=== PATIENT | female | born 1940 | race Caucasian/White ===

== ENCOUNTER → 2017-12-11 15:54 | Outpatient (CLI) | payer MEDICARE, MEDICAID, SELFPAY ==
[2017-12-11 17:22] LABS: Absolute Lymphocyte Count 1.82 X10^3/ul (0.83-4.51); Absolute Neutrophil Count 5.1 X10^3/uL (2.0-7.7); Basophil# 0.03 X10^3/uL; Basophil% 0.4 % (0-1); Eosinophils% 3.8 % (0-5); Hemoglobin 12.1 g/dl (12.0-15.0); Lymphocyte # 1.82 X10^3/ul (4.0); Lymphocyte % 23.2 % (19-41); Mean Corpuscular Hgb 29.7 pg (27.0-32.0); Mean Corpuscular Volume 95.6 fL (81-99); Mean Platelet Vol. 9.6 fl (6.2-12.0); Monocyte# 0.63 X10^3/uL; Neutrophil # 5.06 X10^3/uL (2.7-7.7); Neutrophil % 64.5 % (47-70); Platelet Count 295 K/mm3 (150-450); RBC Distribution Width CV 13.4 % (11.6-14.6); RBC Distribution Width SD 46.6 fl (35.1-43.9); Red Blood Count 4.08 M/mm3 (4.2-5.4); White Blood Count 7.9 K/mm3 (4.4-11.0)
[2017-12-11 17:26] LABS: POSITIVE COUNT NO; POSITIVE DIFFERENTIAL NO; POSITIVE MORPHOLOGY NO
[2017-12-11 17:55] LABS: ALB/GLOB Ratio 0.8 RATIO (0.9-2.4); AST(SGOT) 14 U/L (15-37); Alanine Aminotransfer ALT/SGPT 13 U/L (13-56); Albumin, Serum 3.6 g/dL (3.2-5.0); Alkaline Phosphatase 77 U/L (45-117); Anion Gap 8 (5-15); BUN 18 mg/dL (7-18); BUN/Creat Ratio 10.7 RATIO (10-20); Calcium,Total 8.7 mg/dL (8.5-10.1); Chloride 101 mmol/L (98-107); Creatinine, Serum 1.69 mg/dL (0.55-1.02); EST Glomerular Filtration Rate 31 mL/min (>60); Est Glom Filt Rate - Afr Amer 38 mL/min (>60); Globulin 4.5 g/dL (2.2-4.2); Glucose 83 mg/dL (74-106); Potassium 4.4 mmol/L (3.5-5.1); Protein, Total 8.1 g/dL (6.4-8.2); Sodium Level 137 mmol/L (136-145); Thyroid Stim Hormone (TSH) 3.49 uIU/mL (0.358-3.74)
== END ==
PROVIDERS: PCP Family Medicine Geriatric Medicine; Visit Provider Family Medicine Geriatric Medicine
DX: E55.9 Vitamin D deficiency, unspecified (principal); R53.83 Other fatigue
CPT/HCPCS: 36415; 80053; 82306; 84443; 85025

== ENCOUNTER 2018-02-16 16:00 | Emergency (ER) | payer MEDICARE, MEDICAID, SELFPAY ==
[2018-02-16 16:02] VITALS: BP 123/75; PULSE 105; RESP 20; TEMP 36.7; O2SAT 92; BMI 29.7
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
--- NOTE | 2018-02-16 17:26 | ED.DEP ---
ED Disposition - Plan for ED Patient: Chief Complaint: Wound Instructions: ED Contusion Hand Referrals: Mayo Duran Chi, MD [Primary Care Provider] -
[2018-02-16 17:43] VITALS: RESP 18
== END 2018-02-16 17:44 | disposition home or self-care (01) ==
LOC: ED 16:46
PROVIDERS: Emergency Provider Emergency Medicine; PCP Family Medicine Geriatric Medicine
DX: S60.031A Contusion of right middle finger without damage to nail, initial encounter (principal); S60.041A Contusion of right ring finger without damage to nail, initial encounter; W23.0XXA Caught, crushed, jammed, or pinched between moving objects, initial encounter; Y93.89 Activity, other specified; Y92.9 Unspecified place or not applicable; J44.9 Chronic obstructive pulmonary disease, unspecified; N18.9 Chronic kidney disease, unspecified
CPT/HCPCS: 73130; 99283

== ENCOUNTER 2018-02-18 17:41 | Emergency (ER) | payer MEDICARE, MEDICAID, SELFPAY ==
[2018-02-18 17:43] VITALS: BP 157/90; PULSE 91; RESP 20; TEMP 36.7; O2SAT 97; BMI 28.8
--- NOTE | 2018-02-18 17:54 | ED.RN ---
PT YELLING TO REMOVE CCOLLAR. REMOVED COLLAR ON HER OWN BEFORE ER EVALUATED.
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
--- NOTE | 2018-02-18 18:12 | ED.RN ---
AFTER DR BARBOZA LEFT THE ROOM THE PT STATES I FEEL NAUSEATED. WHAT IS HE GOING TO GIVE ME? IT ISN'T GOING TO MAKE ME GOOFY IS IT?. PT INFORMED THAT SHE MAY BE GIVEN TYLENOL, MOTRIN, OR NAPROXEN. PT STATES THAT DOESN'T WORK. DR BARBOZA NOTIFIED OF THE SAME
--- NOTE | 2018-02-18 18:33 | ED.RN ---
PT REFUSING XRAYS. DR BARBOZA IN TO SPEAK WITH THE PT. PT REQUESTING TO LEAVE AMA. PT REQUESTING STAFF CALL HER A TAXI.
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
== END 2018-02-18 18:48 | disposition left against medical advice (07) ==
PROVIDERS: Emergency Provider Emergency Medicine; Family Provider Family Medicine Geriatric Medicine; PCP Family Medicine Geriatric Medicine
DX: S50.311A Abrasion of right elbow, initial encounter (principal); S30.0XXA Contusion of lower back and pelvis, initial encounter; V86.49XA Person injured while boarding or alighting from other special all-terrain or other off-road motor vehicle, initial encounter; Y93.I9 Activity, other involving external motion; Y92.9 Unspecified place or not applicable; Y99.8 Other external cause status; E66.9 Obesity, unspecified; Z68.28 Body mass index [BMI] 28.0-28.9, adult; Z53.21 Procedure and treatment not carried out due to patient leaving prior to being seen by health care provider
CPT/HCPCS: 99283

== ENCOUNTER 2018-04-04 14:17 | Outpatient (RCR) | payer MEDICARE, MEDICAID, SELFPAY ==
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
== END 2018-04-04 19:00 | disposition home or self-care (01) ==
LOC: PT 14:17
PROVIDERS: Family Provider Family Medicine Geriatric Medicine; PCP Family Medicine Geriatric Medicine; Visit Provider Orthopaedic Surgery
DX: S42.031D Displaced fracture of lateral end of right clavicle, subsequent encounter for fracture with routine healing (principal)

== ENCOUNTER → 2018-04-30 14:50 | Outpatient (CLI) | payer MEDICARE, MEDICAID, SELFPAY | PROVIDERS: Family Provider Family Medicine Geriatric Medicine; PCP Family Medicine Geriatric Medicine; Visit Provider Family Medicine Geriatric Medicine | DX: R60.0 Localized edema (principal) | CPT/HCPCS: 93970 ==

== ENCOUNTER → 2018-06-11 14:08 | Outpatient (CLI) | payer MEDICARE, MEDICAID, SELFPAY ==
[2018-06-11 17:39] LABS: Absolute Lymphocyte Count 1.15 X10^3/ul (0.83-4.51); Absolute Neutrophil Count 3.6 X10^3/uL (2.0-7.7); Basophil# 0.04 X10^3/uL; Basophil% 0.7 % (0-1); Eosinophil# 0.27 X10^3/uL; Eosinophils% 4.8 % (0-5); Hematocrit 37.6 % (37-47); Hemoglobin 11.9 g/dl (12.0-15.0); Lymphocyte # 1.15 X10^3/ul (4.0); Lymphocyte % 20.6 % (19-41); Mean Corp Hgb Conc 31.6 g/gl (32-36); Mean Corpuscular Hgb 31.5 pg (27.0-32.0); Mean Corpuscular Volume 99.5 fL (81-99); Mean Platelet Vol. 9.8 fl (6.2-12.0); Monocyte# 0.48 X10^3/uL; Monocyte% 8.6 % (0-10); Neutrophil # 3.64 X10^3/uL (2.7-7.7); Neutrophil % 65.1 % (47-70); Platelet Count 268 K/mm3 (150-450); RBC Distribution Width CV 14.6 % (11.6-14.6); RBC Distribution Width SD 51.8 fl (35.1-43.9); Red Blood Count 3.78 M/mm3 (4.2-5.4); White Blood Count 5.6 K/mm3 (4.4-11.0)
[2018-06-11 17:41] LABS: POSITIVE COUNT NO; POSITIVE DIFFERENTIAL NO; POSITIVE MORPHOLOGY NO
[2018-06-11 18:22] LABS: ALB/GLOB Ratio 0.8 RATIO (0.9-2.4); AST(SGOT) 14 U/L (15-37); Alanine Aminotransfer ALT/SGPT 16 U/L (13-56); Albumin, Serum 3.3 g/dL (3.2-5.0); Alkaline Phosphatase 76 U/L (45-117); Anion Gap 8 (5-15); BUN 17 mg/dL (7-18); BUN/Creat Ratio 9.9 RATIO (10-20); Calcium,Total 8.6 mg/dL (8.5-10.1); Chloride 104 mmol/L (98-107); Creatinine, Serum 1.72 mg/dL (0.55-1.02); EST Glomerular Filtration Rate 30 mL/min (>60); Est Glom Filt Rate - Afr Amer 37 mL/min (>60); Globulin 4.1 g/dL (2.2-4.2); Glucose 99 mg/dL (74-106); Potassium 3.9 mmol/L (3.5-5.1); Protein, Total 7.4 g/dL (6.4-8.2); Sodium Level 141 mmol/L (136-145); Thyroid Stim Hormone (TSH) 3.56 uIU/mL (0.358-3.74); Vitamin D,25 Hydroxy 14.2 ng/mL (29.95-100.01)
== END ==
PROVIDERS: Family Provider Family Medicine Geriatric Medicine; PCP Family Medicine Geriatric Medicine; Visit Provider Family Medicine Geriatric Medicine
DX: E55.9 Vitamin D deficiency, unspecified (principal); R53.83 Other fatigue
CPT/HCPCS: 36415; 80053; 82306; 84443; 85025

== ENCOUNTER 2018-06-15 08:36 | Emergency (ER) | payer MEDICARE, MEDICAID, SELFPAY ==
[2018-06-15 08:37] VITALS: BP 151/73; PULSE 80; RESP 20; TEMP 36.6; O2SAT 93; BMI 29.6
--- NOTE | 2018-06-15 08:42 | ED.VISSUMM ---
- ER Visit Summary Date of Service: 06/15/18 Chief Complaint: Sore throat History of Present Illness: The patient is a [address] Duran. She reports that she woke this morning with a sore throat. She reports it is a dull, continuous pain Zeta 10 at worst and 7-10 currently. Is worsened by swallowing or breathing. She reports this relieved by hot coffee. Denies any fever or chills. She does report that she has right ear pain that is 6 out of 10 in severity. She denies a cough. She does have chronic shortness of breath that is unchanged. Patient also complains of dysuria and frequency that began 3-4 days ago. Physical Examination: Vitals: 98.0, 151/73, 80, 20, 93% of for there is nasal cannula.. General: Well-nourished and well-developed. Head: Normocephalic atraumatic. HEENT: Serous effusions bilaterally. Slight erythema on the right. No loss of landmarks. She has posterior oropharyngeal erythema. No tonsillar exudate or enlargement. She does have tender anterior cervical lymphadenopathy bilaterally right greater than left. Neck: Supple, no lymphadenopathy. No JVD. Nontender. Cardiovascular: Regular rate and rhythm. 2 out of 6 systolic murmur. Respiratory: No respiratory distress. Clear to auscultation bilaterally. Abdominal: Soft, nontender, nondistended, normal bowel sounds. No guarding, rebound, or peritoneal signs. Back: Nontender. Extremities: Nontender, no edema. Skin: Normal color, no rash. Neurologic: Alert and oriented ?3. Cranial nerves II through XII are intact. Normal strength and sensation. Psych: Normal affect. Test Results: Rapid strep is positive. UA shows UTI. Is nitrite positive. Emergency Department Course and Treatment: An [facility] report was obtained which show she is only had 2 prescriptions for opiates in the past year. Patient was treated with a dose of [place] and Keflex p.o. She is resting comfortably. Treatment Plan: Patient will be discharged on Keflex. She is given prescription for [place] for pain. Instructed to follow with her primary care physician in 3-5 days not improving. Return to the emergency department for any worsening symptoms. Disposition: To home in improved and stable condition. Impression: 1. Strep throat. 2. UTI. This note was generated with Dragon dictation software. It may contain incorrect words, spelling, and punctuation that were not noted in review of the chart prior to signing ED Disposition - Plan for ED Patient: Chief Complaint: Sore Throat Instructions: ED Strep Pharyngitis Conf, ED UTI Cystitis Female Prescriptions: Hydrocodone/Acetaminophen [[place] 5-325 Tablet] 1 - 2 each PO 4X/DAY PRN PRN 3 Days #12 tablet PRN Reason: Pain Cephalexin [Keflex] 500 mg PO BID #14 capsule Referrals: Mayo Duran Chi, MD [Primary Care Provider] - 3-5 Days if not improving
[2018-06-15 09:19] LABS: Color, Urine Yellow (Yellow); Glucose, Dipstick Normal (Normal); Ketone-Dipstick Negative (Negative); Leukocyte Esterase-Dipstick 500 /ul (Negative); Mucous, Urine 0 SEEN /hpf (<or=2+); Nitrite-Dipstick Positive (Negative); Occult Blood-Urine 50 /ul (Negative); Protein-Dipstick 30 mg/dl (Negative); Specific Gravity, Urine 1.015 (1.002-1.030); Urine Bilirubin Dipstick Negative (Negative); Urine Clarity Sl. Cloudy (Clear); Urine Urobilinogen Normal (Normal)
[2018-06-15 09:25] LABS: Red Blood Cells-Urine 0-5 SEEN /hpf (0-5)
[2018-06-15 09:26] LABS: Bacteria 1+ /hpf (None Seen); Squamous Epithelial Cells - UA 0-5 SEEN /hpf (5-10); White Blood Cells 50-100 SEEN /hpf (0-5)
--- NOTE | 2018-06-15 09:41 | ED.RN ---
pos strep a called from the ab. dr wilder aware
[2018-06-15] MEDS: Cephalexin 500 MG Capsule PO (10:07)
[2018-06-15] MEDS: HYDROcodone Bitartrate/Apap 5/325 Tablet PO (10:07)
[2018-06-15 10:12] VITALS: PULSE 76; RESP 20; O2SAT 95
== END 2018-06-15 10:12 | disposition home or self-care (01) ==
LOC: ED 08:59
PROVIDERS: Emergency Provider Emergency Medicine; Family Provider Family Medicine Geriatric Medicine; PCP Family Medicine Geriatric Medicine
DX: J02.0 Streptococcal pharyngitis (principal); N39.0 Urinary tract infection, site not specified; B96.89 Other specified bacterial agents as the cause of diseases classified elsewhere; J44.9 Chronic obstructive pulmonary disease, unspecified; N18.9 Chronic kidney disease, unspecified
CPT/HCPCS: 81001; 87880; 99283

== ENCOUNTER 2018-08-27 13:44 | Emergency (ER) | payer MEDICARE, MEDICAID, SELFPAY ==
[2018-08-27 13:45] VITALS: BP 175/85; PULSE 88; RESP 16; TEMP 36.6; O2SAT 91; BMI 30.2
--- NOTE | 2018-08-27 14:21 | RAD_ITS ---
STUDY: X-RAY CHEST REASON FOR EXAM: Female, 77 years old. Lower extremity edema. TECHNIQUE: Single AP portable view of the chest. COMPARISON: Comparison is made with prior study dated March 22, 2017. FINDINGS: Hyperinflation. Stable pleural parenchymal changes at the left lung base suggestive of scarring. There is no demonstrated pleural abnormality. Normal size heart. Normal mediastinum and sera. Normal visualized pulmonary arteries. There is atherosclerotic tortuosity of the aortic arch and descending thoracic aorta. There is a levoscoliosis of the thoracic spine. Healed right clavicular fracture. There is no demonstrated abnormality of the visualized soft tissue structures of the upper abdomen. RAD/Chest 1 View (Portable) IMPRESSION: Stable pleural parenchymal changes at the left lung base. Electronically Signed: Chandu Kohli MD at 14:54 EST Tel [phone], Service support ,
--- NOTE | 2018-08-27 14:22 | EKG12_ITS ---
Test Reason : EDEMA Blood Pressure : / mmHG Vent. Rate : 082 BPM Atrial Rate : 082 BPM P-R Int : 150 ms QRS Dur : 074 ms QT Int : 390 ms P-R-T Axes : 152 -26 139 degrees QTc Int : 455 ms Unusual P axis, possible ectopic atrial rhythm T wave abnormality, consider lateral ischemia Abnormal ECG Confirmed by MADELEINE ROBLEDO, KATHLEEN ([id number]), book editor CHELSIE SILVESTRE ([id number]) on 08/28/2018 9:01:34 AM Referred By: Confirmed By:KATHLEEN SALVADOR MD
[2018-08-27 14:55] LABS: Absolute Lymphocyte Count 1.59 X10^3/ul (0.83-4.51); Absolute Neutrophil Count 4.5 X10^3/uL (2.0-7.7); Basophil# 0.02 X10^3/uL; Basophil% 0.3 % (0-1); Eosinophil# 0.31 X10^3/uL; Eosinophils% 4.5 % (0-5); Hematocrit 36.1 % (37-47); Hemoglobin 11.2 g/dl (12.0-15.0); Lymphocyte # 1.59 X10^3/ul (4.0); Lymphocyte % 23.1 % (19-41); Mean Corpuscular Hgb 30.9 pg (27.0-32.0); Mean Corpuscular Volume 99.4 fL (81-99); Mean Platelet Vol. 8.8 fl (6.2-12.0); Monocyte# 0.48 X10^3/uL; Neutrophil # 4.46 X10^3/uL (2.7-7.7); Platelet Count 262 K/mm3 (150-450); RBC Distribution Width CV 13.5 % (11.6-14.6); Red Blood Count 3.63 M/mm3 (4.2-5.4); White Blood Count 6.9 K/mm3 (4.4-11.0)
[2018-08-27 14:56] LABS: POSITIVE COUNT NO; POSITIVE DIFFERENTIAL NO; POSITIVE MORPHOLOGY NO
[2018-08-27 15:07] LABS: ALB/GLOB Ratio 0.8 RATIO (0.9-2.4); AST(SGOT) 15 U/L (15-37); Alanine Aminotransfer ALT/SGPT 14 U/L (13-56); Albumin, Serum 3.1 g/dL (3.2-5.0); Alkaline Phosphatase 71 U/L (45-117); Anion Gap 8 (5-15); BUN 22 mg/dL (7-18); BUN/Creat Ratio 12.4 RATIO (10-20); Calcium,Total 8.3 mg/dL (8.5-10.1); Chloride 104 mmol/L (98-107); Creatinine, Serum 1.77 mg/dL (0.55-1.02); EST Glomerular Filtration Rate 29 mL/min (>60); Est Glom Filt Rate - Afr Amer 36 mL/min (>60); Estimated Creatinine Clearance 26.42 ml/min; Globulin 4.1 g/dL (2.2-4.2); Glucose 101 mg/dL (74-106); Potassium 4.3 mmol/L (3.5-5.1); Protein, Total 7.2 g/dL (6.4-8.2); Sodium Level 141 mmol/L (136-145)
[2018-08-27 15:21] LABS: BNP,B-Type NATRIURETIC PEPTIDE 40.7 pg/mL (0-100)
--- NOTE | 2018-08-27 15:29 | ED.VISSUMM ---
- ER Visit Summary Date of Service: 08/27/18 Chief Complaint: Leg swelling History of Present Illness: The patient is a 77 F who presents with bilateral leg swelling of 10 days duration. She states this been progressive. She states that they have never been swollen like this. She notes a history of COPD and requires 4 L of home oxygen nasal daily. She denies any change in her shortness of breath or cough. No chest pain or palpitations. She has not seen her doctor for this condition. Physical Examination: Afebrile vital signs are stable Gen: Well-nourished well-developed Head: Normocephalic atraumatic Eyes: Perrl EOMI ENT: TMs clear no rhinorrhea moist mucous membranes Neck: Supple no lymphadenopathy no JVD nontender CVS: Regular rate rhythm no murmurs normal S1-S2 Respiratory: No distress clear to auscultation bilaterally chest nontender Abdomen: Soft nontender nondistended normal bowel sounds no masses Back: Nontender Extremity: Symmetric lower extremity pitting edema to the level of the tibial tuberosity. Skin: Normal color no rash Neuro: alert orientated ?3 CN II-XII intact normal strength sensation Psych: Normal affect normal mood Test Results: BC CMP troponin natruretic peptide within normal limits. Chest x-ray no acute findings. EKG is sinus at a rate of 82. Emergency Department Course and Treatment: Patient was advised to maintain a low-salt diet. She was advised to elevate her legs and obtain compression stockings. We will place her on Lasix and I will ask she follow-up with her primary care physician in 1 week Impression: 1. Lymphedema This note was generated with [employer] dictation software. It may contain incorrect words, spelling, and punctuation that were not noted in review of the chart prior to signing ED Disposition - Plan for ED Patient: Disposition: Home or Assisted Living Chief Complaint: Edema Instructions: ED Lymphedema Prescriptions: Furosemide [Lasix] 40 mg PO DAILY #7 tablet Referrals: Mayo Duran Chi, MD [Primary Care Provider] - 1 Week
--- NOTE | 2018-08-27 15:34 | ED.DCSUM_ITS ---
- ER Visit Summary Date of Service: 08/27/18 Chief Complaint: Leg swelling History of Present Illness: The patient is a 77 F who presents with bilateral leg swelling of 10 days duration. She states this been progressive. She states that they have never been swollen like this. She notes a history of COPD and requires 4 L of home oxygen nasal daily. She denies any change in her shortness of breath or cough. No chest pain or palpitations. She has not seen her doctor for this condition. Physical Examination: Afebrile vital signs are stable Gen: Well-nourished well-developed Head: Normocephalic atraumatic Eyes: Perrl EOMI ENT: TMs clear no rhinorrhea moist mucous membranes Neck: Supple no lymphadenopathy no JVD nontender CVS: Regular rate rhythm no murmurs normal S1-S2 Respiratory: No distress clear to auscultation bilaterally chest nontender Abdomen: Soft nontender nondistended normal bowel sounds no masses Back: Nontender Extremity: Symmetric lower extremity pitting edema to the level of the tibial tuberosity. Skin: Normal color no rash Neuro: alert orientated ?3 CN II-XII intact normal strength sensation Psych: Normal affect normal mood Test Results: BC CMP troponin natruretic peptide within normal limits. Chest x- ray no acute findings. EKG is sinus at a rate of 82. Emergency Department Course and Treatment: Patient was advised to maintain a low-salt diet. She was advised to elevate her legs and obtain compression stockings. We will place her on Lasix and I will ask she follow-up with her primary care physician in 1 week Impression: 1. Lymphedema This note was generated with [employer] dictation software. It may contain incorrect words, spelling, and punctuation that were not noted in review of the chart prior to signing ED Disposition - Plan for ED Patient: Disposition: Home or Assisted Living Chief Complaint: Edema Instructions: ED Lymphedema Prescriptions: Furosemide [Lasix] 40 mg PO DAILY #7 tablet Referrals: Mayo Duran Chi, MD [Primary Care Provider] - 1 Week
[2018-08-27 15:59] VITALS: BP 168/87; PULSE 85; RESP 18; O2SAT 98
== END 2018-08-27 16:01 | disposition home or self-care (01) ==
PROVIDERS: Emergency Provider Emergency Medicine; Family Provider Family Medicine Geriatric Medicine; PCP Family Medicine Geriatric Medicine
DX: I89.0 Lymphedema, not elsewhere classified (principal); J44.9 Chronic obstructive pulmonary disease, unspecified; Z99.81 Dependence on supplemental oxygen; E66.9 Obesity, unspecified; Z68.30 Body mass index [BMI] 30.0-30.9, adult; Z87.891 Personal history of nicotine dependence; Z82.49 Family history of ischemic heart disease and other diseases of the circulatory system
CPT/HCPCS: 71045; 80053; 83880; 84484; 85025; 93005; 99283; A4216

== ENCOUNTER → 2018-09-04 13:33 | Outpatient (CLI) | payer MEDICARE, MEDICAID, SELFPAY ==
[2018-08-27 13:45] VITALS: BMI 30.2
[2018-09-04 17:01] LABS: Absolute Lymphocyte Count 1.44 X10^3/ul (0.83-4.51); Absolute Neutrophil Count 4.3 X10^3/uL (2.0-7.7); Basophil# 0.03 X10^3/uL; Basophil% 0.5 % (0-1); Eosinophil# 0.29 X10^3/uL; Eosinophils% 4.4 % (0-5); Hemoglobin 11.9 g/dl (12.0-15.0); Lymphocyte # 1.44 X10^3/ul (4.0); Lymphocyte % 21.7 % (19-41); Mean Corp Hgb Conc 31.3 g/gl (32-36); Mean Corpuscular Hgb 31.2 pg (27.0-32.0); Mean Corpuscular Volume 99.7 fL (81-99); Mean Platelet Vol. 9.7 fl (6.2-12.0); Monocyte# 0.53 X10^3/uL; Neutrophil # 4.33 X10^3/uL (2.7-7.7); Neutrophil % 65.1 % (47-70); Platelet Count 301 K/mm3 (150-450); RBC Distribution Width CV 13.3 % (11.6-14.6); RBC Distribution Width SD 47.3 fl (35.1-43.9); Red Blood Count 3.81 M/mm3 (4.2-5.4); White Blood Count 6.6 K/mm3 (4.4-11.0)
[2018-09-04 17:04] LABS: POSITIVE COUNT NO; POSITIVE DIFFERENTIAL NO; POSITIVE MORPHOLOGY NO
[2018-09-04 17:10] LABS: Anion Gap 9 (5-15); BUN 24 mg/dL (7-18); BUN/Creat Ratio 13.6 RATIO (10-20); Chloride 98 mmol/L (98-107); Creatinine, Serum 1.77 mg/dL (0.55-1.02); EST Glomerular Filtration Rate 29 mL/min (>60); Est Glom Filt Rate - Afr Amer 36 mL/min (>60); Glucose 88 mg/dL (74-106); Potassium 3.9 mmol/L (3.5-5.1); Sodium Level 138 mmol/L (136-145)
--- OUTSIDE RECORDS SUMMARY | 2018-12-07 00:36 | XMS RPT_ITS ---
:1940 Author Organization [place] Support Name Relationship Address Phone JULIO MONZON Unavailable Unavailable + [place] [address] NA, JAVY Unavailable Unavailable + [place] [address] R Unavailable Unavailable Unavailable NA, JULIO Unavailable Unavailable + [place] [address] NA, JAVY Unavailable Unavailable + [place] [address] R Unavailable Unavailable Unavailable NA, JULIO Unavailable Unavailable + [place] [address] NA, JAVY Unavailable Unavailable + [place] [address] R Unavailable Unavailable Unavailable NA, JULIO Unavailable Unavailable + [place] [address] NA, JAVY Unavailable Unavailable + [place] [address] R Unavailable Unavailable Unavailable NA, JULIO Unavailable Unavailable + [place] [address] NA, JAVY Unavailable Unavailable + [place] [address] R Unavailable Unavailable Unavailable NA, JULIO Unavailable Unavailable + [place] [address] NA, JAVY Unavailable Unavailable + [place] [address] R Unavailable Unavailable Unavailable NA, JULIO Unavailable Unavailable + [place] [address] NA, JAVY Unavailable Unavailable + [place] [address] R Unavailable Unavailable Unavailable NA, JULIO Unavailable Unavailable + [place] [address] NA, JAVY Unavailable Unavailable + [place] [address] R Unavailable Unavailable Unavailable NA, JULIO Unavailable Unavailable + [place] [address] NA, JAVY Unavailable Unavailable + [place] [address] R Unavailable Unavailable Unavailable NA, JULIO Unavailable Unavailable + [place] [address] NA, JAVY Unavailable .. + [place] [address] R Unavailable Unavailable Unavailable NA, JULIO Unavailable . + [place] [address] NA, JAVY Unavailable .. + [place] [address] R Unavailable Unavailable Unavailable NA, JULIO Unavailable . [phone] [place] [address] NA, JAVY Unavailable .. + [place] [address] R Unavailable Unavailable Unavailable Care Team Providers Name Role Phone CORTES SMITH ([facility]) Referring Unavailable CY SOTO) Attending Unavailable CY SOTO) Referring Unavailable Roger, Mayo Chi Attending Unavailable Roger, Mayo Chi Primary Care Unavailable Roger, Mayo Chi Primary Care Unavailable Jeff Faith Admitting Unavailable NoeyeJeff nicolas Referring Unavailable Genevaam, Julia Valerie Attending Unavailable Roger, Mayo Chi Attending Unavailable Estela Sprague Attending Unavailable Jeff Faith Admitting Unavailable HuangJeff Attending Unavailable Jeff Faith Referring Unavailable Roger, Mayo Chi Primary Care Unavailable Jeff Faith Consulting Unavailable NoeyeponJeff granado Admitting Unavailable Genevaam, Julia Valerie Attending Unavailable Noeyepong Jeff Referring Unavailable Roger, Mayo Chi Primary Care Unavailable Koram, Julia Valerie Consulting Unavailable Price, Sina Attending Unavailable Roger, Mayo Chi Primary Care Unavailable Kavin Medeiros Attending Unavailable Kavin Medeiros Referring Unavailable Roger, Mayo Chi Primary Care Unavailable Roger, Mayo Chi Attending Unavailable Roger, Mayo Chi Referring Unavailable Roger, Mayo Chi Primary Care Unavailable Roger, Mayo Chi Attending Unavailable Roger, Mayo Chi Primary Care Unavailable Roger, Mayo Chi Primary Care Unavailable Ashish Evans Attending Unavailable Roger, Mayo Chi Primary Care Unavailable Luis Puente Attending Unavailable PROBLEMS PROBLEMS DATE TYPE CONDITION / CODE ATTENDING STATUS SOURCE 09/27/2018 Active Acute kidney NA Active [facility] failure, [place] unspecified / Repository N17.9(ICD-10) 09/04/2018 Unknown R60.9 - Edema, Roger, Mayo Chi Active [facility] unspecified / Community R60.9(ICD-10) Hospital Repository 06/15/2018 Unknown J02.0 - Ashish Evans Active [facility] Streptococcal Community pharyngitis / Hospital J02.0(ICD-10) Repository 06/20/2018 Unknown S42.031D - Kavin Medeiros Active [facility] end [facility] right clavicle, Repository subsequent encounter for fracture with routine healing / S42.031D(ICD-10) 02/19/2018 Active Unspecified injury NA Active [facility] of right shoulder [place] and upper arm, Repository initial encounter / S49.91XA(ICD-10) PROCEDURES PROCEDURES No Procedure Records FoundRESULTS RESULTS COMP METABOLIC PANEL Collected: 09/27/2018 Status: F Source: [place] 11:43 AM [facility] REPOSITORY TYPE CODE TESTS RESULT OUT OF REFERENCE UNITS RANGE LAB TP 6.3-8.0 g/dL Protein, Total 7.1 LAB ALB 3.9-4.9 g/dL Low Albumin 3.7 LAB CA 8.5-10.2 mg/dL Calcium, Total 9.3 LAB TBIL 0.2-1.3 mg/dL Bilirubin, Total 0.2 LAB ALKP 34-123 U/L Alkaline Phosphatase 60 LAB AST 13-35 U/L AST 16 LAB GLU 74-99 mg/dL Glucose 95 Result Comment: The [place] [employer] (ADA) provides guidance for cutoff values for fasting glucose and random glucose. The ADA defines fasting as no caloric intake for at least 8 hours. Fas ting plasma glucose results between 100 to 125 mg/dL indicate increased risk for diabetes (prediabetes). Fasting plasma glucose results greater than or equal to 126 mg/dL meet the criteria for diagnosis of diabetes. In the absence of unequivocal hyperglycemia, results should be confirmed by repeat testing. In a patient with classic symptoms of hyperglycemia or hyperglycemic crisis, random plasma glucose results greater than or equal to 200 mg/dL meet the criteria for diagnosis of diabetes. Reference: Standards of Medical Care in Diabetes 2016, [place] [employer]. Diabetes Care. 2016.39(Suppl 1). LAB BUN 7-21 mg/dL BUN High 25 LAB CRET 0.58-0.96 mg/dL Creatinine High 1.49 LAB NA 136-144 mmol/L Sodium 138 LAB K 3.7-5.1 mmol/L Potassium 5.0 LAB CL 97-105 mmol/L Chloride 102 LAB CO2 22-30 mmol/L CO2 22 LAB AGAP 9-18 mmol/L Anion Gap 14 LAB ALT 7-38 U/L ALT 9 LAB GFRAA eGFR- Amer. 41 LAB GFRNAA . eGFR-All Other Races 34 Result Comment: eGFR (Estimated GFR) Units of measure: mL/min/1.73 meters squared eGFR is derived from the reexpressed MDRD Study equation using the following parameters: serum creatinine, age, gender and race. The creatinine assay has been calibrated to be traceable to IDMS. An eGFR <60 mL/min/1.73m2 for >3 months is consistent with chronic kidney disease. Refer to KDOQI guidelines for clinical interpretation. In patients with unstable renal function, e.g. those with acute kidney injury, the eGFR may not accurately reflect actual GFR. Performed By: #### CMP #### [facility] [address] [id number] PROGRESS Observed: 09/27/2018 Status: COMPLETED Source: [place] 10:44 AM [facility] REPOSITORY HNO ID: [id number] Author: Cy Enrique) Charles Service: (none) Author Type: Physician Type: Progress Notes Filed: 09/27/2018 8:17 PM Note Text: Chief Complaint Patient presents with: Hospital Follow Up: lymphedema HPI Bernice Monzon is a 78 year old female who presents here today for new patient Hospital Discharge Follow up.. Patient admitted to [facility] from 09/22 to 09/23 for COPD exacerbation. Treated with aerosols and steroids while inpatient with significant improvement in symptoms. Discharged home on 09/23 with recommendations to continue Advair, albuterol PRN, Duoneb PRN, added Azithromycin 500 mg for 3 days and Prednisone 40 mg daily for 5 days. Discontinued her Lasix due to SHELLEY with creatinine of 1.8 and GRF of 29. Patient back home where she lives by herself. SOB has improved. Admits to continued wheezing with occasional cough. Taking medicaitons as prescribed and using duonebs every 4 hours. Still on oxygen at 4L via [place]. Has 1 day left of abx and a couple days of prednisone taper. Able to perform ADLs. Tolerating PO diet. Past medical history, appointments, medications, allergies reviewed. Previous Medical History No past medical history on file. Previous Surgical History No past surgical history on file. Family History No family history on file. Patient Allergies ALLERGIES Allergen Reactions - Librium [Chlordiaze* Swelling - Penicillin Swelling Current Medications No current outpatient prescriptions on file prior to visit. No current facility-administered medications on file prior to visit. Social History Social History Marital status: Spouse name: Years of education: Number of children: Social History Main Topics Smoking status: Former Smoker Packs/day: 0.00 Years: 0.00 Smokeless tobacco: Never Used Review of Symptoms REVIEW OF SYSTEMS GENERAL: No weight loss, malaise or fevers RESPIRATORY: See HPI CARDIOVASCULAR: Negative for chest pain, leg swelling, hypertension, CHF or palpitations GI: No nausea, vomiting, or diarrhea SKIN: Negative for lesions, rash, and itching EXAM: BP 138/82 Pulse 86 Temp 37.1 ?C (98.8 ?F) (Right Tympanic) Resp 14 Wt 86.2 kg (190 lb) SpO2 93% General Appearance: Well appearing, alert, in no acute distress, well-hydrated, well nourished.. Skin: Skin color, texture, turgor normal, no suspicious rashes or lesions. Lungs: sounds mildly decreased bilaterally without wheezing, consolidation, rales, rhonchi. Heart: RRR without murmur, gallop, or rubs. No ectopy. Abdomen: Normal abdominal exam, Abdomen soft, non-tender. Bowel sounds normal. No masses, organomegaly. Extremities: No deformities, edema, skin discoloration, clubbing or cyanosis. Good capillary refill. . Health Maintenance List DTAP,TDAP,TD(1 - Tdap) due on 1958 LIPID SCREEN due on 1984 DIABETES SCREEN due on 1984 COLORECTAL CANCER SCREENING,SEE MODIFIER due on 1989 BONE DENSITY due on 2004 ADULT PREVNAR-13 due on 2004 PNEUMOVAX AGE 65 AND OVER WITH 5YR LOOKBACK(1) due on 2004 INFLUENZA(1) due on 05/19/2018 ASSESSMENT/PLAN: 1. COPD with exacerbation (HCC) - ICD9: 491.21, ICD10: J44.1 (primary diagnosis) Improving. Will change short burst of steroid to taper. Continue duonebs q4 hrs PRN and continue Advair daily as prescribed. To call with worsening symptoms. - PREDNISONE 10 MG TABLET 2. SHELLEY (acute kidney injury) (HCC) - ICD9: 584.9, ICD10: N17.9 Repeat CMP with cessation of lasix. F/u in 3-4 weeks regarding lymphedema. No leg swelling today. - COMP METABOLIC PANEL 3. Hospital discharge follow-up - ICD9: V67.59, ICD10: Z09 See #1. Cy Soto MD CNOV Observed: 09/27/2018 Status: COMPLETED Source: [place] 10:40 AM [facility] REPOSITORY Office Visit (FAMPWS) ERNESTINA MONZONARA Devika ([id number]) 1940 F Date Time Provider Department 09/27/18 10:40 AM CY SOTO) FAMPWS During your visit today, we recorded the following information about you: Temperature Pulse Respiration Blood pressure 98.8 degrees 86/minute 14/minute 138/82 Weight 86.2 kg Cy Soto MD 09/27/2018 8:17 PM Signed Chief Complaint Patient presents with: Hospital Follow Up: lymphedema HPI Bernice Fortune Na is a 78 year old female who presents here today for new patient Hospital Discharge Follow up.. Patient admitted to [facility] from 09/22 to 09/23 for COPD exacerbation. Treated with aerosols and steroids while inpatient with significant improvement in symptoms. Discharged home on 09/23 with recommendations to continue Advair, albuterol PRN, Duoneb PRN, added Azithromycin 500 mg for 3 days and Prednisone 40 mg daily for 5 days. Discontinued her Lasix due to SHELLEY with creatinine of 1.8 and GRF of 29. Patient back home where she lives by herself. SOB has improved. Admits to continued wheezing with occasional cough. Taking medicaitons as prescribed and using duonebs every 4 hours. Still on oxygen at 4L via [place]. Has 1 day left of abx and a couple days of prednisone taper. Able to perform ADLs. Tolerating PO diet. Past medical history, appointments, medications, allergies reviewed. Previous Medical History No past medical history on file. Previous Surgical History No past surgical history on file. Family History No family history on file. Patient Allergies ALLERGIES Allergen Reactions - Librium [Chlordiaze* Swelling - Penicillin Swelling Current Medications No current outpatient prescriptions on file prior to visit. No current facility-administered medications on file prior to visit. Social History Social History Marital status: Spouse name: Years of education: Number of children: Social History Main Topics Smoking status: Former Smoker Packs/day: 0.00 Years: 0.00 Smokeless tobacco: Never Used Review of Symptoms REVIEW OF SYSTEMS GENERAL: No weight loss, malaise or fevers RESPIRATORY: See HPI CARDIOVASCULAR: Negative for chest pain, leg swelling, hypertension, CHF or palpitations GI: No nausea, vomiting, or diarrhea SKIN: Negative for lesions, rash, and itching EXAM: BP 138/82 Pulse 86 Temp 37.1 ?C (98.8 ?F) (Right Tympanic) Resp 14 Wt 86.2 kg (190 lb) SpO2 93% General Appearance: Well appearing, alert, in no acute distress, well-hydrated, well nourished.. Skin: Skin color, texture, turgor normal, no suspicious rashes or lesions. Lungs: sounds mildly decreased bilaterally without wheezing, consolidation, rales, rhonchi. Heart: RRR without murmur, gallop, or rubs. No ectopy. Abdomen: Normal abdominal exam, Abdomen soft, non-tender. Bowel sounds normal. No masses, organomegaly. Extremities: No deformities, edema, skin discoloration, clubbing or cyanosis. Good capillary refill. . Health Maintenance List DTAP,TDAP,TD(1 - Tdap) due on 1958 LIPID SCREEN due on 1984 DIABETES SCREEN due on 1984 COLORECTAL CANCER SCREENING,SEE MODIFIER due on 1989 BONE DENSITY due on 2004 ADULT PREVNAR-13 due on 2004 PNEUMOVAX AGE 65 AND OVER WITH 5YR LOOKBACK(1) due on 2004 INFLUENZA(1) due on 05/19/2018 ASSESSMENT/PLAN: 1. COPD with exacerbation (HCC) - ICD9: 491.21, ICD10: J44.1 (primary diagnosis) Improving. Will change short burst of steroid to taper. Continue duonebs q4 hrs PRN and continue Advair daily as prescribed. To call with worsening symptoms. - PREDNISONE 10 MG TABLET 2. SHELLEY (acute kidney injury) (HCC) - ICD9: 584.9, ICD10: N17.9 Repeat CMP with cessation of lasix. F/u in 3-4 weeks regarding lymphedema. No leg swelling today. - COMP METABOLIC PANEL 3. Hospital discharge follow-up - ICD9: V67.59, ICD10: Z09 See #1. Cy Soto MD Referring Provider: SELF [200] Allergies As of Date: 09/27/2018 Noted Allergy Reaction LIBRIUM (CHLORDIAZEPOXIDE HCL) 02/19/2018 7 - Swelling PENICILLIN 02/19/2018 7 - Swelling Date Reviewed: 09/27/2018 Reviewed by: Kimberly Alcocer Ma - Fully Assessed Reason for Visit: Hospital Follow Up [177] Cmt: lymphedema Reason For Visit History Recorded Primary Visit Diagnosis:COPD with exacerbation (HCC) [J44.1] Other Visit Diagnoses:SHELLEY (acute kidney injury) (HCC) [N17.9] Hospital discharge follow-up [Z09] Order(s):predniSONE (DELTASONE) 10 mg tabletTake 4 tabs daily x 3 days, then 3 tabs x 3 days, 2 tabs x 3 days, then 1 tab x3 days with food.Disp: 30 tabletRfl: 0 COMP METABOLIC PANEL [SQCMP] Order #: [id number] FUTURE Prescriptions as of 09/27/2018 Sig: ALBUTEROL SULFATE HFA 90 MCG/* Inhale 2 Puffs as instructed. FLUTICASONE 250 MCG-SALMETERO* Inhale 1 Puff as instructed t* IPRATROPIUM-ALBUTEROL 0.5 MG-* Inhale 3 mL as instructed. PREDNISONE 10 MG TABLET Take 4 tabs daily x 3 days, t* Problem List As Of Date: 09/27/2018 (None) Prescriptions ordered this encounter Disp Refills Start End PREDNISONE 10 MG TABLET 30 t* 0 09/27/2018 10/09/2018 Sig: Take 4 tabs daily x 3 days, then 3 tabs x 3 days, 2 tabs x 3 days, then 1 tab x3 days with food. Medications Discontinued During This Encounter predniSONE (DELTASONE) 20 mg tablet 09/27/2018 Class: Historical Med Route: ORAL Sig: Take 20 mg by mouth once daily. Disc: Reason for discontinue is not on file. Disposition: Return in about 4 weeks (around 10/25/2018). Follow-up and Disposition History Recorded Encounter Status:Closed by CY SOTO MD on 09/27/18 12 LEAD ELECTROCARDIOGRAM Observed: 09/25/2018 Status: F Source: [place] 8:54 AM [facility] REPOSITORY [facility] Cardiovascular Services [address] [place] [address] 12 Lead EKG 09/22/18 0021 MR#: [id number] Acct: [id number] Name: BERNICE MONZON Rep #: [id number] : 1940 78 From: Benjamin Samayoa MD Attending Dr: Julia Dia MD Status: DIS IN Ordering Dr: Luis E Freire MD Date: 09/22/18 Location: [facility] Sex: F C Admitted: 09/22/18 Test Reason : Blood Pressure : / mmHG Vent. Rate : 092 BPM Atrial Rate : 092 BPM P-R Int : 162 ms QRS Dur : 062 ms QT Int : 360 ms P-R-T Axes : 061 -42 063 degrees QTc Int : 445 ms Normal sinus rhythm Left axis deviation Nonspecific ST and T wave abnormality Abnormal ECG Confirmed by BENJAMIN SAMAYOA MD ([id number]), editor managing director CHELSIE SILVESTRE ([id number]) on 09/25/2018 8:54:03 AM Referred By: Jeff Faith Confirmed By:BENJAMIN SAMAYOA MD 09/25/18 0854 Date Benjamin Samayoa MD CC: Jeff Faith MD; Luis E Freire MD; Julia Dia MD; Mayo Duran MD Signed DISCHARGE SUMMARY Observed: 09/23/2018 Status: F Source: [place] 12:36 PM [facility] REPOSITORY [facility] Medical Records Department [address] [place] [address] Discharge Summary 09/23/18 0841 MR#: [id number] Acct: [id number] Name: BERNICE MONZON Rep #: [id number] : 1940 78 From: Julia Dia MD PCP: Roger ROBLEDO,Mayo Cabrera Status: ADM IN Y Location: [place] [address] Discharge Date and Diagnosis - Problem List Patient Problems: Active and Suspected Problems Acute respiratory failure with hypoxemia (Acute) Date of Admission: 09/22/18 Date of Discharge: 09/23/18 - Primary Discharge Diagnosis Active and Suspected Problems Acute respiratory failure with hypoxemia (Acute) COPD exacerbation - Secondary Discharge Diagnosis Chronic Problems GERD (gastroesophageal reflux disease) (Chronic) Venous insufficiency (Chronic) COPD (chronic obstructive pulmonary disease) (Chronic) Renal failure (Chronic) Obesity (BMI 30.0-34.9) (Chronic) Anxiety (Chronic) Right leg DVT (Chronic) CKD (chronic kidney disease) (Chronic) Hospital Course and Treatment Imaging Results: Diagnostic Data Chest X-Ray 09/22/18 00:07 IMPRESSION: Degenerative changes, as described above. No demonstrated acute cardiopulmonary process. Electronically Signed: Juan Jimenez MD at 0:35 EST Tel , Service support , Operations: None Procedures: None Summary of Care Provided: The patient is a 78 year old F with past medical history of CKD stage III, chronic hypoxic respiratory failure due to COPD on 4 L of home oxygen. She was admitted with a complaint of progressively worsening shortness of breath worsened by exertion with an associated cough productive of thick sputum and postnasal drip as well as rhinorrhea, wheezing and chest congestion. Her saturation was down in the 80s even on a 4 L of oxygen when paramedics arrived at her house and she required increasing amounts of oxygen. She was admitted and managed for acute on chronic hypoxic respiratory failure due to COPD exacerbation. She was started on breathing treatments and azithromycin. Appropriate influenza screen was negative. Oxygen was titrated to maintain saturation above 92%. Patient remained stable, shortness of breath improved significantly and she was weaned down to her baseline 4 L of oxygen. Wheezing also resolved. She was discharged home on 09/23/2018 with a prescription for DuoNeb aerosols as she has a nebulizer at home and also prescription for p.o. prednisone for 5 days and p.o. azithromycin for 3 days. He is to follow-up with her primary care doctor. Patient seen and examined prior to discharge. She had no complaints and felt well. She denied any fever, any chills, any cough or chest pain, shortness of breath, abdominal pain, any diarrhea vomiting. Review of systems otherwise negative. Labs and vitals reviewed. Home medications reviewed and reconciled. o/e: Vitals: Vital Signs Height 5 ft 8 in Weight: 195 lb 5.273 oz Weight in Pounds 195.3 lbs Pulse Ox 98 [] General: Alert, Oriented x3, Cooperative, No apparent distress HEENT: Atraumatic, PERRLA, EOMI, Normocephalic Oral: Moist Mucosa Neck: Supple, No JVD, Negative Carotid Bruits Lungs: Clear to auscultation, Normal air movement, No rhonchi, No wheeze, No rales, - - on 4L of oxygen, which is her baseline. Cardiovascular: Regular rate, Regular Rhythm, Normal S1, Normal S2, No murmurs Abdomen: Bowel Sounds Present, Soft, Non Tender, Non-Distended, No Hepato-splenomegaly Extremities: No clubbing, No cyanosis, No edema, Capillary Refill Less than 3 Seconds Skin: No rashes, No breakdown Musculoskeletal: No Tenderness to Palpation of Joints or Extremities Lymphatic: No Cervical, Supraclavicular, or Inguinal Adenopathy Neurological: Cranial nerves II-XII grossly intact, Neuro grossly intact, Motor Exam 5/5 strength throughout Psych/Mental Status: Normal Affect, Appropriate, Alert and oriented to time, place, person, mood and affect Plan as detailed above. Patient Problems: Active and Suspected Problems Acute respiratory failure with hypoxemia (Acute) - Physical Exam Vital Signs Temp Pulse Resp BP Pulse Ox 98.3 F 105 H 20 H 138/89 H 98 09/23/18 08:10 09/23/18 08:10 09/23/18 08:10 09/23/18 08:10 09/23/18 08:10 Oxygen Flow Rate (L/min) 4 Oxygen Delivery Method Room Air Weight: 195 lb 5.273 oz Body Mass Index (BMI) 29.7 Intake and Output for Last 24 Hours Intake Total 1375 / 1375 750 / 750 Balance 1375 / 1375 750 / 750 Microbiology Past 72 Hours 09/22/18 07:40 Influenza Types A,B Direct FA (HERMILO) - Final Mucosa - Nasopharyngeal Laboratory Tests Past 24 Hrs Sodium 135 L Potassium 4.0 Chloride 101 Carbon Dioxide 26.0 Anion Gap 8 Discharge Diet: Low fat/ Low Cholesterol Discharge Activity: Return to Normal Activity Weight Bearing Status: Weight bearing as tolerated Call your doctor if you observe: Shortness of breath, Swelling in the ankles Home Medications: Medications to take at Discharge Fluticasone/Salmeterol [Advair 250/50 Mcg Diskus] 1 puff INHALATION BID 03/20/14 Albuterol Sulfate [Ventolin Hfa] 1 puff INHALATION DAILY 06/15/18 Azithromycin 500 mg PO DAILY #3 tablet 09/23/18 Ipratropium/Albuterol Sulfate [Duoneb] 3 ml INHALATION Q4HWA.RT #60 ampul.neb 09/23/18 predniSONE tablet 40 mg PO DAILY 5 Days #10 tablet 09/23/18 Following Prescrptions Were Given to Patient: Ipratropium/Albuterol Sulfate [Duoneb] 3 ml INHALATION Q4HWA.RT #60 ampul.neb Azithromycin 500 mg PO DAILY #3 tablet predniSONE tablet 40 mg PO DAILY 5 Days #10 tablet Primary Care Physician: Mayo Duran Chi, MD [Primary Care Provider] - Please follow up with your Primary Care Physician in: 1 week Disposition: Home Minutes spent on discharge:: 35 Patient Condition:: Stable Medical Necessity - Tobacco Use Smoking Status: Former smoker Meaningful Use Info Meaningful Use Diagnoses (Choose all that apply): None applicable Code Visit Inpatient E AND M: [id number] Disch Hosp 09/23/18 1236 <Electronically signed by Julia Dia MD> Date Julia Dia MD Cosigner Signature (if applicable): Date CC: Julia Dia MD; Mayo Duran MD Signed DISCHARGE INSTRUCTION Observed: 09/23/2018 Status: F Source: [place] 8:41 AM [facility] REPOSITORY [facility] Medical Records Department [address] [place] [address] Instructions for Home/Discharge Instructions 09/23/18 0840 MR#: [id number] Acct: [id number] Name: BERNICE MONZON Rep #: [id number] : 1940 78 From: Julia Dia MD PCP: Mayo Duran MD, Chi Status: ADM IN - Discharge Diagnoses Current Active Problems: Current Active and Chronic Problems Acute respiratory failure with hypoxemia (Acute) You will use the following diet at home:: Cardiac Your food should be the consistency of: Regular Your liquids should be the consistency of: Regular/Thin Discharge Activity: Return to Normal Activity Weight Bearing Status: Weight bearing as tolerated Call your doctor if you observe: Shortness of breath, Swelling in the ankles Allergies/Adverse Reactions: Allergies chlordiazepoxide HCl [From Librium] Allergy (Verified 09/22/18 06:53) Swelling Penicillins Allergy (Verified 09/22/18 06:53) Swelling Medications to take at Discharge Fluticasone/Salmeterol [Advair 250/50 Mcg Diskus] 1 puff INHALATION BID 03/20/14 Albuterol Sulfate [Ventolin Hfa] 1 puff INHALATION DAILY 06/15/18 Azithromycin 500 mg PO DAILY #3 tablet 09/23/18 Ipratropium/Albuterol Sulfate [Duoneb] 3 ml INHALATION Q4HWA.RT #60 ampul.neb 09/23/18 predniSONE tablet 40 mg PO DAILY 5 Days #10 tablet 09/23/18 The following prescriptions were given: Ipratropium/Albuterol Sulfate [Duoneb] 3 ml INHALATION Q4HWA.RT #60 ampul.neb Azithromycin 500 mg PO DAILY #3 tablet predniSONE tablet 40 mg PO DAILY 5 Days #10 tablet Primary Care Physician: Mayo Duran Chi, MD [Primary Care Provider] - Please follow up with your Primary Care Physician in: 1 week Test Results: Test results from this visit will be discussed in further detail at your follow-up appointment, if applicable. Proposed Discharge Date: 09/23/18 09/23/18 0841 <Electronically signed by Julia Dia MD> Date Julia Dia MD CC: Mayo Duran MD Signed BASIC METABOLIC Collected: 09/23/2018 Status: F Source: SQUIRE PROFILE ([facility]) 5:18 AM [facility] REPOSITORY TYPE CODE TESTS RESULT OUT OF RANGE REFERENCE UNITS LAB L501.0100 74-106 mg/dL High GLU 175 Result Comment: Fasting Glucose result greater than or equal to 126 mg/dL suggests DIABETES MELLITUS per A.D.A. criteria. Please note revised GLUCOSE reference range effective 2017. LAB L501.1000 7-18 mg/dL High BUN 26 LAB L501.1100 0.55-1.02 mg/dL High CREAT,SERUM 1.81 Result Comment: The validity of the calculated GFR AND GFRAA in patients over 70 years has not been determined. Clinical correlation is essential. LAB L501.1110 >60 mL/min Low EST GFR 29 Result Comment: Non- GFR Calc LAB L501.1115 >60 mL/min Low EST GFR - AA 35 Result Comment: GFR Calc LAB L501.1255 ml/min Normal Estimated CRCL 25.42 LAB L501.1300 10-20 RATIO Normal BUN/CRE 14.4 LAB L501.2200 8.5-10 mg/dL Low .1 CA 8.4 LAB L501.5300 136-14 mmol/L Low 5 NA 135 LAB L501.5600 3.5-5. mmol/L Normal 1 K 4.0 LAB L501.5900 98-107 mmol/L Normal CL 101 LAB L501.6100 21.0-3 mmol/L Normal 2.0 CO2 26.0 LAB L501.6200 5-15 Normal GAP 8 Performed By: #### L500.2500 #### [facility] [address] [place], [address] Observed: 09/22/2018 Status: F Source: SQUIRE INFLUENZA A+B (RAPID 7:40 AM [facility]) REPOSITORY FLU A/B Rapid Negative test results should be confirmed with FLU PANEL MOLECULAR if indicated. Influenza Ag, Direct Presumptive NEGATIVE for Influenza A/B Antigen (See Note) Performed By: #### M101.0101 #### [facility] [address] [place] [place], [address] HISTORY AND PHYSICAL Observed: 09/22/2018 Status: F Source: SQUIRE EXAM 6:33 AM [facility] REPOSITORY [facility] Medical Records Department [address] [place] [address] History and Physical 09/22/18108 MR#: [id number] Acct: [id number] Name: BERNICE MONZON Rep #: [id number] : 1940 78 From: Jeff Faith MD PCP: Roger ROBLEDO,Mayo Cabrera Status: ADM IN Location: [facility] CU756-5 ADDENDUM by Jeff Faith MD on 09/22/18 at 0633 Code Visit Patient received cycling at emergency department. should read Patient received doxycycline at emergency department. 09/22/18 0633 <Electronically signed by Jeff Faith MD> Date Jeff Faith MD cc: Jeff Faith MD; Mayo Duran MD * Signed Problem List (1) Acute respiratory failure with hypoxemia Status: Acute (2) Renal failure Status: Chronic (3) Sepsis Status: Inactive History of Present Illness Date of Admission: 09/22/18 Chief Complaint: shortness of breath The patient is a 78 year old F with a significant history of former tobacco abuse; CKD stage 3B; end-stage COPD with rxeodx-qwh-eqgaf home oxygen of 4 L who presented with 1 week history of progressively worsening shortness of breath. Shortness of breath increases with mild exertion. She reported at baseline when she walks 3-4 feet she gets very short of breath. She uses electric chair to get around. Associated with her symptoms is a productive cough of thick copious sputum; postnasal drip; chest congestion; rhinorrhea; and wheezing. Her sputum is grayish and at times daily. Her nasal discharge is greenish. She denies any chills or fever. Paramedics called the patient home patient was on 4 L and her oxygen saturation was in the mid 80s. She required a brief episode of oxygen by nonrebreather mask. Patient reports baseline pain symptoms of orthopnea and paroxysmal nocturnal dyspnea. She reports having to sleep in a recliner because of shortness of breath. Past Medical History Past Medical History (Chronic Problems): Chronic Problems GERD (gastroesophageal reflux disease) (Chronic) Venous insufficiency (Chronic) COPD (chronic obstructive pulmonary disease) (Chronic) Renal failure (Chronic) Obesity (BMI 30.0-34.9) (Chronic) Anxiety (Chronic) Right leg DVT (Chronic) CKD (chronic kidney disease) (Chronic) Allergies chlordiazepoxide HCl [From Librium] Allergy (Verified 08/27/18 13:47) Swelling Penicillins Allergy (Verified 08/27/18 13:47) Swelling Home Medications: Ambulatory Orders Medication Instructions Recorded Fluticasone/Salmeterol [Advair 1 puff INHALATION BID 03/20/14 Surgical History: - - Uterine suspension; benign lump was removed from right breast. Lives: Alone Smoking Status: Former smoker - *Family History Maternal History Items: Heart Disease Paternal History Items: Heart Disease Review of Systems Constitutional: Reports: Malaise, Weakness, Fatigue. Denies: Chills, Fever, Weight Change HEENT: Reports: Head Aches, Post Nasal Drip, Sinus Congestion, Sinus Drainage Cardiovascular: Reports: Edema - Bilateral legs, Orthopnea, Paroxysmal Noc. Dyspnea. Denies: Chest Pain, Palpitations Respiratory: Reports: Cough, Shortness of breath at rest, Sputum production, Wheezing Gastrointestinal: Denies: Abdominal Pain, Nausea, Vomiting Genitourinary: Denies: Dysuria Musculoskeletal: Denies: Joint Pain, Joint Tenderness Skin: Denies: Rash, Wounds Neurological: Denies: Numbness, Tingling, Focal weakness Psychiatric: Denies: Anxiety, Depression, Homicidal Ideations, Suicidal Ideations Hematologic/ Lymphatic: Denies: Easy Bruising, Easy Bleeding VTE Information - Inpt Only VTE Present on Admission: No VTE Mechan Device Prophylaxis: None VTE Pharm Prophylaxis ordered?: Yes Patient Problems: Active and Suspected Problems Acute respiratory failure with hypoxemia (Acute) - Physical Exam General: Alert, Oriented x3, Cooperative HEENT: Atraumatic, PERRLA, EOMI, Normocephalic Neck: Supple, No JVD, Negative Carotid Bruits Lungs: Rhonchi, Short of Breath, Tachypneic, Wheezes Cardiovascular: Regular rate, No murmurs Abdomen: Bowel Sounds Present, Soft, Non Tender Extremities: No edema Skin: - - Induration of right leg Musculoskeletal: Tenderness - Bilateral legs Neurological: Cranial nerves II-XII grossly intact Psych/Mental Status: Normal Affect, Appropriate Vital Signs Temp Pulse Resp BP Pulse Ox 98.4 F 92 22 H 156/71 H 97 09/21/18 23:59 09/22/18 00:02 09/22/18 00:02 09/22/18 00:02 09/22/18 00:02 Oxygen Flow Rate (L/min) 4 Oxygen Delivery Method Nasal Cannula Weight: 91.7 kg Body Mass Index (BMI) 30.7 Laboratory Tests Past 24 Hrs WBC 7.7 RBC 3.83 L Hgb 11.8 L Hct 38.0 MCV 99.2 H MCH 30.8 MCHC 31.1 L RDW 13.9 Assessment/Plan All Active Problems Acute respiratory failure with hypoxemia (Acute) Atypical chest pain (Acute) History of DVT (deep vein thrombosis) (Resolved) The patient is a 78 year old F with a significant history of CKD stage 3B; former tobacco abuse; end-stage COPD with dmhmqv-reo-nnbtb home oxygen of 4 L who presented with 1 week history of progressively worsening shortness of breath; productive cough of thick copious sputum; postnasal drip; chest congestion; rhinorrhea; and wheezing consistent with acute on chronic hypoxemic respiratory failure secondary to likely COPD exacerbation. Acute on chronic hypoxemic respiratory failure Secondary to COPD exacerbation CXR independently reviewed. Agrees with atelectasis at lung bases. Scheduled DuoNeb Albuterol as needed Received Solu-Medrol at the emergency department.Solu-Medrol continued Patient received cycling at emergency department. We will start patient on azithromycin. Incentive spirometer and chest physiotherapy ordered. Rapid influenza screen ordered. Oxygen as needed to keep oxygen saturation more than 90%. Mucinex and Flonase ordered Home inhaled corticosteroid continued.. Monitor BMP Elevated creatinine with a diagnosis of SHELLEY. On admission her creatinine is 1.96. Review of old records show that her baseline creatinine is about 1.75. She reports being started on Lasix about a week ago for lymphedema. She reports frequent urination to the point of view of requiring depends. We will hold off Lasix for 1 day since at the time of examination patient did not have any swelling. Maybe she may require a maintenance dose of Lasix to control her lymphedema. Consider trending BMP. Elevated blood pressure without diagnosis of hypertension. On admission blood pressure was not within goal. Patient denies any history of hypertension Trend blood pressure. As needed Hydralazine IV ordered. Lymphedema She was at the emergency department on 08/27/2018 and was started on Lasix. Thereafter her PCP continued Lasix. Patient reported that therapy PCP she will be on this for 30 days. Lasix on hold because of elevated creatinine approaching diagnosis of SHELLEY. Resume Lasix when creatinine improves. DVT Prophylaxis Subcutaneous heparin Code Visit Inpatient E AND M: [id number] Init Hosp L3 09/22/18 0224 <Electronically signed by Jeff Faith MD> Date Jeff Faith MD Cosigner Signature: Date (if applicable) CC: Jeff Faith MD; Mayo Duran MD Signed EMERGENCY DEPARTMENT Observed: 09/22/2018 Status: F Source: SQUIRE SUMMARY 12:57 AM [facility] REPOSITORY [facility] Medical Records Department [address] [place] [address] Emergency Department Summary 09/22/18 0053 MR#: [id number] Acct: [id number] Name: BERNICE MONZON Rep #: [id number] : 1940 78 From: Luis E Freire MD PCP: Roger ROBLEDO,Mayo Cabrera Status: REG ER - ER Visit Summary Date of Service: 09/22/18 Chief Complaint: COPD and shortness of breath History of Present Illness: The patient is a 78 F who presents with COPD and shortness of breath. This began earlier today. She does complain of a URI-like illness with congestion and rhinorrhea. She complains of increased cough and increased sputum production. She has on 4 L nasal cannula at all times related to her COPD. She denies any chest pain. No fevers or vomiting. She does take Lasix for lymphedema. She has no coronary history or history of CHF. She notes that her leg swelling has significantly improved with the Lasix. Physical Examination: Afebrile respiratory rate 30 Patient has increased work of breathing speaking in short sentences she has diminished air exchange and diffuse inspiratory and expiratory wheezing Heart is regular rate and rhythm Abdomen soft Mild symmetric peripheral edema Alert Test Results: EKG shows sinus rhythm at a rate of 92. Labs notable for BUN 22, creatinine 1.96. Chest x-ray shows no acute process. Emergency Department Course and Treatment: Patient was treated with albuterol and Atrovent aerosols as well as IV Solu-Medrol. She is improved on reevaluation. She was given doxycycline as well for COPD exacerbation. Patient to be discussed with hospitalist and admitted. Treatment Plan: [] Disposition: Admit Impression: COPD exacerbation This note was generated with [employer] dictation software. It may contain incorrect words, spelling, and punctuation that were not noted in review of the chart prior to signing ED Disposition - Plan for ED Patient: Chief Complaint: Shortness of Breath Referrals: Mayo Duran Chi, MD [Primary Care Provider] - What to do if you have Problems For any increased pain, shortness of breath, bleeding, nausea or vomiting, chest pain, or any unexpected problems, contact your Primary Care Provider. Call [facility] ([phone]) or report to the closest Emergency Room. Call 911 if necessary. 09/22/18 0057 <Electronically signed by Luis E Freire MD> Date Luis E Freire MD Cosigner Signature (If Indicated): Date CC: Mayo Duran MD CHEST 1 VIEW Observed: 09/22/2018 Status: F Source: JUNIOR (PORTABLE) 12:10 AM [facility] REPOSITORY [facility] Imaging Services [address] [place] [address] Chest 1 View (Portable) MR#: [id number] Acct: [id number] Name: BERNICE MONZON Rep #: [id number] : 1940 F 78 From: Juan Jimenez MD PCP: Mayo Duran MD, Chi Status: PRE ER Study: Chest 1 View (Portable) Date of Exam: 09/22/18 Exam# [id number] Ordering Dr: Luis E Freire MD STUDY: X-RAY CHEST REASON FOR EXAM: Female, 78 years old. Dyspnea. Cough TECHNIQUE: Single AP portable view of the chest. COMPARISON: None. FINDINGS: Subsegmental atelectases are noted in the lung bases. There is no demonstrated pleural abnormality. Normal size heart. Normal mediastinum and sera. Normal visualized pulmonary arteries. Normal visualized aortic arch and descending thoracic aorta. There is a levoscoliosis of the thoracic spine. There is degenerative osteoarthritis of the bilateral shoulders. There is no demonstrated abnormality of the visualized soft tissue structures of the upper abdomen. RAD/Chest 1 View (Portable) IMPRESSION: Degenerative changes, as described above. No demonstrated acute cardiopulmonary process. Electronically Signed: Juan Jimenez MD at 0:35 EST Tel , Service support , CC: Luis E Freire MD; Mayo Duran MD Statistical Reporting Analyst: Signed CBC W/DIFF, AUTOMATED Collected: 09/22/2018 Status: F Source: JUNIOR 12:00 AM [facility] REPOSITORY TYPE CODE TESTS RESULT OUT OF RANGE REFERENCE UNITS LAB L100.1000 4.4-11.0 K/mm3 Normal WBC 7.7 LAB L100.1200 4.2-5.4 M/mm3 Low RBC 3.83 LAB L100.1300 12.0-15.0 g/dl Low HGB 11.8 LAB L100.1400 37-47 % Normal HCT 38.0 LAB L100.1500 81-99 fL High MCV 99.2 LAB L100.1600 27.0-32.0 pg Normal MCH 30.8 LAB L100.1700 32-36 g/gl Low MCHC 31.1 LAB L100.1810 11.6-14.6 % Normal RDW CV 13.9 LAB L100.1820 35.1-43.9 fl High RDW SD 50.1 LAB L100.1900 150-450 K/mm3 Normal PLT 274 LAB L100.2000 6.2-12.0 fl Normal MPV 9.0 LAB L100.2100 47-70 % Normal NEUT% 68.7 LAB L100.2200 19-41 % Low LY% 17.7 LAB L100.2300 0-10 % High MONO% 10.6 LAB L100.2400 0-5 % Normal EO% 2.6 LAB L100.2500 0-1 % Normal BASO% 0.3 LAB L100.2550 0.0-0.9 % Normal IM GRAN % 0.100 Result Comment: IG% - Immature Granulocytes (promyelocytes, myelocytes and metamyelocytes) > 1% indicates that a LEFT SHIFT is Present. LAB L100.2620 2.0-7.7 X10 3/uL Normal Absolute Neut 5.3 LAB L100.2720 0.83-4.51 X10 3/ul Normal Absolute Lymph 1.36 Performed By: #### L100.0100 #### [facility] [address] [place], [place], [address] BASIC METABOLIC Collected: 09/22/2018 Status: F Source: JUNIOR PROFILE (BMP) 12:00 AM [facility] REPOSITORY TYPE CODE TESTS RESULT OUT OF RANGE REFERENCE UNITS LAB L501.0100 74-106 mg/dL High GLU 115 Result Comment: Fasting Glucose result from 100 to 125 mg/dL suggests IMPAIRED HOMEOSTASIS per A.D.A. criteria. Please note revised GLUCOSE reference range effective 2017. LAB L501.1000 7-18 mg/dL High BUN 22 LAB L501.1100 0.55-1.02 mg/dL High CREAT,SERUM 1.96 Result Comment: The validity of the calculated GFR AND GFRAA in patients over 70 years has not been determined. Clinical correlation is essential. LAB L501.1110 >60 mL/min Low EST GFR 26 Result Comment: Non- GFR Calc LAB L501.1115 >60 mL/min Low EST GFR - AA 32 Result Comment: GFR Calc LAB L501.1255 ml/min Normal Estimated CRCL 23.48 LAB L501.1300 10-20 RATIO Normal BUN/CRE 11.2 LAB L501.2200 8.5-10 mg/dL Normal .1 CA 8.8 LAB L501.5300 136-14 mmol/L Normal 5 NA 140 LAB L501.5600 3.5-5. mmol/L Normal 1 K 3.7 LAB L501.5900 98-107 mmol/L Normal CL 100 LAB L501.6100 21.0-3 mmol/L Normal 2.0 CO2 30.0 LAB L501.6200 5-15 Normal GAP 10 Performed By: #### L500.2500 #### [facility] [address] [place], [address] CBC W/DIFF, AUTOMATED Collected: 09/04/2018 Status: F Source: SQUIRE 1:35 PM [facility] REPOSITORY TYPE CODE TESTS RESULT OUT OF RANGE REFERENCE UNITS LAB L100.1000 4.4-11.0 K/mm3 Normal WBC 6.6 LAB L100.1200 4.2-5.4 M/mm3 Low RBC 3.81 LAB L100.1300 12.0-15.0 g/dl Low HGB 11.9 LAB L100.1400 37-47 % Normal HCT 38.0 LAB L100.1500 81-99 fL High MCV 99.7 LAB L100.1600 27.0-32.0 pg Normal MCH 31.2 LAB L100.1700 32-36 g/gl Low MCHC 31.3 LAB L100.1810 11.6-14.6 % Normal RDW CV 13.3 LAB L100.1820 35.1-43.9 fl High RDW SD 47.3 LAB L100.1900 150-450 K/mm3 Normal PLT 301 LAB L100.2000 6.2-12.0 fl Normal MPV 9.7 LAB L100.2100 47-70 % Normal NEUT% 65.1 LAB L100.2200 19-41 % Normal LY% 21.7 LAB L100.2300 0-10 % Normal MONO% 8.0 LAB L100.2400 0-5 % Normal EO% 4.4 LAB L100.2500 0-1 % Normal BASO% 0.5 LAB L100.2550 0.0-0.9 % Normal IM GRAN % 0.300 Result Comment: IG% - Immature Granulocytes (promyelocytes, myelocytes and metamyelocytes) > 1% indicates that a LEFT SHIFT is Present. LAB L100.2620 2.0-7.7 X10 3/uL Normal Absolute Neut 4.3 LAB L100.2720 0.83-4.51 X10 3/ul Normal Absolute Lymph 1.44 Performed By: #### L100.0100 #### [facility] [address] [place], [place], [address] BASIC METABOLIC Collected: 09/04/2018 Status: F Source: JUNOIR PROFILE (BMP) 1:35 PM [facility] REPOSITORY TYPE CODE TESTS RESULT OUT OF RANGE REFERENCE UNITS LAB L501.0100 74-106 mg/dL Normal GLU 88 Result Comment: Please note revised GLUCOSE reference range effective 2017. LAB L501.1000 7-18 mg/dL High BUN 24 LAB L501.1100 0.55-1.02 mg/dL High CREAT,SERUM 1.77 Result Comment: The validity of the calculated GFR AND GFRAA in patients over 70 years has not been determined. Clinical correlation is essential. LAB L501.1110 >60 mL/min Low EST GFR 29 Result Comment: Non- GFR Calc LAB L501.1115 >60 mL/min Low EST GFR - AA 36 Result Comment: GFR Calc LAB L501.1300 10-20 RATIO Normal BUN/CRE 13.6 LAB L501.2200 8.5-10.1 mg/dL CA Normal 9.0 LAB L501.5300 136-145 mmol/L NA Normal 138 LAB L501.5600 3.5-5.1 mmol/L K Normal 3.9 LAB L501.5900 98-107 mmol/L CL Normal 98 LAB L501.6100 21.0-32.0 mmol/L Normal CO2 31.0 LAB L501.6200 5-15 Normal GAP 9 Performed By: #### L500.2500 #### [facility] [address] [facility] [place], [address] EMERGENCY DEPARTMENT Observed: 08/31/2018 Status: F Source: SQUIRE SUMMARY 10:39 PM [facility] REPOSITORY [facility] Medical Records Department [address] [place] [address] Emergency Department Summary 08/27/18 1529 MR#: [id number] Acct: [id number] Name: BERNICE MONZON Rep #: [id number] : 1940 77 From: Luis Puente DO PCP: Mayo Duran MD, Chi Status: DEP ER - ER Visit Summary Date of Service: 08/27/18 Chief Complaint: Leg swelling History of Present Illness: The patient is a 77 F who presents with bilateral leg swelling of 10 days duration. She states this been progressive. She states that they have never been swollen like this. She notes a history of COPD and requires 4 L of home oxygen nasal daily. She denies any change in her shortness of breath or cough. No chest pain or palpitations. She has not seen her doctor for this condition. Physical Examination: Afebrile vital signs are stable Gen: Well-nourished well-developed Head: Normocephalic atraumatic Eyes: Perrl EOMI ENT: TMs clear no rhinorrhea moist mucous membranes Neck: Supple no lymphadenopathy no JVD nontender CVS: Regular rate rhythm no murmurs normal S1-S2 Respiratory: No distress clear to auscultation bilaterally chest nontender Abdomen: Soft nontender nondistended normal bowel sounds no masses Back: Nontender Extremity: Symmetric lower extremity pitting edema to the level of the tibial tuberosity. Skin: Normal color no rash Neuro: alert orientated 3 CN II-XII intact normal strength sensation Psych: Normal affect normal mood Test Results: BC CMP troponin natruretic peptide within normal limits. Chest x-ray no acute findings. EKG is sinus at a rate of 82. Emergency Department Course and Treatment: Patient was advised to maintain a low-salt diet. She was advised to elevate her legs and obtain compression stockings. We will place her on Lasix and I will ask she follow-up with her primary care physician in 1 week Impression: 1. Lymphedema This note was generated with [employer] software. It may contain incorrect words, spelling, and punctuation that were not noted in review of the chart prior to signing ED Disposition - Plan for ED Patient: Disposition: Home or Assisted Living Chief Complaint: Edema Instructions: ED Lymphedema Prescriptions: Furosemide [Lasix] 40 mg PO DAILY #7 tablet Referrals: Mayo Duran Chi, MD [Primary Care Provider] - 1 Week What to do if you have Problems For any increased pain, shortness of breath, bleeding, nausea or vomiting, chest pain, or any unexpected problems, contact your Primary Care Provider. Call [facility] ([phone]) or report to the closest Emergency Room. Call 911 if necessary. 08/31/181 <Electronically signed by Luis Puente DO> Date Luis Puente DO Cosigner Signature (If Indicated): Date CC: Mayo Duran MD 12 LEAD ELECTROCARDIOGRAM Observed: 08/28/2018 Status: F Source: JUNIOR 8:59 AM [facility] REPOSITORY [facility] Cardiovascular Services [address] [place] [address] 12 Lead EKG 08/27/18 1436 MR#: [id number] Acct: [id number] Name: BERNICE MONZON Rep #: [id number] : 1940 77 From: Benjamin Samayoa MD Attending Dr: Status: DEP ER Ordering Dr: Luis Puente DO Date: 08/27/18 Location: ED Sex: F C Admitted: Test Reason : EDEMA Blood Pressure : / mmHG Vent. Rate : 082 BPM Atrial Rate : 082 BPM P-R Int : 150 ms QRS Dur : 074 ms QT Int : 390 ms P-R-T Axes : 152 -26 139 degrees QTc Int : 455 ms Unusual P axis, possible ectopic atrial rhythm T wave abnormality, consider lateral ischemia Abnormal ECG Confirmed by MADELEINE ROBLEDO, BENJAMIN ([id number]), editor managing director CHELSIE SILVESTRE ([id number]) on 08/28/2018 9:01:34 AM Referred By: Confirmed By:BENJAMIN SAMAYOA MD 08/28/18 0901 Date Benjamin Samayoa MD CC: Luis Puente DO; Mayo Duran MD Signed CBC W/DIFF, AUTOMATED Collected: 08/27/2018 Status: F Source: JUNIOR 2:35 PM [facility] REPOSITORY TYPE CODE TESTS RESULT OUT OF RANGE REFERENCE UNITS LAB L100.1000 4.4-11.0 K/mm3 Normal WBC 6.9 LAB L100.1200 4.2-5.4 M/mm3 Low RBC 3.63 LAB L100.1300 12.0-15.0 g/dl Low HGB 11.2 LAB L100.1400 37-47 % Low HCT 36.1 LAB L100.1500 81-99 fL High MCV 99.4 LAB L100.1600 27.0-32.0 pg Normal MCH 30.9 LAB L100.1700 32-36 g/gl Low MCHC 31.0 LAB L100.1810 11.6-14.6 % Normal RDW CV 13.5 LAB L100.1820 35.1-43.9 fl High RDW SD 49.0 LAB L100.1900 150-450 K/mm3 Normal PLT 262 LAB L100.2000 6.2-12.0 fl Normal MPV 8.8 LAB L100.2100 47-70 % Normal NEUT% 65.0 LAB L100.2200 19-41 % Normal LY% 23.1 LAB L100.2300 0-10 % Normal MONO% 7.0 LAB L100.2400 0-5 % Normal EO% 4.5 LAB L100.2500 0-1 % Normal BASO% 0.3 LAB L100.2550 0.0-0.9 % Normal IM GRAN % 0.100 Result Comment: IG% - Immature Granulocytes (promyelocytes, myelocytes and metamyelocytes) > 1% indicates that a LEFT SHIFT is Present. LAB L100.2620 2.0-7.7 X10 3/uL Normal Absolute Neut 4.5 LAB L100.2720 0.83-4.51 X10 3/ul Normal Absolute Lymph 1.59 Performed By: #### L100.0100 #### [facility] [address] [place], [address] COMPREHENSIVE METABOLIC Collected: 08/27/2018 Status: F Source: [facility] 2:35 PM [facility] REPOSITORY TYPE CODE TESTS RESULT OUT OF RANGE REFERENCE UNITS LAB L501.0100 74-106 mg/dL Normal GLU 101 Result Comment: Fasting Glucose result from 100 to 125 mg/dL suggests IMPAIRED HOMEOSTASIS per A.D.A. criteria. Please note revised GLUCOSE reference range effective 2017. LAB L501.1000 7-18 mg/dL High BUN 22 LAB L501.1100 0.55-1.02 mg/dL High CREAT,SERUM 1.77 Result Comment: The validity of the calculated GFR AND GFRAA in patients over 70 years has not been determined. Clinical correlation is essential. LAB L501.1110 >60 mL/min Low EST GFR 29 Result Comment: Non- GFR Calc LAB L501.1115 >60 mL/min Low EST GFR - AA 36 Result Comment: GFR Calc LAB L501.1255 ml/min Normal Estimated CRCL 26.42 LAB L501.1300 10-20 RATIO Normal BUN/CRE 12.4 LAB L501.1500 6.4-8. g/dL Normal 2 T PROT 7.2 LAB L501.1800 3.2-5. g/dL Low 0 ALB 3.1 LAB L501.1950 2.2-4. g/dL Normal 2 GLOB 4.1 LAB L501.2000 0.9-2. RATIO Low 4 A/G 0.8 LAB L501.2200 8.5-10 mg/dL Low .1 CA 8.3 LAB L501.4100 15-37 U/L Normal AST 15 LAB L501.4305 45-117 U/L Normal ALK P 71 LAB L501.4405 13-56 U/L Normal ALT 14 LAB L501.4600 0.20-1 mg/dL Normal .00 T BILI 0.40 LAB L501.5300 136-14 mmol/L Normal 5 NA 141 LAB L501.5600 3.5-5. mmol/L Normal 1 K 4.3 LAB L501.5900 98-107 mmol/L Normal CL 104 LAB L501.6100 21.0-3 mmol/L Normal 2.0 CO2 29.0 LAB L501.6200 5-15 Normal GAP 8 Performed By: #### L500.4050, L501.4010 #### [facility] [address] [place], [place], [id number] TROPONIN-I Collected: 08/27/2018 Status: F Source: SQUIRE 2:35 PM [facility] REPOSITORY TYPE CODE TESTS RESULT OUT OF RANGE REFERENCE UNITS LAB L501.4010 <0.045 ng/mL Normal < 0.015 TROPONIN-I Result Comment: TROPONIN-I EXPECTED VALUES <0.045 Negative 0.045 - 0.590 Consistent with Cardiac Damage > OR = 0.600 Critical Value Not every elevated troponin is indicative of TX. These values should be used with clinical judgement in examining the patient's clinical picture for diagnosis. To establish a diagnosis of TX versus myocardial injury, there must be a demonstrated rise and/or fall in the troponin values, in addition to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 punctuation that were not noted in review of the chart prior to signing ED Disposition - Plan for ED Patient: Disposition: Home or Assisted Living Chief Complaint: Fall Instructions: ED Abrasion, ED Contusion Sacrum Coccyx, ED Refusal Of Further Treatment Referrals: Myao Duran Chi, MD [Primary Care Provider] - As Needed What to do if you have Problems For any increased pain, shortness of breath, bleeding, nausea or vomiting, chest pain, or any unexpected problems, contact your Primary Care Provider. Call [facility] ([phone]) or report to the closest Emergency Room. Call 911 if necessary. 02/18/18 2284 <Electronically signed by Sina Price MD> Date Sina Price MD Cosigner Signature (If Indicated): Date CC: Mayo Duran MD EMERGENCY DEPARTMENT Observed: 02/16/2018 Status: F Source: SQUIRE SUMMARY 10:24 PM [facility] REPOSITORY [facility] Medical Records Department [address] [place] [address] Emergency Department Summary 02/16/18 1611 MR#: [id number] Acct: [id number] Name: BERNICE MONZON Rep #: [id number] : 1940 77 From: Estela Sprague MD PCP: Mayo Duran MD, Chi Status: DEP ER - ER Visit Summary Date of Service: 02/16/18 Chief Complaint: Right hand injury History of Present Illness: The patient is a 77 F presenting with right hand injury. Patient states she was slamming a sliding glass door and caught her right long and ring finger. This occurred just prior to arrival. No other injuries. Physical Examination: Vitals are stable. Patient is afebrile. Alert no acute distress. HEENT exam is unremarkable. Neck is nontender Lungs are clear and equal bilaterally. Heart is regular rate and rhythm. Extremities right long and ring finger distal tenderness with active full range of motion. Ecchymosis to finger pad Skin is warm and dry. No focal neurologic deficit. Remainder of exam is unremarkable. Emergency Department Course and Treatment: Ice pack was applied. X-ray of the right hand was obtained and shows no acute pathology. Patient is put in aluminum foam finger splint. Advised to ice and elevate. Advised to follow-up with her primary care physician. Advised return to ED if worsening complaints. Disposition: Discharge home Impression: Right hand contusion This note was generated with [employer] dictation software. It may contain incorrect words, spelling, and punctuation that were not noted in review of the chart prior to signing ED Disposition - Plan for ED Patient: Disposition: Home or Assisted Living Chief Complaint: Wound Instructions: ED Contusion Hand Referrals: Mayo Duran Chi, MD [Primary Care Provider] - What to do if you have Problems For any increased pain, shortness of breath, bleeding, nausea or vomiting, chest pain, or any unexpected problems, contact your Primary Care Provider. Call [facility] ([phone]) or report to the closest Emergency Room. Call 911 if necessary. 02/16/18 2224 <Electronically signed by Estela Sprague MD> Date Estela Sprague MD Cosigner Signature (If Indicated): Date CC: Mayo Duran MD DISCHARGE INSTRUCTION Observed: 02/16/2018 Status: F Source: JUNIOR 5:26 PM [facility] Medical Records Department [address] [place] [address] Discharge Instruction 02/16/181725 MR#: [id number] Acct: [id number] Name: BERNICE MONZON Rep #: [id number] : 1940 77 From: Estela Sprague MD PCP: Mayo Duran MD, Chi Status: REG ER ED Disposition - Plan for ED Patient: Chief Complaint: Wound Instructions: ED Contusion Hand Referrals: Mayo Duran Chi, MD [Primary Care Provider] - What to do if you have Problems For any increased pain, shortness of breath, bleeding, nausea or vomiting, chest pain, or any unexpected problems, contact your Primary Care Provider. Call [facility] ([phone]) or report to the closest Emergency Room. Call 911 if necessary. 02/16/181725 <Electronically signed by Estela Sprague MD> Date Estela Sprague MD Cosigner Signature (If Indicated): Date CC: Mayo Duran MD HAND MIN 3 VIEWS Observed: 02/16/2018 Status: F Source: JUNIOR 4:10 PM [facility] Imaging Services [address] [place] [address] Hand Min 3 Views MR#: [id number] Acct: [id number] Name: BERNICE MONZON Rep #: [id number] : 1940 F 77 From: Jeffry Arenas MD PCP: Mayo Durna MD, Chi Status: REG ER Study: Hand Min 3 Views Date of Exam: 02/16/18 Exam# [id number] Ordering Dr: Estela Sprague MD STUDY: X-RAY - RIGHT HAND REASON FOR EXAM: Female, 77 years old. Pain in ring finger. History of trauma. TECHNIQUE: Three view(s) of the hand. COMPARISON: None. FINDINGS: Bones: There is generalized osteopenia. Joints: There is osteoarthritic change of the radiocarpal articulation, the radial carpal bradycardia, the first carpometacarpal joint and the metacarpophalangeal and interphalangeal joints. Soft tissues: The soft tissues are unremarkable. Foreign body: None RAD/Hand Min 3 Views IMPRESSION: Osteopenia with osteoarthritic changes as described. No acute pathology. Electronically Signed: Jeffry Arenas MD at 17:15 EDT , Service support , CC: Estela Sprague MD; Mayo Duran MD Statistical Reporting Analyst: Signed CBC W/DIFF, AUTOMATED Collected: 12/11/2017 Status: F Source: JUNIOR 3:57 PM [facility] REPOSITORY TYPE CODE TESTS RESULT OUT OF RANGE REFERENCE UNITS LAB L100.1000 4.4-11.0 K/mm3 Normal WBC 7.9 LAB L100.1200 4.2-5.4 M/mm3 Low RBC 4.08 LAB L100.1300 12.0-15.0 g/dl Normal HGB 12.1 LAB L100.1400 37-47 % Normal HCT 39.0 LAB L100.1500 81-99 fL Normal MCV 95.6 LAB L100.1600 27.0-32.0 pg Normal MCH 29.7 LAB L100.1700 32-36 g/gl Low MCHC 31.0 LAB L100.1810 11.6-14.6 % Normal RDW CV 13.4 LAB L100.1820 35.1-43.9 fl High RDW SD 46.6 LAB L100.1900 150-450 K/mm3 Normal PLT 295 LAB L100.2000 6.2-12.0 fl Normal MPV 9.6 LAB L100.2100 47-70 % Normal NEUT% 64.5 LAB L100.2200 19-41 % Normal LY% 23.2 LAB L100.2300 0-10 % Normal MONO% 8.0 LAB L100.2400 0-5 % Normal EO% 3.8 LAB L100.2500 0-1 % Normal BASO% 0.4 LAB L100.2550 0.0-0.9 % Normal IM GRAN % 0.100 Result Comment: IG% - Immature Granulocytes (promyelocytes, myelocytes and metamyelocytes) > 1% indicates that a LEFT SHIFT is Present. LAB L100.2620 2.0-7.7 X10 3/uL Normal Absolute Neut 5.1 LAB L100.2720 0.83-4.51 X10 3/ul Normal Absolute Lymph 1.82 Performed By: #### L100.0100 #### [facility] [place], [place], [address] VITAMIN D,25 HYDROXY Collected: 12/11/2017 Status: F Source: SQUIRE 3:57 PM [facility] REPOSITORY TYPE CODE TESTS RESULT OUT OF REFERENCE UNITS RANGE LAB L506.1000 29.95-100.01 ng/mL Low Vitamin D 11.0 25-OH Result Comment: Vitamin D 25(OH) Status Range Deficiency <20 ng/mL (50nmol/L) Insuffciency 20 - 30 ng/mL (50 - 75 nmol/L) Sufficiency 30 - 100 ng/mL (75 - 250 nmol/L) Toxicity >100 ng/mL (>250 nmol/L) Performed By: #### L506.1000 #### [facility] [address] [place], [address] COMPREHENSIVE METABOLIC Collected: 12/11/2017 Status: F Source: JUNIOR PROFIL 3:57 PM [facility] REPOSITORY TYPE CODE TESTS RESULT OUT OF RANGE REFERENCE UNITS LAB L501.0100 74-106 mg/dL Normal GLU 83 Result Comment: Please note revised GLUCOSE reference range effective 2017. LAB L501.1000 7-18 mg/dL Normal BUN 18 LAB L501.1100 0.55-1.02 mg/dL High CREAT,SERUM 1.69 Result Comment: The validity of the calculated GFR AND GFRAA in patients over 70 years has not been determined. Clinical correlation is essential. LAB L501.1110 >60 mL/min Low EST GFR 31 Result Comment: Non- GFR Calc LAB L501.1115 >60 mL/min Low EST GFR - AA 38 Result Comment: GFR Calc LAB L501.1300 10-20 RATIO Normal BUN/CRE 10.7 LAB L501.1500 6.4-8.2 g/dL T Normal PROT 8.1 LAB L501.1800 3.2-5.0 g/dL Normal ALB 3.6 LAB L501.1950 2.2-4.2 g/dL High GLOB 4.5 LAB L501.2000 0.9-2.4 RATIO Low A/G 0.8 LAB L501.2200 8.5-10.1 mg/dL CA Normal 8.7 LAB L501.4100 15-37 U/L Low AST 14 LAB L501.4305 45-117 U/L Normal ALK P 77 LAB L501.4405 13-56 U/L Normal ALT 13 Result Comment: Please note revised ALT reference range effective 2017. LAB L501.4600 0.20-1.00 mg/dL Normal T BILI 0.40 LAB L501.5300 136-145 mmol/L Normal NA 137 LAB L501.5600 3.5-5.1 mmol/L Normal K 4.4 LAB L501.5900 98-107 mmol/L Normal CL 101 LAB L501.6100 21.0-32.0 mmol/L Normal CO2 28.0 LAB L501.6200 5-15 Normal GAP 8 Performed By: #### L500.4050, L501.9520 #### [facility] [address] [place], [place], [address] THYROID STIM HORMONE Collected: 12/11/2017 Status: F Source: JUNIOR (TSH) 3:57 PM [facility] REPOSITORY TYPE CODE TESTS RESULT OUT OF RANGE REFERENCE UNITS LAB L501.9520 0.358-3.74 uIU/mL Normal TSH 3.49 Performed By: #### L500.4050, L501.9520 #### [facility] [address] [place], [address] ALLERGIES ALLERGIES DATE TYPE / NAME / CODE REACTION SEVERITY SOURCE CODE 09/22/2018 Drug chlordiazepoxide Swelling Unknown Junior Allergy/41 HCl/[id number](RXNORM) [facility] [id number]([place] [facility]) Repository 09/22/2018 Drug Penicillins/[id number] Swelling Unknown Junior Allergy/41 (RXNORM) [facility] [id number]([place] [facility]) Repository 02/19/2018 DRUG CHLORDIAZEPOXIDE HCL SWELLING [address] [id number]([facility]) Repository 02/19/2018 DRUG PENICILLIN SWELLING [address] 9248250([facility]) Repository ENCOUNTERS ENCOUNTERS ADMIT/DISCHARGE ACCOUNT ADMITTING ENCOUNTER LOCATION SOURCE NUMBER CLASS 09/27/2018/09/27/19 [id number] Ambulatory [address] Repository 09/27/2018/09/28/19 [id number] Ambulatory [address] Repository 09/22/2018 [id number] [place], Ambulatory BMSBuilding:Lloyd Aguilar MS.[facility] Repository 09/22/2018 [id number] [place], Ambulatory BMSBuilding:Lloyd Aguilar MS.[facility] Repository 09/22/2018/09/23/19 [id number] [place], Inpatient [facility] Heidi Jeff Encounter [facility] ing:FB1Aobc: Repository BV220Bgd: 1 09/04/2018 [id number] Ambulatory [facility] ing:POLAB3 Repository 08/27/2018/08/27/20 [id number] Emergency [address] ing:ED Repository 06/15/2018/06/15/20 [id number] Emergency [address] ing:ED Repository 06/11/2018 [id number] Ambulatory [facility] ing:POLAB3 Repository 04/30/2018 [id number] Ambulatory [facility] ing:CVS Repository 04/04/2018/04/04/20 [id number] Ambulatory [address] ing:PT Repository 02/19/2018/02/20/20 [id number] Ambulatory [address] Repository 02/19/2018/02/22/20 [id number] Ambulatory [address] Repository 02/18/2018/02/19/20 [id number] Emergency [address] ing:ED Repository 02/16/2018/02/17/20 [id number] Emergency [address] ing:ED Repository 12/11/2017 [id number] Ambulatory [facility] ing:POLAB3 Repository PAYERS PAYERS ENCOUNTER GUARANTOR PAYER SUBSCRIBER SOURCE 09/22/2018 BERNICE A Primary BERNICE A Junior [id number] Insurance:MEDICARE KNEPPERDOB: Community [address] [facility] [id number] Number: Repository [address]Din: ([phone] [id number] [phone] (HP) Date:2018-09-21 09/22/2018 Secondary BERNICE A Junior Insurance:[facility] KNEPPERDOB: Community *IN [facility] [id number] Hospital Number: Repository [id number] Date:[id number] [address]S [address] [place] [address]QZ: 09/22/2018 Tertiary NOT GIVENUNK Junior Insurance:SELF PAY [facility] Number: Effective Repository Date:2018-09-22 09/22/2018 BERNICE A Primary BERNICE A [place] [id number] Insurance:MEDICARE KNEPPERDOB: Community [address] [facility] [id number] Number: Repository [address]Qrz: 330 [id number] [phone] (HP) Date:2018-09-21 09/22/2018 Secondary BERNICE A Junior [facility] KNEPPERDOB: Community *IN [facility] [id number] Hospital Number: Repository [id number] Date:[id number] [address] [address]IX: 09/22/2018 Tertiary NOT GIVENUNK Junior Insurance:SELF PAY [facility] Number: Effective Repository Date:2018-09-22 09/22/2018 BERNICE A Primary BERNICE A Junior [id number] Insurance:MEDICARE KNEPPERDOB: Community [address] [facility] [id number] Number: Repository [address]Bja: 330 [id number] [phone] () Date:2018-09-21 09/22/2018 Secondary BERNICE A Junior Insurance:CARESOURCEP KNEPPERDOB: Community [place] Number: [id number] Hospital [id number] Repository Date:2018-09-21[address]ATTN: [place] [address]RZ: 09/22/2018 Tertiary NOT GIVENUNK Junior Insurance:SELF PAY [facility] Number: Effective Repository Date:2018-09-21 09/04/2018 BERNICE A Primary BERNICE A Junior [id number] Insurance:MEDICARE KNEPPERDOB: Community [address] [facility] [id number] Number: Repository [address]Mhg: 330 [id number] [phone] () Date:2018-09-04 09/04/2018 Secondary BERNICE A [place] Insurance:CARESOURCEP KNEPPERDOB: Community [place]licy Number: [id number] Hospital [id number] Repository Date:2018-09-04[address]ATTN: [place] [address]QL: 09/04/2018 Tertiary NOT GIVENUNK [place] Insurance:SELF PAY [facility] Number: Effective Repository Date:2018-09-04 08/27/2018 BERNICE A Primary BERNICE A [place] [id number] Insurance:MEDICARE KNEPPERDOB: Community [address] [facility] [id number] Number: Repository [address]Vbk: 330 [id number] [phone] (HP) Date:2018-08-27 08/27/2018 Secondary BERNICE A Junior Insurance:CARESOURCEP KNEPPERDOB: Community olic Number: [id number] Hospital [id number] Repository Date:2018-08-27[address]ATTN: [place] [address]AS: 08/27/2018 Tertiary NOT GIVENUNK Junior Insurance:SELF PAY [facility] Number: Effective Repository Date:2018-08-27 06/15/2018 BERNICE A Primary BERNICE A [place] [id number] Insurance:MEDICARE KNEPPERDOB: Community [address] [facility] [id number] Number: Repository [address]Ucn: 330 [id number] [phone] () Date:2018-06-15 06/15/2018 Secondary BERNICE A [place] Insurance:CARESOURCEP KNEPPERDOB: Community olic Number: [id number] Hospital [id number] Repository Date:2018-06-15[address]ATTN: [place] [address]KK: 06/15/2018 Tertiary NOT GIVENUNK Junior Insurance:SELF PAY [facility] Number: Effective Repository Date:2018-06-15 06/11/2018 Bernice A Primary Bernice A Junior [id number] Insurance:MEDICARE KnepperDOB: Community [address] [facility] [id number] Number: Repository [address]Phh: 330 [id number] [phone] () Date:2018-06-11 06/11/2018 Secondary Bernice A [place] Insurance:CARESOURCEP KnepperDOB: Community olicy Number: [id number] Hospital [id number] Repository Date:2018-06-11[address]ATTN: [place] [address]LM: 06/11/2018 Tertiary NOT GIVENUNK [place] Insurance:SELF PAY [facility] Number: Effective Repository Date:2018-06-11 04/30/2018 Bernice A Primary Bernice A Junior [id number] Insurance:MEDICARE KnepperDOB: Community [address] [facility] [id number] Number: Repository [id number]: 330 [id number] [phone] () Date:2018-04-30 04/30/2018 Secondary Bernice A [place] Insurance:CARESOURCEP KnepperDOB[place] [facility] [place]: [id number] Hospital [id number] Repository Date:2018-04-30[address]ATTN: [place] [address]FL: 04/30/2018 Tertiary NOT GIVENUNK [place] Insurance:SELF PAY [facility] Number: Effective Repository Date:2018-04-30 04/04/2018 Bernice A Primary Bernice A [place] [id number] Insurance:MEDICARE KnepperDOB: Community [address] [facility] [id number] Number: Repository [address]Ltm: 330 [id number] [phone] () Date:2004-08-18 04/04/2018 Secondary Bernice A [place] Insurance:CARESOURCEP KnepperDOB: [facility] Number: [id number] Hospital [id number] Repository Date:2015-03-18[address]ATTN: [place] [address]UR: 04/04/2018 Tertiary NOT GIVENUNK Junior Insurance:SELF PAY [facility] Number: Effective Repository Date:2018-03-29 02/18/2018 Bernice A Primary Bernice A Junior [id number] Insurance:MEDICARE KnepperDOB: Community [address] [facility] [id number] Number: Repository [address]Tpm: 330 [id number] [phone] () Date:2018-02-18 02/18/2018 Secondary Bernice A Junior Insurance:CARESOURCEP KnepperDOB: Community [place] Number: [id number] Hospital [id number] Repository Date:2018-02-18[address]ATTN: [place] [address]OI: 02/18/2018 Tertiary NOT GIVENUNK [place] Insurance:SELF PAY [facility] Number: Effective Repository Date:2018-02-18 02/16/2018 Bernice A Primary Bernice A Junior [id number] Insurance:MEDICARE KnepperDOB: Community [address] [facility] [id number] Number: Repository [address]Auv: 330 [id number] [phone] () Date:2018-02-16 02/16/2018 Secondary Bernice A [place] Insurance:CARESOURCEP KnepperDOB: Community olicy Number: [id number] Hospital [id number] Repository Date:2018-02-16[address]ATTN: [place] [address]BK: 02/16/2018 Tertiary NOT GIVENUNK Junior Insurance:SELF PAY [facility] Number: Effective Repository Date:2018-02-16 12/11/2017 Bernice A Primary Bernice A [place] [id number] Insurance:MEDICARE KnepperDOB: Community [address] olicy [id number] [facility] [address] Number: Repository [id number]: (915) [id number] [phone] () Date:2017-12-11 12/11/2017 Secondary Bernice A [place] Insurance:CARESOURCEP KnepperDOB: [facility] olic Number: [id number] Hospital [id number] Repository Date:2017-12-11[address]ATTN: [place] [address]DN: 12/11/2017 Tertiary NOT GIVENUNK [place] Insurance:SELF PAY [facility] Number: Effective Repository Date:2017-12-11
== END ==
PROVIDERS: Family Provider Family Medicine Geriatric Medicine; PCP Family Medicine Geriatric Medicine; Visit Provider Family Medicine Geriatric Medicine
DX: R60.9 Edema, unspecified (principal)
CPT/HCPCS: 36415; 80048; 85025

== ENCOUNTER 2018-09-21 23:52 | Inpatient (IN) | payer MEDICARE, MEDICAID, SELFPAY ==
[2018-09-21 23:55] VITALS: PULSE 93; RESP 30; TEMP 36.9; O2SAT 99; BMI 30.7
[2018-09-21 23:57] VITALS: O2SAT 98
[2018-09-21 23:59] VITALS: PULSE 93; RESP 30; TEMP 36.9; O2SAT 99
[2018-09-22] VITALS (12 sets, daily range): BP systolic 124–168; BP diastolic 55–88; PULSE 72–98; RESP 17–28; TEMP 36.6–36.8; O2SAT 93–98; BMI 29.7
--- NOTE | 2018-09-22 00:07 | RAD_ITS ---
STUDY: X-RAY CHEST REASON FOR EXAM: Female, 78 years old. Dyspnea. Cough TECHNIQUE: Single AP portable view of the chest. COMPARISON: None. FINDINGS: Subsegmental atelectases are noted in the lung bases. There is no demonstrated pleural abnormality. Normal size heart. Normal mediastinum and sera. Normal visualized pulmonary arteries. Normal visualized aortic arch and descending thoracic aorta. There is a levoscoliosis of the thoracic spine. There is degenerative osteoarthritis of the bilateral shoulders. There is no demonstrated abnormality of the visualized soft tissue structures of the upper abdomen. RAD/Chest 1 View (Portable) IMPRESSION: Degenerative changes, as described above. No demonstrated acute cardiopulmonary process. Electronically Signed: Juan Jmienez MD at 0:35 EST Tel , Service support ,
--- NOTE | 2018-09-22 00:08 | EKG12_ITS ---
Test Reason : Blood Pressure : / mmHG Vent. Rate : 092 BPM Atrial Rate : 092 BPM P-R Int : 162 ms QRS Dur : 062 ms QT Int : 360 ms P-R-T Axes : 061 -42 063 degrees QTc Int : 445 ms Normal sinus rhythm Left axis deviation Nonspecific ST and T wave abnormality Abnormal ECG Confirmed by MADELEINE ROBLEDO, KATHLEEN ([id number]), editor sound CHELSIE SILVESTRE ([id number]) on 09/25/2018 8:54:03 AM Referred By: Jeff Faith Confirmed By:KATHLEEN SALVADOR MD
[2018-09-22] MEDS: Albuterol 2.5 MG/3 ML VIAL.NEB. INHALATION (00:15)
[2018-09-22] MEDS: Ipratropium/Albuterol Sulfate 3 ML AMPUL.NEB INHALATION ×6 (00:15→22:21)
[2018-09-22 00:17] LABS: Absolute Lymphocyte Count 1.36 X10^3/ul (0.83-4.51); Absolute Neutrophil Count 5.3 X10^3/uL (2.0-7.7); Basophil# 0.02 X10^3/uL; Basophil% 0.3 % (0-1); Eosinophils% 2.6 % (0-5); Hemoglobin 11.8 g/dl (12.0-15.0); Lymphocyte # 1.36 X10^3/ul (4.0); Lymphocyte % 17.7 % (19-41); Mean Corp Hgb Conc 31.1 g/gl (32-36); Mean Corpuscular Hgb 30.8 pg (27.0-32.0); Mean Corpuscular Volume 99.2 fL (81-99); Monocyte# 0.82 X10^3/uL; Monocyte% 10.6 % (0-10); Neutrophil # 5.29 X10^3/uL (2.7-7.7); Neutrophil % 68.7 % (47-70); Platelet Count 274 K/mm3 (150-450); RBC Distribution Width CV 13.9 % (11.6-14.6); RBC Distribution Width SD 50.1 fl (35.1-43.9); Red Blood Count 3.83 M/mm3 (4.2-5.4); White Blood Count 7.7 K/mm3 (4.4-11.0)
[2018-09-22 00:20] LABS: POSITIVE COUNT NO; POSITIVE DIFFERENTIAL NO; POSITIVE MORPHOLOGY NO
[2018-09-22 00:25] LABS: Anion Gap 10 (5-15); BUN 22 mg/dL (7-18); BUN/Creat Ratio 11.2 RATIO (10-20); Calcium,Total 8.8 mg/dL (8.5-10.1); Chloride 100 mmol/L (98-107); Creatinine, Serum 1.96 mg/dL (0.55-1.02); EST Glomerular Filtration Rate 26 mL/min (>60); Est Glom Filt Rate - Afr Amer 32 mL/min (>60); Estimated Creatinine Clearance 23.48 ml/min; Glucose 115 mg/dL (74-106); Potassium 3.7 mmol/L (3.5-5.1); Sodium Level 140 mmol/L (136-145)
[2018-09-22] MEDS: MethylPREDNISolone 125 MG/2 ML Vial IV (00:40)
--- NOTE | 2018-09-22 00:53 | ED.VISSUMM ---
- ER Visit Summary Date of Service: 09/22/18 Chief Complaint: COPD and shortness of breath History of Present Illness: The patient is a 78 F who presents with COPD and shortness of breath. This began earlier today. She does complain of a URI-like illness with congestion and rhinorrhea. She complains of increased cough and increased sputum production. She has on 4 L nasal cannula at all times related to her COPD. She denies any chest pain. No fevers or vomiting. She does take Lasix for lymphedema. She has no coronary history or history of CHF. She notes that her leg swelling has significantly improved with the Lasix. Physical Examination: Afebrile respiratory rate 30 Patient has increased work of breathing speaking in short sentences she has diminished air exchange and diffuse inspiratory and expiratory wheezing Heart is regular rate and rhythm Abdomen soft Mild symmetric peripheral edema Alert Test Results: EKG shows sinus rhythm at a rate of 92. Labs notable for BUN 22, creatinine 1.96. Chest x-ray shows no acute process. Emergency Department Course and Treatment: Patient was treated with albuterol and Atrovent aerosols as well as IV Solu-Medrol. She is improved on reevaluation. She was given doxycycline as well for COPD exacerbation. Patient to be discussed with hospitalist and admitted. Treatment Plan: [] Disposition: Admit Impression: COPD exacerbation This note was generated with [employer] dictation software. It may contain incorrect words, spelling, and punctuation that were not noted in review of the chart prior to signing ED Disposition - Plan for ED Patient: Chief Complaint: Shortness of Breath Referrals: Mayo Duran Chi, MD [Primary Care Provider] -
--- NOTE | 2018-09-22 00:57 | ED.DCSUM_ITS ---
- ER Visit Summary Date of Service: 09/22/18 Chief Complaint: COPD and shortness of breath History of Present Illness: The patient is a 78 F who presents with COPD and shortness of breath. This began earlier today. She does complain of a URI-like illness with congestion and rhinorrhea. She complains of increased cough and increased sputum production. She has on 4 L nasal cannula at all times related to her COPD. She denies any chest pain. No fevers or vomiting. She does take Lasix for lymphedema. She has no coronary history or history of CHF. She notes that her leg swelling has significantly improved with the Lasix. Physical Examination: Afebrile respiratory rate 30 Patient has increased work of breathing speaking in short sentences she has diminished air exchange and diffuse inspiratory and expiratory wheezing Heart is regular rate and rhythm Abdomen soft Mild symmetric peripheral edema Alert Test Results: EKG shows sinus rhythm at a rate of 92. Labs notable for BUN 22, creatinine 1.96. Chest x-ray shows no acute process. Emergency Department Course and Treatment: Patient was treated with albuterol and Atrovent aerosols as well as IV Solu-Medrol. She is improved on reevaluation. She was given doxycycline as well for COPD exacerbation. Patient to be discussed with hospitalist and admitted. Treatment Plan: [] Disposition: Admit Impression: COPD exacerbation This note was generated with [employer] dictation software. It may contain incorrect words, spelling, and punctuation that were not noted in review of the chart pr ior to signing ED Disposition - Plan for ED Patient: Chief Complaint: Shortness of Breath Referrals: Mayo Duran Chi, MD [Primary Care Provider] -
--- NOTE | 2018-09-22 01:09 | PCM.HP.STD ---
Problem List (1) Acute respiratory failure with hypoxemia Status: Acute (2) Renal failure Status: Chronic (3) Sepsis Status: Inactive History of Present Illness Date of Admission: 09/22/18 Chief Complaint: shortness of breath The patient is a 78 year old F with a significant history of former tobacco abuse; CKD stage 3B; end-stage COPD with [id number] home oxygen of 4 L who presented with 1 week history of progressively worsening shortness of breath. Shortness of breath increases with mild exertion. She reported at baseline when she walks 3-4 feet she gets very short of breath. She uses electric chair to get around. Associated with her symptoms is a productive cough of thick copious sputum; postnasal drip; chest congestion; rhinorrhea; and wheezing. Her sputum is grayish and at times daily. Her nasal discharge is greenish. She denies any chills or fever. Paramedics called the patient home patient was on 4 L and her oxygen saturation was in the mid 80s. She required a brief episode of oxygen by nonrebreather mask. Patient reports baseline pain symptoms of orthopnea and paroxysmal nocturnal dyspnea. She reports having to sleep in a recliner because of shortness of breath. Past Medical History Past Medical History (Chronic Problems): Chronic Problems GERD (gastroesophageal reflux disease) (Chronic) Venous insufficiency (Chronic) COPD (chronic obstructive pulmonary disease) (Chronic) Renal failure (Chronic) Obesity (BMI 30.0-34.9) (Chronic) Anxiety (Chronic) Right leg DVT (Chronic) CKD (chronic kidney disease) (Chronic) Allergies chlordiazepoxide HCl [From Librium] Allergy (Verified 08/27/18 13:47) Swelling Penicillins Allergy (Verified 08/27/18 13:47) Swelling Home Medications: Ambulatory Orders Medication Instructions Recorded Fluticasone/Salmeterol [Advair 1 puff INHALATION BID 03/20/14 250/50 Mcg Diskus] Albuterol Sulfate [Ventolin Hfa] 1 puff INHALATION DAILY 06/15/18 Furosemide [Lasix] 40 mg PO DAILY #7 tablet 08/27/18 Surgical History: - - Uterine suspension; benign lump was removed from right breast. Lives: Alone Smoking Status: Former smoker - *Family History Maternal History Items: Heart Disease Paternal History Items: Heart Disease Review of Systems Constitutional: Reports: Malaise, Weakness, Fatigue. Denies: Chills, Fever, Weight Change HEENT: Reports: Head Aches, Post Nasal Drip, Sinus Congestion, Sinus Drainage Cardiovascular: Reports: Edema - Bilateral legs, Orthopnea, Paroxysmal Noc. Dyspnea. Denies: Chest Pain, Palpitations Respiratory: Reports: Cough, Shortness of breath at rest, Sputum production, Wheezing Gastrointestinal: Denies: Abdominal Pain, Nausea, Vomiting Genitourinary: Denies: Dysuria Musculoskeletal: Denies: Joint Pain, Joint Tenderness Skin: Denies: Rash, Wounds Neurological: Denies: Numbness, Tingling, Focal weakness Psychiatric: Denies: Anxiety, Depression, Homicidal Ideations, Suicidal Ideations Hematologic/ Lymphatic: Denies: Easy Bruising, Easy Bleeding VTE Information - Inpt Only VTE Present on Admission: No VTE Mechan Device Prophylaxis: None VTE Pharm Prophylaxis ordered?: Yes Patient Problems: Active and Suspected Problems Acute respiratory failure with hypoxemia (Acute) - Physical Exam General: Alert, Oriented x3, Cooperative HEENT: Atraumatic, PERRLA, EOMI, Normocephalic Neck: Supple, No JVD, Negative Carotid Bruits Lungs: Rhonchi, Short of Breath, Tachypneic, Wheezes Cardiovascular: Regular rate, No murmurs Abdomen: Bowel Sounds Present, Soft, Non Tender Extremities: No edema Skin: - - Induration of right leg Musculoskeletal: Tenderness - Bilateral legs Neurological: Cranial nerves II-XII grossly intact Psych/Mental Status: Normal Affect, Appropriate Vital Signs Temp Pulse Resp BP Pulse Ox 98.4 F 92 22 H 156/71 H 97 09/21/18 23:59 09/22/18 00:02 09/22/18 00:02 09/22/18 00:02 09/22/18 00:02 Oxygen Flow Rate (L/min) 4 Oxygen Delivery Method Nasal Cannula Weight: 91.7 kg Body Mass Index (BMI) 30.7 Laboratory Tests Past 24 Hrs 09/22/18 09/22/18 00:00 00:00 WBC 7.7 RBC 3.83 L Hgb 11.8 L Hct 38.0 MCV 99.2 H MCH 30.8 MCHC 31.1 L RDW 13.9 RDW Differential 50.1 H Plt Count 274 MPV 9.0 Immature Gran % (Auto) 0.100 Neut % (Auto) 68.7 Lymph % (Auto) 17.[address] [place] % (Auto) 10.6 H Eos % (Auto) 2.6 Baso % (Auto) 0.3 Absolute Neuts (auto) 5.3 Absolute Lymphs (auto) 1.36 Total Counted Not Reportable Sodium 140 Potassium 3.7 Chloride 100 Carbon Dioxide 30.0 Anion Gap 10 BUN 22 H Creatinine 1.96 H Estim Creat Clear Calc 23.48 Est GFR (MDRD) Af Amer 32 L Est GFR (MDRD) Non-Af 26 L BUN/Creatinine Ratio 11.2 Glucose 115 H Calcium 8.8 Assessment/Plan All Active Problems Acute respiratory failure with hypoxemia (Acute) Atypical chest pain (Acute) History of DVT (deep vein thrombosis) (Resolved) The patient is a 78 year old F with a significant history of CKD stage 3B; former tobacco abuse; end-stage COPD with ljgpmg-akn-ihmuj home oxygen of 4 L who presented with 1 week history of progressively worsening shortness of breath; productive cough of thick copious sputum; postnasal drip; chest congestion; rhinorrhea; and wheezing consistent with acute on chronic hypoxemic respiratory failure secondary to likely COPD exacerbation. Acute on chronic hypoxemic respiratory failure Secondary to COPD exacerbation CXR independently reviewed. Agrees with atelectasis at lung bases. Scheduled DuoNeb Albuterol as needed Received Solu-Medrol at the emergency department.Solu-Medrol continued Patient received cycling at emergency department. We will start patient on azithromycin. Incentive spirometer and chest physiotherapy ordered. Rapid influenza screen ordered. Oxygen as needed to keep oxygen saturation more than 90%. Mucinex and Flonase ordered Home inhaled corticosteroid continued.. Monitor BMP Elevated creatinine with a diagnosis of SHELLEY. On admission her creatinine is 1.96. Review of old records show that her baseline creatinine is about 1.75. She reports being started on Lasix about a week ago for lymphedema. She reports frequent urination to the point of view of requiring depends. We will hold off Lasix for 1 day since at the time of examination patient did not have any swelling. Maybe she may require a maintenance dose of Lasix to control her lymphedema. Consider trending BMP. Elevated blood pressure without diagnosis of hypertension. On admission blood pressure was not within goal. Patient denies any history of hypertension Trend blood pressure. As needed Hydralazine IV ordered. Lymphedema She was at the emergency department on 08/27/2018 and was started on Lasix. Thereafter her PCP continued Lasix. Patient reported that therapy PCP she will be on this for 30 days. Lasix on hold because of elevated creatinine approaching diagnosis of SHELLEY. Resume Lasix when creatinine improves. DVT Prophylaxis Subcutaneous heparin Code Visit Inpatient E&M: 41413 Init Hosp L3
[2018-09-22] MEDS: Doxycycline 100 MG CAPSULE PO (01:16)
--- NOTE | 2018-09-22 05:30 | NURSING ---
Notified by RT that pt was refusing flu swab. I explained several times to this pt why it was important to test her for the flu since she was admitted for respiratory issues. Pt continues to refuse, stating she will not allow anything to be stuck up her nose.
[2018-09-22] MEDS: Budesonide Respules 0.5 MG/2 ML AMPUL.NEB. INHALATION ×2 (07:20→22:22)
--- NOTE | 2018-09-22 09:31 | PCM.PN.HOSP ---
Patient Problems: Active and Suspected Problems Acute respiratory failure with hypoxemia (Acute) Subjective: Patient admitted in the early hours of this morning with complaint of shortness of breath. She is been managed for COPD exacerbation. Patient seen and examined. She feels much better shortness of breath has improved. She still has a cough which is nonproductive. She is on her baseline 4 L of oxygen. She denies any fever or chills, any chest pain, any palpitations, any abdominal pain, any diarrhea or vomiting. 12 point review of systems otherwise negative. Labs and vitals reviewed. Vitals/I&O's: Vital Signs Temp Pulse Resp BP Pulse Ox 97.8 F 98 18 139/69 H 93 09/22/18 02:14 09/22/18 07:10 09/22/18 07:10 09/22/18 02:14 09/22/18 08:02 Oxygen Flow Rate (L/min) 4 Oxygen Delivery Method Nasal Cannula Weight: 195 lb 5.273 oz Body Mass Index (BMI) 29.7 Intake and Output for Last 24 Hours 09/20/18 09/21/18 09/22/18 23:59 23:59 23:59 Intake Total 275 / 275 Balance 275 / 275 General: Alert, Oriented x3, Cooperative, No apparent distress HEENT: Atraumatic, PERRLA, EOMI, Normocephalic Oral: Moist Mucosa Neck: Supple, No JVD, Negative Carotid Bruits Lungs: Clear to auscultation, Normal air movement, No rhonchi, No wheeze, No rales, - - on 4L of oxygen, which is her baseline. Cardiovascular: Regular rate, Regular Rhythm, Normal S1, Normal S2, No murmurs Abdomen: Bowel Sounds Present, Soft, Non Tender, Non-Distended, No Hepato-splenomegaly Extremities: No clubbing, No cyanosis, No edema, Capillary Refill Less than 3 Seconds Skin: No rashes, No breakdown Musculoskeletal: No Tenderness to Palpation of Joints or Extremities Lymphatic: No Cervical, Supraclavicular, or Inguinal Adenopathy Neurological: Cranial nerves II-XII grossly intact, Neuro grossly intact, Motor Exam 5/5 strength throughout Psych/Mental Status: Normal Affect, Appropriate, Alert and oriented to time, place, person, mood and affect Microbiology Past 72 Hours 09/22/18 07:40 Mucosa - Nasopharyngeal Influenza Types A,B Direct FA ([facility]) - Final Laboratory Results 09/22/18 00:00: WBC 7.7, RBC 3.83 L, Hgb 11.8 L, Hct 38.0, MCV 99.2 H, MCH 30.8, MCHC 31.1 L, RDW 13.9, RDW Differential 50.1 H, Plt Count 274, MPV 9.0, Immature Gran % (Auto) 0.100, Neut % (Auto) 68.7, Lymph % (Auto) 17.7 L, [place] % (Auto) 10.6 H, Eos % (Auto) 2.6, Baso % (Auto) 0.3, Absolute Neuts (auto) 5.3, Absolute Lymphs (auto) 1.36, Total Counted Not Reportable 09/22/18 00:00: Sodium 140, Potassium 3.7, Chloride 100, Carbon Dioxide 30.0, Anion Gap 10, BUN 22 H, Creatinine 1.96 H, Estim Creat Clear Calc 23.48, Est GFR (MDRD) Af Amer 32 L, Est GFR (MDRD) Non-Af 26 L, BUN/Creatinine Ratio 11.2, Glucose 115 H, Calcium 8.8 Diagnostic Data Chest X-Ray 09/22/18 00:07 IMPRESSION: Degenerative changes, as described above. No demonstrated acute cardiopulmonary process. Electronically Signed: Juan Jimenez MD at 0:35 EST Tel , Service support , Current Medications Acetaminophen (Tylenol) 650 mg PO Q6H PRN PRN PRN Reason: Mild Pain (scale 0-3)/T>100.7 Albuterol Sulfate (Ventolin Aerosols) 2.5 mg INHALATION Q2H PRN PRN PRN Reason: SHORTNESS OF BREATH Albuterol/Ipratropium (Duoneb) 3 ml INHALATION Q4H.RT TANYA Last Admin: 09/22/18 07:20 Dose: 3 ml Budesonide (Pulmicort Aerosol) 0.5 mg INHALATION Q12H.RT TANYA Last Admin: 09/22/18 07:20 Dose: 0.5 mg Fluticasone Propionate (Flonase Nasal [place]) 1 spray NASAL BID TANYA Guaifenesin (Mucinex) 1,200 mg PO BID [facility] Hydralazine HCl (Apresoline Iv) 10 mg IV Q4H PRN PRN PRN Reason: SBP > 160 Azithromycin 500 mg/ Dextrose 255 mls @ 250 mls/hr IV Q24 [facility] Stop: 09/24/18 11:02 Magnesium Hydroxide (Milk Of Magnesia) 30 ml PO DAILY PRN PRN PRN Reason: Constipation Methylprednisolone (Solu-Medrol) 40 mg IV Q8 [facility] Nutritional Formula (Lactose Free) (Ensure Enlive) 120 ml PO 4X/DAY [facility] Ondansetron HCl (Zofran) 4 mg IV Q8H PRN PRN PRN Reason: NAUSEA Sodium Chloride () 5 - 15 ml IV UD PRN PRN Reason: SALINE FLUSH Zolpidem Tartrate (Ambien (Generic)) 5 mg PO QHS PRN PRN PRN Reason: INSOMNIA Medical Necessity - Tobacco Use Smoking Status: Former smoker Assessment/Plan All Active Problems Acute respiratory failure with hypoxemia (Acute) Atypical chest pain (Acute) History of DVT (deep vein thrombosis) (Resolved) 1. Acute on chronic hypoxic respiratory failure due to COPD exacerbation resolving. back to her baseline 4L of oxygen chest sounds clear to auscultation continue breathing treatments and IV solumedrol influenza screen was negative. on IV azithromycin on pulmicort and flonase inhaler 2. COPD exacerbation: as under 1. 3. CKD 3: Cr on admission was 1.96, with baseline being ~ 1.7. on gentle hydration with IVF. Lasix on hold o/a of elevated Cr 4. Lymphedema: minimal swelling of LE. Lasic currently on hold o/a of elevated Cr DVT prophylaxis: heparin Code Visit Inpatient E&M: 50017 Subs Hosp L3
--- NOTE | 2018-09-22 09:38 | PN_ITS ---
Patient Problems: Active and Suspected Problems Acute respiratory failure with hypoxemia (Acute) Subjective: Patient admitted in the early hours of this morning with complaint of shortness of breath. She is been managed for COPD exacerbation. Patient seen and examined. She feels much better shortness of breath has improved. She still has a cough which is nonproductive. She is on her baseline 4 L of oxygen. She denies any fever or chills, any chest pain, any palpitations, any abdominal pain, any diarrhea or vomiting. 12 point review of systems otherwise negative. Labs and vitals reviewed. Vitals/I&O's: Vital Signs Temp Pulse Resp BP Pulse Ox 97.8 F 98 18 139/69 H 93 09/22/18 02:14 09/22/18 07:10 09/22/18 07:10 09/22/18 02:14 09/22/18 08:02 Oxygen Flow Rate (L/min) 4 Oxygen Delivery Method Nasal Cannula Weight: 195 lb 5.273 oz Body Mass Index (BMI) 29.7 Intake and Output for Last 24 Hours 09/20/18 09/21/18 09/22/18 23:59 23:59 23:59 Intake Total 275 / 275 Balance 275 / 275 General: Alert, Oriented x3, Cooperative, No apparent distress HEENT: Atraumatic, PERRLA, EOMI, Normocephalic Oral: Moist Mucosa Neck: Supple, No JVD, Negative Carotid Bruits Lungs: Clear to auscultation, Normal air movement, No rhonchi, No wheeze, No rales, - - on 4L of oxygen, which is her baseline. Cardiovascular: Regular rate, Regular Rhythm, Normal S1, Normal S2, No murmurs Abdomen: Bowel Sounds Present, Soft, Non Tender, Non-Distended, No Hepato- splenomegaly Extremities: No clubbing, No cyanosis, No edema, Capillary Refill Less than 3 Seconds Skin: No rashes, No breakdown Musculoskeletal: No Tenderness to Palpation of Joints or Extremities Lymphatic: No Cervical, Supraclavicular, or Inguinal Adenopathy Neurological: Cranial nerves II-XII grossly intact, Neuro grossly intact, Motor Exam 5/5 strength throughout Psych/Mental Status: Normal Affect, Appropriate, Alert and oriented to time, place, person, mood and affect Microbiology Past 72 Hours 09/22/18 07:40 Mucosa - Nasopharyngeal Influenza Types A,B Direct FA ([facility]) - Final Laboratory Results 09/22/18 00:00: WBC 7.7, RBC 3.83 L, Hgb 11.8 L, Hct 38.0, MCV 99.2 H, MCH 30.8, MCHC 31.1 L, RDW 13.9, RDW Differential 50.1 H, Plt Count 274, MPV 9.0, Immature Gran % (Auto) 0.100, Neut % (Auto) 68.7, Lymph % (Auto) 17.7 L, [place] % (Auto) 10.6 H, Eos % (Auto) 2.6, Baso % (Auto) 0.3, Absolute Neuts (auto) 5.3, Absolute Lymphs (auto) 1.36, Total Counted Not Reportable 09/22/18 00:00: Sodium 140, Potassium 3.7, Chloride 100, Carbon Dioxide 30.0, Anion Gap 10, BUN 22 H, Creatinine 1.96 H, Estim Creat Clear Calc 23.48, Est GFR (MDRD) Af Amer 32 L, Est GFR (MDRD) Non-Af 26 L, BUN/Creatinine Ratio 11.2, Glucose 115 H, Calcium 8.8 Diagnostic Data Chest X-Ray 09/22/18 00:07 IMPRESSION: Degenerative changes, as described above. No demonstrated acute cardiopulmonary process. Electronically Signed: Juan Jimenez MD at 0:35 EST Tel , Service support , Current Medications Acetaminophen (Tylenol) 650 mg PO Q6H PRN PRN PRN Reason: Mild Pain (scale 0-3)/T>100.7 Albuterol Sulfate (Ventolin Aerosols) 2.5 mg INHALATION Q2H PRN PRN PRN Reason: SHORTNESS OF BREATH Albuterol/Ipratropium (Duoneb) 3 ml INHALATION Q4H.RT TANYA Last Admin: 09/22/18 07:20 Dose: 3 ml Budesonide (Pulmicort Aerosol) 0.5 mg INHALATION Q12H.RT TANYA Last Admin: 09/22/18 07:20 Dose: 0.5 mg Fluticasone Propionate (Flonase Nasal [place]) 1 spray NASAL BID TANYA Guaifenesin (Mucinex) 1,200 mg PO BID [facility] Hydralazine HCl (Apresoline Iv) 10 mg IV Q4H PRN PRN PRN Reason: SBP > 160 Azithromycin 500 mg/ Dextrose 255 mls @ 250 mls/hr IV Q24 [facility] Stop: 09/24/18 11:02 Magnesium Hydroxide (Milk Of Magnesia) 30 ml PO DAILY PRN PRN PRN Reason: Constipation Methylprednisolone (Solu-Medrol) 40 mg IV Q8 [facility] Nutritional Formula (Lactose Free) (Ensure Enlive) 120 ml PO 4X/DAY [facility] Ondansetron HCl (Zofran) 4 mg IV Q8H PRN PRN PRN Reason: NAUSEA Sodium Chloride () 5 - 15 ml IV UD PRN PRN Reason: SALINE FLUSH Zolpidem Tartrate (Ambien (Generic)) 5 mg PO QHS PRN PRN PRN Reason: INSOMNIA Medical Necessity - Tobacco Use Smoking Status: Former smoker Assessment/Plan All Active Problems Acute respiratory failure with hypoxemia (Acute) Atypical chest pain (Acute) History of DVT (deep vein thrombosis) (Resolved) 1. Acute on chronic hypoxic respiratory failure due to COPD exacerbation * resolving. back to her baseline 4L of oxygen * chest sounds clear to auscultation * continue breathing treatments and IV solumedrol * influenza screen was negative. * on IV azithromycin * on pulmicort and flonase inhaler * 2. COPD exacerbation: as under 1. 3. CKD 3: Cr on admission was 1.96, with baseline being ~ 1.7. on gentle hydration with IVF. Lasix on hold o/a of elevated Cr 4. Lymphedema: minimal swelling of LE. Lasic currently on hold o/a of elevated Cr DVT prophylaxis: heparin Code Visit Inpatient E&M: [id number] [facility] Hosp L3
[2018-09-22] MEDS: Fluticasone 0.05% 1 SPRAY NASAL.SRY NASAL ×2 (10:18→21:34)
[2018-09-22] MEDS: 0.9% NaCl Peripheral Flush Adult/Peds IV ×3 (10:18→21:35)
[2018-09-22] MEDS: guaiFENesin 1,200 MG Tablet 1200 MG PO ×2 (10:18→21:34)
--- NOTE | 2018-09-22 14:00 | CM.UR ---
engineering director completed. Met face to face with patient, introduced myself and my role. She continued to joke during assessment. Lives along in [facility]. Hasn't driven in a couple years. Her license is . She does drive her electric scooter around town to get things done. States that she does have living will and HCPOA. Insists that we should have it on file. Explained we do not. Says her sons are her HCPOA and that she should be a DNRCC. No needs anticipated. She will discuss increased SSRS DEVELOPER assistance with her caseworker intake. Kanu Bell RN, CCM.
[2018-09-22] MEDS: Acetaminophen 325 MG Tablet 650 MG PO (18:41)
[2018-09-22] MEDS: Zolpidem Tartrate 5 MG Tablet PO (22:36)
[2018-09-23 02:19] VITALS: PULSE 81; RESP 18
[2018-09-23] MEDS: Ipratropium/Albuterol Sulfate 3 ML AMPUL.NEB INHALATION ×2 (02:19→07:37)
[2018-09-23 02:40] VITALS: BP 126/69; PULSE 106; RESP 20; TEMP 37.3; O2SAT 98
[2018-09-23] MEDS: 0.9% NaCl Peripheral Flush Adult/Peds IV ×2 (05:22→09:58)
[2018-09-23 06:25] LABS: Anion Gap 8 (5-15); BUN 26 mg/dL (7-18); BUN/Creat Ratio 14.4 RATIO (10-20); Calcium,Total 8.4 mg/dL (8.5-10.1); Chloride 101 mmol/L (98-107); Creatinine, Serum 1.81 mg/dL (0.55-1.02); EST Glomerular Filtration Rate 29 mL/min (>60); Est Glom Filt Rate - Afr Amer 35 mL/min (>60); Estimated Creatinine Clearance 25.42 ml/min; Glucose 175 mg/dL (74-106); Sodium Level 135 mmol/L (136-145)
[2018-09-23] MEDS: Budesonide Respules 0.5 MG/2 ML AMPUL.NEB. INHALATION (07:37)
[2018-09-23 07:38] VITALS: PULSE 95; RESP 18; O2SAT 93
[2018-09-23 08:10] VITALS: BP 138/89; PULSE 105; RESP 20; TEMP 36.8; O2SAT 98
--- NOTE | 2018-09-23 08:41 | DCINST_ITS ---
- Discharge Diagnoses Current Active Problems: Current Active and Chronic Problems Acute respiratory failure with hypoxemia (Acute) You will use the following diet at home:: Cardiac Your food should be the consistency of: Regular Your liquids should be the consistency of: Regular/Thin Discharge Activity: Return to Normal Activity Weight Bearing Status: Weight bearing as tolerated Call your doctor if you observe: Shortness of breath, Swelling in the ankles Allergies/Adverse Reactions: Allergies chlordiazepoxide HCl [From Librium] Allergy (Verified 09/22/18 06:53) Swelling Penicillins Allergy (Verified 09/22/18 06:53) Swelling Medications to take at Discharge Fluticasone/Salmeterol [Advair 250/50 Mcg Diskus] 1 puff INHALATION BID 03/20/14 Albuterol Sulfate [Ventolin Hfa] 1 puff INHALATION DAILY 06/15/18 Azithromycin 500 mg PO DAILY #3 tablet 09/23/18 Ipratropium/Albuterol Sulfate [Duoneb] 3 ml INHALATION Q4HWA.RT #60 ampul.neb 09/23/18 predniSONE tablet 40 mg PO DAILY 5 Days #10 tablet 09/23/18 The following prescriptions were given: Ipratropium/Albuterol Sulfate [Duoneb] 3 ml INHALATION Q4HWA.RT #60 ampul.neb Azithromycin 500 mg PO DAILY #3 tablet predniSONE tablet 40 mg PO DAILY 5 Days #10 tablet Primary Care Physician: Mayo Duran Chi, MD [Primary Care Provider] - Please follow up with your Primary Care Physician in: 1 week Test Results: Test results from this visit will be discussed in further detail at your follow- up appointment, if applicable. Proposed Discharge Date: 09/23/18
--- NOTE | 2018-09-23 08:41 | DS.PCM_ITS ---
Discharge Date and Diagnosis - Problem List Patient Problems: Active and Suspected Problems Acute respiratory failure with hypoxemia (Acute) Date of Admission: 09/22/18 Date of Discharge: 09/23/18 - Primary Discharge Diagnosis Active and Suspected Problems Acute respiratory failure with hypoxemia (Acute) COPD exacerbation - Secondary Discharge Diagnosis Chronic Problems GERD (gastroesophageal reflux disease) (Chronic) Venous insufficiency (Chronic) COPD (chronic obstructive pulmonary disease) (Chronic) Renal failure (Chronic) Obesity (BMI 30.0-34.9) (Chronic) Anxiety (Chronic) Right leg DVT (Chronic) CKD (chronic kidney disease) (Chronic) Hospital Course and Treatment Imaging Results: Diagnostic Data Chest X-Ray 09/22/18 00:07 IMPRESSION: Degenerative changes, as described above. No demonstrated acute cardiopulmonary process. Electronically Signed: Juan Jimenez MD at 0:35 EST Tel , Service support , Operations: None Procedures: None Summary of Care Provided: The patient is a 78 year old F with past medical history of CKD stage III, chronic hypoxic respiratory failure due to COPD on 4 L of home oxygen. She was admitted with a complaint of progressively worsening shortness of breath worsened by exertion with an associated cough productive of thick sputum and postnasal drip as well as rhinorrhea, wheezing and chest congestion. Her satura tion was down in the 80s even on a 4 L of oxygen when paramedics arrived at her house and she required increasing amounts of oxygen. She was admitted and managed for acute on chronic hypoxic respiratory failure due to COPD exacerbation. She was started on breathing treatments and azithromycin. Appropriate influenza screen was negative. Oxygen was titrated to maintain saturation above 92%. Patient remained stable, shortness of breath improved significantly and she was weaned down to her baseline 4 L of oxygen. Wheezing also resolved. She was discharged home on 09/23/2018 with a prescription for DuoNeb aerosols as she has a nebulizer at home and also prescription for p.o. prednisone for 5 days and p.o. azithromycin for 3 days. He is to follow-up with her primary care doctor. Patient seen and examined prior to discharge. She had no complaints and felt well. She denied any fever, any chills, any cough or chest pain, shortness of breath, abdominal pain, any diarrhea vomiting. Review of systems otherwise negative. Labs and vitals reviewed. Home medications reviewed and reconciled. o/e: Vitals: Vital Signs Height 5 ft 8 in Weight: 195 lb 5.273 oz Weight in Pounds 195.3 lbs Pulse Ox 98 Temperature 98.3 F Pulse Rate 105 Respiratory Rate 20 Blood Pressure 138/89 Blood Pressure Position Sitting [] General: Alert, Oriented x3, Cooperative, No apparent distress HEENT: Atraumatic, PERRLA, EOMI, Normocephalic Oral: Moist Mucosa Neck: Supple, No JVD, Negative Carotid Bruits Lungs: Clear to auscultation, Normal air movement, No rhonchi, No wheeze, No rales, - - on 4L of oxygen, which is her baseline. Cardiovascular: Regular rate, Regular Rhythm, Normal S1, Normal S2, No murmurs Abdomen: Bowel Sounds Present, Soft, Non Tender, Non-Distended, No Hepato- splenomegaly Extremities: No clubbing, No cyanosis, No edema, Capillary Refill Less than 3 Seconds Skin: No rashes, No breakdown Musculoskeletal: No Tenderness to Palpation of Joints or Extremities Lymphatic: No Cervical, Supraclavicular, or Inguinal Adenopathy Neurological: Cranial nerves II-XII grossly intact, Neuro grossly intact, Motor Exam 5/5 strength throughout Psych/Mental Status: Normal Affect, Appropriate, Alert and oriented to time, place, person, mood and affect Plan as detailed above. Patient Problems: Active and Suspected Problems Acute respiratory failure with hypoxemia (Acute) - Physical Exam Vital Signs Temp Pulse Resp BP Pulse Ox 98.3 F 105 H 20 H 138/89 H 98 09/23/18 08:10 09/23/18 08:10 09/23/18 08:10 09/23/18 08:10 09/23/18 08:10 Oxygen Flow Rate (L/min) 4 Oxygen Delivery Method Room Air Weight: 195 lb 5.273 oz Body Mass Index (BMI) 29.7 Intake and Output for Last 24 Hours 09/21/18 09/22/18 09/23/18 23:59 23:59 23:59 Intake Total 1375 / 1375 750 / 750 Balance 1375 / 1375 750 / 750 Microbiology Past 72 Hours 09/22/18 07:40 Influenza Types A,B Direct FA (HERMILO) - Final Mucosa - Nasopharyngeal Laboratory Tests Past 24 Hrs 09/23/18 05:18 Sodium 135 L Potassium 4.0 Chloride 101 Carbon Dioxide 26.0 Anion Gap 8 BUN 26 H Creatinine 1.81 H Estim Creat Clear Calc 25.42 Est GFR (MDRD) Af Amer 35 L Est GFR (MDRD) Non-Af 29 L BUN/Creatinine Ratio 14.4 Glucose 175 H Calcium 8.4 L Discharge Diet: Low fat/ Low Cholesterol Discharge Activity: Return to Normal Activity Weight Bearing Status: Weight bearing as tolerated Call your doctor if you observe: Shortness of breath, Swelling in the ankles Home Medications: Medications to take at Discharge Fluticasone/Salmeterol [Advair 250/50 Mcg Diskus] 1 puff INHALATION BID 03/20/14 Albuterol Sulfate [Ventolin Hfa] 1 puff INHALATION DAILY 06/15/18 Azithromycin 500 mg PO DAILY #3 tablet 09/23/18 Ipratropium/Albuterol Sulfate [Duoneb] 3 ml INHALATION Q4HWA.RT #60 ampul.neb 09/23/18 predniSONE tablet 40 mg PO DAILY 5 Days #10 tablet 09/23/18 Following Prescrptions Were Given to Patient: Ipratropium/Albuterol Sulfate [Duoneb] 3 ml INHALATION Q4HWA.RT #60 ampul.neb Azithromycin 500 mg PO DAILY #3 tablet predniSONE tablet 40 mg PO DAILY 5 Days #10 tablet Primary Care Physician: Mayo Duran Chi, MD [Primary Care Provider] - Please follow up with your Primary Care Physician in: 1 week Disposition: Home Minutes spent on discharge:: 35 Patient Condition:: Stable Medical Necessity - Tobacco Use Smoking Status: Former smoker Meaningful Use Info Meaningful Use Diagnoses (Choose all that apply): None applicable Code Visit Inpatient E&M: 93360 Disch Hosp
[2018-09-23] MEDS: guaiFENesin 1,200 MG Tablet 1200 MG PO (09:51)
[2018-09-23] MEDS: Fluticasone 0.05% 1 SPRAY NASAL.SRY NASAL (09:51)
[2018-09-23] MEDS: Acetaminophen 325 MG Tablet 650 MG PO (09:53)
[2018-09-23 11:49] VITALS: BP 134/61; PULSE 98; RESP 16; TEMP 36.8; O2SAT 95
--- NOTE | 2018-09-24 12:57 | CASEMGMT ---
ALISHA CM DC Phone Call DC Date:09-23-18 DC Dispostion: Home Attempted call to pt's listed number, no answer. Mally JORDANN RN AC
--- NOTE | 2018-09-25 14:15 | CASEMGMT ---
ALISHA CLAUDIO Called to Stephanie Kaur. Authorization form for inhaler will be faxed to [facility] for physician to fill out. Will need Dr. Dia to sign and can fax back to Stephanie Kaur. Mally TORO RN ACM
--- NOTE | 2018-09-26 11:30 | CASEMGMT ---
ALISHA CM NOTE: MCR PART B detailed written order form received from Stephanie Kaur and they requested this be filled out and signed by doctor for Albuterol Aerosal. Form completed, signed by Dr Dia and faxed to Stephanie Kaur @ [phone]. Sadi TORO RN CM
== END 2018-09-23 12:45 | disposition home or self-care (01) | DRG 189 ==
LOC: ED 09-22 00:50 → MS2 09-22 01:43
PROVIDERS: Admitting Provider Hospitalist; Emergency Provider Emergency Medicine; Family Provider Family Medicine Geriatric Medicine; PCP Family Medicine Geriatric Medicine; Referring Provider Hospitalist; Visit Provider Student in an Organized Health Care Education/Training Program
DX: J96.21 Acute and chronic respiratory failure with hypoxia (principal); J44.1 Chronic obstructive pulmonary disease with (acute) exacerbation; Z99.81 Dependence on supplemental oxygen; K21.9 Gastro-esophageal reflux disease without esophagitis; I87.2 Venous insufficiency (chronic) (peripheral); F41.9 Anxiety disorder, unspecified; N18.3 Chronic kidney disease, stage 3 (moderate); Z86.718 Personal history of other venous thrombosis and embolism; Z87.891 Personal history of nicotine dependence
CPT/HCPCS: 36415; 71045; 80048; 85025; 87804; 93005; 94640; 94667; 94668; 97161; 97165; 97802; 99251; 99284; J7040; A4216; G0463

== ENCOUNTER 2018-10-12 13:15 | Inpatient (IN) | payer MEDICARE, MEDICAID, SELFPAY ==
[2018-09-22 02:15] VITALS: BMI 29.7
[2018-10-12] VITALS (12 sets, daily range): BP systolic 128–159; BP diastolic 62–83; PULSE 77–98; RESP 16–28; TEMP 36.6–37.3; O2SAT 93–99; BMI 32.8
--- NOTE | 2018-10-12 14:22 | EKG12_ITS ---
Test Reason : CHEST PAIN Blood Pressure : / mmHG Vent. Rate : 076 BPM Atrial Rate : 076 BPM P-R Int : 146 ms QRS Dur : 072 ms QT Int : 400 ms P-R-T Axes : 060 -21 094 degrees QTc Int : 450 ms Normal sinus rhythm Nonspecific T wave abnormality Abnormal ECG Confirmed by VIJAY ROBLEDO, JENNIFER ([id number]), supervising editor news reel CHELSIE SILVESTRE ([id number]) on 10/16/2018 3:32:55 PM Referred By: ESTRELLA Confirmed By:JENNIFER LINARES MD
--- NOTE | 2018-10-12 14:28 | RAD_ITS ---
STUDY: X-RAY CHEST REASON FOR EXAM: Female, 78 years old. Sternal chest pain. COPD TECHNIQUE: Single AP portable view of the chest. COMPARISON: Comparison is made with prior examination dated September 22, 2018. FINDINGS: EKG electrodes are seen. Hyperinflation. Stable pleural parenchymal changes at the left lung base most likely secondary to scarring. Normal size heart. Normal mediastinum and sera. Normal visualized pulmonary arteries. There is atherosclerotic tortuosity of the aortic arch and descending thoracic aorta. There is a levoscoliosis of the thoracic spine. Normal visualized ribs, clavicles, and shoulders. There is no demonstrated abnormality of the visualized soft tissue structures of the upper abdomen. RAD/Chest 1 View (Portable) IMPRESSION: Stable pleural parenchymal changes at the left lung base. Electronically Signed: Chandu Kohli MD at 14:50 EST , Service support ,
[2018-10-12] MEDS: 0.9% Normal Saline 1,000 ML 150 ML IV (14:50)
[2018-10-12] MEDS: MethylPREDNISolone 125 MG/2 ML Vial IV (14:50)
[2018-10-12] MEDS: Ipratropium/Albuterol Sulfate 3 ML AMPUL.NEB INHALATION ×3 (14:59→23:04)
[2018-10-12 15:06] LABS: Absolute Lymphocyte Count 1.35 X10^3/ul (0.83-4.51); Absolute Neutrophil Count 5.4 X10^3/uL (2.0-7.7); Basophil# 0.02 X10^3/uL; Basophil% 0.3 % (0-1); Eosinophil# 0.21 X10^3/uL; Eosinophils% 2.8 % (0-5); Hematocrit 34.9 % (37-47); Hemoglobin 10.8 g/dl (12.0-15.0); Lymphocyte # 1.35 X10^3/ul (4.0); Lymphocyte % 17.8 % (19-41); Mean Corp Hgb Conc 30.9 g/gl (32-36); Mean Corpuscular Volume 100.3 fL (81-99); Monocyte# 0.57 X10^3/uL; Monocyte% 7.5 % (0-10); Neutrophil # 5.41 X10^3/uL (2.7-7.7); Neutrophil % 71.5 % (47-70); POSITIVE COUNT NO; POSITIVE DIFFERENTIAL NO; POSITIVE MORPHOLOGY NO; Platelet Count 190 K/mm3 (150-450); RBC Distribution Width SD 51.3 fl (35.1-43.9); Red Blood Count 3.48 M/mm3 (4.2-5.4); White Blood Count 7.6 K/mm3 (4.4-11.0)
[2018-10-12 15:32] LABS: Anion Gap 5 (5-15); BUN 28 mg/dL (7-18); BUN/Creat Ratio 19.2 RATIO (10-20); Calcium,Total 8.1 mg/dL (8.5-10.1); Chloride 106 mmol/L (98-107); Creatinine, Serum 1.46 mg/dL (0.55-1.02); EST Glomerular Filtration Rate 37 mL/min (>60); Est Glom Filt Rate - Afr Amer 44 mL/min (>60); Estimated Creatinine Clearance 31.52 ml/min; Glucose 91 mg/dL (74-106); Potassium 4.4 mmol/L (3.5-5.1); Sodium Level 140 mmol/L (136-145)
--- NOTE | 2018-10-12 15:53 | ED.DCSUM_ITS ---
- ER Visit Summary Date of Service: 10/12/18 Chief Complaint: COPD exacerbation, chest pain History of Present Illness: The patient is a 78 F who is had difficulty controlling her COPD for the past 2 months. Patient was recently on steroids and finished this medication 2 days ago. She has had increased shortness of breath with any exertion. She uses a motorized wheelchair in her home and only ambulates in the doorway to the commode. Just with this little activity she states she has to put her nasal cannula oxygen in her mouth to get enough air. Patient does report a moist cough. She has not had fever or chills. Today while sitting at rest she had sharp chest pain across her chest that went up toward her jaw. It has since subsided. Physical Examination: Vital signs grossly unremarkable. Pulse ox is 93% on 4 L which is her baseline. Patient is sitting upright in bed. She is speaking full sentences. Head neck examination unremarkable. Heart is regular rate and rhythm. Lungs sounds are with expiratory wheezes. Abdomen is soft nontender. Lower extreme examination reveals 2-3+ bilateral symmetric edema consistent with lymphedema. Test Results: Portable chest x-ray shows stable pleural parenchymal changes. EKG is sinus at 76 with no sign of acute ischemia. CBC was normal white count. Hemoglobin is 10.8. Chemistry studies reveal BUN of 28 creatinine 1.46 which is stable or even slightly improved from her baseline. Troponin is 0.019. Emergency Department Course and Treatment: Patient was given a DuoNeb treatment along with Solu-Medrol. On repeat evaluation respiratory rate is improved. She has increased air movement on auscultation. Patient has been on outpatient therapy for her COPD exacerbation for some time. She will be admitted for further evaluation and treatment. She be given a dose of IV Zithromax. Treatment Plan: [] Disposition: Admit Impression: COPD exacerbation This note was generated with [employer] dictation software. It may contain incorrect words, spelling, and punctuation that were not noted in review of the chart prior to signing ED Disposition - Plan for ED Patient: Chief Complaint: Chest Pain Referrals: Hardik Soto MD [Primary Care Provider] -
--- NOTE | 2018-10-12 16:15 | PCM.HP.STD ---
Problem List (1) Stage III chronic kidney disease Status: Chronic (2) GERD (gastroesophageal reflux disease) Status: Chronic (3) Venous insufficiency Status: Chronic (4) COPD (chronic obstructive pulmonary disease) Status: Chronic (5) Obesity (BMI 30.0-34.9) Status: Chronic (6) Right leg DVT Status: Chronic History of Present Illness Date of Admission: 10/12/18 Chief Complaint: Worsening shortness of breath, cough. The patient is a 78 year old F with past medical history as mentioned above presented to the emergency room because of worsening shortness of breath and cough. She has history of COPD and chronic respiratory failure, has been on home oxygen at 4 L and over the last several weeks, she has been complaining of worsening shortness of breath, comes on with minimal activity and sometimes even at rest, aggravated by exertion, no significant relieved with rest, associated with dry cough with minimal sputum as well as wheezing and sometimes associated with chest pain/discomfort. She was admitted around 3 weeks ago to the hospital for COPD exacerbation, stayed in the hospital for overnight and she was discharged home. She saw her PCP after discharge from the hospital, was started back on 12 days of steroid taper that was completed 2 days ago. She mentioned that her breathing is not getting any better after completed the prednisone taper. In the emergency department, patient was afebrile, blood pressure and heart rate was stable, she was dyspneic and tachypneic with audible wheezing and her pulse ox was 93% on 4 L. Her routine blood work was remarkable for chronic anemia and chronic elevated creatinine at 1.46. Her EKG revealed normal sinus rhythm without evidence of acute ischemic changes or cardiac arrhythmias. Her troponin is negative. Chest x-ray showed no acute infiltrate or consolidation, chronic findings noted. She is being admitted for acute COPD exacerbation with failure of outpatient therapy. Past Medical History Past Medical History (Chronic Problems): Chronic Problems Stage III chronic kidney disease (Chronic) GERD (gastroesophageal reflux disease) (Chronic) Venous insufficiency (Chronic) COPD (chronic obstructive pulmonary disease) (Chronic) Obesity (BMI 30.0-34.9) (Chronic) Anxiety (Chronic) Right leg DVT (Chronic) Allergies chlordiazepoxide HCl [From Librium] Allergy (Verified 09/22/18 06:53) Swelling Penicillins Allergy (Verified 09/22/18 06:53) Swelling Home Medications: Ambulatory Orders Medication Instructions Recorded Albuterol Inhaler [Ventolin Hfa 1 - 2 puff INHALATION Q6H PRN PRN 10/12/18 (SP)] Fluticasone/Salmeterol [Advair 1 puff INHALATION DAILY 10/12/18 500/50 Mcg Diskus] Ipratropium/Albuterol Sulfate 3 ml INHALATION Q4H PRN PRN 10/12/18 [Iprat-Albut 0.5-3(2.5) mg/3 ml] Oxygen, Home [Home Oxygen] 4 lpm NASAL CONT 10/12/18 Surgical History: - - Uterine suspension; benign lump was removed from right breast. 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 Denies: Anorexia, Chills, Fever Eyes: Denies: Blurred vision, Double vision, Drainage, Redness HEENT: Denies: Difficulty Hearing, Ear Pain, Eye Pain, Nasal Congestion, Sore Throat Cardiovascular: Reports: Chest Pain - Chest discomfort because of cough.. Denies: Chest Pressure, Edema, Heaviness Respiratory: Reports: Cough, Pleuritic Pain, Shortness of Breath, Shortness of breath at rest, Shortness of breath upon exertion, Wheezing Gastrointestinal: Denies: Abdominal Pain, Constipation, Diarrhea, Nausea, Vomiting Genitourinary: Denies: Dysuria, Frequency, Hematuria Musculoskeletal: Reports: Leg Pain. Denies: Arm Pain, Back Pain Skin: Denies: Dryness, Rash Neurological: Denies: Balance problems, Double vision, Change in Speech, Slurred speech, Confusion, Focal weakness, Headaches, Incoordination, Numbness Psychiatric: Denies: Anxiety, Depression Endocrine: Denies: Change in Body Habitus, Polydipsia VTE Information - Inpt Only VTE Present on Admission: No VTE Mechan Device Prophylaxis: None VTE Pharm Prophylaxis ordered?: Yes - Physical Exam General: Alert, Oriented x3, Cooperative, - - Moderately short of breath. HEENT: Atraumatic, PERRLA, EOMI, Normocephalic Oral: Moist Mucosa, No Gingival or Mucosal Lesions/ Ulcerations Neck: Supple, No JVD, Negative Carotid Bruits, Trachea Midline, Thyroid Normal Size and Texture Lungs: No rales, Diminished, Rhonchi, Short of Breath, Tachypneic, Wheezes, - - Decreased breath sounds bilateral, bilateral rhonchi, expiratory wheezes. Cardiovascular: Regular rate, Regular Rhythm, Normal S1, Normal S2, PMI Normal Abdomen: Bowel Sounds Present, Soft, Non Tender, Non-Distended, No Hepato-splenomegaly Extremities: No clubbing, No cyanosis, Edema - Trace edema. Skin: No rashes, No breakdown Lymphatic: No Cervical, Supraclavicular, or Inguinal Adenopathy Neurological: Cranial nerves II-XII grossly intact, Motor Exam 5/5 strength throughout Psych/Mental Status: Normal Affect, Appropriate, Alert and oriented to time, place, person, mood and affect Vital Signs Temp Pulse Resp BP Pulse Ox 98.2 F 82 18 159/66 H 97 10/12/18 13:16 10/12/18 15:00 10/12/18 15:00 10/12/18 15:00 10/12/18 15:00 Oxygen Flow Rate (L/min) 4 Oxygen Delivery Method Nasal Cannula Weight: 215 lb 13.321 oz Body Mass Index (BMI) 32.8 Laboratory Tests Past 24 Hrs 10/12/18 10/12/18 14:47 14:47 WBC 7.6 RBC 3.48 L Hgb 10.8 L Hct 34.9 L MCV 100.3 H MCH 31.0 MCHC 30.9 L RDW 14.0 RDW Differential 51.3 H Plt Count 190 MPV 9.0 Immature Gran % (Auto) 0.100 Neut % (Auto) 71.5 H Lymph % (Auto) 17.8 L Island % (Auto) 7.5 Eos % (Auto) 2.8 Baso % (Auto) 0.3 Absolute Neuts (auto) 5.4 Absolute Lymphs (auto) 1.35 Total Counted Not Reportable Sodium 140 Potassium 4.4 Chloride 106 Carbon Dioxide 29.0 Anion Gap 5 BUN 28 H Creatinine 1.46 H Estim Creat Clear Calc 31.52 Est GFR (MDRD) Af Amer 44 L Est GFR (MDRD) Non-Af 37 L BUN/Creatinine Ratio 19.2 Glucose 91 Calcium 8.1 L Troponin I 0.019 Clinical Impression(s) from Imaging Studies Chest X-Ray 10/12/18 14:28 IMPRESSION: Stable pleural parenchymal changes at the left lung base. Electronically Signed: Chandu Kohli MD at 14:50 EST , Service support , Assessment/Plan This is a 78 years old female patient presented to the ED because of worsening shortness of breath and cough, being admitted for acute COPD exacerbation with failure of outpatient therapy. #1 acute COPD exacerbation: With failure of outpatient therapy, patient completed prednisone taper 2 days ago. She was admitted 3 weeks ago to the hospital, remained one night in the hospital then discharged. Although she remained on 4 L of oxygen, she is very dyspneic, tachypneic and not able to complete one sentence in 1 breathing. Chest x-ray showed no acute infiltrate or consolidation, pneumonia ruled out. EKG reviewed as above. Troponin is negative. Plan: Admit to MedSurg floor, cardiac monitoring, IV steroids, DuoNeb every 4 hours, albuterol as needed, Tylenol as needed, Mucinex twice daily, sputum culture, respiratory panel for viruses, repeat CBC and BMP tomorrow morning, chest physiotherapy, incentive parameter, PT OT evaluation and treatment. #2 chronic respiratory failure: Patient has been on oxygen at home at 4 L. She remained on 4 L at this time but she is dyspneic and tachypneic. Plan as above. #3 stage III chronic kidney disease: Baseline creatinine is around 1.3-1.9 mg/dL, admission creatinine is 1.46, stable at baseline. #4 GERD: She is not on any medication at home. Because she would be on steroids, I will start her on Protonix. #5 history of DVT: Completed treatment years ago. #6 chronic anemia: It is macrocytic anemia, baseline hemoglobin around 10-11 g/dL. Admission hemoglobin is 10.8 g/dL, stable at baseline. #7 DVT prophylaxis: Subcu heparin. This note was generated with [employer] dictation software. It may contain incorrect words, spelling, and punctuation that were not noted in checking the note before signing. Code Visit Inpatient E&M: 82949 Init Hosp L3
--- NOTE | 2018-10-12 16:19 | HP.PCM_ITS ---
Problem List (1) Stage III chronic kidney disease Status: Chronic (2) GERD (gastroesophageal reflux disease) Status: Chronic (3) Venous insufficiency Status: Chronic (4) COPD (chronic obstructive pulmonary disease) Status: Chronic (5) Obesity (BMI 30.0-34.9) Status: Chronic (6) Right leg DVT Status: Chronic History of Present Illness Date of Admission: 10/12/18 Chief Complaint: Worsening shortness of breath, cough. The patient is a 78 year old F with past medical history as mentioned above presented to the emergency room because of worsening shortness of breath and cough. She has history of COPD and chronic respiratory failure, has been on home oxygen at 4 L and over the last several weeks, she has been complaining of worsening shortness of breath, comes on with minimal activity and sometimes even at rest, aggravated by exertion, no significant relieved with rest, associated with dry cough with minimal sputum as well as wheezing and sometimes associated with chest pain/discomfort. She was admitted around 3 weeks ago to the hospital for COPD exacerbation, stayed in the hospital for overnight and she was discharged home. She saw her PCP after discharge from the hospital, was started back on 12 days of steroid taper that was completed 2 days ago. She mentioned that her breathing is not getting any better after completed the prednisone taper. In the emergency department, patient was afebrile, blood pressure and heart rate was stable, she was dyspneic and tachypneic with audible wheezing and her pulse ox was 93% on 4 L. Her routine blood work was remarkable for chronic anemia and chronic elevated creatinine at 1.46. Her EKG revealed normal sinus rhythm without evidence of acute ischemic changes or cardiac arrhythmias. Her troponin is negative. Chest x-ray showed no acute infiltrate or consolidation, chronic findings noted. She is being admitted for acute COPD exacerbation with failure of outpatient therapy. Past Medical History Past Medical History (Chronic Problems): Chronic Problems Stage III chronic kidney disease (Chronic) GERD (gastroesophageal reflux disease) (Chronic) Venous insufficiency (Chronic) COPD (chronic obstructive pulmonary disease) (Chronic) Obesity (BMI 30.0-34.9) (Chronic) Anxiety (Chronic) Right leg DVT (Chronic) Allergies chlordiazepoxide HCl [From Librium] Allergy (Verified 09/22/18 06:53) Swelling Penicillins Allergy (Verified 09/22/18 06:53) Swelling Home Medications: Ambulatory Orders Medication Instructions Recorded Albuterol Inhaler [Ventolin Hfa 1 - 2 puff INHALATION Q6H PRN PRN 10/12/18 (SP)] Fluticasone/Salmeterol [Advair 1 puff INHALATION DAILY 10/12/18 500/50 Mcg Diskus] Ipratropium/Albuterol Sulfate 3 ml INHALATION Q4H PRN PRN 10/12/18 [Iprat-Albut 0.5-3(2.5) mg/3 ml] Oxygen, Home [Home Oxygen] 4 lpm NASAL CONT 10/12/18 Surgical History: - - Uterine suspension; benign lump was removed from right breast. MOUSE BREEDER History: No pertinent MOUSE BREEDER history Lives: Alone Smoking Status: Former smoker Alcohol: None Drugs: None - *Family History Maternal History Items: Heart Disease Paternal History Items: Heart Disease Review of Systems Constitutional: Reports: Weakness. Denies: Anorexia, Chills, Fever Eyes: Denies: Blurred vision, Double vision, Drainage, Redness HEENT: Denies: Difficulty Hearing, Ear Pain, Eye Pain, Nasal Congestion, Sore Throat Cardiovascular: Reports: Chest Pain - Chest discomfort because of cough.. Denies: Chest Pressure, Edema, Heaviness Respiratory: Reports: Cough, Pleuritic Pain, Shortness of Breath, Shortness of breath at rest, Shortness of breath upon exertion, Wheezing Gastrointestinal: Denies: Abdominal Pain, Constipation, Diarrhea, Nausea, Vomiting Genitourinary: Denies: Dysuria, Frequency, Hematuria Musculoskeletal: Reports: Leg Pain. Denies: Arm Pain, Back Pain Skin: Denies: Dryness, Rash Neurological: Denies: Balance problems, Double vision, Change in Speech, Slurred speech, Confusion, Focal weakness, Headaches, Incoordination, Numbness Psychiatric: Denies: Anxiety, Depression Endocrine: Denies: Change in Body Habitus, Polydipsia VTE Information - Inpt Only VTE Present on Admission: No VTE Mechan Device Prophylaxis: None VTE Pharm Prophylaxis ordered?: Yes - Physical Exam General: Alert, Oriented x3, Cooperative, - - Moderately short of breath. HEENT: Atraumatic, PERRLA, EOMI, Normocephalic Oral: Moist Mucosa, No Gingival or Mucosal Lesions/ Ulcerations Neck: Supple, No JVD, Negative Carotid Bruits, Trachea Midline, Thyroid Normal Size and Texture Lungs: No rales, Diminished, Rhonchi, Short of Breath, Tachypneic, Wheezes, - - Decreased breath sounds bilateral, bilateral rhonchi, expiratory wheezes. Cardiovascular: Regular rate, Regular Rhythm, Normal S1, Normal S2, PMI Normal Abdomen: Bowel Sounds Present, Soft, Non Tender, Non-Distended, No Hepato- splenomegaly Extremities: No clubbing, No cyanosis, Edema - Trace edema. Skin: No rashes, No breakdown Lymphatic: No Cervical, Supraclavicular, or Inguinal Adenopathy Neurological: Cranial nerves II-XII grossly intact, Motor Exam 5/5 strength throughout Psych/Mental Status: Normal Affect, Appropriate, Alert and oriented to time, place, person, mood and affect Vital Signs Temp Pulse Resp BP Pulse Ox 98.2 F 82 18 159/66 H 97 10/12/18 13:16 10/12/18 15:00 10/12/18 15:00 10/12/18 15:00 10/12/18 15:00 Oxygen Flow Rate (L/min) 4 Oxygen Delivery Method Nasal Cannula Weight: 215 lb 13.321 oz Body Mass Index (BMI) 32.8 Laboratory Tests Past 24 Hrs 10/12/18 10/12/18 14:47 14:47 WBC 7.6 RBC 3.48 L Hgb 10.8 L Hct 34.9 L MCV 100.3 H MCH 31.0 MCHC 30.9 L RDW 14.0 RDW Differential 51.3 H Plt Count 190 MPV 9.0 Immature Gran % (Auto) 0.100 Neut % (Auto) 71.5 H Lymph % (Auto) 17.8 L [place] % (Auto) 7.5 Eos % (Auto) 2.8 Baso % (Auto) 0.3 Absolute Neuts (auto) 5.4 Absolute Lymphs (auto) 1.35 Total Counted Not Reportable Sodium 140 Potassium 4.4 Chloride 106 Carbon Dioxide 29.0 Anion Gap 5 BUN 28 H Creatinine 1.46 H Estim Creat Clear Calc 31.52 Est GFR (MDRD) Af Amer 44 L Est GFR (MDRD) Non-Af 37 L BUN/Creatinine Ratio 19.2 Glucose 91 Calcium 8.1 L Troponin I 0.019 Clinical Impression(s) from Imaging Studies Chest X-Ray 10/12/18 14:28 IMPRESSION: Stable pleural parenchymal changes at the left lung base. Electronically Signed: Chandu Kohli MD at 14:50 EST , Service support , Assessment/Plan This is a 78 years old female patient presented to the ED because of worsening shortness of breath and cough, being admitted for acute COPD exacerbation with failure of outpatient therapy. #1 acute COPD exacerbation: With failure of outpatient therapy, patient completed prednisone taper 2 days ago. She was admitted 3 weeks ago to the hospital, remained one night in the hospital then discharged. Although she remained on 4 L of oxygen, she is very dyspneic, tachypneic and not able to complete one sentence in 1 breathing. Chest x-ray showed no acute infiltrate or consolidation, pneumonia ruled out. EKG reviewed as above. Troponin is negative. Plan: Admit to MedSurg floor, cardiac monitoring, IV steroids, DuoNeb every 4 hours, albuterol as needed, Tylenol as needed, Mucinex twice daily, sputum culture, respiratory panel for viruses, repeat CBC and BMP tomorrow morning, chest physiotherapy, incentive parameter, PT OT evaluation and treatment. #2 chronic respiratory failure: Patient has been on oxygen at home at 4 L. She remained on 4 L at this time but she is dyspneic and tachypneic. Plan as above. #3 stage III chronic kidney disease: Baseline creatinine is around 1.3-1.9 mg/dL, admission creatinine is 1.46, stable at baseline. #4 GERD: She is not on any medication at home. Because she would be on steroids, I will start her on Protonix. #5 history of DVT: Completed treatment years ago. #6 chronic anemia: It is macrocytic anemia, baseline hemoglobin around 10-11 g/dL. Admission hemoglobin is 10.8 g/dL, stable at baseline. #7 DVT prophylaxis: Subcu heparin. This note was generated with [employer] dictation software. It may contain incorrect words, spelling, and punctuation that were not noted in checking the note before signing. Code Visit Inpatient E&M: 70759 Init Hosp L3
[2018-10-13] VITALS (9 sets, daily range): BP systolic 129–155; BP diastolic 48–85; PULSE 70–106; RESP 16–24; TEMP 36.6; O2SAT 96–100
--- NOTE | 2018-10-13 02:30 | CPS ---
Pt refused nasal swab d/t anxiety. RN notified
[2018-10-13] MEDS: Acetaminophen 325 MG Tablet 650 MG PO ×2 (04:26→16:37)
--- NOTE | 2018-10-13 05:31 | NURSING ---
pt has refused all meds, took off tele & refused to put back on-tele order dc'd, and refused nasal swab. pt removed iv this am. refusing new iv. Pt states she is going home this morning.
[2018-10-13 06:35] LABS: Absolute Lymphocyte Count 0.42 X10^3/ul (0.83-4.51); Absolute Neutrophil Count 5.1 X10^3/uL (2.0-7.7); Basophil# 0.01 X10^3/uL; Basophil% 0.2 % (0-1); Differential Indicated SCAN CRITERIA MET; Hematocrit 32.1 % (37-47); Hemoglobin 10.2 g/dl (12.0-15.0); Lymphocyte # 0.42 X10^3/ul (4.0); Lymphocyte % 7.3 % (19-41); Mean Corp Hgb Conc 31.8 g/gl (32-36); Mean Corpuscular Hgb 31.1 pg (27.0-32.0); Mean Corpuscular Volume 97.9 fL (81-99); Mean Platelet Vol. 8.9 fl (6.2-12.0); Monocyte% 3.5 % (0-10); Neutrophil # 5.14 X10^3/uL (2.7-7.7); Neutrophil % 88.8 % (47-70); POSITIVE COUNT NO; POSITIVE DIFFERENTIAL YES; POSITIVE MORPHOLOGY NO; Platelet Count 212 K/mm3 (150-450); RBC Distribution Width CV 13.2 % (11.6-14.6); RBC Distribution Width SD 45.7 fl (35.1-43.9); Red Blood Count 3.28 M/mm3 (4.2-5.4); White Blood Count 5.8 K/mm3 (4.4-11.0)
[2018-10-13] MEDS: Ipratropium/Albuterol Sulfate 3 ML AMPUL.NEB INHALATION ×4 (06:51→23:00)
[2018-10-13 06:59] LABS: Differential Comment SCANNED
[2018-10-13 07:29] LABS: Anion Gap 8 (5-15); BUN 27 mg/dL (7-18); BUN/Creat Ratio 17.8 RATIO (10-20); Calcium,Total 8.1 mg/dL (8.5-10.1); Chloride 106 mmol/L (98-107); Creatinine, Serum 1.52 mg/dL (0.55-1.02); EST Glomerular Filtration Rate 35 mL/min (>60); Est Glom Filt Rate - Afr Amer 42 mL/min (>60); Estimated Creatinine Clearance 30.27 ml/min; Glucose 164 mg/dL (74-106); Potassium 4.4 mmol/L (3.5-5.1); Sodium Level 140 mmol/L (136-145)
--- NOTE | 2018-10-13 08:00 | ECHOD_ITS ---
Reason For Study: Dyspnea/SOB Procedure This was a 2D Doppler, Color Flow transthoracic echocardiogram. The study was technically difficult. Exam performed portable in patient room. Left Ventricle Normal LV size. Left ventricular systolic function is normal. The estimated ejection fraction is 65 %. Diastolic function is indeterminate. No regional wall motion abnormalities noted. Right Ventricle Normal RV size. Normal systolic function. Atria Normal left atrium. Normal right atrium. No doppler evidence for ASD. Mitral Valve There is mild mitral annular calcification. Extension of the mitral annular calcification on to the posterior mitral valve leaflet. Trivial eccentric mitral valve insufficiency. Tricuspid Valve Normal tricuspid valve. Trivial tricuspid valve insufficiency. Unable to estimate RV systolic pressure/pulmonary artery pressure due to technically difficult study. Aortic Valve Trisinus/trileaflet aortic valve. Mild focal aortic valve thickening. Trivial aortic valve insufficiency. Pulmonic Valve The pulmonic valve is not well visualized. Great Vessels Normal sized aortic root. Pericardium/Pleural No pericardial effusion. MMode/2D Measurements & Calculations LVIDd: 3.7 cm IVSd: 1.6 cm Ao root diam: 3.4 cm LVIDs: 2.0 cm LVPWd: 1.0 cm RVDd: 3.7 cm FS: 45.2 % LAV(MOD-bp): 28.4 ml LVAd ap4: 21.1 cm2 SV(MOD-sp4): 39.0 ml LAV(MOD-bp) Indexed: 13.5 ml/m2 EDV(MOD-sp4): 51.0 ml LAV(MOD-sp2): 26.9 ml EDV(sp4-el): 53.1 ml LAV(MOD-sp4): 23.9 ml LVAs ap4: 8.6 cm2 ESV(MOD-sp4): 12.0 ml ESV(sp4-el): 12.6 ml EF(MOD-sp4): 76.5 % EF(sp4-el): 76.3 % SV(sp4-el): 40.5 ml LA A4 area: 12.3 cm2 LA dimension(2D): 3.0 cm RA A4 area: 12.6 cm2 Time Measurements MV dec time: 0.15 sec Doppler Measurements & Calculations MV E max duglas: 105.9 cm/sec Lat Peak E' Duglas: 4.6 cm/sec Med Peak E' Duglas: 4.1 cm/sec MV A max duglas: 125.4 cm/sec E/E' lat: 22.8 E/E' med: 26.0 MV E/A: 0.84 MV V2 max: 144.2 cm/sec MV P1/2t max duglas: 97.4 cm/sec Ao V2 max: 165.7 cm/sec MV max P.3 mmHg MV P1/2t: 112.5 msec Ao max P.0 mmHg MV V2 mean: 78.2 cm/sec Ao V2 mean: 109.2 cm/sec MV mean P.7 mmHg MV dec slope: 253.7 cm/sec2 Ao mean P.4 mmHg MV V2 VTI: 35.8 cm MVA(P1/2t): 2.0 cm2 Ao V2 VTI: 32.6 cm LV V1 max: 129.3 cm/sec PA V2 max: 101.2 cm/sec LV V1 max P.7 mmHg Interpretation Summary The study was technically difficult. Left ventricular systolic function is normal. The estimated ejection fraction is 65 %. There is mild mitral annular calcification. Extension of the mitral annular calcification on to the posterior mitral valve leaflet. Trivial eccentric mitral valve insufficiency. Trivial tricuspid valve insufficiency. Mild focal aortic valve thickening. Trivial aortic valve insufficiency. Unable to estimate RV systolic pressure/pulmonary artery pressure due to technically difficult study. Diastolic function is indeterminate. Ordering Physician: Jj Fitzpatrick Referring Physician: Daniel Soto Performed By: Daisy Lockwood, LEONIDAS, RVT
--- NOTE | 2018-10-13 08:00 | PCM.PN.HOSP ---
Subjective: She did okay overnight with respiratory status, she refused all therapeutic interventions and actually removed her IV because she stated we were not using it. Vitals/I&O's: Vital Signs Temp Pulse Resp BP Pulse Ox 97.8 F 70 24 H 129/48 H 96 10/13/18 03:16 10/13/18 06:51 10/13/18 06:51 10/13/18 03:16 10/13/18 06:51 Oxygen Flow Rate (L/min) 4 Oxygen Delivery Method Nasal Cannula Weight: 215 lb 13.321 oz Body Mass Index (BMI) 32.8 Intake and Output for Last 24 Hours 10/11/18 10/12/18 10/13/18 23:59 23:59 23:59 Intake Total 520 / 520 350 / 350 Balance 520 / 520 350 / 350 General: Alert, Oriented x3, Cooperative, No apparent distress HEENT: Atraumatic, EOMI, Normocephalic Oral: Moist Mucosa Neck: Supple, No JVD, Trachea Midline Lungs: No rhonchi, No rales, Diminished, Wheezes, - - Poor air movement Cardiovascular: Regular rate, Regular Rhythm, Normal S1, Normal S2, No murmurs, No rub noted, No Gallop Abdomen: Soft, Non Tender, Non-Distended, No Hepato-splenomegaly Extremities: Capillary Refill Less than 3 Seconds, Edema - Trace Skin: No rashes, No breakdown Neurological: Neuro grossly intact, Sensory exam intact to light touch and pain Psych/Mental Status: Normal Affect, Appropriate Laboratory Results 10/12/18 14:47: WBC 7.6, RBC 3.48 L, Hgb 10.8 L, Hct 34.9 L, MCV 100.3 H, MCH 31.0, MCHC 30.9 L, RDW 14.0, RDW Differential 51.3 H, Plt Count 190, MPV 9.0, Immature Gran % (Auto) 0.100, Neut % (Auto) 71.5 H, Lymph % (Auto) 17.8 L, [place] % (Auto) 7.5, Eos % (Auto) 2.8, Baso % (Auto) 0.3, Absolute Neuts (auto) 5.4, Absolute Lymphs (auto) 1.35, Total Counted Not Reportable 10/12/18 14:47: Sodium 140, Potassium 4.4, Chloride 106, Carbon Dioxide 29.0, Anion Gap 5, BUN 28 H, Creatinine 1.46 H, Estim Creat Clear Calc 31.52, Est GFR (MDRD) Af Amer 44 L, Est GFR (MDRD) Non-Af 37 L, BUN/Creatinine Ratio 19.2, Glucose 91, Calcium 8.1 L, Troponin I 0.019 10/13/18 05:56: Sodium 140, Potassium 4.4, Chloride 106, Carbon Dioxide 26.0, Anion Gap 8, BUN 27 H, Creatinine 1.52 H, Estim Creat Clear Calc 30.27, Est GFR (MDRD) Af Amer 42 L, Est GFR (MDRD) Non-Af 35 L, BUN/Creatinine Ratio 17.8, Glucose 164 H, Calcium 8.1 L 10/13/18 05:56: WBC 5.8, RBC 3.28 L, Hgb 10.2 L, Hct 32.1 L, MCV 97.9, MCH 31.1, MCHC 31.8 L, RDW 13.2, RDW Differential 45.7 H, Plt Count 212, MPV 8.9, Immature Gran % (Auto) 0.200, Neut % (Auto) 88.8 H, Lymph % (Auto) 7.3 L, [place] % (Auto) 3.5, Eos % (Auto) 0.0, Baso % (Auto) 0.2, Absolute Neuts (auto) 5.1, Absolute Lymphs (auto) 0.42 L, Total Counted Not Reportable, Differential Comment SCANNED Current Medications Acetaminophen (Tylenol) 650 mg PO Q6H PRN PRN PRN Reason: Mild Pain (scale 0-3)/T>100.7 Last Admin: 10/13/18 04:26 Dose: 650 mg Albuterol/Ipratropium (Duoneb) 3 ml INHALATION Q4H.RT [facility] Last Admin: 10/13/18 06:51 Dose: 3 ml Budesonide (Pulmicort Aerosol) 0.5 mg INHALATION BID.RT [facility] Guaifenesin (Mucinex) 600 mg PO BID [facility] Last Admin: 10/12/18 21:25 Dose: Not Given Heparin Sodium (Porcine) (Heparin Na) 5,000 unit SC Q8 [facility] Last Admin: 10/13/18 05:29 Dose: Not Given Magnesium Hydroxide (Milk Of Magnesia) 30 ml PO DAILY PRN PRN PRN Reason: Constipation Methylprednisolone (Solu-Medrol) 40 mg IV Q8 TANYA Ondansetron HCl (Zofran) 4 mg IV Q8H PRN PRN PRN Reason: Nausea Pantoprazole Sodium (Protonix) 40 mg PO DAILY TANYA Sodium Chloride () 5 - 15 ml IV UD PRN PRN Reason: SALINE FLUSH Zolpidem Tartrate (Ambien (Generic)) 5 mg PO QHS PRN PRN PRN Reason: INSOMNIA Medical Necessity - Tobacco Use Smoking Status: Former smoker Assessment/Plan 1. Acute COPD exacerbation/chronic respiratory failure -Continue with DuoNeb -Solu-Medrol 40 mg IV 3 times daily -No signs of pneumonia therefore will DC Levaquin -Add inhaled budesonide -Encourage incentive spirometry -We will perform an echo this morning due to her trace edema -She is on 4 L nasal cannula at baseline at home, we will continue here -She has an outpatient appointment with pulmonology on the . CKD 3 -Sign creatinine between 1.3 and 1.6 -We will continue to monitor 3. GERD -Stable - She is not on any medications at home, but a PPI was started here on admission DVT: Heparin Code Visit Inpatient E&M: 23941 Subs Hosp L2
--- NOTE | 2018-10-13 08:16 | PN_ITS ---
Subjective: She did okay overnight with respiratory status, she refused all therapeutic interventions and actually removed her IV because she stated we were not using it. Vitals/I&O's: Vital Signs Temp Pulse Resp BP Pulse Ox 97.8 F 70 24 H 129/48 H 96 10/13/18 03:16 10/13/18 06:51 10/13/18 06:51 10/13/18 03:16 10/13/18 06:51 Oxygen Flow Rate (L/min) 4 Oxygen Delivery Method Nasal Cannula Weight: 215 lb 13.321 oz Body Mass Index (BMI) 32.8 Intake and Output for Last 24 Hours 10/11/18 10/12/18 10/13/18 23:59 23:59 23:59 Intake Total 520 / 520 350 / 350 Balance 520 / 520 350 / 350 General: Alert, Oriented x3, Cooperative, No apparent distress HEENT: Atraumatic, EOMI, Normocephalic Oral: Moist Mucosa Neck: Supple, No JVD, Trachea Midline Lungs: No rhonchi, No rales, Diminished, Wheezes, - - Poor air movement Cardiovascular: Regular rate, Regular Rhythm, Normal S1, Normal S2, No murmurs, No rub noted, No Gallop Abdomen: Soft, Non Tender, Non-Distended, No Hepato-splenomegaly Extremities: Capillary Refill Less than 3 Seconds, Edema - Trace Skin: No rashes, No breakdown Neurological: Neuro grossly intact, Sensory exam intact to light touch and pain Psych/Mental Status: Normal Affect, Appropriate Laboratory Results 10/12/18 14:47: WBC 7.6, RBC 3.48 L, Hgb 10.8 L, Hct 34.9 L, MCV 100.3 H, MCH 31.0, MCHC 30.9 L, RDW 14.0, RDW Differential 51.3 H, Plt Count 190, MPV 9.0, Immature Gran % (Auto) 0.100, Neut % (Auto) 71.5 H, Lymph % (Auto) 17.8 L, [place] % (Auto) 7.5, Eos % (Auto) 2.8, Baso % (Auto) 0.3, Absolute Neuts (auto) 5.4, Absolute Lymphs (auto) 1.35, Total Counted Not Reportable 10/12/18 14:47: Sodium 140, Potassium 4.4, Chloride 106, Carbon Dioxide 29.0, Anion Gap 5, BUN 28 H, Creatinine 1.46 H, Estim Creat Clear Calc 31.52, Est GFR (MDRD) Af Amer 44 L, Est GFR (MDRD) Non-Af 37 L, BUN/Creatinine Ratio 19.2, Glucose 91, Calcium 8.1 L, Troponin I 0.019 10/13/18 05:56: Sodium 140, Potassium 4.4, Chloride 106, Carbon Dioxide 26.0, Anion Gap 8, BUN 27 H, Creatinine 1.52 H, Estim Creat Clear Calc 30.27, Est GFR (MDRD) Af Amer 42 L, Est GFR (MDRD) Non-Af 35 L, BUN/Creatinine Ratio 17.8, Glucose 164 H, Calcium 8.1 L 10/13/18 05:56: WBC 5.8, RBC 3.28 L, Hgb 10.2 L, Hct 32.1 L, MCV 97.9, MCH 31.1, MCHC 31.8 L, RDW 13.2, RDW Differential 45.7 H, Plt Count 212, MPV 8.9, Immature Gran % (Auto) 0.200, Neut % (Auto) 88.8 H, Lymph % (Auto) 7.3 L, [place] % (Auto) 3.5, Eos % (Auto) 0.0, Baso % (Auto) 0.2, Absolute Neuts (auto) 5.1, Absolute Lymphs (auto) 0.42 L, Total Counted Not Reportable, Differential Comment SCANNED Current Medications Acetaminophen (Tylenol) 650 mg PO Q6H PRN PRN PRN Reason: Mild Pain (scale 0-3)/T>100.7 Last Admin: 10/13/18 04:26 Dose: 650 mg Albuterol/Ipratropium (Duoneb) 3 ml INHALATION Q4H.RT [facility] Last Admin: 10/13/18 06:51 Dose: 3 ml Budesonide (Pulmicort Aerosol) 0.5 mg INHALATION BID.RT [facility] Guaifenesin (Mucinex) 600 mg PO BID [facility] Last Admin: 10/12/18 21:25 Dose: Not Given Heparin Sodium (Porcine) (Heparin Na) 5,000 unit SC Q8 [facility] Last Admin: 10/13/18 05:29 Dose: Not Given Magnesium Hydroxide (Milk Of Magnesia) 30 ml PO DAILY PRN PRN PRN Reason: Constipation Methylprednisolone (Solu-Medrol) 40 mg IV Q8 TANYA Ondansetron HCl (Zofran) 4 mg IV Q8H PRN PRN PRN Reason: Nausea Pantoprazole Sodium (Protonix) 40 mg PO DAILY TANYA Sodium Chloride () 5 - 15 ml IV UD PRN PRN Reason: SALINE FLUSH Zolpidem Tartrate (Ambien (Generic)) 5 mg PO QHS PRN PRN PRN Reason: INSOMNIA Medical Necessity - Tobacco Use Smoking Status: Former smoker Assessment/Plan 1. Acute COPD exacerbation/chronic respiratory failure -Continue with DuoNeb -Solu-Medrol 40 mg IV 3 times daily -No signs of pneumonia therefore will DC Levaquin -Add inhaled budesonide -Encourage incentive spirometry -We will perform an echo this morning due to her trace edema -She is on 4 L nasal cannula at baseline at home, we will continue here -She has an outpatient appointment with pulmonology on the . CKD 3 -Sign creatinine between 1.3 and 1.6 -We will continue to monitor 3. GERD -Stable - She is not on any medications at home, but a PPI was started here on admission DVT: Heparin Code Visit Inpatient E&M: 41297 Subs Hosp L2
[2018-10-13] MEDS: 0.9% NaCl Peripheral Flush Adult/Peds IV ×4 (09:21→21:08)
[2018-10-13] MEDS: guaiFENesin 600 MG Tablet PO ×2 (09:58→21:09)
--- NOTE | 2018-10-13 11:20 | CASEMGMT ---
RN CM Face to Face with patient for initial transition planning/care coordination assessment. RN CM introduced self and role at [facility]. Patient lying in bed, alert and oriented. Patient willing to participate in assessment and is able to answer all questions appropriately. Care providers, pharmacy, and demographics verified. Patient wishes to discharge home, denies need for home health at this time. Patient states she has no further needs or concerns at this time. CM to follow for discharge planning needs that may arise. PCP: Charles Specialists: Eren developer advisor, has appt for Preferred Pharmacy: [facility] Insurance: [employer] Prescription Benefit: Yes Living Will/HPOA: Yes Sons Kit and Ruddy Cabello LNOK: Sons Living Arrangements: Patient lives alone in [facility]. States she is mostly independent. Has aide through passport. Transportation: Self in her electric wheelchair or sons DME/HHC: Patient has electric wheelchair, shower chair, cane, hand held shower, nebulizer, oxygen with portability through [employer] 4l[employer]. Patient has aides through [employer] that was just increased to 9 hours per week through [facility]. Passport CM in [facility]. Disposition Plan: Patient to discharge home with family support and follow-up plans in place. Yamilet TORO, RN, CM
[2018-10-13] MEDS: Ondansetron 4 MG/2 ML Vial IV (16:38)
--- NOTE | 2018-10-13 16:45 | CASEMGMT ---
Social Work MS3 Report received from RN GONZÁLEZ about initial assessment and patient being a current Waiver Client with the [facility]. Nevin Garciaolly is the worker. Called [facility] at and left message or Nevin with an update. Left this business writer's and Yamilet Perez's number if Nevin needs an update after the weekend on patient's status in the hospital. -GATITO Chaidez, MULTIPLE DRILL OPERATOR
[2018-10-14] VITALS (13 sets, daily range): BP systolic 125–160; BP diastolic 65–90; PULSE 80–100; RESP 16–20; TEMP 36.6–36.7; O2SAT 94–97
[2018-10-14] MEDS: Acetaminophen 325 MG Tablet 650 MG PO ×3 (02:03→22:28)
[2018-10-14] MEDS: Ipratropium/Albuterol Sulfate 3 ML AMPUL.NEB INHALATION ×6 (04:30→22:34)
[2018-10-14] MEDS: 0.9% NaCl Peripheral Flush Adult/Peds IV ×2 (05:40→22:27)
--- NOTE | 2018-10-14 06:05 | NURSING ---
Pt c/o chest pain and pain into ears and top of head. States from my COPD. Appears anxious, upset that third siderail was up. Upset that bundle tier and labeler had wanted to draw her blood. She refused the lab draw. Just had prn breathing tx. Requests tylenol, not due until 0800. Hospitalist paged. Order received for EKG if pt would not refuse it, pt refused EKG. Dr. Saucedo also made aware pt refused am labs. This nurse sat at bedside talking with patient and providing emotional support. Pt calmer, reports feeling better. IV steroid given. Will continue to monitor. Call light within reach.
[2018-10-14] MEDS: Budesonide Respules 0.5 MG/2 ML AMPUL.NEB. INHALATION (07:43)
--- NOTE | 2018-10-14 08:08 | PN_ITS ---
Subjective: States that she feels she is breathing a little bit better today, though she does continue to have significant shortness of breath with ambulation. Denies any chest pain. Vitals/I&O's: Vital Signs Temp Pulse Resp BP Pulse Ox 98.1 F 92 16 160/90 H 96 10/14/18 01:58 10/14/18 07:43 10/14/18 07:43 10/14/18 06:11 10/14/18 07:43 Oxygen Flow Rate (L/min) 4 Oxygen Delivery Method Nasal Cannula Weight: 215 lb 13.321 oz Body Mass Index (BMI) 32.8 Intake and Output for Last 24 Hours 10/12/18 10/13/18 10/14/18 23:59 23:59 23:59 Intake Total 520 / 520 350 / 350 711 / 711 Balance 520 / 520 350 / 350 711 / 711 General: Alert, Oriented x3, Cooperative, No apparent distress HEENT: Atraumatic, EOMI, Normocephalic Oral: Moist Mucosa Neck: Supple, No JVD, Trachea Midline Lungs: No rhonchi, No rales, Diminished, Wheezes, - - Poor air movement Cardiovascular: Regular rate, Regular Rhythm, Normal S1, Normal S2, No murmurs, No rub noted, No Gallop Abdomen: Soft, Non Tender, Non-Distended, No Hepato-splenomegaly Extremities: Capillary Refill Less than 3 Seconds, Edema - Trace Skin: No rashes, No breakdown Neurological: Neuro grossly intact, Sensory exam intact to light touch and pain Psych/Mental Status: Normal Affect, Appropriate Current Medications Acetaminophen (Tylenol) 650 mg PO Q6H PRN PRN PRN Reason: Mild Pain (scale 0-3)/T>100.7 Last Admin: 10/14/18 02:03 Dose: 650 mg Albuterol/Ipratropium (Duoneb) 3 ml INHALATION Q4H.RT [facility] [place] Last Admin: 10/14/18 07:43 Dose: 3 ml Budesonide (Pulmicort Aerosol) 0.5 mg INHALATION BID.RT [facility] [place] Last Admin: 10/14/18 07:43 Dose: 0.5 mg Guaifenesin (Mucinex) 600 mg PO BID [facility] [place] Last Admin: 10/13/18 21:09 Dose: 600 mg Heparin Sodium (Porcine) (Heparin Na) 5,000 unit SC Q8 [facility] [place] Last Admin: 10/14/18 05:50 Dose: Not Given Magnesium Hydroxide (Milk Of Magnesia) 30 ml PO DAILY PRN PRN PRN Reason: Constipation Methylprednisolone (Solu-Medrol) 40 mg IV Q8 [facility] [place] Last Admin: 10/14/18 05:37 Dose: 40 mg Ondansetron HCl (Zofran) 4 mg IV Q8H PRN PRN PRN Reason: Nausea Last Admin: 10/13/18 16:38 Dose: 4 mg Pantoprazole Sodium (Protonix) 40 mg PO DAILY [facility] [place] Last Admin: 10/13/18 09:54 Dose: Not Given Sodium Chloride () 5 - 15 ml IV UD PRN PRN Reason: SALINE FLUSH Last Admin: 10/14/18 05:40 Dose: 10 ml Zolpidem Tartrate (Ambien (Generic)) 5 mg PO QHS PRN PRN PRN Reason: INSOMNIA Medical Necessity - Tobacco Use Smoking Status: Former smoker Assessment/Plan 1. Acute COPD exacerbation/chronic respiratory failure -Continue with DuoNeb -Solu-Medrol 40 mg IV 3 times daily -No signs of pneumonia therefore will DC Levaquin -Added inhaled budesonide -Encourage incentive spirometry -Echo with a normal EF and an indeterminant diastolic function, edema -She is on 4 L nasal cannula at baseline at home, we will continue here -She has an outpatient appointment with pulmonology on the 2. CKD 3 -Baseline creatinine between 1.3 and 1.6 -She refused her labs this morning 3. GERD -Stable - She is not on any medications at home, but a PPI was started here on admission DVT: Heparin Code Visit Inpatient E&M: 12278 Subs Hosp L2
[2018-10-14] MEDS: guaiFENesin 600 MG Tablet PO ×2 (08:14→22:27)
--- NOTE | 2018-10-14 11:12 | NURSING ---
pt insists on placing 2 pillows behind her knees in calf area, explained to pt that would increase her risks of forming a blood clot and even though she has had she has never had one in 78 years she could still develope one, also by her refusing to take heparin which would decrease her risks of blood clots, by refusing it increases her risks-she is also refusing to get up to chair with [employer] and this nurse -although she has been up to toilet w/ sba at least twice this am
[2018-10-14] MEDS: Pantoprazole Sodium 40 MG Tablet PO (18:56)
--- NOTE | 2018-10-14 22:37 | NURSING ---
Pt states she does not want woken up in the middle of the night to have her vital signs checked. States she does not want woken up until 6 in the morning.
[2018-10-15 02:54] VITALS: BP 178/90; PULSE 88; RESP 20; TEMP 36.7; O2SAT 95
[2018-10-15 03:01] VITALS: PULSE 80; RESP 18
[2018-10-15] MEDS: Ipratropium/Albuterol Sulfate 3 ML AMPUL.NEB INHALATION ×2 (03:01→07:07)
[2018-10-15] MEDS: Benzonatate 100 MG Capsule 200 MG PO (04:47)
--- NOTE | 2018-10-15 06:21 | NURSING ---
Pt gets angry with nursing staff when care cannot be provided to her right away. Explained to pt that the nursing staff is caring for our other patients as well and that we are trying to get to her room as quickly as we can and pt stated I don't care about the other patients, I'm selfish and I only care about myself & worry about myself. Pt continues to roll eyes & get angry, emotional support provided.
[2018-10-15] MEDS: 0.9% NaCl Peripheral Flush Adult/Peds IV (06:29)
[2018-10-15] MEDS: Budesonide Respules 0.5 MG/2 ML AMPUL.NEB. INHALATION (07:06)
[2018-10-15 07:07] VITALS: PULSE 79; RESP 16; O2SAT 96
--- NOTE | 2018-10-15 08:52 | DCINST_ITS ---
- Discharge Diagnoses Current Active Problems: Current Active and Chronic Problems Stage III chronic kidney disease (Chronic) You will use the following diet at home:: No restrictions Discharge Activity: Return to Normal Activity Allergies/Adverse Reactions: Allergies chlordiazepoxide HCl [From Librium] Allergy (Verified 10/12/18 16:23) Anaphylaxis Penicillins Allergy (Verified 10/12/18 16:23) Anaphylaxis Medications to take at Discharge Albuterol Inhaler [Ventolin Hfa] 1 - 2 puff INHALATION Q6H PRN PRN 10/12/18 Fluticasone/Salmeterol [Advair 500/50 Mcg Diskus] 1 puff INHALATION DAILY 10/12/18 Ipratropium/Albuterol Sulfate [Iprat-Albut 0.5-3(2.5) mg/3 ml] 3 ml INHALATION Q4H PRN PRN 10/12/18 Oxygen, Home [Home Oxygen] 4 lpm NASAL CONT 10/12/18 Azithromycin [Zithromax] 500 mg PO DAILY #3 tablet 10/15/18 Guaifenesin [Mucinex] 600 mg PO BID #14 tablet 10/15/18 Pantoprazole Sodium [Protonix] 40 mg PO DAILY #30 tablet 10/15/18 Prednisone 20 mg PO BID #10 tablet 10/15/18 The following prescriptions were given: Azithromycin [Zithromax] 500 mg PO DAILY #3 tablet Guaifenesin [Mucinex] 600 mg PO BID #14 tablet Pantoprazole Sodium [Protonix] 40 mg PO DAILY #30 tablet Prednisone 20 mg PO BID #10 tablet Primary Care Physician: Hardik Soto MD [Primary Care Provider] - Please follow up with your Primary Care Physician in: in 5-7 days Test Results: Test results from this visit will be discussed in further detail at your follow- up appointment, if applicable. Please Follow Up With: Srinivasa Jason MD Proposed Discharge Date: 10/15/18
--- NOTE | 2018-10-15 08:52 | PCM.DC.SUM ---
Discharge Date and Diagnosis Date of Admission: 10/12/18 Date of Discharge: 10/15/18 - Primary Discharge Diagnosis COPD with acute exacerbation - Secondary Discharge Diagnosis Chronic Problems COPD exacerbation (Chronic) Stage III chronic kidney disease (Chronic) GERD (gastroesophageal reflux disease) (Chronic) Venous insufficiency (Chronic) COPD (chronic obstructive pulmonary disease) (Chronic) Obesity (BMI 30.0-34.9) (Chronic) Anxiety (Chronic) Right leg DVT (Chronic) Hospital Course and Treatment Imaging Results: Clinical Impression(s) from Imaging Studies Chest X-Ray 10/12/18 14:28 IMPRESSION: Stable pleural parenchymal changes at the left lung base. Electronically Signed: Chandu Kohli MD at 14:50 EST , Service support , Operations: None Summary of Care Provided: The patient is a 78 year old F with past medical history significant for chronic hypoxic respiratory failure on baseline home O2 who presented with progressive shortness of breath 1. COPD with acute exacerbation: Patient was admitted to a regular nursing floor managed with bronchodilator treatment, steroid as well as antibiotics and oxygen titrated to keep saturation greater than 90. Patient was discharged home on steroids Zithromax as well as her baseline oxygen with plans for patient to follow-up with pulmonary medicine on 10/18/2018 2. CKD stage III creatinine at baseline 3. Suspected GERD patient was started on PPI 4. DVT prophylaxis SC heparin 5. Obesity with BMI of 32.8 lifestyle medication including weight loss advised. - Physical Exam General: Alert Neck: Supple Lungs: Diminished Cardiovascular: Regular rate, Regular Rhythm Neurological: Cranial nerves II-XII grossly intact Psych/Mental Status: Normal Affect Vital Signs Temp Pulse Resp BP Pulse Ox 98.1 F 79 16 178/90 H 96 10/15/18 02:54 10/15/18 07:07 10/15/18 07:07 10/15/18 02:54 10/15/18 07:07 Oxygen Flow Rate (L/min) 4 Oxygen Delivery Method Nasal Cannula Weight: 97.9 kg Body Mass Index (BMI) 32.8 Intake and Output for Last 24 Hours 10/13/18 10/14/18 10/15/18 23:59 23:59 23:59 Intake Total 350 / 350 711 / 711 440 / 440 Balance 350 / 350 711 / 711 440 / 440 Microbiology Past 72 Hours 10/12/18 15:00 Respiratory Panel (PCR) - Final Mucosa - Nasopharyngeal Discharge Diet: No Restrictions Discharge Activity: Return to Normal Activity Home Medications: Medications to take at Discharge Albuterol Inhaler [Ventolin Hfa] 1 - 2 puff INHALATION Q6H PRN PRN 10/12/18 Fluticasone/Salmeterol [Advair 500/50 Mcg Diskus] 1 puff INHALATION DAILY 10/12/18 Ipratropium/Albuterol Sulfate [Iprat-Albut 0.5-3(2.5) mg/3 ml] 3 ml INHALATION Q4H PRN PRN 10/12/18 Oxygen, Home [Home Oxygen] 4 lpm NASAL CONT 10/12/18 Azithromycin [Zithromax] 500 mg PO DAILY #3 tablet 10/15/18 Guaifenesin [Mucinex] 600 mg PO BID #14 tablet 10/15/18 Pantoprazole Sodium [Protonix] 40 mg PO DAILY #30 tablet 10/15/18 Prednisone 20 mg PO BID #10 tablet 10/15/18 Following Prescrptions Were Given to Patient: Azithromycin [Zithromax] 500 mg PO DAILY #3 tablet Guaifenesin [Mucinex] 600 mg PO BID #14 tablet Pantoprazole Sodium [Protonix] 40 mg PO DAILY #30 tablet Prednisone 20 mg PO BID #10 tablet Primary Care Physician: Hardik Soto MD [Primary Care Provider] - Please follow up with your Primary Care Physician in: in 5-7 days Please Follow Up With: Srinivasa Jason MD Disposition: Home with Home Health Minutes spent on discharge:: 35 Patient Condition:: Stable Medical Necessity - Tobacco Use Smoking Status: Former smoker Meaningful Use Info Meaningful Use Diagnoses (Choose all that apply): None applicable Code Visit Inpatient E&M: 34918 Disch Hosp
[2018-10-15 09:15] VITALS: BP 188/89; PULSE 111; RESP 20; TEMP 36.6; O2SAT 93
[2018-10-15] MEDS: guaiFENesin 600 MG Tablet PO (09:21)
[2018-10-15] MEDS: Acetaminophen 325 MG Tablet 650 MG PO (09:22)
--- NOTE | 2018-10-15 10:05 | CASEMGMT ---
Social Work Note SERA placed a call to pt's CM at [employer] and updated her that pt has discharged home today. Nevin asked this worker to fax discharge paperwork to [phone]. SERA asked Nevin about pt's increase in hours. Nevin states that she has attempted to reach out to pt's aide service agency and they haven't returned her call yet. Nevin states that pt's aide is very good and if she is able to apple picker more hours she will. SERA faxed discharge paperwork to Nevin. Yamilet Mary SAND BLASTER, ECONOMICS FACULTY MEMBER
--- NOTE | 2018-10-16 14:01 | CASEMGMT ---
ALISHA CLAUDIO Discharge Follow-Up Phone Call. LACE: 14 STRATA: 4 Discharge Date: 10-15-18 Adm Dx: Acute COPD Exac. Attempted discharge follow-up phone call. No answer. Message left for pt to return call if she has any questions/concerns about discharge instructions, appts, or medications. Phone number for [facility] ALISHA CLAUDIO, Yamilet Pope, provided. Sadi TORO RN CM
== END 2018-10-15 09:55 | disposition home or self-care (01) | DRG 191 ==
LOC: ED 15:11 → MS3 16:33
PROVIDERS: Admitting Provider Hospitalist; Emergency Provider Emergency Medicine; Family Provider Family Medicine; PCP Family Medicine; Visit Provider Internal Medicine
DX: J44.1 Chronic obstructive pulmonary disease with (acute) exacerbation (principal); J96.11 Chronic respiratory failure with hypoxia; K21.9 Gastro-esophageal reflux disease without esophagitis; N18.3 Chronic kidney disease, stage 3 (moderate); F41.9 Anxiety disorder, unspecified; E66.9 Obesity, unspecified; Z68.32 Body mass index [BMI] 32.0-32.9, adult; I87.2 Venous insufficiency (chronic) (peripheral); Z99.81 Dependence on supplemental oxygen; Z87.891 Personal history of nicotine dependence
CPT/HCPCS: 36415; 71045; 80048; 84484; 85025; 87633; 93005; 93306; 94640; 94668; 97802; 99285; J7030; Q9957; A4216; J2405

== ENCOUNTER 2018-11-10 13:59 | Emergency (ER) | payer MEDICARE, MEDICAID, SELFPAY ==
[2018-10-12 16:33] VITALS: BMI 32.8
[2018-11-10 14:01] VITALS: BP 165/78; PULSE 95; RESP 18; TEMP 36.6; O2SAT 95; BMI 30.4
[2018-11-10 15:22] LABS: Anion Gap 6 (5-15); BUN 16 mg/dL (7-18); BUN/Creat Ratio 10.1 RATIO (10-20); Calcium,Total 8.5 mg/dL (8.5-10.1); Chloride 105 mmol/L (98-107); Creatinine, Serum 1.59 mg/dL (0.55-1.02); EST Glomerular Filtration Rate 33 mL/min (>60); Est Glom Filt Rate - Afr Amer 40 mL/min (>60); Estimated Creatinine Clearance 28.94 ml/min; Glucose 100 mg/dL (74-106); Potassium 3.9 mmol/L (3.5-5.1); Sodium Level 140 mmol/L (136-145)
--- NOTE | 2018-11-10 15:25 | ED.DCSUM_ITS ---
- ER Visit Summary Date of Service: 11/10/18 Chief Complaint: Leg swelling History of Present Illness: The patient is a 78 F who presents with bilateral leg swelling. She states that she has a history of lymphedema as well as newly diagnosed chronic kidney disease. She states that she was recently told she cannot be on Lasix anymore because of the kidney disease. She states that she continues to have episodes where her legs swell. She has compression stockings ordered but they are not in yet. She denies any ingestion of high salty foods. She has not seen nephrology. Physical Examination: Afebrile vital signs are stable Gen: Well-nourished well-developed Head: Normocephalic atraumatic Eyes: Perrl EOMI ENT: TMs clear no rhinorrhea moist mucous membranes Neck: Supple no lymphadenopathy no JVD nontender CVS: Regular rate rhythm no murmurs normal S1-S2 Respiratory: No distress clear to auscultation bilaterally chest nontender patient is on 4 L nasal cannula which is chronic Abdomen: Soft nontender nondistended normal bowel sounds no masses Back: Nontender Extremity: Patient has bilateral pitting edema to the level of the knees Skin: Normal color no rash Neuro: alert orientated ?3 CN II-XII intact normal strength sensation reflexes sitting in wheelchair Psych: Normal affect normal mood Test Results: Creatinine was obtained and was 1.59. Emergency Department Course and Treatment: Started on short course of Bumex. I will provide her with nephrology phone number for consultation. Follow-up with primary care Impression: 1. Chronic kidney disease 2. Lymphedema This note was generated with [employer] dictation software. It may contain incorrect words, spelling, and punctuation that were not noted in review of the chart prior to signing ED Disposition - Plan for ED Patient: Disposition: Home or Assisted Living Instructions: ED Lymphedema Prescriptions: Bumetanide [Bumex] 1 mg PO BID #10 tab Referrals: Leeanna Witt DO [STAFF PHYSICIAN] -
[2018-11-10 15:50] VITALS: BP 158/80; PULSE 90; RESP 19; O2SAT 94
== END 2018-11-10 15:51 | disposition home or self-care (01) ==
PROVIDERS: Emergency Provider Emergency Medicine; Family Provider Family Medicine; PCP Family Medicine
DX: I89.0 Lymphedema, not elsewhere classified (principal); N18.9 Chronic kidney disease, unspecified; J44.9 Chronic obstructive pulmonary disease, unspecified; E66.9 Obesity, unspecified; Z68.30 Body mass index [BMI] 30.0-30.9, adult; Z99.81 Dependence on supplemental oxygen
CPT/HCPCS: 80048; 99282

== ENCOUNTER 2018-11-23 10:40 | Inpatient (IN) | payer MEDICARE, MEDICAID, SELFPAY ==
[2018-11-23] VITALS (12 sets, daily range): BP systolic 131–182; BP diastolic 70–93; PULSE 83–103; RESP 20–34; TEMP 36.4–37.1; O2SAT 94–97; BMI 30.4; BMI 31.2
--- NOTE | 2018-11-23 10:52 | EKG12_ITS ---
Test Reason : SOB Blood Pressure : / mmHG Vent. Rate : 083 BPM Atrial Rate : 083 BPM P-R Int : 148 ms QRS Dur : 082 ms QT Int : 396 ms P-R-T Axes : 070 -30 070 degrees QTc Int : 465 ms Normal sinus rhythm Left axis deviation Abnormal ECG Confirmed by MADELEINE ROBLEDO, KATHLEEN ([id number]), editorial manager CHELSIE SILVESTRE ([id number]) on 11/27/2018 9:14:40 AM Referred By: HARVEY Confirmed By:KATHLEEN SALVADOR MD
--- NOTE | 2018-11-23 11:05 | RAD_ITS ---
STUDY: X-RAY CHEST REASON FOR EXAM: Female, 78 years old. Shortness of breath and respiratory distress. TECHNIQUE: Single AP portable view of the chest. COMPARISON: Comparison is made with prior study dated October 12, 2018. FINDINGS: EKG electrodes are seen. Hyperinflation. Stable pleural parenchymal changes at the left lung base. There is no demonstrated pleural abnormality. Normal size heart. Normal mediastinum and sera. Normal visualized pulmonary arteries. Normal visualized aortic arch and descending thoracic aorta. There is a levoscoliosis of the thoracic spine. Normal visualized ribs, clavicles, and shoulders. There is no demonstrated abnormality of the visualized soft tissue structures of the upper abdomen. RAD/Chest 1 View (Portable) IMPRESSION: Hyperinflation. Stable pleural parenchymal changes at the left lung base. Electronically Signed: Chandu Kohli, at 11:27 EST , Service support ,
[2018-11-23 11:15] LABS: Absolute Lymphocyte Count 1.42 X10^3/ul (0.83-4.51); Absolute Neutrophil Count 5.2 X10^3/uL (2.0-7.7); Basophil# 0.03 X10^3/uL; Basophil% 0.4 % (0-1); Eosinophils% 5.3 % (0-5); Hematocrit 38.4 % (37-47); Hemoglobin 11.8 g/dl (12.0-15.0); Lymphocyte # 1.42 X10^3/ul (4.0); Lymphocyte % 18.8 % (19-41); Mean Corp Hgb Conc 30.7 g/gl (32-36); Mean Corpuscular Hgb 29.8 pg (27.0-32.0); Mean Platelet Vol. 9.3 fl (6.2-12.0); Monocyte# 0.52 X10^3/uL; Monocyte% 6.9 % (0-10); Neutrophil # 5.19 X10^3/uL (2.7-7.7); Neutrophil % 68.5 % (47-70); Platelet Count 281 K/mm3 (150-450); RBC Distribution Width CV 13.9 % (11.6-14.6); Red Blood Count 3.96 M/mm3 (4.2-5.4); White Blood Count 7.6 K/mm3 (4.4-11.0)
[2018-11-23 11:17] LABS: POSITIVE COUNT NO; POSITIVE DIFFERENTIAL NO; POSITIVE MORPHOLOGY NO
--- NOTE | 2018-11-23 11:17 | ED.VIS.GEN ---
History of Present Illness Chief Complaint: Shortness of Breath Detail of Chief Complaint: Worse over the past Informant: Patient Onset: Days Context: Gradual Onset Timing: Continuous Quality: Increased shortness of breath from baseline past 3 days Location: Not applicable Current Severity: Severe Maximum Severity: Severe Worsened by: Activity Relieved by: Nothing Associated Symptoms: Cough which is nonproductive Narrative: Patient is an elderly woman with COPD on home oxygen at 4 L by nasal cannula. She reports chronic shortness of breath. She states over the past 3 days she had increased shortness of breath with increased coughing. Cough is nonproductive. She denies history of PE , but reports DVT left lower extremity remote past. She denies leg pain, swelling discoloration. She denies fever, chills night sweats. She does report mild nasal congestion. She denies headache. She denies visual, ocular auditory symptoms. She denies sore throat. She denies chest pain of any type. She denies GI symptoms. She denies urologic symptoms. Prior similar symptoms: Yes Recent Illness/Hospitalization: No - Past Medical History (1) Anxiety Status: Chronic (2) COPD (chronic obstructive pulmonary disease) Status: Chronic (3) GERD (gastroesophageal reflux disease) Status: Chronic (4) Obesity (BMI 30.0-34.9) Status: Chronic (5) Right leg DVT Status: Chronic (6) Stage III chronic kidney disease Status: Chronic Past Medical History - Allergies and Home Meds Allergies/Adverse Reactions: Allergies chlordiazepoxide HCl [From Librium] Allergy (Verified 11/23/18 10:43) Anaphylaxis Penicillins Allergy (Verified 11/23/18 10:43) Anaphylaxis Primary Care Physician: Hardik Soto MD [Primary Care Provider] - Prior records reviewed: Yes Surgical History: noncontributory, - - Uterine suspension; benign lump was removed from right breast. Lives: Alone Smoking Status: Never smoker Alcohol: None - Family History Maternal Family History: Reports: Heart Disease Paternal Family History: Reports: Heart Disease Review of Systems General: Reports: Malaise. Denies: Chills, Fever, Sweats, Weight loss Eyes: Denies: Visual changes - bilaterally, Blurred Vision - bilaterally, Diplopia ENT: Reports: Rhinorrhea. Denies: Bilateral ear pain, Sore throat Cardiovascular: Reports: Heart racing. Denies: Chest pain, Palpitations Respiratory: Reports: Dyspnea, Cough, Dyspnea on exertion. Denies: Orthopnea, Paroxysmal nocturnal dyspnea Gastrointestinal: Denies: Abdominal pain, Nausea, Vomiting, Diarrhea, Melena, Hematochezia Genitourinary: Denies: Dysuria, Hematuria, Frequency Musculoskeletal: Reports: Swelling - She reports chronic swelling of both right and left lower extremity. Denies: Myalgias, Arthralgias, Neck pain, Back pain, Extremity Pain Skin: Denies: Rash, Wounds Neurological: Reports: Weakness. Denies: Headache, Numbness Hematologic: Denies: Easy bruising, Easy bleeding Allergy: Denies: Uticaria Physical Exam Vital Signs/Narrative: Vital Signs Temp Pulse Resp BP Pulse Ox 11/23/18 10:52 98 F 90 22 H 182/87 H 96 11/23/18 10:41 98.0 F 87 34 H 150/82 H 94 Inital Vital Signs reviewed: Yes General: Well nourished, Well developed, Obese, Acute Distress Head: Normocephalic, Atraumatic Eyes: Perrl, EOMI. Negative for: Pale conjunctiva, Scleral icterus ENT: Moist mucous membranes, No rhinorrhea, TM's clear - You call me regarding the patient room 7 Mr. Carmona room 9 I called to okay room 9 is a COPD exacerbation came in tachycardic tachypnic 3 and 34 times a minute is on home oxygen at 4 L chronically 10/04 she reported increased shortness of breath over the past 3 days nonproductive cough she was wheezing throughout she is still tachypneic her wheezing is essentially resolved she got DuoNeb 3 aerosol albuterol Solu-Medrol chest x-ray reveals chronic changes unchanged from prior EKG did not show any acute ischemia and I would discuss to have her admitted for exacerbation of her COPD I did do a blood gas to make sure she was not retaining and assess her acid-base she has chronic mild CO2 retention pH of 5 member correctly was 7.43 I believe is a MedSurg because she is not at this point she looks pretty she looks better but did not baseline okay room 770 old rib 7 the only I do not have the official read by the radiologist it is a aaliyah who had a right hemispheric stroke who was hit with his weakness has resolved and he just a little confused at this time so he can need to come in for stroke no no I am ready he can got I am ready okay okay last name is Mathew in room 7 thank you by so that is Danielle dose of acetaminophen by mouth at 15 mg/kg Neck: Supple, Nontender, No lymphadenopathy, No JVD Cardiovascular: Regular rate - Right change, Regular rhythm, No murmurs, Normal S1 - throughout, Normal S2 Respiratory: Chest nontender, Rales, Wheezing, Diminished, Decreased Air Movement Abdomen: Soft, Nontender, Nondistended, Normal bowel sounds, No masses Rectal: Deferred Back: Nontender, Normal Inspection. Negative for: CVA tenderness Extremities: Nontender, Edema. Negative for: No edema, Calf Tenderness Skin: Normal color, No rash. Negative for: Cyanosis, Jaundice Neurological: Alert, Oriented x3, Cranial nerves II-XII grossly intact, Normal Strength, Normal Sensation Psychological: Normal affect Diagnostic/Tx/Re-eval Chest X-Ray - ED: 1 View, Read by ED Physician, Normal, Heart, Bony Structures, No Acute Disease, Chronic Changes Impressions Chest X-Ray 11/23/18 11:05 IMPRESSION: Hyperinflation. Stable pleural parenchymal changes at the left lung base. Electronically Signed: Chandu Kohli, at 11:27 EST , Service support , 11/23/18 11:05 Chest 1 View (Portable) [RAD] Stat Laboratory Results 11/23/18 11/23/18 11/23/18 11:03 11:03 11:03 WBC 7.6 RBC 3.96 L Hgb 11.8 L Hct 38.4 MCV 97.0 MCH 29.8 MCHC 30.7 L RDW 13.9 RDW Differential 50.0 H Plt Count 281 MPV 9.3 Immature Gran % (Auto) 0.100 Neut % (Auto) 68.5 Lymph % (Auto) 18.8 L Piatt % (Auto) 6.9 Eos % (Auto) 5.3 H Baso % (Auto) 0.4 Absolute Neuts (auto) 5.2 Absolute Lymphs (auto) 1.42 Total Counted Not Reportable Specimen Type Sample Site pH Bicarbonate Actual POC Total CO2 Base Excess O2 Saturation ABG pCO2 ABG pO2 Deshaun Test O2 Delivery Device Liter Flow Blood Gas Notified Whom Blood Gas Notified Time Sodium 140 Potassium 4.6 Chloride 106 Carbon Dioxide 28.0 Anion Gap 6 BUN 15 Creatinine 1.74 H Estim Creat Clear Calc 26.45 Est GFR (MDRD) Af Amer 36 L Est GFR (MDRD) Non-Af 30 L BUN/Creatinine Ratio 8.6 L Glucose 101 Calcium 8.7 Troponin I < 0.015 B-Natriuretic Peptide 37.8 11/23/18 11:19 WBC RBC Hgb Hct MCV MCH MCHC RDW RDW Differential Plt Count MPV Immature Gran % (Auto) Neut % (Auto) Lymph % (Auto) Piatt % (Auto) Eos % (Auto) Baso % (Auto) Absolute Neuts (auto) Absolute Lymphs (auto) Total Counted Specimen Type ART Sample Site R Radial pH 7.36 Bicarbonate Actual 28.3 H POC Total CO2 30 Base Excess 3 H O2 Saturation 95 ABG pCO2 50.4 H ABG pO2 80 Deshaun Test POS O2 Delivery Device Nasal Can Liter Flow 2.0 Blood Gas Notified Whom ED MD Blood Gas Notified Time 1110 Sodium Potassium Chloride Carbon Dioxide Anion Gap BUN Creatinine Estim Creat Clear Calc Est GFR (MDRD) Af Amer Est GFR (MDRD) Non-Af BUN/Creatinine Ratio Glucose Calcium Troponin I B-Natriuretic Peptide - Rhythm Strip Rhythm Strip: Sinus Rhythm Rate: 102 Ectopy: None - EKG Initial EKG Interpretation: Sinus Rhythm - Ventricular rate is 83. ID interval and QRS duration are normal. QT interval is normal. [place] is to the left. There is no acute ischemic changes. - Medical Decision Making Differential includes exacerbate COPD, pneumonia, pulmonary embolus, with rales CHF since there is bilateral pedal edema. The bilateral pedal edema and may represent right heart failure from obstructive sleep apnea. ABG was obtained to assess acid base status as well as CO2. CBC was obtained to assess white count and H&H. Electrode panel was obtained to assess anion gap as well as electrolytes. If consideration for CT with contrast will need renal function. She was treated with 125 mg Solu-Medrol, DuoNeb and 3 albuterol treatments. Reassessed at 1225. Minimal wheezing. There is increased movement of air, but still diminished. Since patient is still tachycardic and tachypneic hospitalist was paged for further treatment as an inpatient. ED Disposition - Plan for ED Patient: Disposition: Acute Care Hospital [facility] Diagnosis: Asthma with COPD with exacerbation, Respiratory failure, [id number], Anxiety Referrals: Hardik Soto MD [Primary Care Provider] -
[2018-11-23 11:26] LABS: Allen Test POS; Base Excess 3 mmol/L (-2 to +2); Bicarbonate 28.3 mmol/L (22-26); Blood Gas Specimen Type ART; O2 Delivery Device Nasal Can; PO2 80 mmHG (75-100); SITE R Radial; SO2 95 % (95-99); Time Given 1110; Total Carbon Dioxide 30 mmol/L; pCO2 50.4 mmHg (35-45); pH 7.36 (7.35-7.45)
[2018-11-23 11:29] LABS: BUN 15 mg/dL (7-18); Creatinine, Serum 1.74 mg/dL (0.55-1.02); Estimated Creatinine Clearance 26.45 ml/min; Glucose 101 mg/dL (74-106)
[2018-11-23 11:30] LABS: Anion Gap 6 (5-15); BUN/Creat Ratio 8.6 RATIO (10-20); Calcium,Total 8.7 mg/dL (8.5-10.1); Chloride 106 mmol/L (98-107); EST Glomerular Filtration Rate 30 mL/min (>60); Est Glom Filt Rate - Afr Amer 36 mL/min (>60); Potassium 4.6 mmol/L (3.5-5.1); Sodium Level 140 mmol/L (136-145)
[2018-11-23] MEDS: Ipratropium/Albuterol Sulfate 3 ML AMPUL.NEB INHALATION ×4 (11:44→22:30)
[2018-11-23] MEDS: Albuterol 2.5 MG/3 ML VIAL.NEB. INHALATION ×3 (11:44)
[2018-11-23 12:20] LABS: BNP,B-Type NATRIURETIC PEPTIDE 37.8 pg/mL (0-100)
[2018-11-23] MEDS: MethylPREDNISolone 125 MG/2 ML Vial IV (12:50)
--- NOTE | 2018-11-23 13:17 | CASEMGMT ---
RN CM Assessment Introduced role of RN CM to patient. Patient is [place], [facility] the Provider that got the approval for her Hearing Aids has and unable to get them as there is some legal issues for release. Alert, oriented and able to participate in RN CM Assessment. Patient wishes to discharge home and denies need for HH and states will never go to a SNF. States she is concerned about the swelling in her legs. Care providers, pharmacy, and demographics verified. Presentation: Admitted for Acute COPD Exacerbation. CC: SOB, Cough. on Home O2 4LNC Continuously. Re-Admit: No, Admitted 10/12-10/15/18 for COPD Exacerbation was DC's with HH. ER 11/10/18- Bilt Leg swelling, was referred to Leeanna Witt and given Rx Bumex. Patient states has not and will not see her as her works in the same practice/office and cannot stand him. States did get the Bumex and take it- states was only 3 pills and states did help with the swelling. Cm discussed patient fluid intake at home and states she cannot be on Lasix d/t her kidneys. CM encouraged patient to discuss with her provider if she should be on a fluid restriction as she is having lower extremity edema. States family h/o CHF. [facility] did turn in script to [facility] approx 3 weeks ago for wraps for her legs when CM inquired about wearing compression stockings- states has not gotten yet. PCP: Dr Daniel Soto Specialists: Pulm- Dr Jason, [facility] has not seen him yet and had an appointment scheduled as of last DC, however he wanted her to recover x1 month, scheduled next appointment and is in approx 1 week. Preferred Pharmacy: [facility] Medicare A&B Prescription Benefit: Yes LNOK: Son Ruddy(younger son) helps with patient needs. Other Son Kit is busy and owns own business, drives out of state. Both sons are DPOA. Living Arrangements: Lives alone in a [facility] apartment with no steps, +ramp. 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 Transportation: [employer] or [employer]. Has utilized [employer]. Has electric scooter here at hospital. DME: Electric scooter, shower chair, cane, Nebulizer, Home O2 4L continuous through [employer]. HHC: Chart review shows [facility] in past, patient denied past HH but states received Aide services via Passport through [facility]. Aide Kristal 5 days/week, M-Thur- 2hrs, Mon- 3hrs. SNF- Denies past and states will never go to a SNF as she has worked at one in the past. DC PLAN: Home with No anticipated Needs identified. Luis rKamer RNCM
[2018-11-23] MEDS: 0.9% Normal Saline 1,000 ML 75 ML IV (15:23)
[2018-11-23] MEDS: 0.9% NaCl Peripheral Flush Adult/Peds IV ×3 (15:24→21:40)
[2018-11-23] MEDS: Heparin Injection (Vial) 5,000 UNIT/ML VIAL 5000 UNIT SC ×2 (15:24→21:40)
--- NOTE | 2018-11-23 17:03 | PCM.HP.STD ---
Problem List (1) Asthma with COPD with exacerbation Status: Chronic (2) GERD (gastroesophageal reflux disease) Status: Chronic Qualifiers: Esophagitis presence: esophagitis presence not specified Qualified Code(s): K21.9 - Gastro-esophageal reflux disease without esophagitis (3) Obesity (BMI 30.0-34.9) Status: Chronic (4) Anxiety Status: Chronic History of Present Illness Date of Admission: 11/23/18 Chief Complaint: Shortness of breath The patient is a 78 year old F with COPD with chronic respiratory on 4L, obesity, with h/o left leg DVT who comes in a 4 day history of cough, shortness of breath. Her cough is non-productive. She denies fever, chills. Complains with bilateral leg edema. Denies chest pain, dizziness. Vitals were T 97.9, HR 92, BP 149/77, RR 24, spo2 96% on 4L. Blood work showed RBC count of 7.6, Hb 11.8, platelet 281. BMP shows BUN of 15, creatinine is 1.74, previous creatinine is 1.59. Chest x-ray showed hyperinflated lungs, no infiltrate. EKG NSR, no acute ST-T changes Past Medical History Past Medical History (Chronic Problems): Chronic Problems Asthma with COPD with exacerbation (Chronic) Respiratory failure, [id number] (Chronic) COPD exacerbation (Chronic) Stage III chronic kidney disease (Chronic) GERD (gastroesophageal reflux disease) (Chronic) Venous insufficiency (Chronic) COPD (chronic obstructive pulmonary disease) (Chronic) Obesity (BMI 30.0-34.9) (Chronic) Anxiety (Chronic) Right leg DVT (Chronic) Allergies chlordiazepoxide HCl [From Librium] Allergy (Verified 11/23/18 10:43) Anaphylaxis Penicillins Allergy (Verified 11/23/18 10:43) Anaphylaxis Home Medications: Ambulatory Orders Medication Instructions Recorded Albuterol Inhaler [Ventolin Hfa] 1 - 2 puff INHALATION Q4H PRN PRN 10/12/18 Oxygen, Home [Home Oxygen] 4 lpm NASAL CONT 10/12/18 Fluticasone/Salmeterol [Advair 1 puff INHALATION BID 11/23/18 250-50 Diskus] Guaifenesin [Mucinex] 600 mg PO DAILY 11/23/18 Ipratropium/Albuterol Sulfate 1 inh INHALATION BID PRN 11/23/18 [Iprat-Albut 0.5-3(2.5) mg/3 ml] Surgical History: noncontributory, - - Uterine suspension; benign lump was removed from right breast. 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 Denies: Anorexia, Chills, Fever, Weight Change Eyes: Denies: Blurred vision, Cataracts, Conjunctivae Inflammation, Pain, Redness, Vision Change HEENT: Denies: Difficulty Hearing, Difficulty Swallowing, Head Aches, Hearing Changes, Sinus Congestion, Sinus Drainage Cardiovascular: Denies: Chest Pain, Claudication, Light Headedness, Orthopnea, Palpitations, Paroxysmal Noc. Dyspnea Respiratory: Reports: Cough, Shortness of Breath, Shortness of breath at rest, Shortness of breath upon exertion. Denies: Sputum production Gastrointestinal: Denies: Abdominal Pain, Constipation, Hematemesis, Hematochezia, Nausea, Vomiting Genitourinary: Denies: Dysuria, Frequency, Incontinence Musculoskeletal: Denies: Joint Pain, Joint Tenderness Skin: Denies: Rash, Wounds Neurological: Denies: Numbness, Tingling, Focal weakness Psychiatric: Denies: Anxiety, Depression, Homicidal Ideations, Suicidal Ideations Hematologic/ Lymphatic: Denies: Easy Bruising, Easy Bleeding VTE Information - Inpt Only VTE Present on Admission: No VTE Pharm Prophylaxis ordered?: Yes - Physical Exam General: Alert, Oriented x3, Cooperative, No apparent distress, - - on 4L oxygen, no conversational dyspnea HEENT: Atraumatic, PERRLA, EOMI, Normocephalic Neck: Supple, No JVD, Negative Carotid Bruits Lungs: Diminished, Rhonchi Cardiovascular: Regular rate, Regular Rhythm, Normal S1, Normal S2, No murmurs Abdomen: Bowel Sounds Present, Soft, Non Tender, Non-Distended, No Hepato-splenomegaly Extremities: No edema Skin: No rashes, No breakdown Musculoskeletal: No Tenderness to Palpation of Joints or Extremities Lymphatic: No Cervical, Supraclavicular, or Inguinal Adenopathy Neurological: Cranial nerves II-XII grossly intact, Neuro grossly intact Psych/Mental Status: Normal Affect, Appropriate Vital Signs Temp Pulse Resp BP Pulse Ox 98.0 F 103 H 20 H 133/81 H 95 11/23/18 16:53 11/23/18 16:53 11/23/18 16:53 11/23/18 16:53 11/23/18 16:53 Oxygen Flow Rate (L/min) 4 Oxygen Delivery Method Nasal Cannula Weight: 93.259 kg Body Mass Index (BMI) 31.2 Intake and Output for Last 24 Hours 11/21/18 11/22/18 11/23/18 23:59 23:59 23:59 Intake Total 466 / 466 Balance 466 / 466 Laboratory Tests Past 24 Hrs 11/23/18 11/23/18 11/23/18 11:03 11:03 11:03 WBC 7.6 RBC 3.96 L Hgb 11.8 L Hct 38.4 MCV 97.0 MCH 29.8 MCHC 30.7 L RDW 13.9 RDW Differential 50.0 H Plt Count 281 MPV 9.3 Immature Gran % (Auto) 0.100 Neut % (Auto) 68.5 Lymph % (Auto) 18.8 L Mason % (Auto) 6.9 Eos % (Auto) 5.3 H Baso % (Auto) 0.4 Absolute Neuts (auto) 5.2 Absolute Lymphs (auto) 1.42 Total Counted Not Reportable Specimen Type Sample Site pH Bicarbonate Actual POC Total CO2 Base Excess O2 Saturation ABG pCO2 ABG pO2 Deshaun Test O2 Delivery Device Liter Flow Blood Gas Notified Whom Blood Gas Notified Time Sodium 140 Potassium 4.6 Chloride 106 Carbon Dioxide 28.0 Anion Gap 6 BUN 15 Creatinine 1.74 H Estim Creat Clear Calc 26.45 Est GFR (MDRD) Af Amer 36 L Est GFR (MDRD) Non-Af 30 L BUN/Creatinine Ratio 8.6 L Glucose 101 Calcium 8.7 Troponin I < 0.015 B-Natriuretic Peptide 37.8 11/23/18 11:19 WBC RBC Hgb Hct MCV MCH MCHC RDW RDW Differential Plt Count MPV Immature Gran % (Auto) Neut % (Auto) Lymph % (Auto) Mason % (Auto) Eos % (Auto) Baso % (Auto) Absolute Neuts (auto) Absolute Lymphs (auto) Total Counted Specimen Type ART Sample Site R Radial pH 7.36 Bicarbonate Actual 28.3 H POC Total CO2 30 Base Excess 3 H O2 Saturation 95 ABG pCO2 50.4 H ABG pO2 80 Deshaun Test POS O2 Delivery Device Nasal Can Liter Flow 2.0 Blood Gas Notified Whom ED MD Blood Gas Notified Time 1110 Sodium Potassium Chloride Carbon Dioxide Anion Gap BUN Creatinine Estim Creat Clear Calc Est GFR (MDRD) Af Amer Est GFR (MDRD) Non-Af BUN/Creatinine Ratio Glucose Calcium Troponin I B-Natriuretic Peptide Assessment/Plan The patient is a 78 year old F with COPD with chronic respiratory on 4L, obesity, with h/o left leg DVT who comes in a 4 day history of cough, shortness of breath. Her cough is non-productive. 1. Acute COPD exacerbation in a patient with known history of COPD, patient is on 4 L of oxygen, Admitting chest x-ray is negative for infiltrate Plan: Admit to MS, will continue IV steroids, respiratory panel, droplet precaution, IV azithromycin, breathing treatments 2. Lower extremity edema, history of DVT in the left, will need to rule out acute DVT, Doppler ultrasound stat 3. Possible acute on chronic diastolic CHF, 2D echo shows EF 65%, indeterminate diastolic dysfunction, will start on IV Lasix 20 mg twice daily, will check BMP F, strict I's and O's, Rakesh wraps to legs 4. DVT PPx- Heparin SC Code Visit Inpatient E&M: 29630 Init Hosp L2
[2018-11-23] MEDS: Furosemide 20 MG/2 ML VIAL IV (18:09)
--- NOTE | 2018-11-23 18:23 | NURSING ---
Pt refused BREANNE wraps at this time.
[2018-11-23] MEDS: Ondansetron 4 MG/2 ML Vial IV (20:10)
[2018-11-23] MEDS: Mag Hydrox/Al Hydrox/Simeth 30 ML UDC PO (21:39)
[2018-11-23] MEDS: guaiFENesin 600 MG Tablet PO (21:39)
[2018-11-24] VITALS (14 sets, daily range): BP systolic 120–141; BP diastolic 51–87; PULSE 81–98; RESP 18–26; TEMP 36.8–37; O2SAT 92–98
[2018-11-24] MEDS: Acetaminophen 325 MG Tablet 650 MG PO ×2 (01:21→15:12)
[2018-11-24] MEDS: 0.9% NaCl Peripheral Flush Adult/Peds IV ×2 (05:57→12:32)
[2018-11-24] MEDS: Heparin Injection (Vial) 5,000 UNIT/ML VIAL 5000 UNIT SC ×3 (05:57→23:16)
[2018-11-24] MEDS: Ipratropium/Albuterol Sulfate 3 ML AMPUL.NEB INHALATION ×5 (06:45→22:44)
[2018-11-24 07:18] LABS: Absolute Lymphocyte Count 0.69 X10^3/ul (0.83-4.51); Absolute Neutrophil Count 9.1 X10^3/uL (2.0-7.7); Basophil# 0.01 X10^3/uL; Basophil% 0.1 % (0-1); Hematocrit 32.1 % (37-47); Hemoglobin 10.3 g/dl (12.0-15.0); Lymphocyte # 0.69 X10^3/ul (4.0); Lymphocyte % 6.8 % (19-41); Mean Corp Hgb Conc 32.1 g/gl (32-36); Mean Corpuscular Hgb 30.1 pg (27.0-32.0); Mean Corpuscular Volume 93.9 fL (81-99); Mean Platelet Vol. 9.4 fl (6.2-12.0); Monocyte# 0.27 X10^3/uL; Monocyte% 2.7 % (0-10); Neutrophil # 9.09 X10^3/uL (2.7-7.7); Neutrophil % 90.1 % (47-70); Platelet Count 247 K/mm3 (150-450); RBC Distribution Width CV 13.5 % (11.6-14.6); RBC Distribution Width SD 46.5 fl (35.1-43.9); Red Blood Count 3.42 M/mm3 (4.2-5.4); White Blood Count 10.1 K/mm3 (4.4-11.0)
[2018-11-24 07:19] LABS: POSITIVE COUNT NO; POSITIVE DIFFERENTIAL NO; POSITIVE MORPHOLOGY NO
[2018-11-24 07:48] LABS: ALB/GLOB Ratio 0.9 RATIO (0.9-2.4); AST(SGOT) 15 U/L (15-37); Alanine Aminotransfer ALT/SGPT 13 U/L (13-56); Alkaline Phosphatase 59 U/L (45-117); Anion Gap 9 (5-15); BUN 20 mg/dL (7-18); BUN/Creat Ratio 10.2 RATIO (10-20); Calcium,Total 8.1 mg/dL (8.5-10.1); Chloride 103 mmol/L (98-107); Creatinine, Serum 1.97 mg/dL (0.55-1.02); EST Glomerular Filtration Rate 26 mL/min (>60); Est Glom Filt Rate - Afr Amer 31 mL/min (>60); Estimated Creatinine Clearance 23.36 ml/min; Globulin 3.4 g/dL (2.2-4.2); Glucose 163 mg/dL (74-106); Potassium 4.5 mmol/L (3.5-5.1); Protein, Total 6.4 g/dL (6.4-8.2); Sodium Level 138 mmol/L (136-145)
[2018-11-24] MEDS: Furosemide 20 MG/2 ML VIAL IV (08:43)
[2018-11-24] MEDS: guaiFENesin 600 MG Tablet PO ×2 (08:44→23:16)
--- NOTE | 2018-11-24 09:16 | CPS ---
PEP therapy done on own.
[2018-11-24] MEDS: Ondansetron 4 MG/2 ML Vial IV (09:31)
--- NOTE | 2018-11-24 15:46 | PCM.PN.HOSP ---
Subjective: Patient was seen and examined. Objective: Physical Exam General: Alert, Oriented x3, Cooperative, No apparent distress, - - on 4L oxygen HEENT: Atraumatic, PERRLA, EOMI, Normocephalic Neck: Supple, No JVD, Negative Carotid Bruits Lungs: Diminished, Rhonchi Cardiovascular: Regular rate, Regular Rhythm, Normal S1, Normal S2, No murmurs Abdomen: Bowel Sounds Present, Soft, Non Tender, Non-Distended, No Hepato-splenomegaly Extremities: bilateral leg edema, present on admission, with skin venostasis Skin: No rashes, No breakdown Musculoskeletal: No Tenderness to Palpation of Joints or Extremities Lymphatic: No Cervical, Supraclavicular, or Inguinal Adenopathy Neurological: Cranial nerves II-XII grossly intact, Neuro grossly intact Psych/Mental Status: Normal Affect, Appropriate Vitals/I&O's: Vital Signs Temp Pulse Resp BP Pulse Ox 98.2 F 95 18 138/71 H 92 11/24/18 08:00 11/24/18 14:00 11/24/18 11:13 11/24/18 08:00 11/24/18 11:13 Oxygen Flow Rate (L/min) 4 Oxygen Delivery Method Nasal Cannula Weight: 93.259 kg Body Mass Index (BMI) 31.2 Intake and Output for Last 24 Hours 11/22/18 11/23/18 11/24/18 23:59 23:59 23:59 Intake Total 1216 / 1216 970 / 970 Balance 1216 / 1216 970 / 970 Microbiology Past 72 Hours 11/23/18 17:15 Mucosa - Nasopharyngeal Respiratory Panel (PCR) - Final Laboratory Results 11/24/18 06:44: WBC 10.1, RBC 3.42 L, Hgb 10.3 L, Hct 32.1 L, MCV 93.9, MCH 30.1, MCHC 32.1, RDW 13.5, RDW Differential 46.5 H, Plt Count 247, MPV 9.4, Immature Gran % (Auto) 0.300, Neut % (Auto) 90.1 H, Lymph % (Auto) 6.8 L, Edwards % (Auto) 2.7, Eos % (Auto) 0.0, Baso % (Auto) 0.1, Absolute Neuts (auto) 9.1 H, Absolute Lymphs (auto) 0.69 L, Total Counted Not Reportable 11/24/18 06:44: Sodium 138, Potassium 4.5, Chloride 103, Carbon Dioxide 26.0, Anion Gap 9, BUN 20 H, Creatinine 1.97 H, Estim Creat Clear Calc 23.36, Est GFR (MDRD) Af Amer 31 L, Est GFR (MDRD) Non-Af 26 L, BUN/Creatinine Ratio 10.2, Glucose 163 H, Calcium 8.1 L, Total Bilirubin 0.40, AST 15, ALT 13, Alkaline Phosphatase 59, Total Protein 6.4, Albumin 3.0 L, Globulin 3.4, Albumin/Globulin Ratio 0.9 Current Medications Acetaminophen (Tylenol) 650 mg PO Q6H PRN PRN PRN Reason: Mild Pain (scale 0-3)/T>100.7 Last Admin: 11/24/18 15:12 Dose: 650 mg Al Hydroxide/Mg Hydroxide (Mylanta Ii) 30 ml PO Q6H PRN PRN PRN Reason: INDIGESTION Last Admin: 11/23/18 21:39 Dose: 30 ml Albuterol Sulfate (Ventolin Aerosols) 2.5 mg INHALATION Q2H PRN PRN PRN Reason: SOB &/OR WHEEZING Albuterol/Ipratropium (Duoneb) 3 ml INHALATION Q4HWA.RT [facility] Last Admin: 11/24/18 14:39 Dose: 3 ml Bisacodyl (Dulcolax) 5 mg PO DAILY PRN PRN PRN Reason: Constipation Furosemide (Lasix) 20 mg IV BID@1000,1800 [facility] Last Admin: 11/24/18 08:43 Dose: 20 mg Guaifenesin (Mucinex) 600 mg PO BID [facility] Last Admin: 11/24/18 08:44 Dose: 600 mg Heparin Sodium (Porcine) (Heparin Na) 5,000 unit SC Q8 [facility] Last Admin: 11/24/18 13:47 Dose: 5,000 unit Azithromycin 500 mg/ Dextrose 255 mls @ 250 mls/hr IV Q24 [facility] Stop: 11/26/18 11:02 Last Admin: 11/24/18 08:43 Dose: 250 mls/hr Magnesium Hydroxide (Milk Of Magnesia) 30 ml PO DAILY PRN PRN PRN Reason: Constipation Methylprednisolone (Solu-Medrol) 40 mg IV Q8 [facility] Last Admin: 11/24/18 13:47 Dose: 40 mg Ondansetron HCl (Zofran) 4 mg IV Q8H PRN PRN PRN Reason: Nausea Last Admin: 11/24/18 09:31 Dose: 4 mg Psyllium Hydrophilic Mucilloid (Metamucil) 1 packet PO DAILY PRN PRN PRN Reason: CONSTIPATION Sodium Chloride () 5 - 15 ml IV UD PRN PRN Reason: SALINE FLUSH Last Admin: 11/24/18 12:32 Dose: 10 ml Medical Necessity - Tobacco Use Smoking Status: Former smoker Tobacco Use: Cigarettes Assessment/Plan The patient is a 78 year old F with COPD with chronic respiratory on 4L, obesity, with h/o left leg DVT who comes in a 4 day history of cough, shortness of breath. Her cough is non-productive. 1. Acute COPD exacerbation in a patient with known history of COPD, patient is on 4 L of oxygen, Admitting chest x-ray is negative for infiltrate, continue on IV steroids and IV azithromycin as well as breathing treatments. Respiratory panel is negative, 2. Lower extremity edema, history of DVT in the left, improving, will continue on IV Lasix daily 3. Possible acute on chronic diastolic CHF, 2D echo shows EF 65%, indeterminate diastolic dysfunction, improved on Lasix, will decrease to Lasix 20mg daily, strict I's and O's, Rakesh wraps to legs 4. SHELLEY on CKD stage 3 likely secondary to diuretic use, changes made to diuretic doses, will trend BMP in a.m. 5. DVT PPx- Heparin SC Code Visit Inpatient E&M: 47110 Subs Hosp L2
[2018-11-24] MEDS: MELATONIN 3 MG TABLET PO (23:16)
[2018-11-25] MEDS: Mag Hydrox/Al Hydrox/Simeth 30 ML UDC PO (01:03)
[2018-11-25 01:59] VITALS: PULSE 92
[2018-11-25 03:21] VITALS: BP 150/85; PULSE 100; RESP 14; TEMP 36.8; O2SAT 95
--- NOTE | 2018-11-25 06:47 | NURSING ---
Pt refused this nurses morning care stating she 'no longer wanted to be bothered' and to 'not come back'. Unable to give AM solu-medrol + Heparin. Will pass on to dayshift
[2018-11-25 07:08] VITALS: PULSE 89; RESP 18; O2SAT 95
[2018-11-25] MEDS: Ipratropium/Albuterol Sulfate 3 ML AMPUL.NEB INHALATION ×2 (07:08→11:03)
[2018-11-25 08:00] VITALS: PULSE 88
--- NOTE | 2018-11-25 09:09 | PCM.DC ---
- Discharge Diagnoses Current Active Problems: Current Active and Chronic Problems Asthma with COPD with exacerbation (Chronic) Respiratory failure, [id number] (Chronic) Anxiety (Chronic) Reason(s) for Visit for Discharge Instructions: Shortness of breath You will use the following diet at home:: Cardiac Your food should be the consistency of: Regular Your liquids should be the consistency of: Regular/Thin Discharge Activity: Return to Normal Activity Additional Instructions: Continue on your prednisone. Complete your antibiotics. Continue to use your breathing treatments. You can take melatonin 3mg at night to help with sleep. Allergies/Adverse Reactions: Allergies chlordiazepoxide HCl [From Librium] Allergy (Verified 11/23/18 10:43) Anaphylaxis Penicillins Allergy (Verified 11/23/18 10:43) Anaphylaxis Medications to take at Discharge Albuterol Inhaler [Ventolin Hfa] 1 - 2 puff INHALATION Q4H PRN PRN 10/12/18 Oxygen, Home [Home Oxygen] 4 lpm NASAL CONT 10/12/18 Fluticasone/Salmeterol [Advair 250-50 Diskus] 1 puff INHALATION BID 11/23/18 Ipratropium/Albuterol Sulfate [Iprat-Albut 0.5-3(2.5) mg/3 ml] 1 inh INHALATION BID PRN 11/23/18 Acetaminophen [Tylenol Tablet] 650 mg PO Q6H PRN PRN tablet 11/25/18 Furosemide [Lasix] 20 mg PO DAILY #30 tablet 11/25/18 Guaifenesin [Mucinex] 600 mg PO BID #20 tablet 11/25/18 Melatonin 3 mg PO QHS PRN tablet 11/25/18 Prednisone 10 mg PO DAILY #30 tablet 11/25/18 The following prescriptions were given: Furosemide [Lasix] 20 mg PO DAILY #30 tablet Prednisone 10 mg PO DAILY #30 tablet Guaifenesin [Mucinex] 600 mg PO BID #20 tablet Primary Care Physician: Hardik Soto MD [Primary Care Provider] - Please follow up with your Primary Care Physician in: within 1-2 weeks Test Results: Test results from this visit will be discussed in further detail at your follow-up appointment, if applicable. Please Follow Up With: Srinivasa Jason MD When: as scheduled Proposed Discharge Date: 11/25/18
--- NOTE | 2018-11-25 09:14 | DCINST_ITS ---
- Discharge Diagnoses Current Active Problems: Current Active and Chronic Problems Asthma with COPD with exacerbation (Chronic) Respiratory failure, [id number] (Chronic) Anxiety (Chronic) Reason(s) for Visit for Discharge Instructions: Shortness of breath You will use the following diet at home:: Cardiac Your food should be the consistency of: Regular Your liquids should be the consistency of: Regular/Thin Discharge Activity: Return to Normal Activity Additional Instructions: Continue on your prednisone. Complete your antibiotics. Continue to use your breathing treatments. You can take melatonin 3mg at night to help with sleep. Allergies/Adverse Reactions: Allergies chlordiazepoxide HCl [From Librium] Allergy (Verified 11/23/18 10:43) Anaphylaxis Penicillins Allergy (Verified 11/23/18 10:43) Anaphylaxis Medications to take at Discharge Albuterol Inhaler [Ventolin Hfa] 1 - 2 puff INHALATION Q4H PRN PRN 10/12/18 Oxygen, Home [Home Oxygen] 4 lpm NASAL CONT 10/12/18 Fluticasone/Salmeterol [Advair 250-50 Diskus] 1 puff INHALATION BID 11/23/18 Ipratropium/Albuterol Sulfate [Iprat-Albut 0.5-3(2.5) mg/3 ml] 1 inh INHALATION BID PRN 11/23/18 Acetaminophen [Tylenol Tablet] 650 mg PO Q6H PRN PRN tablet 11/25/18 Furosemide [Lasix] 20 mg PO DAILY #30 tablet 11/25/18 Guaifenesin [Mucinex] 600 mg PO BID #20 tablet 11/25/18 Melatonin 3 mg PO QHS PRN tablet 11/25/18 Prednisone 10 mg PO DAILY #30 tablet 11/25/18 The following prescriptions were given: Furosemide [Lasix] 20 mg PO DAILY #30 tablet Prednisone 10 mg PO DAILY #30 tablet Guaifenesin [Mucinex] 600 mg PO BID #20 tablet Primary Care Physician: Hardik Soto MD [Primary Care Provider] - Please follow up with your Primary Care Physician in: within 1-2 weeks Test Results: Test results from this visit will be discussed in further detail at your follow- up appointment, if applicable. Please Follow Up With: Srinivasa Jason MD When: as scheduled Proposed Discharge Date: 11/25/18
[2018-11-25 09:33] LABS: Absolute Lymphocyte Count 0.72 X10^3/ul (0.83-4.51); Absolute Neutrophil Count 12.3 X10^3/uL (2.0-7.7); Basophil# 0.01 X10^3/uL; Basophil% 0.1 % (0-1); Hematocrit 32.8 % (37-47); Hemoglobin 10.3 g/dl (12.0-15.0); Lymphocyte # 0.72 X10^3/ul (4.0); Lymphocyte % 5.3 % (19-41); Mean Corp Hgb Conc 31.4 g/gl (32-36); Mean Corpuscular Hgb 30.1 pg (27.0-32.0); Mean Corpuscular Volume 95.9 fL (81-99); Mean Platelet Vol. 9.3 fl (6.2-12.0); Monocyte# 0.39 X10^3/uL; Monocyte% 2.9 % (0-10); Neutrophil # 12.31 X10^3/uL (2.7-7.7); Neutrophil % 91.3 % (47-70); Platelet Count 250 K/mm3 (150-450); RBC Distribution Width CV 13.5 % (11.6-14.6); RBC Distribution Width SD 47.1 fl (35.1-43.9); Red Blood Count 3.42 M/mm3 (4.2-5.4); White Blood Count 13.5 K/mm3 (4.4-11.0)
[2018-11-25 09:34] LABS: POSITIVE COUNT NO; POSITIVE DIFFERENTIAL NO; POSITIVE MORPHOLOGY NO
--- NOTE | 2018-11-25 09:46 | DS.PCM_ITS ---
Discharge Date and Diagnosis Date of Admission: 11/23/18 Date of Discharge: 11/25/18 - Primary Discharge Diagnosis Acute COPD exacerbation Acute on chronic diastolic CHF SHELLEY on CKD stage III, secondary to dehydration/diuretic use. - Secondary Discharge Diagnosis Chronic Problems Asthma with COPD with exacerbation (Chronic) Respiratory failure, [id number] (Chronic) COPD exacerbation (Chronic) Stage III chronic kidney disease (Chronic) GERD (gastroesophageal reflux disease) (Chronic) Venous insufficiency (Chronic) COPD (chronic obstructive pulmonary disease) (Chronic) Obesity (BMI 30.0-34.9) (Chronic) Anxiety (Chronic) Right leg DVT (Chronic) Hospital Course and Treatment Imaging Results: Clinical Impression(s) from Imaging Studies Chest X-Ray 11/23/18 11:05 IMPRESSION: Hyperinflation. Stable pleural parenchymal changes at the left lung base. Electronically Signed: Chandu Kamilla, at 11:27 EST , Service support , None Operations: None Procedures: None Summary of Care Provided: The patient is a 78 year old F with COPD with chronic respiratory on 4L, obesity, with h/o left leg DVT who comes in a 4 day history of cough, shortness of breath. Her cough is non-productive. Patient was admitted and managed as acute COPD exacerbation. She remained on 4 L of oxygen. Her admitting chest x- ray was negative for infiltrate. She was continued on IV steroids and IV azithromycin. Respiratory panel was negative. Patient was also managed as acute on chronic diastolic CHF, she was started on IV Lasix and transitioned to oral Lasix. She has slight improvement in her creatinine. She was asked to follow-up with her primary care doctor within 1 week for repeat blood work. Refused to have Doppler ultrasounds done during the hospital stay- says her legs hurt too much. Subjective: On the day of discharge, patient was seen and examined, she feels improved, leg edema is much improved. Denied any fever or chills. On her home 4 L of oxygen. Objective: Physical Exam General: Alert, Oriented x3, Cooperative, No apparent distress, - - on 4L oxygen HEENT: Atraumatic, PERRLA, EOMI, Normocephalic Neck: Supple, No JVD, Negative Carotid Bruits Lungs: Diminished, Rhonchi Cardiovascular: Regular rate, Regular Rhythm, Normal S1, Normal S2, No murmurs Abdomen: Bowel Sounds Present, Soft, Non Tender, Non-Distended, No Hepato- splenomegaly Extremities: bilateral leg edema, present on admission, with skin venostasis Skin: No rashes, No breakdown Musculoskeletal: No Tenderness to Palpation of Joints or Extremities Lymphatic: No Cervical, Supraclavicular, or Inguinal Adenopathy Neurological: Cranial nerves II-XII grossly intact, Neuro grossly intact Psych/Mental Status: Normal Affect, Appropriate - Physical Exam Vital Signs Temp Pulse Resp BP Pulse Ox 98.3 F 89 18 150/85 H 95 11/25/18 03:21 11/25/18 07:08 11/25/18 07:08 11/25/18 03:21 11/25/18 07:08 Oxygen Flow Rate (L/min) 4 Oxygen Delivery Method Nasal Cannula Weight: 93.259 kg Body Mass Index (BMI) 31.2 Intake and Output for Last 24 Hours 11/23/18 11/24/18 11/26/18 23:59 23:59 00:59 Intake Total 1216 / 1216 1210 / 1210 400 / 400 Balance 1216 / 1216 1210 / 1210 400 / 400 Microbiology Past 72 Hours 11/23/18 17:15 Respiratory Panel (PCR) - Final Mucosa - Nasopharyngeal Laboratory Tests Past 24 Hrs 11/25/18 11/25/18 09:18 09:18 WBC 13.5 H RBC 3.42 L Hgb 10.3 L Hct 32.8 L MCV 95.9 MCH 30.1 MCHC 31.4 L RDW 13.5 RDW Differential 47.1 H Plt Count 250 MPV 9.3 Immature Gran % (Auto) 0.400 Neut % (Auto) 91.3 H Lymph % (Auto) 5.3 L [place] % (Auto) 2.9 Eos % (Auto) 0.0 Baso % (Auto) 0.1 Absolute Neuts (auto) 12.3 H Absolute Lymphs (auto) 0.72 L Total Counted Not Reportable Sodium Pending Potassium Pending Chloride Pending Carbon Dioxide Pending Anion Gap Pending BUN Pending Creatinine Pending Est GFR (MDRD) Af Amer Pending Est GFR (MDRD) Non-Af Pending BUN/Creatinine Ratio Pending Glucose Pending Calcium Pending Discharge Diet: Low fat/ Low Cholesterol, 2000 mg Sodium Diet Discharge Activity: Return to Normal Activity Home Medications: Medications to take at Discharge Albuterol Inhaler [Ventolin Hfa] 1 - 2 puff INHALATION Q4H PRN PRN 10/12/18 Oxygen, Home [Home Oxygen] 4 lpm NASAL CONT 10/12/18 Fluticasone/Salmeterol [Advair 250-50 Diskus] 1 puff INHALATION BID 11/23/18 Ipratropium/Albuterol Sulfate [Iprat-Albut 0.5-3(2.5) mg/3 ml] 1 inh INHALATION BID PRN 11/23/18 Acetaminophen [Tylenol Tablet] 650 mg PO Q6H PRN PRN tablet 11/25/18 Azithromycin 500 mg PO DAILY #1 tablet 11/25/18 Furosemide [Lasix] 20 mg PO DAILY #30 tablet 11/25/18 Guaifenesin [Mucinex] 600 mg PO BID #20 tablet 11/25/18 Melatonin 3 mg PO QHS PRN tablet 11/25/18 Prednisone 10 mg PO DAILY #30 tablet 11/25/18 Following Prescrptions Were Given to Patient: Azithromycin 500 mg PO DAILY #1 tablet Furosemide [Lasix] 20 mg PO DAILY #30 tablet Prednisone 10 mg PO DAILY #30 tablet Guaifenesin [Mucinex] 600 mg PO BID #20 tablet Primary Care Physician: Hardik Soto MD [Primary Care Provider] - Please follow up with your Primary Care Physician in: within 1-2 weeks Please Follow Up With: Srinivasa Jason MD When: as scheduled Disposition: Home Minutes spent on discharge:: 40 Patient Condition:: Stable Medical Necessity - Tobacco Use Smoking Status: Former smoker Tobacco Use: Cigarettes Meaningful Use Info Meaningful Use Diagnoses (Choose all that apply): CHF - CHF BREANNE/ARB ordered at discharge?: No Reason BREANNE/ARB not ordered?: Worsening renal dysfunctn Documented LVEF (%): 65 Code Visit Inpatient E&M: 98863 Disch Hosp
[2018-11-25 09:50] LABS: Anion Gap 7 (5-15); BUN 29 mg/dL (7-18); BUN/Creat Ratio 14.4 RATIO (10-20); Calcium,Total 8.3 mg/dL (8.5-10.1); Chloride 102 mmol/L (98-107); Creatinine, Serum 2.01 mg/dL (0.55-1.02); EST Glomerular Filtration Rate 25 mL/min (>60); Est Glom Filt Rate - Afr Amer 31 mL/min (>60); Estimated Creatinine Clearance 22.89 ml/min; Glucose 163 mg/dL (74-106); Potassium 4.7 mmol/L (3.5-5.1); Sodium Level 137 mmol/L (136-145)
[2018-11-25 10:50] VITALS: BP 146/70; PULSE 87; RESP 18; TEMP 37.1; O2SAT 94
[2018-11-25 11:03] VITALS: PULSE 88; RESP 18
[2018-11-25] MEDS: guaiFENesin 600 MG Tablet PO (11:17)
[2018-11-25] MEDS: 0.9% NaCl Peripheral Flush Adult/Peds IV (11:21)
[2018-11-25] MEDS: Furosemide 20 MG/2 ML VIAL IV (11:36)
--- NOTE | 2018-11-26 14:26 | CASEMGMT ---
Addendum entered by Robert Rodarte 11/27/18 14:04: Attempted second call to patient. No answer. Original Note: RN CM DC PHONE CALL DC DATE: 11/25/18 DC Disposition: Home LACE/STRATA: 30/12 No answer to phone call and message did not have personal identifiers. No message left. Mally JORDANN ALISHA ACM
== END 2018-11-25 13:45 | disposition home or self-care (01) | DRG 190 ==
LOC: ED 12:35 → MS3 13:34
PROVIDERS: Admitting Provider Internal Medicine; Emergency Provider Emergency Medicine; Family Provider Family Medicine; PCP Family Medicine; Visit Provider Internal Medicine
DX: J44.1 Chronic obstructive pulmonary disease with (acute) exacerbation (principal); I50.33 Acute on chronic diastolic (congestive) heart failure; J96.20 Acute and chronic respiratory failure, unspecified whether with hypoxia or hypercapnia; N17.9 Acute kidney failure, unspecified; Z87.891 Personal history of nicotine dependence; Z99.81 Dependence on supplemental oxygen; E66.9 Obesity, unspecified; Z86.718 Personal history of other venous thrombosis and embolism; Z68.31 Body mass index [BMI] 31.0-31.9, adult; E86.0 Dehydration; T50.1X5A Adverse effect of loop [high-ceiling] diuretics, initial encounter; N18.3 Chronic kidney disease, stage 3 (moderate); K21.9 Gastro-esophageal reflux disease without esophagitis; I87.2 Venous insufficiency (chronic) (peripheral); F41.9 Anxiety disorder, unspecified
CPT/HCPCS: 36415; 36600; 71045; 80048; 80053; 82803; 83880; 84484; 85025; 87633; 93005; 94640; 94667; 94668; 99282; J7030; A4216; J1940; J2405

== ENCOUNTER 2018-11-28 15:06 | Emergency (ER) | payer MEDICARE, SELFPAY ==
[2018-11-23 14:34] VITALS: BMI 31.2
[2018-11-28 15:07] VITALS: BP 153/86; PULSE 90; RESP 18; TEMP 36.1; O2SAT 93; BMI 30.4
--- NOTE | 2018-11-28 15:17 | ED.VISSUMM ---
- ER Visit Summary Date of Service: 11/28/18 Chief Complaint: Constipation History of Present Illness: The patient is a 78 F presenting with constipation. Patient states she has been unable to have a bowel movement for the past 2 days. She states she tried a stool softener today. She did have liquid stool following that. She states she still has the urge to have a bowel movement. She denies nausea or vomiting. She has mild abdominal cramping. Denies other complaints. Physical Examination: Vitals are stable. Patient is afebrile. Alert no acute distress. HEENT exam is unremarkable. Neck is supple. Lungs are clear and equal bilaterally. Heart is regular rate and rhythm. Abdomen is soft mild diffuse tenderness with no rebound or guarding Extremities are unremarkable. Skin is warm and dry. No focal neurologic deficit. Remainder of exam is unremarkable. Emergency Department Course and Treatment: KUB shows large amount of fecal material is seen in the colon. On rectal exam she has soft stool with no impaction. She was given a soapsuds enema. She states she was unable to tolerate this. She declines further attempts and would like to go home. She is given mag citrate. She is advised to follow-up with primary care physician. Advised return to ED for worsening complaints. Disposition: Discharge home Impression: Constipation This note was generated with [employer] dictation software. It may contain incorrect words, spelling, and punctuation that were not noted in review of the chart prior to signing ED Disposition - Plan for ED Patient: Referrals: Hardik Soto MD [Primary Care Provider] -
--- NOTE | 2018-11-28 15:30 | RAD_ITS ---
STUDY: X-RAY - ABDOMEN/PELVIS REASON FOR EXAM: Female, 78 years old. Constipation. TECHNIQUE: AP supine and upright views of the abdomen and pelvis. COMPARISON: None. FINDINGS: Normal visualized lung bases. There is an abundance of fecal material throughout the colon. There is no demonstrated free abdominal air. The visualized liver, spleen and kidneys are grossly normal in size and morphology. There are calcified phleboliths in the pelvis. There are diffuse degenerative changes of the visualized lumbar spine. RAD/Abdomen Single View IMPRESSION: Large amount of fecal material is seen in the colon. Electronically Signed: Chandu Kohli, at 16:05 EDT , Service support ,
--- NOTE | 2018-11-28 16:45 | ED.RN ---
PT IS VERY ANGRY THAT WE HAVE NOT TAKEN THE BASEBALL OUT OF HER ASS OFFERED TO ASSIST HER TO THE BSC. OFFERED TO TRY AND PUT MORE OF THE SOAP SUDS ENEMA IN AND SEE IF IT COULD HELP ALSO. PT REFUSED ALL OF IT AND STATES SHE WANTS HER CLOTHES SO SHE CAN GO HOME. PT REFUSES ANY ALTERNATIVES TO HELP AND STATES WE ARE NOT DOING ANYTHING TO HELP HER. GAVE PT HER CLOTHES AND INFORMED PHYSICIAN OF PT DECISION.
--- NOTE | 2018-11-28 16:55 | ED.DEP ---
ED Disposition - Plan for ED Patient: Instructions: ED Constipation Referrals: Hardik Soto MD [Primary Care Provider] -
[2018-11-28] MEDS: Magnesium Citrate 300 ML PO (16:59)
== END 2018-11-28 17:00 | disposition home or self-care (01) ==
LOC: ED 15:44
PROVIDERS: Emergency Provider Emergency Medicine; Family Provider Family Medicine; PCP Family Medicine
DX: K59.00 Constipation, unspecified (principal); J44.9 Chronic obstructive pulmonary disease, unspecified; N18.9 Chronic kidney disease, unspecified; Z99.81 Dependence on supplemental oxygen; Z79.899 Other long term (current) drug therapy
CPT/HCPCS: 74018; 99284

== ENCOUNTER 2019-01-02 14:09 | Emergency (ER) | payer MEDICARE, MEDICAID, SELFPAY ==
[2018-12-03 11:29] VITALS: BMI 30.4
[2019-01-02 14:12] VITALS: BP 144/67; PULSE 94; RESP 22; TEMP 36.8; O2SAT 87; BMI 30.4
--- NOTE | 2019-01-02 14:26 | RAD_ITS ---
STUDY: X-RAY CHEST REASON FOR EXAM: Female, 78 years old. Cough. TECHNIQUE: Single AP portable view of the chest. COMPARISON: Comparison is made with prior study dated November 23, 2018. FINDINGS: Hyperinflation. Stable pleural parenchymal changes at the left lung base. The right lung is clear. Normal size heart. Normal mediastinum and sera. Normal visualized pulmonary arteries. There is atherosclerotic tortuosity of the aortic arch and descending thoracic aorta. There is a levoscoliosis of the thoracic spine. Normal visualized ribs, clavicles, and shoulders. There is no demonstrated abnormality of the visualized soft tissue structures of the upper abdomen. RAD/Chest 1 View (Portable) IMPRESSION: Hyperinflation. Stable pleural parenchymal changes at the left lung base. Electronically Signed: Chandu Kohli, at 15:14 EDT , Service support ,
--- NOTE | 2019-01-02 14:26 | EKG12_ITS ---
Test Reason : SOB Blood Pressure : / mmHG Vent. Rate : 087 BPM Atrial Rate : 087 BPM P-R Int : 148 ms QRS Dur : 074 ms QT Int : 388 ms P-R-T Axes : 060 -10 072 degrees QTc Int : 466 ms Normal sinus rhythm Septal IA, age undetermined, cannot be excluded Confirmed by VIJAY ROBLEDO, JENNIFER ([id number]), editorial intern ALEXYS BOYER ([id number]) on 01/07/2019 9:55:36 AM Referred By: NATALIE/KASSIE Confirmed By:JENNIFER LINARES MD
--- NOTE | 2019-01-02 14:40 | ED.VISSUMM ---
- ER Visit Summary Date of Service: 01/02/19 Chief Complaint: Shortness of breath History of Present Illness: The patient is a 78 F with history of COPD who is on home oxygen. The patient presents with increasing shortness of breath and cough. She states over the past 2 days, she had worsening dyspnea. She states she had cough with scant sputum. She states that she is normally on 4 L of oxygen. She feels it is not helping. She feels like she cannot catch her breath. She cannot walk a distance without getting dyspneic. She denies any fevers or chills. She denies any chest pain. She denies any history of coronary vascular disease or heart failure. Physical Examination: Vital signs reviewed General: Well-nourished, well-developed Head: Normocephalic, atraumatic Eyes: Pupils equal and reactive, extraocular muscles intact Neck, supple, no lymphadenopathy Heart: Regular rate and rhythm Respiratory: No distress, wheezing throughout Abdomen: Soft, nontender, nondistended, no peritoneal signs Back: Nontender Extremities: Nontender, no edema, no cords Skin: Normal color no rash Neuro: Alert and oriented, no focal or lateralizing deficits Test Results: [] Emergency Department Course and Treatment: The patient was initially 87% on 4 L. However, with nebulized breathing treatments her aeration had improved. She is having no conversational dyspnea. X-ray shows no focal infiltrate. Lab work is currently pending. If labs are unremarkable, and the patient can walk without significant hypoxia on her oxygen, I do feel that she would be safe for therapy as an outpatient. Once workup is complete, addendum will be added. After nebulized breathing treatments, the patient was feeling markedly improved. She is wheelchair bound and does not ambulate. At this time, I do feel that she is safe for outpatient therapy. She will be treated with steroids and antibiotics. She will be discharged home. Treatment Plan: [] Disposition: Pending Impression: Acute COPD exacerbation This note was generated with [employer] dictation software. It may contain incorrect words, spelling, and punctuation that were not noted in review of the chart prior to signing ED Disposition - Plan for ED Patient: Instructions: ED COPD Flare Prescriptions: Azithromycin [Zithromax Z-Sly] 250 mg PO UD #1 box Prednisone [Deltasone] 60 mg PO DAILY #15 tab Referrals: Hardik Soto MD [Primary Care Provider] -
[2019-01-02] MEDS: Albuterol 2.5 MG/3 ML VIAL.NEB. INHALATION (14:53)
[2019-01-02] MEDS: Ipratropium/Albuterol Sulfate 3 ML AMPUL.NEB INHALATION (14:53)
[2019-01-02 14:55] VITALS: PULSE 87; RESP 24; O2SAT 96
[2019-01-02] MEDS: MethylPREDNISolone 125 MG/2 ML Vial IV (15:17)
[2019-01-02 15:26] VITALS: BP 142/67; PULSE 89; RESP 21; TEMP 36.9; O2SAT 97; O2SAT 98
[2019-01-02 15:29] VITALS: O2SAT 99
[2019-01-02 15:32] LABS: Absolute Neutrophil Count 4.4 X10^3/uL (2.0-7.7); Basophil# 0.04 X10^3/uL; Basophil% 0.5 % (0-1); Eosinophils% 4.1 % (0-5); Hematocrit 35.2 % (37-47); Lymphocyte % 27.3 % (19-41); Mean Corp Hgb Conc 31.3 g/gl (32-36); Mean Corpuscular Hgb 29.9 pg (27.0-32.0); Mean Corpuscular Volume 95.7 fL (81-99); Mean Platelet Vol. 9.3 fl (6.2-12.0); Monocyte# 0.62 X10^3/uL; Monocyte% 8.5 % (0-10); Neutrophil # 4.36 X10^3/uL (2.7-7.7); Neutrophil % 59.5 % (47-70); Platelet Count 240 K/mm3 (150-450); RBC Distribution Width CV 14.4 % (11.6-14.6); RBC Distribution Width SD 50.2 fl (35.1-43.9); Red Blood Count 3.68 M/mm3 (4.2-5.4); White Blood Count 7.3 K/mm3 (4.4-11.0)
[2019-01-02 15:33] LABS: POSITIVE COUNT NO; POSITIVE DIFFERENTIAL NO; POSITIVE MORPHOLOGY NO
[2019-01-02 15:49] LABS: Anion Gap 6 (5-15); BUN 15 mg/dL (7-18); BUN/Creat Ratio 7.2 RATIO (10-20); Calcium,Total 8.6 mg/dL (8.5-10.1); Chloride 104 mmol/L (98-107); Creatinine, Serum 2.09 mg/dL (0.55-1.02); EST Glomerular Filtration Rate 24 mL/min (>60); Est Glom Filt Rate - Afr Amer 29 mL/min (>60); Estimated Creatinine Clearance 22.02 ml/min; Glucose 90 mg/dL (74-106); Potassium 3.9 mmol/L (3.5-5.1); Sodium Level 139 mmol/L (136-145)
[2019-01-02 16:09] LABS: BNP,B-Type NATRIURETIC PEPTIDE 35.6 pg/mL (0-100)
[2019-01-02 16:40] VITALS: BP 134/80; PULSE 91; PULSE 92; RESP 18; TEMP 36.9; O2SAT 99
--- NOTE | 2019-01-02 18:24 | CASEMGMT ---
RN CM Assessment Introduced role of RN CM to patient.? Patient is alert, oriented and able?to participate in RN CM Assessment. ?Care providers, pharmacy, and demographics verified. Patient does not want Admit and wants to go Home as she has family coming to visit from [place] on Monday. Presentation: SOB, h/o COPD- per patient has had for about 9years and never had any issues until this year with the winter Cold and Pollen now. has a box of masks at home but went outside and did not know the Pollen was going to be that bad. States uses Long Acting and Short Acting Inhalers, On Home O2 Continuously. Re-Admit: No Barriers/Issues: None PCP: Daniel Soto Specialists: Pulm- Dr Jason, [facility] has an appointment tomorrow for test but d/t feeling this way will need to re-schedule Preferred Pharmacy: [facility] Insurance: [employer], [facility] Rx Benefit:?Yes LNOK: Son Ruddy Cabello LW/HPOA: Yes, HPOA- Both son's Ruddy Cabello and Kit Cabello Living Arrangements:? Lives alone in a senior complex, [facility], Single Story, Has a Ramp. ADL?s: Chair Bound, Has an Electric Scooter, Has an Aide through [employer] 3/week on // for 2 hours for house cleaning Transportation: Son's DME: Home O2 4L continuous, Portable O2, Nebulizer, Shower Chair, Electric Scooter HHC: None SNF: None Goal: Home DC PLAN: Home with no anticipated needs identified. BROOKE Geller
== END 2019-01-02 16:42 | disposition home or self-care (01) ==
PROVIDERS: Emergency Provider Emergency Medicine; Family Provider Family Medicine; PCP Family Medicine
DX: J44.1 Chronic obstructive pulmonary disease with (acute) exacerbation (principal); E66.9 Obesity, unspecified; Z68.30 Body mass index [BMI] 30.0-30.9, adult; Z99.81 Dependence on supplemental oxygen; Z87.891 Personal history of nicotine dependence
CPT/HCPCS: 71045; 80048; 83880; 84484; 85025; 93005; 94640; 96374; 99285; A4216

== ENCOUNTER 2019-01-11 17:42 | Emergency (ER) | payer MEDICARE, MEDICAID, SELFPAY ==
[2019-01-11 17:43] VITALS: BP 181/74; PULSE 87; RESP 29; TEMP 36.7; O2SAT 95; BMI 33.0
[2019-01-11 17:48] VITALS: O2SAT 99
--- NOTE | 2019-01-11 19:09 | ED.RN ---
PT STARTED ASKING TO LEAVE [facility] 10 MIN AFTER ARRIVAL. PT HAD NOT SEEN THE DR YET AND STATED SHE COULD DO EVERYTHING WE WILL DO WHILE AT HOME. ASKED PT WHO CALLED EMS AND PT STATED HER AID DID AT HER REQUEST. ENCOURAGED PT TO STAY SINCE SHE FELT SHE NEEDED HELP ENOUGH TO CALL [facility] AND COME IN. EXPLAINED DR WOULD BE IN SOON HE COULD BUT THAT THERE WERE OTHER PTS WELL. PT STATED THAT WAS NOT HER PROBLEM AND SHE WAS LEAVING. PT CONTINUED TO BE RUDE AND ADAMENT THAT SHE WAS LEAVING.
--- NOTE | 2019-01-12 01:05 | ED.VISSUMM ---
- ER Visit Summary Date of Service: 01/12/19 Chief Complaint: Shortness of breath History of Present Illness: The patient is a 78 F history of COPD on home O2. History of anemia and prior DVT. Patient states that today she gradual onset of shortness of breath since morning. With associated wheezing and a nonproductive cough. No hemoptysis. No chest pain. She denies any fever or chills. Has had prior episodes like this with her exacerbation of COPD. Physical Examination: Alert female no acute distress vital signs stable afebrile pulse ox 95% on 2 L. No hypoxia. HEENT exam unremarkable. Neck nontender no lymphadenopathy. Lungs few scattered Tory wheezes. No rales or rhonchi. Coarse breath sounds. Heart regular rhythm no murmur. Abdomen soft nontender. Remedies moves all 4. Trace edema lower extremities. Calves nontender no cords. Neurologically she is awake alert with no focal motor deficits. Test Results: None Emergency Department Course and Treatment: Currently patient appears to be a mild exacerbation of COPD. She is chronically on O2 and was not hypoxic on her normal oxygen. Patient was going to be treated with aerosols and steroids. There is significant volume and acuity in department time of her evaluation. Patient did not want to wait for treatment for repeat evaluation and left prior to receiving any therapy or work-up. Treatment Plan: Left prior to being discharged. Disposition: Left prior to discharge Impression: Acute dyspnea/acute exacerbation COPD Left prior to discharge This note was generated with [employer] dictation software. It may contain incorrect words, spelling, and punctuation that were not noted in review of the chart prior to signing ED Disposition - Plan for ED Patient: Referrals: Hardik Soto MD [Primary Care Provider] -
--- NOTE | 2019-01-12 01:09 | ED.DCSUM_ITS ---
- ER Visit Summary Date of Service: 01/12/19 Chief Complaint: Shortness of breath History of Present Illness: The patient is a 78 F history of COPD on home O2. History of anemia and prior DVT. Patient states that today she gradual onset of shortness of breath since morning. With associated wheezing and a nonproductive cough. No hemoptysis. No chest pain. She denies any fever or chills. Has had prior episodes like this with her exacerbation of COPD. Physical Examination: Alert female no acute distress vital signs stable afebrile pulse ox 95% on 2 L. No hypoxia. HEENT exam unremarkable. Neck nontender no lymphadenopathy. Lungs few scattered Tory wheezes. No rales or rhonchi. Coarse breath sounds. Heart regular rhythm no murmur. Abdomen soft nontender. Remedies moves all 4. Trace edema lower extremities. Calves nontender no cords. Neurologically she is awake alert with no focal motor deficits. Test Results: None Emergency Department Course and Treatment: Currently patient appears to be a mi ld exacerbation of COPD. She is chronically on O2 and was not hypoxic on her normal oxygen. Patient was going to be treated with aerosols and steroids. There is significant volume and acuity in department time of her evaluation. Patient did not want to wait for treatment for repeat evaluation and left prior to receiving any therapy or work-up. Treatment Plan: Left prior to being discharged. Disposition: Left prior to discharge Impression: Acute dyspnea/acute exacerbation COPD Left prior to discharge This note was generated with [employer] dictation software. It may contain incorrect words, spelling, and punctuation that were not noted in review of the chart prior to signing ED Disposition - Plan for ED Patient: Referrals: Hardik Soto MD [Primary Care Provider] -
== END 2019-01-11 19:05 | disposition left against medical advice (07) ==
PROVIDERS: Emergency Provider Emergency Medicine; Family Provider Family Medicine; PCP Family Medicine
DX: J44.1 Chronic obstructive pulmonary disease with (acute) exacerbation (principal); Z99.81 Dependence on supplemental oxygen; Z53.21 Procedure and treatment not carried out due to patient leaving prior to being seen by health care provider
CPT/HCPCS: 99283

== ENCOUNTER 2019-01-23 14:26 | Emergency (ER) | payer MEDICARE, MEDICAID, SELFPAY ==
[2019-01-23 14:27] VITALS: BP 144/73; PULSE 88; RESP 20; TEMP 36.7; O2SAT 97; BMI 30.4
--- NOTE | 2019-01-23 14:59 | VDUE_ITS ---
Reason For Study: Pain Right Proximal Right jugular vein is spontaneous, widely patent, phasic, with no intraluminal echogenicity noted. Right subclavian vein is spontaneous, widely patent, phasic, with no intraluminal echogenicity noted. Right Lower Arm Right radial vein is compressible. Right ulnar vein is compressible. Right Arm Right axillary vein is spontaneous, patent, phasic, competent, compressible and demonstrates augmentation. Right brachial vein is compressible. Right cephalic vein is compressible. Right basilic vein is compressible. Interpretation Summary No evidence for acute deep venous thrombosis[right] upper extremity with patent and compressible cephalic and basilic veins. Ordering Physician: Debbie Angel Referring Physician: Daniel Soto Performed By: Yamilet Esposito RVT ?
[2019-01-23] MEDS: Acetaminophen 325 MG Tablet 650 MG PO (15:30)
--- NOTE | 2019-01-23 15:47 | ED.DCSUM_ITS ---
- ER Visit Summary Date of Service: 01/23/19 Chief Complaint: Right arm pain History of Present Illness: The patient is a 78 F reports feeling a lump on her right upper arm for the past couple of years. She states her doctor had a imaged and reported a calcified lesion. Patient states today she has pain in that area and the lump is now gone. She does have a history of prior leg DVT. Physical Examination: Vital signs unremarkable. Patient is on 4 L nasal cannula chronically. Heart is regular rate and rhythm. Lung sounds clear. Right upper extremity examination was focal tenderness to the mid right upper arm. There is no overlying skin change. No sniffing edema. She has full range of motion. Strong distal pulses are noted. Test Results: Venous ultrasound of the right arm is unremarkable. Emergency Department Course and Treatment: Patient is given Tylenol for pain. On repeat evaluation she is resting comfortably. Test results discussed with her. She will continue to use Tylenol as needed for pain. She will follow with her primary care physician. Treatment Plan: [] Disposition: Discharge Impression: Right arm pain This note was generated with [employer] dictation software. It may contain incorrect words, spelling, and punctuation that were not noted in review of the chart prior to signing ED Disposition - Plan for ED Patient: Disposition: Home or Assisted Living Instructions: ED Muscle Aching Referrals: Hardik Soto MD [Primary Care Provider] - 1 Week if not improving
[2019-01-23 15:51] VITALS: PULSE 93; RESP 20; O2SAT 97
== END 2019-01-23 15:51 | disposition home or self-care (01) ==
PROVIDERS: Emergency Provider Emergency Medicine; Family Provider Family Medicine; PCP Family Medicine
DX: M79.621 Pain in right upper arm (principal); J44.9 Chronic obstructive pulmonary disease, unspecified; N18.9 Chronic kidney disease, unspecified; Z87.891 Personal history of nicotine dependence
CPT/HCPCS: 93971; 99283

== ENCOUNTER 2019-01-25 13:30 | Emergency (ER) | payer MEDICARE, MEDICAID, SELFPAY ==
[2019-01-25 13:31] VITALS: BP 130/76; PULSE 97; RESP 28; TEMP 35.9; BMI 30.4
--- NOTE | 2019-01-25 13:47 | RAD_ITS ---
STUDY: X-RAY - RIGHT SHOULDER REASON FOR EXAM: Female, 78 years old. Right shoulder pain. TECHNIQUE: 4 view(s) of the shoulder. COMPARISON: None. FINDINGS: There is moderate degenerative arthrosis of the glenohumeral articulation. There is hypertrophic osteoarthrosis of the acromioclavicular joint with inferior osseous spur formation. Healed distal right clavicle fracture with deformity. Decreased distance between the humeral head and acromion in keeping with rotator cuff disease. There is an enthesopathic erosion of the humeral head. The soft tissue structures are unremarkable. Normal visualized pulmonary apex. RAD/Shoulder min 2 Views IMPRESSION: Degenerative changes as described. Electronically Signed: Chandu Kohli, at 14:09 EDT , Service support ,
[2019-01-25] MEDS: HYDROcodone Bitartrate/Apap 5/325 Tablet PO (14:06)
--- NOTE | 2019-01-25 14:38 | ED.VISSUMM ---
- ER Visit Summary Date of Service: 01/25/19 Chief Complaint: Right shoulder pain History of Present Illness: The patient is a 78 F presents to the emergency department for right shoulder pain. Patient states she had a pain intermittently for the past year. She had a mechanical fall about a year ago. She ended up with a clavicle fracture. She states that she also had some injury to her shoulder at that time. She was seen here about a week ago. At that time, she had an ultrasound which was negative. States today, the pain is migrating. It is worse when she moves her arm. She denies any chest pain or shortness of breath. Physical Examination: The patient does have pain with palpation over the right bicipital tendon. She has no erythema or edema of the shoulder. Pulses are normal. There is no obvious deformity. Test Results: [] Emergency Department Course and Treatment: The patient's pain is entirely reproducible. I did obtain plain films which showed significant degenerative change of the shoulder. There is no fracture. My suspicion is that this is likely tendinitis. Patient is treated with oral analgesics here. She will continue Tylenol at home. She is comfortable with this plan of care. She will be discharged to follow-up with her primary care for reevaluation. Treatment Plan: [] Disposition: Discharge Impression: 1. Right shoulder tendinitis This note was generated with S[employer] dictation software. It may contain incorrect words, spelling, and punctuation that were not noted in review of the chart prior to signing ED Disposition - Plan for ED Patient: Instructions: ED Tendinitis Rotator Cuff Referrals: Hardik Soto MD [Primary Care Provider] -
[2019-01-25 14:43] VITALS: RESP 16
--- NOTE | 2019-01-25 14:45 | ED.RN ---
REVIEWED D/C INSTRUCTIONS, FOLLOW UP CARE, AND S/S THAT WOULD WARRANT A RETURN TO THE ED WITH PT. PT VERBALIZED AN UNDERSTANDING AND DENIES FURTHER QUESTIONS FOR THIS RN. PT SKIN P/W/D, RESP EVEN AND UNLABORED, PT A&O X 3, NO DISTRESS NOTED. PT OUT OF ED IN PERSONAL WHEELCHAIR.
== END 2019-01-25 14:46 | disposition home or self-care (01) ==
LOC: ED 13:56
PROVIDERS: Emergency Provider Emergency Medicine; Family Provider Family Medicine; PCP Family Medicine
DX: M75.21 Bicipital tendinitis, right shoulder (principal); J44.9 Chronic obstructive pulmonary disease, unspecified; Z87.891 Personal history of nicotine dependence
CPT/HCPCS: 73030; 99283

== ENCOUNTER 2019-03-11 12:26 | Emergency (ER) | payer MEDICARE, MEDICAID, SELFPAY ==
[2019-03-11 12:28] VITALS: BP 122/73; PULSE 99; RESP 17; TEMP 36.3; O2SAT 99; BMI 30.4
[2019-03-11 13:31] LABS: Absolute Lymphocyte Count 2.38 X10^3/ul (0.83-4.51); Absolute Neutrophil Count 5.1 X10^3/uL (2.0-7.7); Basophil# 0.03 X10^3/uL; Basophil% 0.3 % (0-1); Eosinophil# 0.22 X10^3/uL; Eosinophils% 2.6 % (0-5); Hematocrit 38.6 % (37-47); Hemoglobin 11.8 g/dl (12.0-15.0); Lymphocyte # 2.38 X10^3/ul (4.0); Lymphocyte % 27.7 % (19-41); Mean Corp Hgb Conc 30.6 g/gl (32-36); Mean Corpuscular Hgb 29.8 pg (27.0-32.0); Mean Corpuscular Volume 97.5 fL (81-99); Mean Platelet Vol. 8.9 fl (6.2-12.0); Monocyte# 0.85 X10^3/uL; Monocyte% 9.9 % (0-10); Neutrophil # 5.06 X10^3/uL (2.7-7.7); Platelet Count 277 K/mm3 (150-450); RBC Distribution Width CV 14.9 % (11.6-14.6); RBC Distribution Width SD 50.7 fl (35.1-43.9); Red Blood Count 3.96 M/mm3 (4.2-5.4); White Blood Count 8.6 K/mm3 (4.4-11.0)
[2019-03-11 13:34] LABS: POSITIVE COUNT NO; POSITIVE DIFFERENTIAL NO; POSITIVE MORPHOLOGY NO
[2019-03-11 13:47] LABS: Anion Gap 5 (5-15); BUN 21 mg/dL (7-18); BUN/Creat Ratio 12.1 RATIO (10-20); Calcium,Total 8.5 mg/dL (8.5-10.1); Chloride 105 mmol/L (98-107); Creatinine, Serum 1.73 mg/dL (0.55-1.02); EST Glomerular Filtration Rate 30 mL/min (>60); Est Glom Filt Rate - Afr Amer 37 mL/min (>60); Glucose 95 mg/dL (74-106); Sodium Level 138 mmol/L (136-145)
[2019-03-11 15:08] VITALS: BP 150/70; PULSE 94; RESP 30; O2SAT 97
[2019-03-11] MEDS: Ipratropium/Albuterol Sulfate 3 ML AMPUL.NEB INHALATION (15:41)
[2019-03-11] MEDS: Albuterol 2.5 MG/3 ML VIAL.NEB. INHALATION (15:41)
[2019-03-11 15:42] VITALS: PULSE 100; RESP 32
--- NOTE | 2019-03-11 15:44 | CPS ---
patient refuses to take the other two treatments ordered. fr
[2019-03-11] MEDS: MethylPREDNISolone 125 MG/2 ML Vial IV (16:00)
[2019-03-11] MEDS: 0.9% Normal Saline 1,000 ML 150 ML IV (16:00)
[2019-03-11 16:01] VITALS: RESP 26; O2SAT 95
--- NOTE | 2019-03-11 16:18 | RAD_ITS ---
STUDY: X-RAY CHEST REASON FOR EXAM: Female, 78 years old. Chest pain TECHNIQUE: Frontal and lateral views of the chest COMPARISON: 01/02/2019 FINDINGS: There is a small left pleural effusion with overlying atelectasis. The right lung is clear. There is no pneumothorax. The heart is normal in size. The visualized osseous structures are within normal limits. RAD/Chest PA and Lateral IMPRESSION: Small left pleural effusion with overlying atelectasis. Electronically Signed: Koby Ocampo, at 16:41 EDT Tel , Service support ,
--- NOTE | 2019-03-11 16:54 | ED.DCSUM_ITS ---
- ER Visit Summary Date of Service: 03/11/19 Chief Complaint: Chest pain, shortness of breath History of Present Illness: The patient is a 78 F presents to the emergency department with chest tightness and shortness of breath. Patient does have a history of COPD. She is on 4 L of oxygen at baseline. She states today, she began have some tightness mostly in the right side of her chest. She also feeling short of breath. She states she took a breathing treatment and had some improvement. She denies any history of coronary vascular disease. She denies any fevers or chills. She has had a scant cough. She denies orthopnea or leg swelling. Physical Examination: Vital signs reviewed General: Well-nourished, well-developed Head: Normocephalic, atraumatic Eyes: Pupils equal and reactive, extraocular muscles intact Neck, supple, no lymphadenopathy Heart: Regular rate and rhythm Respiratory: No distress, clear bilaterally Abdomen: Soft, nontender, nondistended, no peritoneal signs Back: Nontender Extremities: Nontender, no edema, no cords Skin: Normal color no rash Neuro: Alert and oriented, no focal or lateralizing deficits Test Results: [] Emergency Department Course and Treatment: The patient states this feels more like her COPD. Her EKG shows no acute ischemic change. Initial lab work was unremarkable. Chest x-ray shows no evidence of volume overload or focal infiltrate. The patient was given nebulized breathing treatments with improvement. Reevaluation, she is pain-free. I did repeat her cardiac enzymes which continue to be normal. She is now have improvement of aeration, she had total resolution of her chest pain, and she is feeling at her baseline. At this point, I do for the patient is safe for outpatient therapy. She will be discharged home. Treatment Plan: [] Disposition: Discharge Impression: 1. Chest pain 2. Dyspnea This note was generated with [employer] dictation software. It may contain incorrect words, spelling, and punctuation that were not noted in review of the chart prior to signing ED Disposition - Plan for ED Patient: Instructions: CHEST PAIN, Uncertain Cause Referrals: Hardik Soto MD [Primary Care Provider] -
[2019-03-11 17:10] VITALS: BP 154/90; PULSE 109; RESP 24; O2SAT 92
[2019-03-11 17:31] VITALS: BP 154/89; PULSE 92; RESP 18; O2SAT 94
== END 2019-03-11 17:32 | disposition home or self-care (01) ==
PROVIDERS: Emergency Provider Emergency Medicine; Family Provider Family Medicine; PCP Family Medicine
DX: R07.9 Chest pain, unspecified (principal); R06.02 Shortness of breath; J44.9 Chronic obstructive pulmonary disease, unspecified; Z99.81 Dependence on supplemental oxygen; Z87.891 Personal history of nicotine dependence
CPT/HCPCS: 71046; 80048; 84484; 85025; 94640; 96361; 96374; 99285; J7030; A4216

== ENCOUNTER 2019-03-26 12:12 | Emergency (ER) | payer MEDICARE, MEDICAID, SELFPAY ==
[2019-03-26 12:14] VITALS: BP 145/77; PULSE 85; RESP 17; TEMP 36.4; O2SAT 94; BMI 30.4
[2019-03-26 13:01] LABS: Absolute Lymphocyte Count 1.21 X10^3/ul (0.83-4.51); Absolute Neutrophil Count 4.8 X10^3/uL (2.0-7.7); Basophil# 0.02 X10^3/uL; Basophil% 0.3 % (0-1); Eosinophil# 0.22 X10^3/uL; Eosinophils% 3.3 % (0-5); Hematocrit 35.4 % (37-47); Hemoglobin 11.1 g/dl (12.0-15.0); Lymphocyte # 1.21 X10^3/ul (4.0); Mean Corp Hgb Conc 31.4 g/gl (32-36); Mean Corpuscular Hgb 30.4 pg (27.0-32.0); Mean Platelet Vol. 9.5 fl (6.2-12.0); Monocyte# 0.51 X10^3/uL; Monocyte% 7.6 % (0-10); Neutrophil # 4.77 X10^3/uL (2.7-7.7); Neutrophil % 70.7 % (47-70); Platelet Count 228 K/mm3 (150-450); RBC Distribution Width SD 53.7 fl (35.1-43.9); Red Blood Count 3.65 M/mm3 (4.2-5.4); White Blood Count 6.7 K/mm3 (4.4-11.0)
[2019-03-26 13:08] LABS: POSITIVE COUNT NO; POSITIVE DIFFERENTIAL NO; POSITIVE MORPHOLOGY NO
[2019-03-26 13:11] VITALS: BP 142/87; PULSE 85; RESP 17; O2SAT 99
--- NOTE | 2019-03-26 13:12 | EKG12_ITS ---
Test Reason : CP Blood Pressure : / mmHG Vent. Rate : 082 BPM Atrial Rate : 082 BPM P-R Int : 144 ms QRS Dur : 074 ms QT Int : 394 ms P-R-T Axes : 063 -28 069 degrees QTc Int : 460 ms Normal sinus rhythm Normal ECG Confirmed by SANA MAY ([id number]), visual effects editor JAYESH ABBOTT ([id number]) on 03/28/2019 1:43:41 PM Referred By: ALBINA Confirmed By:SANA MAY
[2019-03-26 13:16] LABS: BUN 15 mg/dL (7-18); BUN/Creat Ratio 8.3 RATIO (10-20); Calcium,Total 8.9 mg/dL (8.5-10.1); EST Glomerular Filtration Rate 29 mL/min (>60); Est Glom Filt Rate - Afr Amer 35 mL/min (>60); Estimated Creatinine Clearance 25.56 ml/min; Glucose 91 mg/dL (74-106)
[2019-03-26 13:17] LABS: Anion Gap 5 (5-15); Chloride 105 mmol/L (98-107); Potassium 4.6 mmol/L (3.5-5.1); Sodium Level 137 mmol/L (136-145)
--- NOTE | 2019-03-26 13:17 | RAD_ITS ---
STUDY: X-RAY CHEST REASON FOR EXAM: Female, 78 years old. Chest pain. TECHNIQUE: Single AP portable view of the chest. COMPARISON: Comparison is made with prior examination dated March 11, 2019. FINDINGS: EKG electrodes are seen. Hyperinflation. Stable blunting of the left costo phrenic angle with mild increased markings at the left lung base suggestive of chronic changes. There has been no change. There is no demonstrated pleural abnormality. Normal size heart. Normal mediastinum and sera. Normal visualized pulmonary arteries. There is atherosclerotic tortuosity of the aortic arch and descending thoracic aorta. Normal visualized thoracic spine. There is degenerative osteoarthritis of the bilateral shoulders. Healed right clavicular fracture. There is no demonstrated abnormality of the visualized soft tissue structures of the upper abdomen. RAD/Chest 1 View (Portable) IMPRESSION: Stable pleural parenchymal changes at the left lung base. Electronically Signed: Chandu Kohli, at 14:04 EDT , Service support ,
[2019-03-26] MEDS: Aspirin 81 MG TAB.CHEW 324 MG PO (13:33)
[2019-03-26] MEDS: 0.9% Normal Saline 1,000 ML 150 ML IV (13:40)
[2019-03-26] MEDS: Nitroglycerin SL (ED/IMG/CATH) 0.4 MG TABLET SUBLINGUAL (13:42)
[2019-03-26 14:43] LABS: Partial Thromboplast Time 24.7 Seconds (24.1-36.2)
--- NOTE | 2019-03-26 15:14 | ED.VISSUMM ---
- ER Visit Summary Date of Service: 03/26/19 Chief Complaint: Chest pain ] History of Present Illness: The patient is a 78 F [presents with chest pain that started an hour and a half ago. Patient was riding on her motorized scooter through the store when she developed sudden onset and discomfort. Patient describes it as a tightness across her chest and across her back. Patient felt somewhat short of breath with it. Patient denies any nausea or vomiting with it. She denies feeling lightheaded or dizzy. She is never had symptoms like that before. Patient does have a history of COPD and asthma. Patient has a history of GERD and anxiety as well as remote history of DVT. Patient is currently not anticoagulated.] Physical Examination: [HEENT-PERRLA, EOMI. Cranial nerves II through XII grossly intact. TMs clear. Mucous membranes moist. No adenopathy. Cardiovascular-regular rate and rhythm without murmur or ectopy Lungs-clear to auscultation, chest wall stable without crepitus or subcu emphysema Abdomen-normoactive bowel sounds, soft, nontender, no rebound or rigidity, no peritoneal signs. Extremities-intact ?4, normal range of motion, normal pulses, atraumatic] Test Results: [EKG obtained on arrival showed a sinus rhythm with a ventricular rate of 82 bpm with no acute segment changes. CBC with differential obtained showed a white count 6.7, hemoglobin 11, hematocrit 35, platelets 328. Chemistries unremarkable. BUN was 15 and creatinine 1.8. Troponin was 0.081. Chest x-ray showed nothing acute.] Emergency Department Course and Treatment: Patient received nitroglycerin and aspirin in the emergency department. Nitroglycerin resolved her pain. At this point I was concerned patient may be having a non-ST elevation MS. Patient also had an elevated d-dimer of 1.2. I had ordered a CTA of the chest to rule out PE however the patient is claustrophobic and is refusing the CAT scan. I offered to medicate the patient with Ativan in order to obtain the CT scan and she states that she cannot lay flat and has not laid flat in more than 8 years. I offered to admit the patient and recommended admission for further treatment of her chest pain. At this point I suspect she may be having a non-ST elevation MS versus PE with heart strain. I discussed case with cardiology on-call. Plan was to start patient on a heparin drip and admit the patient. Patient is now refusing admission and refusing any further treatment. Patient is alert and oriented x3 and she can understand and has capacity to refuse. Patient is able to repeat back to me my concerns and she understands that I am concerned that she may be having a heart attack currently or may have a blood clot in her lung which could be life-threatening or lead to permanent disability. Patient tells me she does not care and is wishing to be discharged. Patient will call the office of her primary care physician tomorrow. [] Treatment Plan: [Patient left AGAINST MEDICAL ADVICE and she will call her primary care physician tomorrow or return if any further chest pain or worsening symptoms.] Disposition: [Left AGAINST MEDICAL ADVICE] Impression: [Chest pain Non-ST elevation MS Left AGAINST MEDICAL ADVICE] This note was generated with [employer] dictation software. It may contain incorrect words, spelling, and punctuation that were not noted in review of the chart prior to signing ED Disposition - Plan for ED Patient: Referrals: Hardik Soto MD [Primary Care Provider] -
--- NOTE | 2019-03-26 15:19 | ED.DEP ---
ED Disposition - Plan for ED Patient: Instructions: Heart Attack, Pulmonary Embolism Referrals: Hardik Soto MD [Primary Care Provider] - As soon as possible
[2019-03-26 15:46] VITALS: PULSE 76; RESP 19; O2SAT 94
== END 2019-03-26 15:50 | disposition left against medical advice (07) ==
LOC: ED 13:27
PROVIDERS: Emergency Provider Emergency Medicine; Family Provider Family Medicine; PCP Family Medicine
DX: I21.4 Non-ST elevation (NSTEMI) myocardial infarction (principal); R07.9 Chest pain, unspecified; Z53.21 Procedure and treatment not carried out due to patient leaving prior to being seen by health care provider; J44.9 Chronic obstructive pulmonary disease, unspecified; Z99.81 Dependence on supplemental oxygen; Z87.891 Personal history of nicotine dependence
CPT/HCPCS: 71045; 80048; 84484; 85025; 85379; 85730; 93005; 96360; 96361; 99284; J7030; A4216

== ENCOUNTER 2019-04-22 13:21 | Emergency (ER) | payer MEDICARE, MEDICAID, SELFPAY ==
[2019-04-22 13:22] VITALS: BP 132/77; PULSE 89; RESP 28; TEMP 36.4; O2SAT 96; BMI 30.4
[2019-04-22 13:38] VITALS: PULSE 88; RESP 24; O2SAT 100
--- NOTE | 2019-04-22 14:19 | ED.RN ---
PT HAS USED HER CALL LIGHT MULTIPLE TIME STATING I'M SHORT OF BREATH. SHE WAS ON A NASAL CANULA, BUT STATES IT'S NOT DOING ANY GOOD. SHE WAS PLACED ON A VENTI MASK AT 24% O2 FOR COMFORT. ATTEMPT MADE TO CLOSE PT DOOR, BUT SHE REFUSED TO ALLOW ME TO CLOSE IT. SHE WAS INFORMED OF THE NEED TO CLOSE IT, BUT STILL REFUSED. Sanjuanita LEYVA, RN [id number]
--- NOTE | 2019-04-22 15:15 | ED.DCSUM_ITS ---
- ER Visit Summary Date of Service: 04/22/19 Chief Complaint: Shortness of breath History of Present Illness: The patient is a 78 F history of COPD on 4 L oxygen at home also history of renal insufficiency and anemia. Patient states she been short of breath all day. Denies any chest pain. No history of prior PE. Patient states this feels like 1 of her COPD flares. She denies any new cough or different sputum. No hemoptysis. She has not been in the hospital for quite some time. Denies fever or chills. Physical Examination: Older female vital signs are stable she is afebrile. Pulse ox 100% on oxygen. HEENT exam unremarkable. Neck nontender. Lungs coarse breath sounds bilaterally. Prolonged expiratory phase. Expiratory wheezing. No rales or rhonchi. Heart regular rhythm rate about 90. No murmur. Abdomen soft nontender. Extremities moves all 4. 1+ pitting edema both lower extremities which is chronic presentation. Calves are nontender. No cords. Neurologically she is awake alert with no focal motor deficits. Test Results: Patient did have a chest x-ray portable one view showed no acute abnormality read both by myself the radiologist. Normal cardiac silhouette. Chronic lung changes. She refused every other test. She refused EKG and the labs. Emergency Department Course and Treatment: Patient received refused all labs and EKG. She would not let the nurses give her any aerosol treatments or IV Solu- Medrol. She demanded prednisone. Treatment Plan: I went back into reevaluate the patient and she left prior to being discharged. She did not receive any home-going instructions because she left. Disposition: Discharge Impression: Acute dyspnea Acute exacerbation of COPD Left prior to being discharged and refused most of the evaluation. This note was generated with [employer] dictation software. It may contain incorrect words, spelling, and punctuation that were not noted in review of the chart prior to signing ED Disposition - Plan for ED Patient: Referrals: Hardik Soto MD [Primary Care Provider] -
--- NOTE | 2019-04-22 15:18 | EKG12_ITS ---
Test Reason : CP/SOB Blood Pressure : / mmHG Vent. Rate : 090 BPM Atrial Rate : 090 BPM P-R Int : 154 ms QRS Dur : 076 ms QT Int : 376 ms P-R-T Axes : 063 -39 071 degrees QTc Int : 459 ms Normal sinus rhythm Left axis deviation /LAHB Abnormal ECG Confirmed by SANA MAY ([id number]), magazine editor CHELSIE SILVESTRE ([id number]) on 04/24/2019 3:22:49 PM Referred By: BARBARA Confirmed By:SANA MAY
[2019-04-22 15:20] VITALS: PULSE 87; RESP 28; O2SAT 95
--- NOTE | 2019-04-22 15:20 | RAD_ITS ---
STUDY: X-RAY CHEST REASON FOR EXAM: Female, 78 years old. Dyspnea. TECHNIQUE: Single AP portable view of the chest. COMPARISON: Comparison is made with prior study dated March 26, 2019. FINDINGS: EKG electrodes are seen. Stable mild pleural parenchymal changes at the left lung base suggests lumbar left basilar scarring with scarring scarring of the left costophrenic angle. Hyperinflation. Normal size heart. Normal mediastinum and sera. Normal visualized pulmonary arteries. There is atherosclerotic tortuosity of the aortic arch and descending thoracic aorta. There are diffuse degenerative changes of the visualized thoracic spine. Normal visualized ribs, clavicles, and shoulders. There is no demonstrated abnormality of the visualized soft tissue structures of the upper abdomen. RAD/Chest 1 View (Portable) IMPRESSION: Stable pleural parenchymal changes at the left lung base. Hyperinflation. Electronically Signed: Chandu Kohli, at 15:36 EDT , Service support ,
[2019-04-22] MEDS: predniSONE 20 MG Tablet 60 MG PO (15:34)
[2019-04-22 16:17] VITALS: PULSE 88; O2SAT 97
--- NOTE | 2019-04-22 16:28 | ED.RN ---
PT STATED SHE WAS DOEN AND REFUSING BLOODWORK OR ANY OTHER TREATMENT. PT THEN GOT INTO HER [employer] CHAIR, GRABBED HER BELONGING AND LEFT ER. PHYSICIAN AWARE.
== END 2019-04-22 16:28 | disposition home or self-care (01) ==
PROVIDERS: Emergency Provider Emergency Medicine; Family Provider Family Medicine; PCP Family Medicine
DX: J44.1 Chronic obstructive pulmonary disease with (acute) exacerbation (principal); N28.9 Disorder of kidney and ureter, unspecified; D64.9 Anemia, unspecified; Z99.81 Dependence on supplemental oxygen
CPT/HCPCS: 71045; 93005; 99283; A4216

== ENCOUNTER 2019-05-03 12:18 | Emergency (ER) | payer MEDICARE, MEDICAID, SELFPAY ==
[2019-05-03 12:18] VITALS: BP 146/81; PULSE 80; RESP 22; TEMP 36.8; O2SAT 98; BMI 31.8
--- NOTE | 2019-05-03 12:31 | EKG12_ITS ---
Test Reason : CP Blood Pressure : / mmHG Vent. Rate : 082 BPM Atrial Rate : 082 BPM P-R Int : 154 ms QRS Dur : 072 ms QT Int : 382 ms P-R-T Axes : 063 -35 047 degrees QTc Int : 446 ms Normal sinus rhythm Left axis deviation Abnormal ECG Confirmed by MADELEINE ROBLEDO, KATHLEEN ([id number]), industrial editor ALEXYS BOYER ([id number]) on 05/09/2019 1:05:25 PM Referred By: ALBINA Confirmed By:KATHLEEN SALVADOR MD
[2019-05-03] MEDS: Ipratropium/Albuterol Sulfate 3 ML AMPUL.NEB INHALATION (12:45)
--- NOTE | 2019-05-03 12:47 | ED.VISSUMM ---
- ER Visit Summary Date of Service: 05/03/19 Chief Complaint: Chest pain shortness of breath History of Present Illness: The patient is a 78 F who states that at over 500 today she was awoken from her sleep with an anterior chest pain. She states that sometimes when she sleeps in her recliner the oxygen tubing gets pinched off in the chair and she startles herself awake running low on oxygen. This happened last night. This is when she awoken she describes it as sharp and stabbing and points to the inferior aspect of her breastbone. It is worse with palpation. She states that she took nothing and waited 3 to 4 hours hoping that would go away and then went to her primary care physician's office. From there she states she was told to come to the emergency department. EMS was called. Patient tells me she believes this to be her COPD and needs steroids. The pain has been constant since 0500 (7-1/2 hours of constant pain before arrival in the department) she notes chronic cough but no change in it. No change in sputum production. She states that because of the pain she cannot take a deep breath. She has a history of a right leg DVT is currently not on any anticoagulation. Patient tells me that for more than 8 years she has not laid flat. She states that she will not and cannot have a CAT scan even with sedation. Physical Examination: Afebrile vital signs are stable Gen: Well-nourished well-developed Head: Normocephalic atraumatic Eyes: Perrl EOMI ENT: TMs clear no rhinorrhea moist mucous membranes Neck: Supple no lymphadenopathy no JVD nontender CVS: Regular rate rhythm no murmurs normal S1-S2 Respiratory: No distress diminished breath sounds bilaterally lower breastbone is tender to palpation. The reproduces her pain. Abdomen: Soft nontender nondistended normal bowel sounds no masses Back: Nontender Extremity: Nontender no edema Skin: Normal color no rash Neuro: alert orientated ?3 CN II-XII intact normal strength sensation reflexes gait cerebellar Psych: Normal affect normal mood Test Results: EKG demonstrates a normal sinus rhythm with a rate of 82 and no concerning features of ACS. Troponin 0 0.029. Creatinine 1.78. Chest x-ray negative. Emergency Department Course and Treatment: She received breathing treatment and Toradol./She also received Solu-Medrol. She feels significantly better. The chest pain is reproducible. She is breathing much easily after the breathing treatment and medications. She will be discharged home Impression: 1. Acute chest wall pain 2. COPD This note was generated with [employer] dictation software. It may contain incorrect words, spelling, and punctuation that were not noted in review of the chart prior to signing ED Disposition - Plan for ED Patient: Disposition: Home or Assisted Living Instructions: CHEST WALL PAIN, Costochondritis Prescriptions: Prednisone [Deltasone] 40 mg PO DAILY #8 tab Prescription Printed Referrals: Hardik Soto MD [Primary Care Provider] - 3-5 Days if not improving
[2019-05-03 12:48] VITALS: PULSE 78; RESP 36
[2019-05-03 13:01] LABS: Anion Gap 3 (5-15); BUN 18 mg/dL (7-18); BUN/Creat Ratio 10.1 RATIO (10-20); Calcium,Total 8.7 mg/dL (8.5-10.1); Chloride 107 mmol/L (98-107); Creatinine, Serum 1.78 mg/dL (0.55-1.02); EST Glomerular Filtration Rate 29 mL/min (>60); Est Glom Filt Rate - Afr Amer 35 mL/min (>60); Estimated Creatinine Clearance 25.85 ml/min; Glucose 94 mg/dL (74-106); Potassium 4.5 mmol/L (3.5-5.1); Sodium Level 140 mmol/L (136-145)
--- NOTE | 2019-05-03 13:10 | RAD_ITS ---
STUDY: X-RAY CHEST REASON FOR EXAM: Female, 78 years old. Onset of chest pain and shortness of breath. TECHNIQUE: AP and lateral views of the chest. COMPARISON: Comparison is made with prior examination April 22, 2019. FINDINGS: EKG electrodes are seen. There is hyperinflation of the lungs consistent with chronic obstructive lung disease (COPD). Stable pleural parenchymal changes at the left lung base. Stable mild increased markings at the right lung base as well suggestive of scarring. Blunting of the left costophrenic angle. There is moderate cardiac enlargement. Normal mediastinum and sera. Normal visualized pulmonary arteries. There is atherosclerotic tortuosity of the aortic arch and descending thoracic aorta. There are diffuse degenerative changes of the visualized thoracic spine. Normal visualized ribs, clavicles, and shoulders. There is no demonstrated abnormality of the visualized soft tissue structures of the upper abdomen. RAD/Chest PA and Lateral IMPRESSION: Hyperinflation. Stable bibasilar linear scarring with pleural parenchymal changes at the left lung base. Electronically Signed: Chandu Kohli, at 13:49 EDT , Service support ,
[2019-05-03] MEDS: MethylPREDNISolone 125 MG/2 ML Vial IV (13:12)
[2019-05-03] MEDS: Ketorolac 15 MG/ML Vial IV (13:12)
[2019-05-03 13:48] VITALS: BP 148/87; PULSE 85; RESP 19; O2SAT 97
[2019-05-03 13:53] LABS: Absolute Lymphocyte Count 1.42 X10^3/uL (0.83-4.51); Absolute Neutrophil Count 4.3 X10^3/uL (2.0-7.7); Basophil# 0.04 X10^3/uL; Basophil% 0.6 % (0-1); Eosinophil# 0.33 X10^3/uL; Hematocrit 40.2 % (37-47); Hemoglobin 12.6 g/dL (12.0-15.0); Lymphocyte # 1.42 X10^3/ul (4.0); Lymphocyte % 21.7 % (19-41); Mean Corp Hgb Conc 31.3 g/dL (32-36); Mean Corpuscular Hgb 31.3 pg (27.0-32.0); Mean Corpuscular Volume 99.8 fL (81-99); Mean Platelet Vol. 10.3 fl (6.2-12.0); Monocyte# 0.43 X10^3/uL; Monocyte% 6.6 % (0-10); NRBC Flagged by Analyzer 0 % (0-5); Neutrophil % 65.6 % (47-70); POSITIVE COUNT YES; Platelet Count 189 K/mm3 (150-450); RBC Distribution Width CV 13.1 % (11.6-14.6); RBC Distribution Width SD 48.1 fl (35.1-43.9); Red Blood Count 4.03 M/mm3 (4.2-5.4); White Blood Count 6.6 K/mm3 (4.4-11.0)
[2019-05-03 14:19] LABS: Differential Indicated SCAN CRITERIA MET
[2019-05-03 15:02] VITALS: BP 128/78; PULSE 67; RESP 18; O2SAT 95
--- NOTE | 2019-05-03 15:37 | CM.ED ---
Social Work Nursing referring this social work job titles due to patient not having any oxygen to get home with. Patient stating to have oxygen set up within the home already through [employer]. Patient stating to have tanks of oxygen at home but to have no one that is able to bring the home oxygen tanks to the hospital. [place]phone call to [facility] able to deliver oxygen tank to emergency room in order for patient to be able to return to home. No further needs identified. Arsh Turcios MSW, KEIRY
== END 2019-05-03 15:02 | disposition home or self-care (01) ==
PROVIDERS: Emergency Provider Emergency Medicine; Family Provider Family Medicine; PCP Family Medicine
DX: R07.89 Other chest pain (principal); J44.9 Chronic obstructive pulmonary disease, unspecified; N18.3 Chronic kidney disease, stage 3 (moderate); Z99.81 Dependence on supplemental oxygen; Z87.891 Personal history of nicotine dependence
CPT/HCPCS: 71046; 80048; 84484; 85025; 93005; 94640; 96374; 96375; 99285; A4216

== ENCOUNTER 2019-05-25 07:24 | Emergency (ER) | payer MEDICARE, MEDICAID, SELFPAY ==
[2019-05-25 07:25] VITALS: BP 139/77; PULSE 87; RESP 16; TEMP 36.6; O2SAT 98; BMI 30.7
[2019-05-25 07:28] VITALS: O2SAT 98
--- NOTE | 2019-05-25 07:28 | EKG12_ITS ---
Test Reason : SOB Blood Pressure : / mmHG Vent. Rate : 080 BPM Atrial Rate : 080 BPM P-R Int : 146 ms QRS Dur : 078 ms QT Int : 398 ms P-R-T Axes : 069 -17 078 degrees QTc Int : 459 ms Normal sinus rhythm Normal ECG Confirmed by SANA MAY ([id number]), continuity editor CHELSIE SILVESTRE ([id number]) on 06/03/2019 2:56:57 PM Referred By: KASSIE Confirmed By:SANA MAY
--- NOTE | 2019-05-25 07:30 | ED.VIS.GEN ---
History of Present Illness Chief Complaint: Shortness of Breath Narrative: Patient presenting for evaluation of breath. Patient has an underlying history of COPD, is chronically on 4 L of oxygen at home. Patient states that over the course the last 10 days she has been having a respiratory illness. She reports that associated with cough productive of clear sputum with some shortness of breath. She denies any fevers or chest pain associated with this. Patient does state in the last couple of days she has developed some abdominal discomfort. This is epigastric worse with palpation, does not radiate and is mild to moderate. Patient denies any nausea vomiting or diarrhea. She reports that when she woke up this morning she was feeling more short of breath. Patient cannot recall the last time that she was on prednisone. Review of systems otherwise negative. Past Medical History - Allergies and Home Meds Allergies/Adverse Reactions: Allergies chlordiazepoxide HCl [From Librium] Allergy (Verified 05/03/19 12:24) Anaphylaxis Penicillins Allergy (Verified 05/03/19 12:24) Anaphylaxis Primary Care Physician: Hardik Soto MD [Primary Care Provider] - 3-5 Days Past Medical History: - - COPD, chronic kidney disease, anxiety Surgical History: noncontributory, - - Uterine suspension; benign lump was removed from right breast. Smoking Status: Former smoker - Family History Maternal Family History: Family History (Last Updated 12/03/18 @ 11:21 by Clementina Santos) Other Diabetes Heart disease Family History: Reports: Heart Disease Paternal Family History: Family History (Last Updated 12/03/18 @ 11:21 by Clementina Santos) Other Diabetes Heart disease Family History: Reports: Heart Disease Review of Systems All systems negative except as indicated General: Denies: Fever Cardiovascular: Denies: Chest pain Respiratory: Reports: Dyspnea, Cough, Sputum, Dyspnea on exertion Gastrointestinal: Reports: Abdominal pain. Denies: Nausea, Vomiting, Diarrhea Physical Exam Vital Signs/Narrative: Vital Signs Temp Pulse Resp BP Pulse Ox 05/25/19 07:25 97.8 F 87 16 139/77 H 98 Inital Vital Signs reviewed: Yes General: Well nourished, Well developed, No Acute Distress Head: Normocephalic, Atraumatic Eyes: Perrl, EOMI ENT: Moist mucous membranes, No rhinorrhea Neck: Supple, Nontender Cardiovascular: Regular rate, Regular rhythm, No murmurs Respiratory: - - Poor air movement with some mild wheezes throughout the lung mohan. No evidence of retractions. Patient is speaking in full sentences. Abdomen: Soft, Tender - Epigastric with no guarding or rebound tenderness, no palpable masses noted. Extremities: Edema - Trace bilateral lower extremity peripheral edema Skin: Normal color, No rash Neurological: Alert, Oriented x3, Cranial nerves II-XII grossly intact, Normal Strength, Normal Sensation Psychological: Normal affect, Normal Mood Diagnostic/Tx/Re-eval Chest X-Ray - ED: - - PA and lateral chest x-ray by my personal interpretation demonstrates chronic changes no evidence of discrete infiltrate no gross changes from prior chest x-ray in April of this year - EKG Initial EKG Interpretation: - - Sinus rhythm of [address] segments, normal T waves, no evidence of acute ischemia or arrhythmia. - Medical Decision Making Patient presented secondary to shortness of breath. She did have some tight lung sounds, and shallow respirations. A DuoNeb treatment as well as 2 albuterol treatments and prednisone were given to the patient. CBC was found to be grossly unremarkable. Chemistry demonstrates the patient's chronic renal insufficiency without evidence of electrolyte dyscrasia. Liver and lipase panel found to be unremarkable. Patient at this point I believe is stable for home treatment of the COPD. Repeat evaluation at 845 shows the patient to be 99% on her home 4 L with significant symptomatic improvement. Patient will be sent home with a 5-day course of prednisone, instructed to follow-up with primary care. She understands signs and symptoms which return. Patient was discharged in improved condition. ED Disposition - Plan for ED Patient: Disposition: Home or Assisted Living Diagnosis: COPD exacerbation Instructions: Copd Flare Prescriptions: Prednisone [Deltasone] 60 mg PO DAILY #15 tab Referrals: Hardik Soto MD [Primary Care Provider] - 3-5 Days
[2019-05-25 07:38] VITALS: PULSE 84; RESP 28
[2019-05-25] MEDS: Ipratropium/Albuterol Sulfate 3 ML AMPUL.NEB INHALATION (07:38)
[2019-05-25 07:47] LABS: Absolute Lymphocyte Count 1.43 X10^3/uL (0.83-4.51); Absolute Neutrophil Count 3.5 X10^3/uL (2.0-7.7); Basophil# 0.03 X10^3/uL; Basophil% 0.5 % (0-1); Eosinophil# 0.33 X10^3/uL; Eosinophils% 5.7 % (0-5); Hematocrit 33.9 % (37-47); Hemoglobin 10.4 g/dL (12.0-15.0); Lymphocyte # 1.43 X10^3/ul (4.0); Lymphocyte % 24.8 % (19-41); Mean Corp Hgb Conc 30.7 g/dL (32-36); Mean Corpuscular Hgb 30.3 pg (27.0-32.0); Mean Corpuscular Volume 98.8 fL (81-99); Mean Platelet Vol. 9.6 fl (6.2-12.0); Monocyte# 0.47 X10^3/uL; Monocyte% 8.1 % (0-10); NRBC Flagged by Analyzer 0 % (0-5); Neutrophil # 3.49 X10^3/uL (2.7-7.7); Neutrophil % 60.6 % (47-70); Platelet Count 206 K/mm3 (150-450); RBC Distribution Width CV 13.1 % (11.6-14.6); RBC Distribution Width SD 47.1 fl (35.1-43.9); Red Blood Count 3.43 M/mm3 (4.2-5.4); White Blood Count 5.8 K/mm3 (4.4-11.0)
[2019-05-25] MEDS: predniSONE 20 MG Tablet 60 MG PO (07:50)
[2019-05-25] MEDS: Albuterol 2.5 MG/3 ML VIAL.NEB. INHALATION ×3 (07:54)
[2019-05-25 08:19] LABS: ALB/GLOB Ratio 0.7 RATIO (0.9-2.4); AST(SGOT) 18 U/L (15-37); Alanine Aminotransfer ALT/SGPT 14 U/L (13-56); Albumin, Serum 2.9 g/dL (3.2-5.0); Alkaline Phosphatase 64 U/L (45-117); Anion Gap 1 (5-15); BUN 17 mg/dL (7-18); BUN/Creat Ratio 9.6 RATIO (10-20); Calcium,Total 8.6 mg/dL (8.5-10.1); Chloride 108 mmol/L (98-107); Creatinine, Serum 1.77 mg/dL (0.55-1.02); EST Glomerular Filtration Rate 29 mL/min (>60); Est Glom Filt Rate - Afr Amer 36 mL/min (>60); Glucose 89 mg/dL (74-106); Lipase 267 U/L (73-393); Potassium 4.5 mmol/L (3.5-5.1); Protein, Total 6.9 g/dL (6.4-8.2); Sodium Level 139 mmol/L (136-145)
--- NOTE | 2019-05-25 08:21 | RAD_ITS ---
STUDY: X-RAY CHEST REASON FOR EXAM: Female, 78 years old. Shortness of breath. TECHNIQUE: Single AP portable view of the chest. COMPARISON: 05/03/2019. FINDINGS: There is hyperinflation of the lungs consistent with chronic obstructive lung disease (COPD). There is continued slightly prominent markings appear to be chronic. No new infiltrate is seen. There again is blunting of the left costophrenic angle likely due to pleural thickening. There is borderline cardiomegaly. Normal mediastinum and sera. Normal visualized pulmonary arteries. There is atherosclerotic tortuosity of the aortic arch and descending thoracic aorta. There is levoscoliosis of the thoracic spine. There is an old healed fracture of the outer end of the right clavicle. There are degenerative changes in the right shoulder. There is no demonstrated abnormality of the visualized soft tissue structures of the upper abdomen. RAD/Chest PA and Lateral IMPRESSION: 1. Chronic changes. 2. No new infiltrate is seen. Electronically Signed: Misael Maynard MD at 8:50 EDT Tel , Service support ,
--- NOTE | 2019-05-25 08:30 | CPS ---
X3 Albuterol given to pt. as well
[2019-05-25 08:41] VITALS: BP 136/69; PULSE 87; RESP 26; O2SAT 98
[2019-05-25 08:51] VITALS: BP 136/69; PULSE 89; RESP 24; O2SAT 96
== END 2019-05-25 09:29 | disposition home or self-care (01) ==
LOC: ED 07:49
PROVIDERS: Emergency Provider Emergency Medicine; Family Provider Family Medicine; PCP Family Medicine
DX: J44.1 Chronic obstructive pulmonary disease with (acute) exacerbation (principal); N18.9 Chronic kidney disease, unspecified; Z99.81 Dependence on supplemental oxygen; Z87.891 Personal history of nicotine dependence
CPT/HCPCS: 71046; 80053; 83690; 85025; 93005; 94640; 99285; J7030; A4216

== ENCOUNTER 2019-06-15 07:50 | Emergency (ER) | payer MEDICARE, MEDICAID, SELFPAY ==
[2019-06-15 07:51] VITALS: BP 150/79; PULSE 88; RESP 22; TEMP 36.9; O2SAT 96; BMI 33.5
--- NOTE | 2019-06-15 08:37 | RAD_ITS ---
STUDY: X-RAY CHEST REASON FOR EXAM: Female, 78 years old. Dyspnea. TECHNIQUE: PA and lateral views of the chest. COMPARISON: May 25, 2019. FINDINGS: The lungs are well-expanded. There is increasing density at the right lung base. Lungs are otherwise clear. There is continued blunting of the left lateral costophrenic angle suggesting pleural effusion. Normal size heart. Normal mediastinum and sera. Normal visualized pulmonary arteries. There is atherosclerotic calcification of the aortic arch with tortuosity. There are diffuse degenerative changes of the visualized thoracic spine. Normal visualized ribs, clavicles, and shoulders. There is no demonstrated abnormality of the visualized soft tissue structures of the upper abdomen. RAD/Chest PA and Lateral IMPRESSION: 1. Increasing infiltrate in the right lower lobe. 2. Stable left pleural effusion. 3. Stable chronic changes. Electronically Signed: Chan Layton DO at 9:42 EDT Tel [phone], Service support ,
--- NOTE | 2019-06-15 08:37 | EKG12_ITS ---
Test Reason : SOB Blood Pressure : / mmHG Vent. Rate : 085 BPM Atrial Rate : 085 BPM P-R Int : 150 ms QRS Dur : 076 ms QT Int : 398 ms P-R-T Axes : 079 -30 063 degrees QTc Int : 473 ms Normal sinus rhythm Left axis deviation Abnormal ECG Confirmed by VIJAY ROBLEDO, JENNIFER ([id number]), book editor JAYESH ABBOTT ([id number]) on 06/17/2019 3:03:15 PM Referred By: Confirmed By:JENNIFER LINARES MD
[2019-06-15] MEDS: Ipratropium/Albuterol Sulfate 3 ML AMPUL.NEB INHALATION (08:53)
[2019-06-15 08:56] VITALS: PULSE 89; RESP 20
[2019-06-15] MEDS: predniSONE 20 MG Tablet 60 MG PO (09:08)
[2019-06-15 09:31] LABS: Absolute Lymphocyte Count 1.67 X10^3/uL (0.83-4.51); Basophil# 0.03 X10^3/uL; Basophil% 0.5 % (0-1); Eosinophil# 0.26 X10^3/uL; Hematocrit 34.4 % (37-47); Hemoglobin 10.7 g/dL (12.0-15.0); Lymphocyte # 1.67 X10^3/ul (4.0); Lymphocyte % 25.7 % (19-41); Mean Corp Hgb Conc 31.1 g/dL (32-36); Mean Corpuscular Hgb 30.1 pg (27.0-32.0); Mean Corpuscular Volume 96.6 fL (81-99); Mean Platelet Vol. 9.4 fl (6.2-12.0); Monocyte# 0.53 X10^3/uL; Monocyte% 8.1 % (0-10); NRBC Flagged by Analyzer 0 % (0-5); Neutrophil % 61.4 % (47-70); Platelet Count 212 K/mm3 (150-450); RBC Distribution Width CV 12.9 % (11.6-14.6); RBC Distribution Width SD 45.7 fl (35.1-43.9); Red Blood Count 3.56 M/mm3 (4.2-5.4); White Blood Count 6.5 K/mm3 (4.4-11.0)
[2019-06-15 09:46] VITALS: BP 136/67; PULSE 82; RESP 24; TEMP 36.9; O2SAT 97
[2019-06-15 09:48] LABS: Anion Gap 2 (5-15); BUN 13 mg/dL (7-18); BUN/Creat Ratio 6.7 RATIO (10-20); Calcium,Total 8.7 mg/dL (8.5-10.1); Chloride 107 mmol/L (98-107); Creatinine, Serum 1.94 mg/dL (0.55-1.02); EST Glomerular Filtration Rate 26 mL/min (>60); Est Glom Filt Rate - Afr Amer 32 mL/min (>60); Estimated Creatinine Clearance 23.72 ml/min; Glucose 99 mg/dL (74-106); Potassium 4.5 mmol/L (3.5-5.1); Sodium Level 140 mmol/L (136-145)
--- NOTE | 2019-06-15 10:51 | ED.DCSUM_ITS ---
- ER Visit Summary Date of Service: 06/15/19 Chief Complaint: Dyspnea History of Present Illness: The patient is a 78 F who states that today she was feeling particularly short of breath. She states that she sleeps in a chair with her oxygen does not believe her oxygen levels were pinched off. She states that she frequently gets COPD exacerbations. She does not currently smoke. She denies any fevers. She does note some phlegm production which is different for her but is still clear. She did not take any breathing treatments prior to arrival. She called EMS. Patient does not ambulate but uses a motorized wheelchair throughout her house. Physical Examination: Afebrile vital signs are stable 96% on 4 L Gen: Well-nourished well-developed Head: Normocephalic atraumatic Eyes: Perrl EOMI ENT: TMs clear no rhinorrhea moist mucous membranes Neck: Supple no lymphadenopathy no JVD nontender CVS: Regular rate rhythm no murmurs normal S1-S2 Respiratory: No distress clear to auscultation bilaterally chest nontender Abdomen: Soft nontender nondistended normal bowel sounds no masses Back: Nontender Extremity: Nontender no edema Skin: Normal color no rash Neuro: alert orientated ?3 CN II-XII intact normal strength sensation Test Results: EKG showed no concerning features of ACS. CBC with a white count 6.5 hemoglobin 10.7. Creatinine 1.94. Troponin not elevated. Chest x-ray showed chronic changes. Emergency Department Course and Treatment: Patient felt better after breathing treatment and some prednisone. She would like to try outpatient follow-up which is reasonable. Impression: 1. Acute COPD exacerbation This note was generated with [employer] dictation software. It may contain incorrect words, spelling, and punctuation that were not noted in review of the chart prior to signing ED Disposition - Plan for ED Patient: Disposition: Home or Assisted Living Instructions: Copd Flare Prescriptions: Prednisone [Deltasone] 60 mg PO DAILY #15 tab Prescription Printed Azithromycin [Zithromax Z-Sly] 250 mg PO UD #1 box Prescription Printed Referrals: Hardik Soto MD [Primary Care Provider] - 3-5 Days if not improving Felix Castellano DO [STAFF PHYSICIAN] - (Call Dr. Castellano if you wish to see a systems accountant)
[2019-06-15 11:15] VITALS: BP 150/67; PULSE 89; RESP 20; O2SAT 96
[2019-06-15 13:41] VITALS: PULSE 89; RESP 16; O2SAT 96
== END 2019-06-15 13:41 | disposition home or self-care (01) ==
PROVIDERS: Emergency Provider Emergency Medicine; Family Provider Family Medicine; PCP Family Medicine
DX: J44.1 Chronic obstructive pulmonary disease with (acute) exacerbation (principal); Z99.81 Dependence on supplemental oxygen; Z87.891 Personal history of nicotine dependence
CPT/HCPCS: 71046; 80048; 84484; 85025; 93005; 94640; 99285; A4216

== ENCOUNTER → 2019-07-04 11:26 | Outpatient (CLI) | payer MEDICARE, MEDICAID, SELFPAY ==
[2019-07-04 11:04] VITALS: BMI 33.5
[2019-07-04 11:54] LABS: Absolute Lymphocyte Count 1.15 X10^3/uL (0.83-4.51); Absolute Neutrophil Count 4.4 X10^3/uL (2.0-7.7); Basophil# 0.04 X10^3/uL; Basophil% 0.6 % (0-1); Eosinophil# 0.27 X10^3/uL; Eosinophils% 4.3 % (0-5); Hematocrit 37.4 % (37-47); Hemoglobin 11.8 g/dL (12.0-15.0); Lymphocyte # 1.15 X10^3/ul (4.0); Lymphocyte % 18.3 % (19-41); Mean Corp Hgb Conc 31.6 g/dL (32-36); Mean Corpuscular Hgb 30.2 pg (27.0-32.0); Mean Corpuscular Volume 95.7 fL (81-99); Mean Platelet Vol. 9.1 fl (6.2-12.0); Monocyte# 0.45 X10^3/uL; Monocyte% 7.2 % (0-10); NRBC Flagged by Analyzer 0 % (0-5); Neutrophil # 4.35 X10^3/uL (2.7-7.7); Neutrophil % 69.3 % (47-70); Platelet Count 254 K/mm3 (150-450); RBC Distribution Width CV 13.1 % (11.6-14.6); RBC Distribution Width SD 46.3 fl (35.1-43.9); Red Blood Count 3.91 M/mm3 (4.2-5.4); White Blood Count 6.3 K/mm3 (4.4-11.0)
[2019-07-04 12:15] LABS: Anion Gap 6 (5-15); BUN 15 mg/dL (7-18); BUN/Creat Ratio 8.4 RATIO (10-20); Calcium,Total 9.3 mg/dL (8.5-10.1); Chloride 105 mmol/L (98-107); Creatinine, Serum 1.79 mg/dL (0.55-1.02); EST Glomerular Filtration Rate 29 mL/min (>60); Est Glom Filt Rate - Afr Amer 35 mL/min (>60); Glucose 122 mg/dL (74-106); Potassium 4.2 mmol/L (3.5-5.1); Sodium Level 139 mmol/L (136-145)
[2019-07-04 12:29] LABS: BNP,B-Type NATRIURETIC PEPTIDE 56.8 pg/mL (0-100)
== END ==
PROVIDERS: Family Provider Family Medicine; PCP Family Medicine; Referring Provider Internal Medicine Critical Care Medicine; Visit Provider Internal Medicine Critical Care Medicine
DX: J96.20 Acute and chronic respiratory failure, unspecified whether with hypoxia or hypercapnia (principal); N18.3 Chronic kidney disease, stage 3 (moderate)
CPT/HCPCS: 36415; 80048; 83880; 85025

== ENCOUNTER 2019-07-12 08:01 | Emergency (ER) | payer MEDICARE, MEDICAID, SELFPAY ==
[2019-07-04 11:04] VITALS: BMI 33.5
[2019-07-12 08:02] VITALS: BP 154/83; PULSE 79; RESP 18; TEMP 36.4; O2SAT 99; BMI 31.2
--- NOTE | 2019-07-12 08:16 | EKG12_ITS ---
Test Reason : DYSRHYTHMIA Blood Pressure : / mmHG Vent. Rate : 085 BPM Atrial Rate : 085 BPM P-R Int : 158 ms QRS Dur : 064 ms QT Int : 382 ms P-R-T Axes : 069 -38 029 degrees QTc Int : 454 ms Sinus rhythm with occasional Premature ventricular complexes Left axis deviation Abnormal ECG Confirmed by MADELEINE ROBLEDO, KATHLEEN ([id number]), editor trade journal ALEXYS BOYER ([id number]) on 07/16/2019 10:50:55 AM Referred By: Srinivasa Jason Confirmed By:KATHLEEN SALVADOR MD
--- NOTE | 2019-07-12 08:17 | RAD_ITS ---
STUDY: X-RAY CHEST REASON FOR EXAM: Female, 78 years old. Shortness of breath. COPD. TECHNIQUE: AP and lateral views of the chest. COMPARISON: Comparison is made with prior study dated June 07, 2019. FINDINGS: Stable pleural parenchymal changes at the left lung base. Hyperinflation. Normal size heart. Normal mediastinum and sera. Normal visualized pulmonary arteries. There is atherosclerotic tortuosity of the aortic arch and descending thoracic aorta. There are degenerative changes of the visualized thoracic spine. Healed right midclavicular fracture. There is no demonstrated abnormality of the visualized soft tissue structures of the upper abdomen. RAD/Chest PA and Lateral IMPRESSION: Stable pleural parenchymal changes at the left lung base. Electronically Signed: Chandu Kohli, at 10:35 EDT , Service support ,
--- NOTE | 2019-07-12 08:20 | ED.DCSUM_ITS ---
- ER Visit Summary Date of Service: 07/12/19 Chief Complaint: Shortness of breath History of Present Illness: The patient is a 78 F history of COPD on 4 L nasal cannula O2 at home. Also known renal insufficiency. Patient states he woke up around 430 this morning short of breath. She got nervous. She prepped to use her nebulizer and she came into the ER. She has had a new cough productive of yellowish sputum. No hemoptysis. Only chest pains with coughing. No recent travel, surgery or immobilization. No recent hospitalization. No hemoptysis. Physical Examination: Elderly female no acute distress vital signs are stable pulse ox is 99% on 3 to 4 L. HEENT exam is unremarkable. Neck nontender no JVD. Lungs few scattered expiratory wheezes. No rales or rhonchi. Equal symmetrical. Heart regular rhythm rate about 80 no murmur. Abdomen is soft and nontender. Normal bowel sounds no peritoneal signs. She moves all 4 extremities. Dorsi and plantarflexion is intact. As is horse wrangler strength. There is no specifically new calf tenderness or new edema. She has chronic pain in her legs she tells me. Neurologically she is awake and alert she is moving all 4 extremities. She is acting appropriately. Test Results: Chest x-ray portable one view read both by myself and radiologist shows no acute abnormality. Normal cardiac silhouette. No infiltrate. Chronic stable changes. EKG shows sinus rhythm rate 85 with PVCs. No signs of ischemia or CT. CBC normal. White count 9. Hemoglobin 12. Electrolytes unremarkable. Creatinine 1.6. Troponin normal. Emergency Department Course and Treatment: Older female with dyspnea. Has a known history of COPD. Will be treated with IV Solu-Medrol and both DuoNeb and albuterol aerosols and reassess. Repeat exam at 1135 patient doing well. She adamantly wants to go home. Treatment Plan: Prednisone 40 mg a day for 7 days. Stop as needed. Follow-up with your doctor. Disposition: Discharge Impression: Acute dyspnea Acute exacerbation COPD This note was generated with [employer] dictation software. It may contain incorrect words, spelling, and punctuation that were not noted in review of the chart prior to signing ED Disposition - Plan for ED Patient: Referrals: Hardik Soto MD [Primary Care Provider] -
[2019-07-12 08:29] VITALS: PULSE 92; RESP 32
[2019-07-12] MEDS: Ipratropium/Albuterol Sulfate 3 ML AMPUL.NEB INHALATION (08:29)
[2019-07-12] MEDS: Albuterol 2.5 MG/3 ML VIAL.NEB. INHALATION (08:29)
[2019-07-12] MEDS: MethylPREDNISolone 125 MG/2 ML Vial IV (08:40)
[2019-07-12 08:42] VITALS: O2SAT 99
--- NOTE | 2019-07-12 08:59 | CPS ---
x1 Albuterol given to pt. as well
[2019-07-12 09:32] LABS: Absolute Lymphocyte Count 3.16 X10^3/uL (0.83-4.51); Absolute Neutrophil Count 4.9 X10^3/uL (2.0-7.7); Basophil# 0.04 X10^3/uL; Basophil% 0.4 % (0-1); Eosinophils% 5.4 % (0-5); Hematocrit 38.7 % (37-47); Hemoglobin 12.1 g/dL (12.0-15.0); Lymphocyte # 3.16 X10^3/ul (4.0); Mean Corp Hgb Conc 31.3 g/dL (32-36); Mean Corpuscular Hgb 30.3 pg (27.0-32.0); Mean Platelet Vol. 8.9 fl (6.2-12.0); Monocyte# 0.66 X10^3/uL; Monocyte% 7.1 % (0-10); NRBC Flagged by Analyzer 0 % (0-5); Neutrophil # 4.91 X10^3/uL (2.7-7.7); Neutrophil % 52.8 % (47-70); Platelet Count 273 K/mm3 (150-450); RBC Distribution Width SD 46.4 fl (35.1-43.9); Red Blood Count 3.99 M/mm3 (4.2-5.4); White Blood Count 9.3 K/mm3 (4.4-11.0)
[2019-07-12 09:48] LABS: Anion Gap 6 (5-15); BUN 14 mg/dL (7-18); BUN/Creat Ratio 8.6 RATIO (10-20); Calcium,Total 8.8 mg/dL (8.5-10.1); Chloride 105 mmol/L (98-107); Creatinine, Serum 1.63 mg/dL (0.55-1.02); EST Glomerular Filtration Rate 32 mL/min (>60); Est Glom Filt Rate - Afr Amer 39 mL/min (>60); Estimated Creatinine Clearance 28.23 ml/min; Glucose 108 mg/dL (74-106); Potassium 4.2 mmol/L (3.5-5.1); Sodium Level 139 mmol/L (136-145)
--- NOTE | 2019-07-12 11:37 | ED.DEP ---
ED Disposition - Plan for ED Patient: Disposition: Home or Assisted Living Instructions: Copd Flare Prescriptions: Prednisone [Deltasone] 40 mg PO DAILY 7 Days tab Prescription Printed Referrals: Hardik Soto MD [Primary Care Provider] - 3-5 Days if not improving Additional Instructions: Prednisone 20 mg a day and may stop when you are feeling better. Follow-up with your doctor if not improving. Return if worse. Use your aerosols and nebulizer at home.
[2019-07-12 11:42] VITALS: BP 139/72; PULSE 84; RESP 18; O2SAT 96
[2019-07-12 11:44] VITALS: O2SAT 96
== END 2019-07-12 14:54 | disposition home or self-care (01) ==
PROVIDERS: Emergency Provider Emergency Medicine; Family Provider Family Medicine; PCP Family Medicine
DX: J44.1 Chronic obstructive pulmonary disease with (acute) exacerbation (principal); Z99.81 Dependence on supplemental oxygen
CPT/HCPCS: 36415; 71046; 80048; 84484; 85025; 93005; 94640; 96374; 99285; A4216

== ENCOUNTER 2019-07-16 14:54 | Emergency (ER) | payer MEDICARE, SELFPAY ==
[2019-07-16 14:55] VITALS: BP 128/76; PULSE 95; RESP 19; TEMP 37.1; O2SAT 94; BMI 30.4
[2019-07-16 16:45] VITALS: TEMP -17.7; TEMP 0
== END 2019-07-16 16:48 | disposition left against medical advice (07) ==
LOC: ED 16:35
PROVIDERS: Emergency Provider Emergency Medicine; Family Provider Family Medicine; PCP Family Medicine
DX: R69 Illness, unspecified (principal); Z53.21 Procedure and treatment not carried out due to patient leaving prior to being seen by health care provider

== ENCOUNTER 2019-07-22 14:21 | Emergency (ER) | payer MEDICARE, MEDICAID, SELFPAY ==
[2019-07-22 14:22] VITALS: BP 145/70; PULSE 88; PULSE 89; RESP 16; RESP 20; TEMP 37; O2SAT 97; O2SAT 98; BMI 31.3
--- NOTE | 2019-07-22 16:12 | ED.DCSUM_ITS ---
History of Present Illness Chief Complaint: Constipation Informant: Patient Onset: Days Context: Gradual Onset Timing: Continuous Current Severity: Moderate Maximum Severity: Moderate Narrative: Patient presents to the emergency department constipation. She states is been going on for the past 3 days. She states that she is tried some stool softeners with little improvement. She states when she tries to move her bowels, she has some rectal pain. She denies any fevers. She is not on analgesics. She denies any nausea or vomiting. Prior similar symptoms: No Recent Illness/Hospitalization: No Past Medical History - Allergies and Home Meds Allergies/Adverse Reactions: Allergies chlordiazepoxide HCl [From Librium] Allergy (Verified 07/22/19 14:21) Anaphylaxis Penicillins Allergy (Verified 07/22/19 14:21) Anaphylaxis Primary Care Physician: Hardik Soto MD [Primary Care Provider] - Prior records reviewed: Yes Surgical History: noncontributory, - - Uterine suspension; benign lump was removed from right breast. Smoking Status: Former smoker - Family History Maternal Family History: Family History (Last Reviewed 07/04/19 @ 10:56 by Carlyn Henry) Other Diabetes Heart disease Family History: Reports: Heart Disease Paternal Family History: Family History (Last Reviewed 07/04/19 @ 10:56 by Carlyn Henry) Other Diabetes Heart disease Family History: Reports: Heart Disease Review of Systems General: Denies: Chills, Fever, Sweats Eyes: Denies: Visual changes - bilaterally, Diplopia ENT: Denies: Rhinorrhea, Sore throat Cardiovascular: Denies: Chest pain, Palpitations Respiratory: Denies: Dyspnea, Cough, Dyspnea on exertion Gastrointestinal: Reports: Constipation. Denies: Abdominal pain, Nausea, Vomiting, Diarrhea, Melena, Hematochezia Genitourinary: Denies: Dysuria, Hematuria, Frequency Musculoskeletal: Denies: Back pain, Extremity Pain Skin: Denies: Rash, Wounds Neurological: Denies: Headache, Weakness, Numbness Physical Exam Vital Signs/Narrative: Vital Signs Temp Pulse Resp BP Pulse Ox 07/22/19 14:22 98.6 F 89 20 H 145/70 H 98 Inital Vital Signs reviewed: Yes General: Well nourished, Well developed, No Acute Distress Head: Normocephalic, Atraumatic Eyes: Perrl, EOMI ENT: Moist mucous membranes, No rhinorrhea Neck: Supple, Nontender Cardiovascular: Regular rate, Regular rhythm, No murmurs Respiratory: No distress, CTA bilaterally, Chest nontender Abdomen: Soft, Nontender, Nondistended, Normal bowel sounds Back: Nontender, Normal Inspection Extremities: Nontender, No edema Skin: Normal color, No rash Neurological: Alert, Oriented x3, Cranial nerves II-XII grossly intact, Normal Strength, Normal Sensation Psychological: Normal affect, Normal Mood Diagnostic/Tx/Re-eval - Medical Decision Making The patient refused rectal exam. I did equal opportunity counselor her that she may be impacted. She states she still did not want this done. Patient was ordered an enema. She also refused this. Try to equal opportunity counselor patient that this would be appropriate treatment. She states she does not think she will be able to hold it. I went through other options. Patient states she has had relief with magnesium citrate before. She will be given this. Again, her abdomen is soft and nontender. I did equal opportunity counselor her that if her symptoms worsening with she should return. She is comfortable with this plan of care. Impression 1. Constipation ED Disposition - Plan for ED Patient: Instructions: CONSTIPATION (Adult) Referrals: Hardik Soto MD [Primary Care Provider] -
--- NOTE | 2019-07-22 16:39 | ED.RN ---
pt refused soap suds enema. pt states i can't hold that liquid. dr virk notified. changed to mag citrate. pt agrees with valerie
[2019-07-22 16:53] VITALS: BP 149/79; PULSE 91; RESP 24; O2SAT 96
[2019-07-22] MEDS: Magnesium Citrate 300 ML PO (16:53)
--- NOTE | 2019-07-22 16:54 | ED.RN ---
THIS NURSE REVIEWED D/C INSTRUCTIONS WITH PT. PT VERBALIZED UNDERSTANDING OF INSTRUCTIONS. PT DENIES FURTHER NEEDS OR QUESTIONS AT THIS TIME. AWAITING SON TO TAKE PT HOME
== END 2019-07-22 19:03 | disposition home or self-care (01) ==
LOC: ED 14:47
PROVIDERS: Emergency Provider Emergency Medicine; Family Provider Family Medicine; PCP Family Medicine
DX: K59.00 Constipation, unspecified (principal); Z87.891 Personal history of nicotine dependence
CPT/HCPCS: 99284

== ENCOUNTER 2019-07-24 07:37 | Emergency (ER) | payer MEDICARE, MEDICAID, SELFPAY ==
[2019-07-24 07:38] VITALS: BP 136/69; PULSE 88; RESP 20; TEMP 36.1; O2SAT 91; BMI 30.4
--- NOTE | 2019-07-24 07:52 | ED.DCSUM_ITS ---
- ER Visit Summary Date of Service: 07/24/19 Chief Complaint: Constipation History of Present Illness: The patient is a 78 F with COPD on 4 L of oxygen normally. Patient states she has had a bowel movement for a week. Says she feels full. Denies nausea or vomiting. Denies dysuria. Denies fever. She has had a prior appendectomy and uterine suspension. States she was seen in the emergency department on Monday. Treated with magnesium citrate at home but states she has not had relief. States she is urinating normally. Physical Examination: Older female no acute distress. Seated in electric wheelchair. Signs are stable and afebrile. No distress. HEENT exam unremarkable. Neck nontender. Lungs clear to auscultation bilaterally. Heart regular rate and rhythm no murmur. Abdomen is soft. No peritoneal signs. No signs of obstruction. Patient moving all 4 extremities. Trace edema in the lower extremities. Back nontender. Neurologically she is awake and alert. Test Results: KUB shows increased right-sided colon and rectal stool. No signs of obstruction or free air. One view read by myself. Emergency Department Course and Treatment: Nurses were getting ready to attempt a soapsuds enema after the patient's x-ray. She states she could not lie on her side or flat patient became frustrated and left the emergency department without being discharged. Treatment Plan: I went back into talk to the patient and she had left without being discharged. Nurses state the patient is done this other times in the past. Disposition: Left prior to being discharged. Impression: Acute constipation History of COPD This note was generated with [employer] dictation software. It may contain incorrect words, spelling, and punctuation that were not noted in review of the chart prior to signing ED Disposition - Plan for ED Patient: Disposition: Against Medical Advice Referrals: Hardik Soto MD [Primary Care Provider] -
--- NOTE | 2019-07-24 07:52 | RAD_ITS ---
STUDY: X-RAY - ABDOMEN/PELVIS REASON FOR EXAM: Female, 78 years old. Constipation. TECHNIQUE: Single AP view of the abdomen / pelvis. COMPARISON: None. FINDINGS: Minimal increased markings at the left lung base suggestive of linear scarring and/or atelectasis. There is a moderate amount of colonic fecal material. The visualized liver, spleen and kidneys are grossly normal in size and morphology. Normal soft tissue structures. There are diffuse degenerative changes of the visualized lumbar spine. RAD/Abdomen Single View IMPRESSION: Moderate amount of fecal material is seen in the colon. Electronically Signed: Chandu Kohli, at 8:40 EST , Service support ,
--- NOTE | 2019-07-24 08:31 | ED.RN ---
PT STATES SHE CANNOT LAY FLAT TO RECEIVED ENEMA. ENEMA REFUSED AT THIS TIME. PT GOT BACK INTO WHEELCHAIR ON HER OWN AND WHEELED OUT OF DEPARTMENT WITHOUT SPEAKING TO STAFF.
== END 2019-07-24 08:36 | disposition left against medical advice (07) ==
LOC: ED 08:18
PROVIDERS: Emergency Provider Emergency Medicine; Family Provider Family Medicine; PCP Family Medicine
DX: K59.00 Constipation, unspecified (principal); J44.9 Chronic obstructive pulmonary disease, unspecified; Z99.81 Dependence on supplemental oxygen; Z53.29 Procedure and treatment not carried out because of patient's decision for other reasons
CPT/HCPCS: 74018; 99284

== ENCOUNTER 2019-08-04 12:08 | Emergency (ER) | payer MEDICARE, MEDICAID, SELFPAY ==
[2019-08-04 12:09] VITALS: BP 144/75; PULSE 100; RESP 22; TEMP 36.4; O2SAT 87; BMI 30.4
[2019-08-04] MEDS: DiphenhydrAMINE 25 MG Capsule PO (14:21)
[2019-08-04] MEDS: predniSONE 20 MG Tablet 60 MG PO (14:21)
--- NOTE | 2019-08-04 14:39 | ED.DCSUM_ITS ---
History of Present Illness Chief Complaint: Itching Informant: Patient Onset: Yesterday Context: Gradual Onset Timing: Waxes and wanes Current Severity: Mild Maximum Severity: Moderate Narrative: Patient presents for pruritus. She states she started itching yesterday, worse over her trunk and now spreading towards her extremities. She denies any rash. She believes she may be developing allergic reaction to a detergent. Patient did take some [id number] Claritin which helped for short time. She denies any history of liver problems. She has not noticed any jaundice. Patient does have a history of COPD and is dependent on oxygen. She was noted to be slightly hypoxic on arrival but states her oxygen tank and run out of air. 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 (3) COPD (chronic obstructive pulmonary disease) Status: Chronic (4) GERD (gastroesophageal reflux disease) Status: Chronic (5) Stage III chronic kidney disease Status: Chronic Past Medical History - Allergies and Home Meds Allergies/Adverse Reactions: Allergies chlordiazepoxide HCl [From Librium] Allergy (Verified 08/04/19 12:12) Anaphylaxis Penicillins Allergy (Verified 08/04/19 12:12) Anaphylaxis Primary Care Physician: Hardik Soto MD [Primary Care Provider] - 1 Week if not improving Prior records reviewed: Yes Surgical History: noncontributory, - - Uterine suspension; benign lump was removed from right breast. Smoking Status: Former smoker - Family History Maternal Family History: Family History (Last Reviewed 07/04/19 @ 10:56 by Carlyn Henry) Other Diabetes Heart disease Family History: Reports: Heart Disease Paternal Family History: Family History (Last Reviewed 07/04/19 @ 10:56 by Carlyn Henry) Other Diabetes Heart disease Family History: Reports: Heart Disease Review of Systems General: Denies: Chills, Fever Eyes: Denies: Visual changes - bilaterally ENT: Denies: Bilateral ear pain Cardiovascular: Denies: Chest pain Respiratory: Denies: Dyspnea, Cough Gastrointestinal: Denies: Abdominal pain, Nausea, Vomiting, Diarrhea Genitourinary: Denies: Dysuria Skin: Reports: - - Itching but no rash noted. Denies: Rash Neurological: Denies: Headache Allergy: Denies: Uticaria Physical Exam Vital Signs/Narrative: Vital Signs Temp Pulse Resp BP Pulse Ox 08/04/19 12:09 97.6 F L 100 22 H 144/75 H 87 Inital Vital Signs reviewed: Yes General: Well nourished, Well developed Head: Normocephalic ENT: Moist mucous membranes Neck: Supple Cardiovascular: Regular rate, Regular rhythm Respiratory: No distress, Decreased Air Movement Abdomen: Soft, Nontender, Nondistended Extremities: Nontender Skin: Normal color, No rash Neurological: Alert, Oriented x3 Psychological: Normal affect Diagnostic/Tx/Re-eval - Medical Decision Making Patient presents with pruritus. She is given a dose of Benadryl and prednisone here. She does not wish to wait for the medication to take effect to see if this helps her. She does not have a noted rash. I do not see any evidence of bug bites. She is given a prescription for Benadryl and prednisone will follow- up with primary care physician if not improving. ED Disposition - Plan for ED Patient: Disposition: Home or Assisted Living Diagnosis: Pruritic condition Instructions: ALLERGIC REACTION, Other (General) Prescriptions: DiphenhydrAMINE [Benadryl] 25 mg PO TID PRN PRN #14 cap PRN Reason: Itching Prescription Printed Prednisone [Deltasone] 40 mg PO DAILY #10 tab Prescription Printed Referrals: Hardik Soto MD [Primary Care Provider] - 1 Week if not improving
[2019-08-04 15:00] VITALS: BP 139/67; PULSE 101; RESP 22; O2SAT 96
--- NOTE | 2019-08-04 15:01 | ED.RN ---
THIS NURSE REVIEWED D/C INSTRUCTIONS WITH PT. PT VERBALIZED UNDERSTANDING OF INSTRUCTIONS. PT DENIES FURTHER NEEDS OR QUESTIONS AT THIS TIME. PT LEAVES DEPARTMENT ON MOTORIZED SCOOTER.
== END 2019-08-04 15:02 | disposition home or self-care (01) ==
PROVIDERS: Emergency Provider Emergency Medicine; Family Provider Family Medicine; PCP Family Medicine
DX: L29.9 Pruritus, unspecified (principal); J44.9 Chronic obstructive pulmonary disease, unspecified; N18.3 Chronic kidney disease, stage 3 (moderate); Z99.81 Dependence on supplemental oxygen; Z87.891 Personal history of nicotine dependence
CPT/HCPCS: 99283

== ENCOUNTER 2019-08-14 18:39 | Emergency (ER) | payer MEDICARE, MEDICAID, SELFPAY ==
[2019-08-14 18:40] VITALS: BP 176/78; PULSE 100; RESP 25; TEMP 36.3; O2SAT 96; BMI 31.0
[2019-08-14 19:03] VITALS: PULSE 95; RESP 18
[2019-08-14] MEDS: Albuterol 2.5 MG/3 ML VIAL.NEB. INHALATION ×2 (19:17→19:31)
[2019-08-14 19:18] VITALS: PULSE 95; RESP 18
--- NOTE | 2019-08-14 19:40 | RAD_ITS ---
STUDY: X-RAY - SOFT TISSUE NECK REASON FOR EXAM: Female, 78 years old. Patient choked on food. TECHNIQUE: 2 view(s) of the neck were obtained. COMPARISON: None. FINDINGS: Normal visualized nasopharynx, oropharynx, hypopharynx. Normal epiglottis. Normal visualized subglottic tracheal air column. Normal prevertebral soft tissue structures. There are degenerative changes of the cervical spine with cervical spondylosis. There is healed right clavicle fracture. The soft tissue structures are unremarkable. RAD/Neck for Soft Tissue IMPRESSION: No foreign body seen. Electronically Signed: Nikos Kumari MD at 20:00 EST , Service support ,
--- NOTE | 2019-08-14 20:09 | ED.DCSUM_ITS ---
- ER Visit Summary Date of Service: 08/14/19 Chief Complaint: Questionable food stuck in throat History of Present Illness: The patient is a 78 F who believes she had some food stuck in her throat. She was eating vegetables when she felt like 1 got stuck in her throat. She called EMS. When they arrived at the house she states that she coughed and it came loose and she was able to spit it out. She has no history of this in the past. She is on home oxygen at 4 L all the time. She denies any other health symptoms. She states that now that it is out of her throat she feels much better. Physical Examination: Vital signs are reviewed. HEENT exam is unremarkable. There is no stridor. Heart is regular rate and rhythm. Lungs have diffuse wheezing. Abdomen soft nontender. Neurologic exam normal Test Results: Neck x-ray shows no evidence of any foreign bodies or other abnormalities Emergency Department Course and Treatment: The patient felt improved throughout her stay. I did give her albuterol for her wheezing which she states is normal for her. She feels better in that regard. She is tolerating oral fluids at 2007. She would like to be discharged home. I feel that this is appropriate. She was reminded to chew her all of her foods thoroughly and will follow up with her doctor Treatment Plan: [] Disposition: Discharge Impression: Esophageal foreign body, resolved This note was generated with [employer] dictation software. It may contain incorrect words, spelling, and punctuation that were not noted in review of the chart p rior to signing ED Disposition - Plan for ED Patient: Referrals: Hardik Soto MD [Primary Care Provider] -
--- NOTE | 2019-08-14 20:11 | ED.DEP ---
ED Disposition - Plan for ED Patient: Disposition: Home or Assisted Living Instructions: ESOPHAGEAL FOREIGN BODY, Resolved Referrals: Hardik Soto MD [Primary Care Provider] -
[2019-08-14 20:45] VITALS: BP 157/70
== END 2019-08-14 20:48 | disposition home or self-care (01) ==
PROVIDERS: Emergency Provider Emergency Medicine; Family Provider Family Medicine; PCP Family Medicine
DX: T18.128A Food in esophagus causing other injury, initial encounter (principal); X58.XXXA Exposure to other specified factors, initial encounter; Y93.89 Activity, other specified; Y92.009 Unspecified place in unspecified non-institutional (private) residence as the place of occurrence of the external cause; J44.9 Chronic obstructive pulmonary disease, unspecified; Z99.81 Dependence on supplemental oxygen
CPT/HCPCS: 70360; 94640; 99284

== ENCOUNTER 2019-08-28 08:45 | Emergency (ER) | payer MEDICARE, MEDICAID, SELFPAY ==
[2019-08-28 08:46] VITALS: BP 133/64; PULSE 98; RESP 17; TEMP 36.6; O2SAT 88; BMI 30.4
--- NOTE | 2019-08-28 09:09 | ED.DCSUM_ITS ---
- ER Visit Summary Date of Service: 08/28/19 Chief Complaint: Itching History of Present Illness: The patient is a 78 F history of severe COPD on 4 L of oxygen. States that her breathing is her baseline. She presented today due to itching. Symptoms started last night. She has had this 1 or 2 other times. She thinks it might be related to potential food allergy. She denies any rash. Any swelling of her lips or tongue. She was treated with prednisone for this in July and said it made a world of difference and it got better. Physical Examination: Older female no acute distress vital signs are stable her pulse ox is 88 on 4 L but she states she is not short of breath and this is her normal breathing. HEENT exam unremarkable no swelling of her lips or tongue. Neck nontender. Lungs coarse breath sounds but no rales, rhonchi or any current wheezing. Heart regular rhythm no murmur. Abdomen soft nontender. Patient is moving all 4 extremities. No edema. Skin she has dry skin but there is no rashes. No signs of allergic reaction. Neurologically she is awake and alert. Test Results: None Emergency Department Course and Treatment: Patient be started on prednisone in the ER. Written for a prescription of prednisone and follow-up as needed. Treatment Plan: Prednisone zone daily until itching resolves. Disposition: Discharge Impression: Itching secondary to allergic reaction This note was generated with [employer] dictation software. It may contain incorrect words, spelling, and punctuation that were not noted in review of the chart prior to signing ED Disposition - Plan for ED Patient: Referrals: Hardik Soto MD [Primary Care Provider] -
--- NOTE | 2019-08-28 09:11 | ED.DEP ---
ED Disposition - Plan for ED Patient: Disposition: Home or Assisted Living Instructions: ALLERGIC REACTION, Other (General) Prescriptions: Prednisone [Deltasone] 40 mg PO DAILY 7 Days #7 tab Prescription Printed Referrals: Hardik Soto MD [Primary Care Provider] - As Needed Additional Instructions: Prednisone daily until the itching stops then you can stop using the prednisone. I did give you a refill in case you needed in the future for itching again. Follow-up with your doctor if not improving.
[2019-08-28] MEDS: predniSONE 20 MG Tablet 40 MG PO (09:20)
== END 2019-08-28 09:38 | disposition home or self-care (01) ==
PROVIDERS: Emergency Provider Emergency Medicine; Family Provider Family Medicine; PCP Family Medicine
DX: L29.9 Pruritus, unspecified (principal); T78.40XA Allergy, unspecified, initial encounter; X58.XXXA Exposure to other specified factors, initial encounter; J44.9 Chronic obstructive pulmonary disease, unspecified; Z99.81 Dependence on supplemental oxygen
CPT/HCPCS: 99283

== ENCOUNTER 2019-09-10 15:04 | Inpatient (IN) | payer MEDICARE, MEDICAID, SELFPAY ==
[2019-09-10] VITALS (10 sets, daily range): BP systolic 114–149; BP diastolic 64–78; PULSE 94–102; RESP 18–22; TEMP 36.4–36.7; O2SAT 90–99; BMI 29.2; BMI 28.8
--- NOTE | 2019-09-10 15:13 | EKG12_ITS ---
Test Reason : CP Blood Pressure : / mmHG Vent. Rate : 096 BPM Atrial Rate : 104 BPM P-R Int : 000 ms QRS Dur : 074 ms QT Int : 352 ms P-R-T Axes : 000 -34 047 degrees QTc Int : 444 ms Sinus with PVC Left axis deviation Abnormal ECG Confirmed by JUAN ROBLEDO, PETRONA ([id number]), makeup editor CHELSIE SILVESTRE ([id number]) on 09/13/2019 10:22:18 AM Referred By: Emeli Ba Confirmed By:JESSICA MARTINEZ MD
--- NOTE | 2019-09-10 15:15 | RAD_ITS ---
STUDY: X-RAY CHEST REASON FOR EXAM: Female, 79 years old. Chest pain. TECHNIQUE: Single frontal view of the chest. COMPARISON: June 15, 2019 FINDINGS: Hyperexpansion with diffuse interstitial pattern unchanged. There is no demonstrated pleural abnormality. Borderline cardiomegaly unchanged. Normal mediastinum and sera. Normal visualized pulmonary arteries. Normal visualized aortic arch and descending thoracic aorta. Normal visualized thoracic spine. Normal visualized ribs, clavicles, and shoulders. There is no demonstrated abnormality of the visualized soft tissue structures of the upper abdomen. RAD/Chest 1 View (Portable) IMPRESSION: Stable chest with no acute superimposed finding. Electronically Signed: Jeffry Arenas MD at 15:31 EST , Service support ,
--- NOTE | 2019-09-10 15:16 | ED.DCSUM_ITS ---
History of Present Illness Chief Complaint: Chest Pain Informant: Patient Onset: Today Context: Sudden Onset Timing: Continuous Current Severity: Moderate Maximum Severity: Moderate Narrative: The patient is an 79-year-old female with history of hypertension and COPD who is on 4 L of oxygen at baseline that presents with left-sided chest pain. She states the pain started today. She describes it as a sharp sensation underneath her breast. She states it hurts when she takes a deep breath. She denies any cough. She denies any fevers or chills. The pain does not radiate. She denies any history of coronary vascular disease. She is otherwise been in her normal state of health. Prior similar symptoms: Yes Recent Illness/Hospitalization: Yes Past Medical History - Allergies and Home Meds Allergies/Adverse Reactions: Allergies chlordiazepoxide HCl [From Librium] Allergy (Verified 09/06/19 13:24) Anaphylaxis Penicillins Allergy (Verified 09/06/19 13:24) Anaphylaxis Primary Care Physician: Hardik Soto MD [Primary Care Provider] - Prior records reviewed: Yes Past Medical History: - - COPD, hypertension Surgical History: noncontributory, - - Uterine suspension; benign lump was removed from right breast. Smoking Status: Former smoker - Family History Maternal Family History: Family History (This Medical Record has been edited. Action required.) Other Diabetes Heart disease Family History: Reports: Heart Disease Paternal Family History: Family History (This Medical Record has been edited. Action required.) Other Diabetes Heart disease Family History: Reports: Heart Disease Review of Systems General: Denies: Chills, Fever, Sweats Eyes: Denies: Visual changes - bilaterally, Diplopia ENT: Denies: Rhinorrhea, Sore throat Cardiovascular: Reports: Chest pain Respiratory: Denies: Dyspnea, Cough, Dyspnea on exertion Gastrointestinal: Denies: Abdominal pain, Nausea, Vomiting, Diarrhea, Melena, Hematochezia Genitourinary: Denies: Dysuria, Hematuria, Frequency Musculoskeletal: Denies: Back pain, Extremity Pain Skin: Denies: Rash, Wounds Neurological: Denies: Headache, Weakness, Numbness Physical Exam Vital Signs/Narrative: Vital Signs Temp Pulse Resp BP Pulse Ox 09/10/19 15:05 97.5 F L 102 H 18 142/78 H 90 Inital Vital Signs reviewed: Yes General: Well nourished, Well developed, No Acute Distress Head: Normocephalic, Atraumatic Eyes: Perrl, EOMI ENT: Moist mucous membranes, No rhinorrhea Neck: Supple, Nontender Cardiovascular: Regular rate, Regular rhythm, No murmurs Respiratory: No distress, CTA bilaterally, Chest nontender Abdomen: Soft, Nontender, Nondistended, Normal bowel sounds Back: Nontender, Normal Inspection Extremities: Nontender, No edema Skin: Normal color, No rash Neurological: Alert, Oriented x3, Cranial nerves II-XII grossly intact, Normal Strength, Normal Sensation Psychological: Normal affect, Normal Mood Diagnostic/Tx/Re-eval Chest X-Ray - ED: 1 View, Normal, Heart, Mediastinum, Chronic Changes, No Infilt rates Clinical Impression(s) from Imaging Studies Chest X-Ray 09/10/19 15:15 IMPRESSION: Stable chest with no acute superimposed finding. Electronically Signed: Jeffry Arenas MD at 15:31 EST , Service support , Abnormal Lab Results 09/10/19 09/10/19 09/10/19 15:29 15:29 15:29 WBC 7.4 RBC 4.16 L Hgb 12.3 Hct 39.4 MCV 94.7 MCH 29.6 MCHC 31.2 L RDW Std Deviation 48.1 H RDW Coeff of Bebeto 13.7 Plt Count 301 MPV 9.7 Immature Gran % (Auto) 0.400 Neut % (Auto) 63.0 Lymph % (Auto) 18.6 L [place] % (Auto) 12.2 H Eos % (Auto) 5.3 H Baso % (Auto) 0.5 Absolute Neuts (auto) 4.7 Absolute Lymphs (auto) 1.37 Nucleated RBC % 0 PT 13.6 INR 1.1 D-Dimer Quant (PE/DVT) 1.90 H* Sodium 138 Potassium 4.2 Chloride 105 Carbon Dioxide 29.0 Anion Gap 4 L BUN 19 H Creatinine 1.85 H Estim Creat Clear Calc 24.47 Est GFR (MDRD) Af Amer 34 L Est GFR (MDRD) Non-Af 28 L BUN/Creatinine Ratio 10.3 Glucose 106 Calcium 9.3 Troponin I 0.231 H - Rhythm Strip Rhythm Strip: Sinus Rhythm Rate: 90 Ectopy: None - EKG Initial EKG Interpretation: Sinus Rhythm, No Acute Injury Pattern, Non-Specific ST Changes Prior: Unchanged - Medical Decision Making The patient presents to the emergency department with a sharp, stabbing chest pain. EKG was obtained. It was sinus rhythm. There was some significant artif act within V1, but no evidence of acute ischemia. Patient was given morphine with resolution of her pain. Chest x-ray shows no evidence of volume overload. Patient's cardiac enzymes were indeterminate, but she has had no progression of her pain. I did obtain a d-dimer which was elevated. I do want the patient to undergo evaluation for pulmonary embolus, but the patient is refusing a CT. We will try to arrange for VQ scan. The patient will be covered with therapeutic Lovenox and will be admitted for her chest pain. Impression 1. Chest pain ED Disposition - Plan for ED Patient: Referrals: Hardik Soto MD [Primary Care Provider] -
[2019-09-10 15:51] LABS: International Normalized Ratio 1.1; Prothrombin Time (Protime)PT. 13.6 SECONDS (11.7-14.9)
[2019-09-10 15:52] LABS: Anion Gap 4 (5-15); BUN 19 mg/dL (7-18); BUN/Creat Ratio 10.3 RATIO (10-20); Calcium,Total 9.3 mg/dL (8.5-10.1); Chloride 105 mmol/L (98-107); Creatinine, Serum 1.85 mg/dL (0.55-1.02); EST Glomerular Filtration Rate 28 mL/min (>60); Est Glom Filt Rate - Afr Amer 34 mL/min (>60); Estimated Creatinine Clearance 24.47 ml/min; Glucose 106 mg/dL (74-106); Potassium 4.2 mmol/L (3.5-5.1); Sodium Level 138 mmol/L (136-145)
[2019-09-10] MEDS: 0.9% Normal Saline 1,000 ML 150 ML IV ×2 (15:54→21:29)
[2019-09-10 16:01] LABS: Absolute Lymphocyte Count 1.37 X10^3/uL (0.83-4.51); Absolute Neutrophil Count 4.7 X10^3/uL (2.0-7.7); Basophil# 0.04 X10^3/uL; Basophil% 0.5 % (0-1); Eosinophil# 0.39 X10^3/uL; Eosinophils% 5.3 % (0-5); Hematocrit 39.4 % (37-47); Hemoglobin 12.3 g/dL (12.0-15.0); Lymphocyte # 1.37 X10^3/ul (4.0); Lymphocyte % 18.6 % (19-41); Mean Corp Hgb Conc 31.2 g/dL (32-36); Mean Corpuscular Hgb 29.6 pg (27.0-32.0); Mean Corpuscular Volume 94.7 fL (81-99); Mean Platelet Vol. 9.7 fl (6.2-12.0); Monocyte% 12.2 % (0-10); NRBC Flagged by Analyzer 0 % (0-5); Neutrophil # 4.65 X10^3/uL (2.7-7.7); Platelet Count 301 K/mm3 (150-450); RBC Distribution Width CV 13.7 % (11.6-14.6); RBC Distribution Width SD 48.1 fl (35.1-43.9); Red Blood Count 4.16 M/mm3 (4.2-5.4); White Blood Count 7.4 K/mm3 (4.4-11.0)
--- NOTE | 2019-09-10 16:17 | PCM.HP.STD ---
History of Present Illness Date of Admission: 09/10/19 Chief Complaint: Chest pain - 1 day The patient is a 79 year old F with COPD with chronic respiratory on 4L, obesity, with h/o left leg DVT woke up with severe substernal chest pain that is described as pleuritic/sharp, located under his left breast. She denied any cough or dizziness or palpitations or diaphoresis. Vitals in the ED showed temperature of 97.5F, heart rate 102, blood pressure 142/78, respiration rate was 18, SPO2 was 90% on 4 L oxygen. WBC count was 7.4, Hb 12.3, bili count 301, d-dimer was 1.9, INR 1.1. BMP was unremarkable except for BUN of 19, creatinine 1.85. Her baseline creatinine between 1.6 and 1.9 Troponin is 0.231. Chest x-ray showed no acute cardiopulmonary abnormality. Past Medical History Past Medical History (Chronic Problems): Chronic Problems (This Medical Record has been edited. Action required.) Asthma with COPD with exacerbation (Chronic) Respiratory failure, [id number] (Chronic) COPD exacerbation (Chronic) Stage III chronic kidney disease (Chronic) GERD (gastroesophageal reflux disease) (Chronic) Venous insufficiency (Chronic) COPD (chronic obstructive pulmonary disease) (Chronic) Obesity (BMI 30.0-34.9) (Chronic) Anxiety (Chronic) Right leg DVT (Chronic) Medical History: Medical History (This Medical Record has been edited. Action required.) Asthma with COPD with exacerbation (Chronic) J44.1, J45.901 Respiratory failure, [id number] (Chronic) J96.20 COPD exacerbation (Chronic) J44.1 Stage III chronic kidney disease (Chronic) N18.3 GERD (gastroesophageal reflux disease) (Chronic) K21.9 Venous insufficiency (Chronic) COPD (chronic obstructive pulmonary disease) (Chronic) J44.9 Obesity (BMI 30.0-34.9) (Chronic) E66.9 Anxiety (Chronic) F41.9 Right leg DVT (Chronic) I82.401 Allergies chlordiazepoxide HCl [From Librium] Allergy (Verified 09/06/19 13:24) Anaphylaxis Penicillins Allergy (Verified 09/06/19 13:24) Anaphylaxis Home Medications: Ambulatory Orders Medication Instructions Recorded Fluticasone/Salmeterol [Advair 1 ea IH BID 04/22/19 250-50 Diskus] albuterol sulfate 90 mcg/actuation 2 puff INHALATION Q4H PRN g 07/04/19 aerosol inhaler Ipratropium/Albuterol Sulfate 1 amp INHALATION Q4H 07/22/19 [Iprat-Albut 0.5-3(2.5) mg/3 ml] Surgical History: Surgical History (This Medical Record has been edited. Action required.) History of breast surgery Z98.890 History of uterine suspension procedure Z98.890, Z87.448 Surgical History: noncontributory, - - Uterine suspension; benign lump was removed from right breast. Psychiatric History: No pertinent psych hx PARTY HOST/HOSTESS History: No pertinent PARTY HOST/HOSTESS history Lives: - - assisted living facility Smoking Status: Former smoker Alcohol: None Drugs: None - *Family History Maternal Family History: Family History (This Medical Record has been edited. Action required.) Other Diabetes Heart disease History Items: Heart Disease Paternal Family History: Family History (This Medical Record has been edited. Action required.) Other Diabetes Heart disease History Items: Heart Disease Review of Systems Constitutional: Reports: Fatigue. Denies: Anorexia, Chills, Fever, Malaise, Weakness, Weight Change Eyes: Denies: Blurred vision, Cataracts, Conjunctivae Inflammation, Pain, Redness, Vision Change HEENT: Denies: Difficulty Hearing, Difficulty Swallowing, Head Aches, Hearing Changes, Sinus Congestion, Sinus Drainage Cardiovascular: Reports: Chest Pain. Denies: Light Headedness, Orthopnea, Palpitations Respiratory: Reports: Shortness of Breath, Shortness of breath at rest, Shortness of breath upon exertion. Denies: Cough, Hemoptysis, Sputum production Gastrointestinal: Denies: Abdominal Pain, Nausea, Vomiting Genitourinary: Denies: Dysuria, Frequency, Incontinence, Nocturia Gynecological: Denies: Vaginal discharge, Vaginal itching Musculoskeletal: Denies: Joint Pain, Joint stiffness, Joint swelling, Joint Tenderness Skin: Denies: Pruritis, Rash, Wounds Neurological: Denies: Difficulty swallowing, Focal weakness, Numbness, Tingling Psychiatric: Denies: Anxiety, Depression, Homicidal Ideations, Suicidal Ideations Hematologic/ Lymphatic: Denies: Easy Bruising, Easy Bleeding VTE Information - Inpt Only VTE Present on Admission: No VTE Pharm Prophylaxis ordered?: Yes - Physical Exam Vitals/I&O's: Vital Signs Temp Pulse Resp BP Pulse Ox 97.5 F L 94 22 H 142/78 H 99 09/10/19 15:05 09/10/19 16:14 09/10/19 16:14 09/10/19 15:05 09/10/19 16:14 Oxygen Flow Rate (L/min) 4 Oxygen Delivery Method Nasal Cannula Weight: 87.3 kg Body Mass Index (BMI) 29.2 General: Alert, Oriented x3, Cooperative, No apparent distress, - - on 4L oxygen HEENT: Atraumatic, PERRLA, EOMI, Normocephalic Oral: Moist Mucosa Neck: Supple Lungs: Diminished Cardiovascular: Regular rate, Regular Rhythm, Normal S1, Normal S2, No murmurs Abdomen: Bowel Sounds Present, Soft, Non Tender, Non-Distended, No Hepato-splenomegaly Extremities: Edema - +1 bilateral pedal edema Skin: No rashes, No breakdown Musculoskeletal: No Tenderness to Palpation of Joints or Extremities Lymphatic: No Cervical, Supraclavicular, or Inguinal Adenopathy Neurological: Cranial nerves II-XII grossly intact, Neuro grossly intact Psych/Mental Status: Normal Affect, Appropriate Laboratory Results 09/10/19 15:29: WBC 7.4, RBC 4.16 L, Hgb 12.3, Hct 39.4, MCV 94.7, MCH 29.6, MCHC 31.2 L, RDW Std Deviation 48.1 H, RDW Coeff of Bebeto 13.7, Plt Count 301, MPV 9.7, Immature Gran % (Auto) 0.400, Neut % (Auto) 63.0, Lymph % (Auto) 18.6 L, [place] % (Auto) 12.2 H, Eos % (Auto) 5.3 H, Baso % (Auto) 0.5, Absolute Neuts (auto) 4.7, Absolute Lymphs (auto) 1.37, Nucleated RBC % 0 09/10/19 15:29: Sodium 138, Potassium 4.2, Chloride 105, Carbon Dioxide 29.0, Anion Gap 4 L, BUN 19 H, Creatinine 1.85 H, Estim Creat Clear Calc 24.47, Est GFR (MDRD) Af Amer 34 L, Est GFR (MDRD) Non-Af 28 L, BUN/Creatinine Ratio 10.3, Glucose 106, Calcium 9.3, Troponin I 0.231 H 09/10/19 15:29: PT 13.6, INR 1.1, D-Dimer Quant (PE/DVT) 1.90 H* Current Medications Sodium Chloride () 1,000 mls @ 150 mls/hr IV .Q6H40M [facility] Last Admin: 09/10/19 15:54 Dose: 150 mls/hr Documented by: Assessment/Plan 79 year old F with COPD with chronic respiratory on 4L, obesity, with h/o left leg DVT woke up with severe substernal chest pain that is described as pleuritic/sharp, located under his left breast. 1. Chest pain, elevated troponin, no acute ST-T changes on EKG Admit to PCU, trend troponins, monitor on telemetry Cardiology consult, aspirin 81 mg p.o. daily, atorvastatin 40 mg p.o. daily, lipid profile in a.m. 2. Elevated D-dimer, 1.90, h/o left DVT leg Patient cannot lie flat for CTA of the chest We will get a VQ scan in a.m. Continue on therapeutic Lovenox 3. COPD on chronic respiratory failure, on 4 L, no signs of exacerbation 4. GERD, on PPI 5. CKD stage III, stable 6. DVT PPx- on therapeutic Lovenox Code Visit Inpatient E&M: 18459 Subs Hosp L2
[2019-09-10] MEDS: Enoxaparin 80 MG/0.8 ML Syringe SC (16:22)
[2019-09-10] MEDS: Ipratropium/Albuterol Sulfate 3 ML AMPUL.NEB INHALATION (19:14)
[2019-09-10] MEDS: Budesonide Respules 0.5 MG/2 ML AMPUL.NEB. INHALATION (19:14)
[2019-09-10] MEDS: Atorvastatin Calcium 40 MG Tablet PO (21:28)
[2019-09-11] VITALS (15 sets, daily range): BP systolic 138–193; BP diastolic 66–90; PULSE 87–105; RESP 20–38; TEMP 36.6–37.1; O2SAT 92–99
[2019-09-11] MEDS: Ibuprofen 400 MG Tablet PO (01:01)
[2019-09-11] MEDS: BENZOCAINE/MENTHOL 1 LOZENGE MUCOUS MEM ×2 (01:01→17:16)
--- NOTE | 2019-09-11 03:05 | NURSING ---
Report received from Eva Salazar RN. This RN will resume care of pt at this time.
--- NOTE | 2019-09-11 03:19 | NURSING ---
Decision made for Eva Salazar to resume care of patient at this time.
--- NOTE | 2019-09-11 04:30 | NURSING ---
gave report to SUPERINTENDENT LOGGINGALISHA Muñoz for change in patient teams at this time.
[2019-09-11] MEDS: 0.9% Normal Saline 1,000 ML 150 ML IV ×2 (04:40→11:22)
--- NOTE | 2019-09-11 07:00 | NURSING ---
Pt bladder scanned for >999mL at this time.
--- NOTE | 2019-09-11 07:14 | PCM.CONS.C ---
Reason for Consult Date of Consultation: 09/11/19 Reason for Consultation: Chest pain, abnormal troponin History of Present Illness: The patient is a 79 year old F with COPD with chronic respiratory on 4L, obesity, with h/o left leg DVT woke up with severe substernal chest pain that is described as pleuritic/sharp, located under his left breast. She denied any cough or dizziness or palpitations or diaphoresis. Vitals in the ED showed temperature of 97.5F, heart rate 102, blood pressure 142/78, respiration rate was 18, SPO2 was 90% on 4 L oxygen. WBC count was 7.4, Hb 12.3, bili count 301, d-dimer was 1.9, INR 1.1. BMP was unremarkable except for BUN of 19, creatinine 1.85. Her baseline creatinine between 1.6 and 1.9 Troponin is 0.231. Chest x-ray showed no acute cardiopulmonary abnormality. Patient has not had any further chest pain after admission to the hospital. Her respiratory status is at baseline according to her. She cannot walk as her legs give out and uses an electric wheelchair to get around. Patient states she has not had this chest pain in the past. Review of systems: All systems reviewed. All else is negative except that in the HPI. ] Past Medical History Allergies/Adverse Reactions: Allergies chlordiazepoxide HCl [From Librium] Allergy (Verified 09/06/19 13:24) Anaphylaxis Penicillins Allergy (Verified 09/06/19 13:24) Anaphylaxis Home Medications: Ambulatory Orders Medication Instructions Recorded Fluticasone/Salmeterol [Advair 1 ea IH BID 04/22/19 250-50 Diskus] albuterol sulfate 90 mcg/actuation 2 puff INHALATION Q4H PRN g 07/04/19 aerosol inhaler Ipratropium/Albuterol Sulfate 1 amp INHALATION Q4H 07/22/19 [Iprat-Albut 0.5-3(2.5) mg/3 ml] Past Medical History (Chronic Problems): Chronic Problems (This Medical Record has been edited. Action required.) Asthma with COPD with exacerbation (Chronic) Respiratory failure, [id number] (Chronic) COPD exacerbation (Chronic) Stage III chronic kidney disease (Chronic) GERD (gastroesophageal reflux disease) (Chronic) Venous insufficiency (Chronic) COPD (chronic obstructive pulmonary disease) (Chronic) Obesity (BMI 30.0-34.9) (Chronic) Anxiety (Chronic) Right leg DVT (Chronic) Surgical History: noncontributory, - - Uterine suspension; benign lump was removed from right breast. Psychiatric History: No pertinent psych hx SPEECH AND HEARING CLINIC DIRECTOR History: No pertinent SPEECH AND HEARING CLINIC DIRECTOR history - *Family History Maternal Family History: Family History (This Medical Record has been edited. Action required.) Other Diabetes Heart disease History Items: Heart Disease Paternal Family History: Family History (This Medical Record has been edited. Action required.) Other Diabetes Heart disease History Items: Heart Disease Lives: - - assisted living facility Smoking Status: Former smoker Tobacco Use: Cigarettes Alcohol: None Drugs: None Objective: Vital Signs Temp Pulse Resp BP Pulse Ox 98.0 F 87 38 H 169/83 H 96 09/11/19 06:12 09/11/19 06:12 09/11/19 06:12 09/11/19 06:12 09/11/19 06:12 Oxygen Flow Rate (L/min) 4 Oxygen Delivery Method Nasal Cannula Weight: 194 lb 7.163 oz Body Mass Index (BMI) 28.8 Intake and Output for Last 24 Hours 09/09/19 09/10/19 09/11/19 23:59 23:59 23:59 Intake Total 1312.5 / 1552.5 1225 / 1225 Output Total 0 / 0 Balance 1312.5 / 1552.5 1225 / 1225 General: Awake, Alert, Oriented x 3 HEENT: Atraumatic Oral: Moist Mucosa Neck: Supple Lungs: Clear to auscultation Cardiovascular: Normal S1, Normal S2 Abdomen: Soft Extremities: No edema Skin: No Rashes Psych/Mental Status: Appropriate 09/10/19 15:29: WBC 7.4, RBC 4.16 L, Hgb 12.3, Hct 39.4, MCV 94.7, MCH 29.6, MCHC 31.2 L, Plt Count 301, MPV 9.7, Immature Gran % (Auto) 0.400, Neut % (Auto) 63.0, Lymph % (Auto) 18.6 L, [place] % (Auto) 12.2 H, Eos % (Auto) 5.3 H, Baso % (Auto) 0.5, Absolute Neuts (auto) 4.7, Nucleated RBC % 0 09/10/19 15:29: Sodium 138, Potassium 4.2, Chloride 105, Carbon Dioxide 29.0, Anion Gap 4 L, BUN 19 H, Creatinine 1.85 H, Est GFR (MDRD) Af Amer 34 L, Est GFR (MDRD) Non-Af 28 L, BUN/Creatinine Ratio 10.3, Glucose 106, Calcium 9.3, Troponin I 0.231 H 09/10/19 15:29: PT 13.6, INR 1.1, D-Dimer Quant (PE/DVT) 1.90 H* 09/10/19 19:35: Troponin I 0.205 H 09/10/19 22:30: Troponin I 0.193 H Rhythm: EKG: ECHO: Stress Test: Cardiac Cath: PCI: CT Surgery: Holter monitor: EPS: PPM: CXR: Chest CT Scan: Assessment/Plan 1. Chest pain: Patient has elevated troponin level. She has elevated creatinine and her chest pain is atypical by history. It will be reasonable to do a Lexiscan nuclear stress test and proceed with coronary angiography only if she has significant ischemia. Continue aspirin and statin at this time.
[2019-09-11] MEDS: Aspirin 81 MG TAB.CHEW PO (08:46)
[2019-09-11] MEDS: Enoxaparin 100 MG/ML Syringe 80 MG SC (11:21)
--- NOTE | 2019-09-11 13:41 | PN_ITS ---
Subjective: The patient is an 79-year-old female with a past medical history of COPD, chronic respiratory failure on 4 L of oxygen, obesity and hx of DVT admitted to [facility] with chest pain described as pleuritic. D-Dimer was elevated but, she was unable to lie flat for CT of the chest. She refused a VQ scan this AM. She has now had no pain since admission. She was seen by Dr. Beck today who recommends a pharmacologic Stress in the AM since the troponin was elevated. afebrile since admission. Blood pressures today have ranged from 138/72-170 9/85. Heart rate is within normal limits. Telemetry shows normal sinus rhythm with no ectopy. All lab was personally reviewed. CBC is unremarkable. White blood cell count was 7.4 with 5.3% eosinophils. She has stage 4 CRF. D-dimer was elevated at 1.9. BMP shows an increased BUN at 19 with a creatinine of 1.85 which is within her baseline. Troponin at admission was 0.231. The third troponin had trended down to 0.193. EKG at admission showed LAD but no acute ST or T wave changes. Her biggest complaint currently is she is very anxious. She is tachypneic and she is taking very shallow breaths. She denies chest pain. she has been refusing the aerosol treaments and wants to use her inhaler that she has in her purse. - Physical Exam Vitals/I&O's: Vital Signs Temp Pulse Resp BP Pulse Ox 98.6 F 89 20 H 168/71 H 99 09/11/19 08:12 09/11/19 08:12 09/11/19 08:12 09/11/19 08:12 09/11/19 08:12 Oxygen Flow Rate (L/min) 4 Oxygen Delivery Method Nasal Cannula Weight: 194 lb 7.163 oz Body Mass Index (BMI) 28.8 Intake and Output for Last 24 Hours 09/09/19 09/10/19 09/11/19 23:59 23:59 23:59 Intake Total 1312.5 / 1552.5 2465 / 2465 Output Total 1500 / 1500 Balance 1312.5 / 1552.5 965 / 965 General: Alert, Well developed, Well nourished, - - she is very anxious, tremulous and taking rapid shallow breaths HEENT: Atraumatic, PERRLA Oral: Moist Mucosa Neck: Supple, No JVD, No Nodes, Trachea Midline Lungs: No rales, - - she has a few coarse rhonchi in the R base posteriorly but, the lungs are otherwise CTA Cardiovascular: Regular rate, Regular Rhythm, Normal S1, Normal S2, No rub noted, No Gallop Abdomen: Bowel Sounds Present, Soft, Non Tender, Non-Distended, - - no guarding with palpation Extremities: No clubbing, No cyanosis, No edema, - - the R calf is sore...she will not let me touch it. Skin: - - very dry skin of the LE's that is cracking. Neurological: Cranial nerves II-XII grossly intact, Neuro grossly intact, - - she has an essential tremor Psych/Mental Status: Anxious Laboratory Results 09/10/19 15:29: WBC 7.4, RBC 4.16 L, Hgb 12.3, Hct 39.4, MCV 94.7, MCH 29.6, MCHC 31.2 L, RDW Std Deviation 48.1 H, RDW Coeff of Bebeto 13.7, Plt Count 301, MPV 9.7, Immature Gran % (Auto) 0.400, Neut % (Auto) 63.0, Lymph % (Auto) 18.6 L, [place] % (Auto) 12.2 H, Eos % (Auto) 5.3 H, Baso % (Auto) 0.5, Absolute Neuts (auto) 4.7, Absolute Lymphs (auto) 1.37, Nucleated RBC % 0 09/10/19 15:29: Sodium 138, Potassium 4.2, Chloride 105, Carbon Dioxide 29.0, Anion Gap 4 L, BUN 19 H, Creatinine 1.85 H, Estim Creat Clear Calc 24.47, Est GFR (MDRD) Af Amer 34 L, Est GFR (MDRD) Non-Af 28 L, BUN/Creatinine Ratio 10.3, Glucose 106, Calcium 9.3, Troponin I 0.231 H 09/10/19 15:29: PT 13.6, INR 1.1, D-Dimer Quant (PE/DVT) 1.90 H* 09/10/19 19:35: Troponin I 0.205 H 09/10/19 22:30: Troponin I 0.193 H Current Medications Acetaminophen (Tylenol) 650 mg PO Q6H PRN PRN PRN Reason: Pain Score 1-3/Temp > 100.7 F Albuterol/Ipratropium (Duoneb) 3 ml INHALATION Q4HWA.RT [facility] Last Admin: 09/11/19 11:21 Dose: Not Given Documented by: Aspirin (Aspirin, Baby) 81 mg PO DAILY@0800 [facility] Last Admin: 09/11/19 08:46 Dose: 81 mg Documented by: Atorvastatin Calcium (Lipitor) 40 mg PO QHS [facility] Last Admin: 09/10/19 21:28 Dose: 40 mg Documented by: Budesonide (Pulmicort Aerosol) 0.5 mg INHALATION Q12H.RT [facility] Last Admin: 09/10/19 19:14 Dose: 0.5 mg Documented by: Enoxaparin Sodium (Lovenox) 80 mg SC DAILY [facility] Last Admin: 09/11/19 11:21 Dose: 80 mg Documented by: Sodium Chloride () 1,000 mls @ 150 mls/hr IV .Q6H40M [facility] Last Admin: 09/11/19 11:22 Dose: 150 mls/hr Documented by: Sodium Chloride () 250 mls @ 15 mls/hr IV .[id number] PRN PRN Reason: Saline Flush Sodium Chloride () 250 mls @ 15 mls/hr IV .[id number] PRN PRN Reason: Additional IVPB Infusion Morphine Sulfate () 2 mg IV Q3H PRN PRN PRN Reason: Pain Score 6-10/10 Ondansetron HCl (Zofran) 4 mg IV Q8H PRN PRN PRN Reason: NAUSEA/VOMITING Sodium Chloride () 10 - 40 ml IV UD PRN PRN Reason: SALINE FLUSH Throat Lozenges (Cepacol Sore Throat Lozenge) 1 lozenge MUCOUS MEM Q4H PRN PRN PRN Reason: Sore throat Last Admin: 09/11/19 01:01 Dose: 1 lozenge Documented by: Medical Necessity - Tobacco Use Smoking Status: Former smoker Tobacco Use: Cigarettes Assessment/Plan Impressions 1. chest pain with increased Troponin and an increased D Dimer, not sure of the significance of the elevated D Dimer since she has stage 4 CRF. she has a remote hx of a DVT of the LE. 2. anxiety and agitation with a remote hx of an admission to a psychiatric facility 35 years ago for 6 months. Has been decompensating over the past 6 months and getting more forgetful. 3. HTN - not adequately controlled - possibly related to uncontrolled anxiety 4. Stage 4 CRF 5. Chronic respiratory failure with hypoxemia I spoke with her son Ruddy on the phone. She has been getting more forgetful over the past 6 months. She sometimes gets very angry and then will not talk to him for a few days. He and his brother have been looking for a assisted living situation for her. Ruddy also revealed to me that about 35 years ago she was [facility] psych admission. He does not know what her diagnosis was but, she was suicidal at the time. Ativan 0.5 mg IV now and start Seroquel 25 mg at HS tonight. nuclear stress in the AM recheck a troponin in the AM If she calms down she may agree to a CT scan of the chest with contrast...... Venous US of both LE's tomorrow Continue the Lovenox for now Code Visit Inpatient E&M: 74959 Subs Hosp L3
--- NOTE | 2019-09-11 14:49 | VDLE_ITS ---
Reason For Study: elevated D-Dimer RIGHT LEFT CFV is partially compressible with decreased GSV is normal. flow. DVT is loosley attached. CFV is compressible, spontaneous, phasic, FV, POP V, T/P Trunk, PTV, and Gastroc V are competent, and demonstrates normal dilated and noncompressible. augmentation. RT PerV is compressible. FV is compressible, spontaneous, phasic, GSV is normal. competent and demonstrates normal Procedure augmentation. Exam performed portable in patient room. POP V is compressible, spontaneous, phasic, The exam was diagnostic. competent and demonstrates normal A preliminary report was called and/or faxed augmentation. to the pt's RN. T/P Trunk is compressible. PTV is compressible. LT PerV is compressible. Interpretation Summary Acute deep vein thrombosis is noted in the right common femoral vein. Acute deep vein thrombosis is noted in the right femoral vein. Acute deep vein thrombosis is noted in the right popliteal vein. Acute deep vein thrombosis is noted in the right tibio-peroneal trunk. Acute deep vein thrombosis is noted in the right posterior tibial vein. Acute deep vein thrombosis is noted in the right gastrocnemius vein. The right peroneal vein is patent and compressible. Deep veins of the left lower extremity are patent and compressible segmentally. There is no evidence of left lower extremity deep vein thrombosis. Valvular competence appears intact within the proximal deep venous system on the left . The great saphenous veins appear bilaterally patent and compressible segmentally. Ordering Physician: Esthela Gonzales Performed By: Cameron Bates RVT
[2019-09-11] MEDS: 0.9% Saline Lock 10 ML Syringe IV ×3 (15:34→18:40)
[2019-09-11] MEDS: LORazepam 2 MG/ML Syringe 0.5 MG IV ×2 (15:34→17:00)
--- NOTE | 2019-09-11 16:42 | CT_ITS ---
STUDY: CTA CHEST REASON FOR EXAM: Female, 79 years old. CHEST PAIN, SHORT OF BREATH -- COPD, CHRONIC RENAL FAILURE -- PT VERY DIFFICULT-SCREAMED/MOVED DURING ENTIRE EXAM, WAS GIVEN ATIVAN BEFORE TEST RADIATION DOSAGE (If Supplied By Facility): CTDIvol = ( 14.67 ) mGy, DLP = ( 482.76 ) mGycm TECHNIQUE: The examination was performed with the intravenous administration of 75CC ISOVUE 370. Post-processing of the angiographic images was performed, with multiplanar reformation and 3D reconstruction. The exam is degraded by motion artifact. Individualized dose optimization techniques were used for this CT. COMPARISON: None. FINDINGS: Normal enhancement of the main pulmonary artery and right and left pulmonary arteries. Small nonocclusive intraluminal blood clots are present in the secondary pulmonary arterial branches of the right lower lobe. A small nonocclusive clot is also present at the origin of the right upper lobe superior pulmonary artery. Diffuse interstitial thickening and patchy edema is present throughout both lungs. Both lungs are slightly hyperinflated compatible with COPD. Mild to moderate chronic pleural thickening in the apices of both upper lobes. A small area of consolidation is present in the lingula of the left upper lobe. Mild atelectasis is present in the posterior aspect of the left lower lobe. There is atherosclerotic calcification of the aortic arch with tortuosity. There is no demonstrated aortic dissection. Normal heart size and pericardium. There are visualized mediastinal lymph nodes, which are within normal size limits, and with normal morphology. Normal hilar regions. Normal visualized trachea and bronchi. There are degenerative changes of thoracic spine. No visualized acute or significant process of the upper abdomen. CT/CTA Chest W/WO Contrast IMPRESSION: 1. Small nonocclusive intraluminal blood clots in the secondary pulmonary arterial branches of the right lower lobe 2. A small nonocclusive clot is also present at the origin of the right upper lobe superior pulmonary artery.There is no demonstrated pulmonary embolism. 3. Small amount of consolidation in the lingula of the left upper lobe. N.B. : The above information has been verbally conveyed by Felix Baer MD to Nikc Bowman RN, on 09/11/2019 18:30:51 (ET). Electronically Signed: Felix Baer MD at 18:31 EST , Service support ,
[2019-09-11] MEDS: Atorvastatin Calcium 40 MG Tablet PO (19:56)
[2019-09-11] MEDS: busPIRone 5 MG Tablet PO (19:56)
[2019-09-11] MEDS: QUEtiapine 25 MG Tablet PO (19:56)
[2019-09-11] MEDS: 0.9% Normal Saline 1,000 ML 60 ML IV (22:58)
[2019-09-12] VITALS (18 sets, daily range): BP systolic 151–184; BP diastolic 59–86; PULSE 75–102; RESP 20–28; TEMP 36.7–37.8; O2SAT 93–96
[2019-09-12] MEDS: Acetaminophen 325 MG Tablet 650 MG PO (05:47)
[2019-09-12] MEDS: Aspirin 81 MG TAB.CHEW PO (05:47)
--- NOTE | 2019-09-12 05:55 | EKG12_ITS ---
Test Reason : AM EKG Blood Pressure : / mmHG Vent. Rate : 098 BPM Atrial Rate : 098 BPM P-R Int : 148 ms QRS Dur : 082 ms QT Int : 366 ms P-R-T Axes : 063 -35 061 degrees QTc Int : 467 ms Normal sinus rhythm Left axis deviation Septal infarct , age undetermined Abnormal ECG When compared with ECG of 10-SEP-2019 15:24, MANUAL COMPARISON REQUIRED, DATA IS UNCONFIRMED Confirmed by JUAN ROBLEDO, PETRONA ([id number]), videotape editor CHELSIE SILVESTRE ([id number]) on 09/13/2019 10:41:43 AM Referred By: Emeli Ba Confirmed By:JESSICA MARTINEZ MD
[2019-09-12] MEDS: Ipratropium/Albuterol Sulfate 3 ML AMPUL.NEB INHALATION ×2 (07:00→19:08)
[2019-09-12] MEDS: Budesonide Respules 0.5 MG/2 ML AMPUL.NEB. INHALATION ×2 (07:00→19:08)
[2019-09-12 08:32] LABS: ALB/GLOB Ratio 0.7 RATIO (0.9-2.4); AST(SGOT) 12 U/L (15-37); Alanine Aminotransfer ALT/SGPT 9 U/L (13-56); Albumin, Serum 2.5 g/dL (3.2-5.0); Alkaline Phosphatase 59 U/L (45-117); Anion Gap 5 (5-15); BUN 13 mg/dL (7-18); BUN/Creat Ratio 9.1 RATIO (10-20); Calcium,Total 7.8 mg/dL (8.5-10.1); Chloride 111 mmol/L (98-107); Cholesterol 127 mg/dL (200); Creatinine, Serum 1.43 mg/dL (0.55-1.02); EST Glomerular Filtration Rate 38 mL/min (>60); Est Glom Filt Rate - Afr Amer 45 mL/min (>60); Estimated Creatinine Clearance 31.65 ml/min; Globulin 3.7 g/dL (2.2-4.2); Glucose 92 mg/dL (74-106); High Density Lipoprotein 34 mg/dL; Magnesium 2.1 mg/dL (1.6-2.6); Potassium 4.3 mmol/L (3.5-5.1); Protein, Total 6.2 g/dL (6.4-8.2); Sodium Level 141 mmol/L (136-145); Triglycerides 114 mg/dL; Very Low Density Lipoprotein 23 mg/dL (5-40)
[2019-09-12] MEDS: Enoxaparin 100 MG/ML Syringe 80 MG SC (09:27)
[2019-09-12] MEDS: busPIRone 5 MG Tablet PO ×2 (09:27→21:05)
--- NOTE | 2019-09-12 09:59 | CASEMGMT ---
Patient is active with [facility]. SW called [facility] and patient's case liner is Nevin Sher. Patient has [facility] aides Tuesdays and for 2 hours each day. She also has a medical alert button. Ame RICCI MSW
--- NOTE | 2019-09-12 11:13 | CASEMGMT ---
Assessment- SW completed assessment with patient. Living situation- Patient lives alone in a 1 level apartment, with no entry steps. There is a ramp PCP: Dr Soto Specialists: None Pharmacy: [facility] DME: shower chair, grab bars, medical alert, O2 and nebulizer from [employer], motorized wheelchair ADL's/IADL's: Patient gets help with bathing, housekeeping, meals, and transportation Past SNF/rehab: Patient has never been to a SNF Past HH: Patient has never had skilled home health. She does have aides through [facility] LW: Yes and patient is aware it is not on file POA: None. Plan: Patient lives alone in an apartment. She is active with [employer] and her employment evaluator/case manager is Nevin Sher. She has [facility] aides T and Thurs 2 hours each time and a lifeline button. She uses her wheelchair and does not walk at all. She is able to transfer herself to the toilet, her chair etc. She will not go to a longterm and does not want home health as she will not do therapy. SW did notify therapy that patient is in the hospital. Ame RICCI INSURANCE UNDERWRITING ASSISTANT
--- NOTE | 2019-09-12 11:30 | CASEMGMT ---
Pt aware LW/POA forms are not on file at [facility]. GATITO Pavon
[2019-09-12] MEDS: 0.9% Normal Saline 1,000 ML 60 ML IV (14:37)
--- NOTE | 2019-09-12 14:49 | PCM.PN.HOSP ---
Reason for Visit: Follow-up on acute DVT/PE Subjective: Patient was seen and examined. She remains slightly hypoxic. Ultrasound of the leg shows acute DVT; on Lovenox already Objective: Physical exam: General: Alert, Oriented x3, Cooperative, No apparent distress, - - on 4L oxygen HEENT: Atraumatic, PERRLA, EOMI, Normocephalic Oral: Moist Mucosa Neck: Supple Lungs: Diminished Cardiovascular: Regular rate, Regular Rhythm, Normal S1, Normal S2, No murmurs Abdomen: Bowel Sounds Present, Soft, Non Tender, Non-Distended, No Hepato-splenomegaly Extremities: Edema - +1 bilateral pedal edema Skin: No rashes, No breakdown Musculoskeletal: No Tenderness to Palpation of Joints or Extremities Lymphatic: No Cervical, Supraclavicular, or Inguinal Adenopathy Neurological: Cranial nerves II-XII grossly intact, Neuro grossly intact Psych/Mental Status: Normal Affect, Appropriate Vitals/I&O's: Vital Signs Temp Pulse Resp BP Pulse Ox 98.8 F 89 24 H 171/59 H 96 09/12/19 13:50 09/12/19 13:50 09/12/19 13:50 09/12/19 13:50 09/12/19 14:08 Oxygen Flow Rate (L/min) 4 Oxygen Delivery Method Nasal Cannula Weight: 85.8 kg Body Mass Index (BMI) 28.8 Intake and Output for Last 24 Hours 09/10/19 09/11/19 09/12/19 23:59 23:59 23:59 Intake Total 1312.5 / 1552.5 3882 / 3882 1002 / 1002 Output Total 2650 / 2650 750 / 750 Balance 1312.5 / 1552.5 1232 / 1232 252 / 252 Laboratory Results 09/12/19 07:16: Sodium 141, Potassium 4.3, Chloride 111 H, Carbon Dioxide 25.0, Anion Gap 5, BUN 13, Creatinine 1.43 H, Estim Creat Clear Calc 31.65, Est GFR (MDRD) Af Amer 45 L, Est GFR (MDRD) Non-Af 38 L, BUN/Creatinine Ratio 9.1 L, Glucose 92, Calcium 7.8 L, Magnesium 2.1, Total Bilirubin 0.50, AST 12 L, ALT 9 L, Alkaline Phosphatase 59, Troponin I 0.091 H, Total Protein 6.2 L, Albumin 2.5 L, Globulin 3.7, Albumin/Globulin Ratio 0.7 L, Triglycerides 114, Cholesterol 127, LDL Cholesterol 70, VLDL Cholesterol 23, HDL Cholesterol 34 L Current Medications Acetaminophen (Tylenol) 650 mg PO Q6H PRN PRN PRN Reason: Pain Score 1-3/Temp > 100.7 F Last Admin: 09/12/19 05:47 Dose: 650 mg Documented by: Albuterol/Ipratropium (Duoneb) 3 ml INHALATION Q4HWA.RT [facility] Last Admin: 09/12/19 11:22 Dose: Not Given Documented by: Aspirin (Aspirin, Baby) 81 mg PO DAILY@0800 [facility] Last Admin: 09/12/19 05:47 Dose: 81 mg Documented by: Atorvastatin Calcium (Lipitor) 40 mg PO QHS [facility] Last Admin: 09/11/19 19:56 Dose: 40 mg Documented by: Budesonide (Pulmicort Aerosol) 0.5 mg INHALATION Q12H.RT [facility] Last Admin: 09/12/19 07:00 Dose: 0.5 mg Documented by: Buspirone HCl (Buspar) 5 mg PO BID [facility] Last Admin: 09/12/19 09:27 Dose: 5 mg Documented by: Enoxaparin Sodium (Lovenox) 80 mg SC DAILY [facility] Last Admin: 09/12/19 09:27 Dose: 80 mg Documented by: Sodium Chloride () 1,000 mls @ 60 mls/hr IV .[id number] [facility] Last Admin: 09/12/19 14:37 Dose: 60 mls/hr Documented by: Sodium Chloride () 250 mls @ 15 mls/hr IV .[id number] PRN PRN Reason: Saline Flush Sodium Chloride () 250 mls @ 15 mls/hr IV .[id number] PRN PRN Reason: Additional IVPB Infusion Labetalol HCl (Trandate) 10 mg IV Q4H PRN PRN PRN Reason: sys>150 DIAST>85 Last Admin: 09/12/19 14:35 Dose: 10 mg Documented by: Lorazepam (Ativan) 0.5 mg IV Q6H PRN PRN PRN Reason: ANXIETY Last Admin: 09/11/19 15:34 Dose: 0.5 mg Documented by: Morphine Sulfate () 2 mg IV Q3H PRN PRN PRN Reason: Pain Score 6-10/10 Ondansetron HCl (Zofran) 4 mg IV Q8H PRN PRN PRN Reason: NAUSEA/VOMITING Quetiapine Fumarate (Seroquel) 25 mg PO DAILY@1999 [facility] Last Admin: 09/11/19 19:56 Dose: 25 mg Documented by: Sodium Chloride () 10 - 40 ml IV UD PRN PRN Reason: SALINE FLUSH Last Admin: 09/11/19 18:40 Dose: 10 ml Documented by: Throat Lozenges (Cepacol Sore Throat Lozenge) 1 lozenge MUCOUS MEM Q4H PRN PRN PRN Reason: Sore throat Last Admin: 09/11/19 17:16 Dose: 1 lozenge Documented by: STROKE Vital Signs/Narrative: Vital Signs Temp Pulse Resp BP Pulse Ox 09/12/19 14:08 96 09/12/19 13:50 98.8 F 89 24 H 171/59 H 96 Medical Necessity - Tobacco Use Smoking Status: Former smoker Tobacco Use: Cigarettes Assessment/Plan 79 year old F with COPD with chronic respiratory on 4L, obesity, with h/o left leg DVT woke up with severe substernal chest pain that is described as pleuritic/sharp, located under his left breast. 1. Chest pain, elevated troponin, no acute ST-T changes on EKG Troponins are trending down Cardiology consulted, nuclear stress test recommended, will follow up Continue on aspirin 81 mg p.o. daily, atorvastatin 40 mg p.o. daily, lipid profile in a.m. 2. Acute PE/DVT, history of DVT On therapeutic Lovenox Will be discharged on Eliquis 3. COPD on chronic respiratory failure, stable On 4 L, no signs of exacerbation 4. GERD, on PPI 5. CKD stage III, stable 6. DVT PPx- on therapeutic Lovenox Code Visit Inpatient E&M: 42424 Subs Hosp L2
--- NOTE | 2019-09-12 15:55 | CASEMGMT ---
Pt to be sent home on Eliquis at discharge and med e-scribed to [facility] previously. Call to [facility] and per tech, they have not been able to run through but states that pt will have no co-pay. She states she will have the pharmacist take care of getting script run. Andrea BRITO CM
[2019-09-12] MEDS: BENZOCAINE/MENTHOL 1 LOZENGE MUCOUS MEM (17:04)
[2019-09-12] MEDS: Carvedilol 12.5 MG Tablet PO (18:48)
[2019-09-12] MEDS: QUEtiapine 25 MG Tablet PO (21:05)
[2019-09-12] MEDS: Atorvastatin Calcium 40 MG Tablet PO (21:05)
[2019-09-13] VITALS (15 sets, daily range): BP systolic 144–167; BP diastolic 66–81; PULSE 71–96; RESP 20–28; TEMP 36.4–37.2; O2SAT 91–95
--- NOTE | 2019-09-13 02:30 | NURSING ---
This nurse completed VS and assesment on pt. Pt reports that she feels it is difficult to breathe. Pt on 4L O2 NC, oxygen saturation 94%. Pt has shallow, tachypnic breathing, LS diminished. Clinical assessment is unchanged from previous assessments. Pt is mouth breather, placed on Venti mask to see if this would help pt's breathing. Will continue to monitor and reasses. ALISHA Quinn
[2019-09-13] MEDS: Ipratropium/Albuterol Sulfate 3 ML AMPUL.NEB INHALATION ×2 (06:32→11:18)
[2019-09-13] MEDS: Budesonide Respules 0.5 MG/2 ML AMPUL.NEB. INHALATION (06:32)
[2019-09-13 07:21] LABS: Anion Gap 7 (5-15); BUN 15 mg/dL (7-18); BUN/Creat Ratio 11.8 RATIO (10-20); Calcium,Total 8.2 mg/dL (8.5-10.1); Chloride 109 mmol/L (98-107); Creatinine, Serum 1.27 mg/dL (0.55-1.02); EST Glomerular Filtration Rate 43 mL/min (>60); Est Glom Filt Rate - Afr Amer 52 mL/min (>60); Estimated Creatinine Clearance 35.64 ml/min; Glucose 85 mg/dL (74-106); Potassium 4.3 mmol/L (3.5-5.1); Sodium Level 139 mmol/L (136-145)
[2019-09-13] MEDS: Aspirin 81 MG TAB.CHEW PO (08:21)
[2019-09-13] MEDS: 0.9% Normal Saline 1,000 ML 60 ML IV (09:53)
[2019-09-13] MEDS: Carvedilol 12.5 MG Tablet PO ×2 (09:54→12:03)
[2019-09-13] MEDS: Enoxaparin 100 MG/ML Syringe 80 MG SC (09:54)
[2019-09-13] MEDS: busPIRone 5 MG Tablet PO ×2 (09:54→20:55)
[2019-09-13] MEDS: BENZOCAINE/MENTHOL 1 LOZENGE MUCOUS MEM (10:17)
--- NOTE | 2019-09-13 10:17 | PCM.CONS.PUL ---
Problem List (1) Respiratory failure, [id number] Status: Chronic Qualifiers: Respiratory failure complication: hypoxia and hypercapnia Qualified Code(s): J96.21 - Acute and chronic respiratory failure with hypoxia; J96.22 - Acute and chronic respiratory failure with hypercapnia (2) COPD exacerbation Status: Chronic (3) Stage III chronic kidney disease Status: Chronic (4) GERD (gastroesophageal reflux disease) Status: Chronic Qualifiers: Esophagitis presence: esophagitis presence not specified Qualified Code(s): K21.9 - Gastro-esophageal reflux disease without esophagitis (5) Venous insufficiency Status: Chronic (6) Obesity (BMI 30.0-34.9) Status: Chronic (7) Anxiety Status: Chronic Reason for Consult Date of Consultation: 09/13/19 Reason for Consultation: Respiratory failure History of Present Illness: The patient is a 79 year old F, with past medical history listed below and well-known to me from the outpatient office, who presented to [facility] on 09/10/2019 secondary to progressive shortness of breath and left-sided chest pain. Patient stated that the pain started abruptly and was described as a sharp sensation underneath her breast. Patient also stated this was worse with deep inhalation, but denied any fevers or chills. No radiation was described. In the ER, patient had an EKG noted to be sinus rhythm with no acute ischemia. Patient did respond to morphine therapy. Patient reportedly had refused a CT scan in the ER, but was placed on therapeutic Lovenox anyway. Patient was noted to be 90% on her baseline 4 L nasal cannula oxygen. Patient was evaluated by the hospitalist and then admitted to the PCU for a cardiac work-up. Since being hospitalized, patient has continued to report generalized pain. They were able to talk to the patient and she agreed to a CTA of the chest showing small nonocclusive intraluminal blood clots and secondary pulmonary artery branches with diffuse interstitial thickening. Venous ultrasounds have been ordered, but given patient's baseline lung function, I pulmonary consult was obtained. Lower extremity Dopplers show a left-sided acute DVT On my evaluation, patient states that she overall feels subjectively unchanged since being admitted to the hospital. Patient states her pain is unchanged. Patient continues to take very shallow breaths. Patient has been refusing aerosol therapy stating that it does not work as well as her baseline inhalers. As an outpatient, patient has refused pulmonary function testing and evaluation for obstructive sleep apnea. Patient is refusing BiPAP therapy at this time. Patient does state that she thought the Lasix had helped her as an outpatient, but I ran out of it. Review of systems otherwise negative from a constitutional, HEENT, respiratory, cardiovascular, GI, genitourinary, musculoskeletal, skin, neurologic, psychiatric and hematologic system unless stated above. Past Medical History Past Medical History (Chronic Problems): Chronic Problems (This Medical Record has been edited. Action required.) Asthma with COPD with exacerbation (Chronic) Respiratory failure, [id number] (Chronic) COPD exacerbation (Chronic) Stage III chronic kidney disease (Chronic) GERD (gastroesophageal reflux disease) (Chronic) Venous insufficiency (Chronic) COPD (chronic obstructive pulmonary disease) (Chronic) Obesity (BMI 30.0-34.9) (Chronic) Anxiety (Chronic) Right leg DVT (Chronic) Medical History: Medical History (This Medical Record has been edited. Action required.) Asthma with COPD with exacerbation (Chronic) J44.1, J45.901 Respiratory failure, yhqjs-te-tnnehgg (Chronic) J96.20 COPD exacerbation (Chronic) J44.1 Stage III chronic kidney disease (Chronic) N18.3 GERD (gastroesophageal reflux disease) (Chronic) K21.9 Venous insufficiency (Chronic) COPD (chronic obstructive pulmonary disease) (Chronic) J44.9 Obesity (BMI 30.0-34.9) (Chronic) E66.9 Anxiety (Chronic) F41.9 Right leg DVT (Chronic) I82.401 Allergies chlordiazepoxide HCl [From Librium] Allergy (Verified 09/06/19 13:24) Anaphylaxis Penicillins Allergy (Verified 09/06/19 13:24) Anaphylaxis Home Medications: Ambulatory Orders Medication Instructions Recorded Fluticasone/Salmeterol [Advair 1 ea IH BID 04/22/19 250-50 Diskus] albuterol sulfate 90 mcg/actuation 2 puff INHALATION Q4H PRN g 07/04/19 aerosol inhaler Ipratropium/Albuterol Sulfate 1 amp INHALATION Q4H 07/22/19 [Iprat-Albut 0.5-3(2.5) mg/3 ml] Apixaban [Eliquis] 5 mg PO BID #60 tab 09/12/19 Apixaban [Eliquis] 10 mg PO BID #14 tab 09/12/19 Surgical History: Surgical History (This Medical Record has been edited. Action required.) History of breast surgery Z98.890 History of uterine suspension procedure Z98.890, Z87.448 Surgical History: noncontributory, - - Uterine suspension; benign lump was removed from right breast. 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 Action required.) Other Diabetes Heart disease History Items: Heart Disease Paternal Family History: Family History (This Medical Record has been edited. Action required.) Other Diabetes Heart disease History Items: Heart Disease Review of Systems Comment: See HPI Objective: All imaging was personally reviewed. CT of the chest does have significant motion artifact, but lesions of interest were noted. Patient has been ordered pulmonary function testing as an outpatient, but has never completed testing. Patient did have an echocardiogram completed in September 2018 showing an EF of 65% with mitral annular calcification. Unable to determine pulmonary artery pressures at that time. - Physical Exam Vitals/I&O's: Vital Signs Temp Pulse Resp BP Pulse Ox 36.4 C L 83 24 H 162/77 H 94 09/13/19 09:51 09/13/19 09:51 09/13/19 09:51 09/13/19 09:51 09/13/19 09:51 Oxygen Flow Rate (L/min) 4 Oxygen Delivery Method Nasal Cannula Weight: 86.2 kg Body Mass Index (BMI) 28.8 Intake and Output for Last 24 Hours 09/11/19 09/12/19 09/13/19 23:59 23:59 23:59 Intake Total 3882 / 3882 1826 / 1826 629 / 629 Output Total 2650 / 2650 1350 / 1350 175 / 175 Balance 1232 / 1232 476 / 476 454 / 454 General: Alert, Cooperative, - - Very anxious and impulsive on my evaluation. Obese. HEENT: Atraumatic, PERRLA, EOMI, Normocephalic, - - Slight scleral injection without icterus Oral: Moist Mucosa, No Gingival or Mucosal Lesions/ Ulcerations Neck: Supple, No Nodes, Trachea Midline, JVD, Right Lungs: No rhonchi, No rales, Diminished, Wheezes, - - Symmetric expansion. Poor inspiratory effort. Cardiovascular: Regular rate, Regular Rhythm, Normal S1, Normal S2, No murmurs, No rub noted, No Gallop Abdomen: Bowel Sounds Present, Soft, Non Tender, Non-Distended, Obese Extremities: No clubbing, No cyanosis, No edema, Capillary Refill Less than 3 Seconds Skin: No rashes, No breakdown Musculoskeletal: No Tenderness to Palpation of Joints or Extremities Lymphatic: No Cervical, Supraclavicular, or Inguinal Adenopathy Neurological: Cranial nerves II-XII grossly intact, Neuro grossly intact, Motor Exam 5/5 strength throughout Psych/Mental Status: Anxious, Impulsive Laboratory Results 09/13/19 06:47: Sodium 139, Potassium 4.3, Chloride 109 H, Carbon Dioxide 23.0, Anion Gap 7, BUN 15, Creatinine 1.27 H, Estim Creat Clear Calc 35.64, Est GFR (MDRD) Af Amer 52 L, Est GFR (MDRD) Non-Af 43 L, BUN/Creatinine Ratio 11.8, Glucose 85, Calcium 8.2 L Current Medications Acetaminophen (Tylenol) 650 mg PO Q6H PRN PRN PRN Reason: Pain Score 1-3/Temp > 100.7 F Last Admin: 09/12/19 05:47 Dose: 650 mg Documented by: Albuterol/Ipratropium (Duoneb) 3 ml INHALATION Q4HWA.RT [facility] Last Admin: 09/13/19 06:32 Dose: 3 ml Documented by: Aspirin (Aspirin, Baby) 81 mg PO DAILY@0800 [facility] Last Admin: 09/13/19 08:21 Dose: 81 mg Documented by: Atorvastatin Calcium (Lipitor) 40 mg PO QHS [facility] Last Admin: 09/12/19 21:05 Dose: 40 mg Documented by: Budesonide (Pulmicort Aerosol) 0.5 mg INHALATION Q12H.RT [facility] Last Admin: 09/13/19 06:32 Dose: 0.5 mg Documented by: Buspirone HCl (Buspar) 5 mg PO BID [facility] Last Admin: 09/13/19 09:54 Dose: 5 mg Documented by: Carvedilol (Coreg) 12.5 mg PO BID [facility] Last Admin: 09/13/19 09:54 Dose: 12.5 mg Documented by: Enoxaparin Sodium (Lovenox) 80 mg SC DAILY [facility] Last Admin: 09/13/19 09:54 Dose: 80 mg Documented by: Sodium Chloride () 1,000 mls @ 60 mls/hr IV .[id number] [facility] Last Admin: 09/13/19 09:53 Dose: 60 mls/hr Documented by: Sodium Chloride () 250 mls @ 15 mls/hr IV .[id number] PRN PRN Reason: Saline Flush Sodium Chloride () 250 mls @ 15 mls/hr IV .[id number] PRN PRN Reason: Additional IVPB Infusion Labetalol HCl (Trandate) 10 mg IV Q4H PRN PRN PRN Reason: sys>150 DIAST>85 Last Admin: 09/13/19 08:06 Dose: 10 mg Documented by: Lorazepam (Ativan) 0.5 mg IV Q6H PRN PRN PRN Reason: ANXIETY Last Admin: 09/11/19 15:34 Dose: 0.5 mg Documented by: Morphine Sulfate () 2 mg IV Q3H PRN PRN PRN Reason: Pain Score 6-10/10 Ondansetron HCl (Zofran) 4 mg IV Q8H PRN PRN PRN Reason: NAUSEA/VOMITING Quetiapine Fumarate (Seroquel) 25 mg PO DAILY@1999 [facility] Last Admin: 09/12/19 21:05 Dose: 25 mg Documented by: Sodium Chloride () 10 - 40 ml IV UD PRN PRN Reason: SALINE FLUSH Last Admin: 09/11/19 18:40 Dose: 10 ml Documented by: Throat Lozenges (Cepacol Sore Throat Lozenge) 1 lozenge MUCOUS MEM Q4H PRN PRN PRN Reason: Sore throat Last Admin: 09/12/19 17:04 Dose: 1 lozenge Documented by: Clinical Impression(s) from Imaging Studies Chest X-Ray 09/10/19 15:15 IMPRESSION: Stable chest with no acute superimposed finding. Electronically Signed: Jeffry Arenas MD at 15:31 EST , Service support , Chest CTA 09/11/19 16:42 IMPRESSION: 1. Small nonocclusive intraluminal blood clots in the secondary pulmonary arterial branches of the right lower lobe 2. A small nonocclusive clot is also present at the origin of the right upper lobe superior pulmonary artery.There is no demonstrated pulmonary embolism. 3. Small amount of consolidation in the lingula of the left upper lobe. N.B. : The above information has been verbally conveyed by Felix Baer MD to Nick Bowman RN, on 09/11/2019 18:30:51 (ET). Electronically Signed: Felix Baer MD at 18:31 EST , Service support , ADDENDUM: 09/11/19 1838 IMPRESSION: 1. Small nonocclusive intraluminal blood clots in the secondary pulmonary arterial branches of the right lower lobe 2. A small nonocclusive clot is also present at the origin of the right upper lobe superior pulmonary artery.There is no demonstrated pulmonary embolism. 3. Small amount of consolidation in the lingula of the left upper lobe. N.B. : The above information has been verbally conveyed by Felix Baer MD to Nick Bowman RN, on 09/11/2019 18:30:51 (ET). Electronically Signed: Felix Baer MD at 18:31 EST , Service support , Assessment/Plan RECOMMENDATIONS: 1. Lifelong anticoagulation 2. Appreciate cardiology evaluation 3. Wean oxygen as tolerated. Walking oximetry prior to discharge 4. Agree with anxiolytic medications 5. BiPAP rescue if patient agreeable IMPRESSIONS: 1. Acute on chronic hypoxic respiratory failure secondary to acute DVT/PE Patient with documented lower extremity edema and nonocclusive pulmonary artery filling defects. Clinical suspicion for multiple PEs over the last week or so. This would explain patient's pleuritic type chest pain. Patient is highly resistant to noninvasive therapy, but BiPAP may be helpful given patient's accessory muscle use noted. How much of this is related to patient's anxiety is unclear at this time. Would defer to cardiology on repeating echocardiogram as this will likely not change long-term pulmonary management as patient has a history of DVT in the past and would therefore qualify for lifelong anticoagulation. Agree with Marlen on discharge. Patient will need a walking oximetry prior to discharge. Stressed to the patient the importance of using nebulized medications. No PFTs to refer to at this time. Patient could be placed on prednisone therapy (40 mg daily) to help with pleuritic chest pain and potential asthmatic component. This would have to be balanced with the increased risk of delirium. Defer to primary service. 2. Anxiety Patient does have a previous psychiatric history. Increased anxiety will lead to poor pulmonary mechanics, especially in the setting of obstructive lung disease. Agree with initiation of Seroquel therapy. This can likely be increased from my perspective. Defer to hospitalist. 3. CKD stage III/GERD/advanced age/venous insufficiency Complicates care, management, recovery and prognosis. Okay to continue with baseline medications from my perspective. Code Visit Inpatient E&M: 56683 Init Hosp L3
--- NOTE | 2019-09-13 10:59 | DCINST_ITS ---
- Discharge Diagnoses Reason(s) for Visit for Discharge Instructions: Chest pain You will use the following diet at home:: Cardiac Your food should be the consistency of: Regular Your liquids should be the consistency of: Regular/Thin Discharge Activity: Return to Normal Activity Additional Instructions: Continue to take all your medications as prescribed. Continue to use your oxygen and incentive spirometer. Follow-up with your primary care doctor within 1-2 weeks as well as your lung doctors. Allergies/Adverse Reactions: Allergies chlordiazepoxide HCl [From Librium] Allergy (Verified 09/06/19 13:24) Anaphylaxis Penicillins Allergy (Verified 09/06/19 13:24) Anaphylaxis Medications to take at Discharge Fluticasone/Salmeterol [Advair 250-50 Diskus] 1 ea IH BID 04/22/19 albuterol sulfate 90 mcg/actuation aerosol inhaler 2 puff INHALATION Q4H PRN g 07/04/19 Ipratropium/Albuterol Sulfate [Iprat-Albut 0.5-3(2.5) mg/3 ml] 1 amp INHALATION Q4H 07/22/19 Apixaban [Eliquis] 5 mg PO BID #60 tab 09/12/19 Apixaban [Eliquis] 10 mg PO BID #14 tab 09/12/19 Acetaminophen [Tylenol Tablet] 650 mg PO Q6H PRN PRN tab 09/13/19 Aspirin [Aspirin, Baby] 81 mg PO DAILY@0800 #30 tab.chew 09/13/19 Atorvastatin Calcium [Lipitor] 40 mg PO QHS #30 tab 09/13/19 Budesonide Aerosol [Pulmicort Respules] 0.5 mg INHALATION Q12H.RT #60 ampul.neb. 09/13/19 Carvedilol [Coreg (Beta So)] 25 mg PO BID #60 tab 09/13/19 Quetiapine Fumarate [Seroquel] 25 mg PO DAILY@1999 #30 tab 09/13/19 busPIRone [Buspar] 5 mg PO BID #60 tab 09/13/19 The following prescriptions were given: Aspirin [Aspirin, Baby] 81 mg PO DAILY@0800 #30 tab.chew Transmission Status: Sent to [address] busPIRone [Buspar] 5 mg PO BID #60 tab Transmission Status: Pending to [address] Carvedilol [Coreg (Beta So)] 25 mg PO BID #60 tab Transmission Status: Pending to [facility] Apixaban [Eliquis] 5 mg PO BID #60 tab Transmission Status: Received by [facility] Apixaban [Eliquis] 10 mg PO BID #14 tab Transmission Status: Received by [facility] Atorvastatin Calcium [Lipitor] 40 mg PO QHS #30 tab Transmission Status: Pending to [facility] Budesonide Aerosol [Pulmicort Respules] 0.5 mg INHALATION Q12H.RT #60 ampul.neb. Transmission Status: Pending to [facility] Quetiapine Fumarate [Seroquel] 25 mg PO DAILY@1999 #30 tab Transmission Status: Pending to [facility] Primary Care Physician: Hardik Soto MD [Primary Care Provider] - Please follow up with your Primary Care Physician in: within 1-2 weeks Test Results: Test results from this visit will be discussed in further detail at your follow- up appointment, if applicable. Please Follow Up With: Srinivasa Jason MD When: within 1-2 weeks Proposed Discharge Date: 09/13/19
--- NOTE | 2019-09-13 11:15 | CASEMGMT ---
SW called [employer] coverage line and let them know patient is going to be discharged today. They will notify her service providers. Plan: Home with resumption of [employer] services. Patient refused correction and home health. Ame RICCI MSW
--- NOTE | 2019-09-13 12:54 | PCM.DC.SUM ---
Discharge Date and Diagnosis Date of Admission: 09/10/19 Date of Discharge: 09/13/19 - Secondary Discharge Diagnosis Chronic Problems (This Medical Record has been edited. Action required.) Asthma with COPD with exacerbation (Chronic) Respiratory failure, [id number] (Chronic) COPD exacerbation (Chronic) Stage III chronic kidney disease (Chronic) GERD (gastroesophageal reflux disease) (Chronic) Venous insufficiency (Chronic) COPD (chronic obstructive pulmonary disease) (Chronic) Obesity (BMI 30.0-34.9) (Chronic) Anxiety (Chronic) Right leg DVT (Chronic) Hospital Course and Treatment Operations: None Summary of Care Provided: The patient is a 79 year old F [] - Physical Exam Vitals/I&O's: Vital Signs Temp Pulse Resp BP Pulse Ox 97.6 F L 73 24 H 160/78 H 94 09/13/19 11:07 09/13/19 11:07 09/13/19 11:07 09/13/19 11:07 09/13/19 11:07 Oxygen Flow Rate (L/min) 4 Oxygen Delivery Method Nasal Cannula Weight: 86.2 kg Body Mass Index (BMI) 28.8 Intake and Output for Last 24 Hours 09/11/19 09/12/19 09/13/19 23:59 23:59 23:59 Intake Total 3882 / 3882 1826 / 1826 989 / 989 Output Total 2650 / 2650 1350 / 1350 450 / 450 Balance 1232 / 1232 476 / 476 539 / 539 Laboratory Results 09/13/19 06:47: Sodium 139, Potassium 4.3, Chloride 109 H, Carbon Dioxide 23.0, Anion Gap 7, BUN 15, Creatinine 1.27 H, Estim Creat Clear Calc 35.64, Est GFR (MDRD) Af Amer 52 L, Est GFR (MDRD) Non-Af 43 L, BUN/Creatinine Ratio 11.8, Glucose 85, Calcium 8.2 L Current Medications Acetaminophen (Tylenol) 650 mg PO Q6H PRN PRN PRN Reason: Pain Score 1-3/Temp > 100.7 F Last Admin: 09/12/19 05:47 Dose: 650 mg Documented by: Albuterol/Ipratropium (Duoneb) 3 ml INHALATION Q4HWA.RT [facility] Last Admin: 09/13/19 11:18 Dose: 3 ml Documented by: Aspirin (Aspirin, Baby) 81 mg PO DAILY@0800 [facility] Last Admin: 09/13/19 08:21 Dose: 81 mg Documented by: Atorvastatin Calcium (Lipitor) 40 mg PO QHS [facility] Last Admin: 09/12/19 21:05 Dose: 40 mg Documented by: Budesonide (Pulmicort Aerosol) 0.5 mg INHALATION Q12H.RT [facility] Last Admin: 09/13/19 06:32 Dose: 0.5 mg Documented by: Buspirone HCl (Buspar) 5 mg PO BID [facility] Last Admin: 09/13/19 09:54 Dose: 5 mg Documented by: Carvedilol (Coreg) 25 mg PO BID [facility] Enoxaparin Sodium (Lovenox) 80 mg SC DAILY [facility] Last Admin: 09/13/19 09:54 Dose: 80 mg Documented by: Sodium Chloride () 250 mls @ 15 mls/hr IV .[id number] PRN PRN Reason: Saline Flush Sodium Chloride () 250 mls @ 15 mls/hr IV .[id number] PRN PRN Reason: Additional IVPB Infusion Labetalol HCl (Trandate) 10 mg IV Q4H PRN PRN PRN Reason: sys>150 DIAST>85 Last Admin: 09/13/19 08:06 Dose: 10 mg Documented by: Lorazepam (Ativan) 0.5 mg IV Q6H PRN PRN PRN Reason: ANXIETY Last Admin: 09/11/19 15:34 Dose: 0.5 mg Documented by: Morphine Sulfate () 2 mg IV Q3H PRN PRN PRN Reason: Pain Score 6-10/10 Ondansetron HCl (Zofran) 4 mg IV Q8H PRN PRN PRN Reason: NAUSEA/VOMITING Quetiapine Fumarate (Seroquel) 25 mg PO DAILY@2000 [facility] Last Admin: 09/12/19 21:05 Dose: 25 mg Documented by: Sodium Chloride () 10 - 40 ml IV UD PRN PRN Reason: SALINE FLUSH Last Admin: 09/11/19 18:40 Dose: 10 ml Documented by: Throat Lozenges (Cepacol Sore Throat Lozenge) 1 lozenge MUCOUS MEM Q4H PRN PRN PRN Reason: Sore throat Last Admin: 09/13/19 10:17 Dose: 1 lozenge Documented by: Discharge Activity: Return to Normal Activity Home Medications: Medications to take at Discharge Fluticasone/Salmeterol [Advair 250-50 Diskus] 1 ea IH BID 04/22/19 albuterol sulfate 90 mcg/actuation aerosol inhaler 2 puff INHALATION Q4H PRN g 07/04/19 Ipratropium/Albuterol Sulfate [Iprat-Albut 0.5-3(2.5) mg/3 ml] 1 amp INHALATION Q4H 07/22/19 Apixaban [Eliquis] 5 mg PO BID #60 tab 09/12/19 Apixaban [Eliquis] 10 mg PO BID #14 tab 09/12/19 Acetaminophen [Tylenol Tablet] 650 mg PO Q6H PRN PRN tab 09/13/19 Aspirin [Aspirin, Baby] 81 mg PO DAILY@0800 #30 tab.chew 09/13/19 Atorvastatin Calcium [Lipitor] 40 mg PO QHS #30 tab 09/13/19 Budesonide Aerosol [Pulmicort Respules] 0.5 mg INHALATION Q12H.RT #60 ampul.neb. 09/13/19 Carvedilol [Coreg (Beta So)] 25 mg PO BID #60 tab 09/13/19 Quetiapine Fumarate [Seroquel] 25 mg PO DAILY@2000 #30 tab 09/13/19 busPIRone [Buspar] 5 mg PO BID #60 tab 09/13/19 Following Prescrptions Were Given to Patient: Aspirin [Aspirin, Baby] 81 mg PO DAILY@0800 #30 tab.chew Transmission Status: Sent to [address] busPIRone [Buspar] 5 mg PO BID #60 tab Transmission Status: Pending to [address] Carvedilol [Coreg (Beta So)] 25 mg PO BID #60 tab Transmission Status: Pending to [address] Apixaban [Eliquis] 5 mg PO BID #60 tab Transmission Status: Received by [address] Apixaban [Eliquis] 10 mg PO BID #14 tab Transmission Status: Received by [address] Atorvastatin Calcium [Lipitor] 40 mg PO QHS #30 tab Transmission Status: Pending to [facility] Budesonide Aerosol [Pulmicort Respules] 0.5 mg INHALATION Q12H.RT #60 ampul.neb. Transmission Status: Pending to [facility] Quetiapine Fumarate [Seroquel] 25 mg PO DAILY@2000 #30 tab Transmission Status: Pending to [facility]TE[facility] Primary Care Physician: Hardik Soto MD [Primary Care Provider] - Please follow up with your Primary Care Physician in: within 1-2 weeks Please Follow Up With: Srinivasa Jason MD When: within 1-2 weeks Medical Necessity - Tobacco Use Smoking Status: Former smoker Tobacco Use: Cigarettes
--- NOTE | 2019-09-13 15:17 | PHA.DC.MC ---
Pharmacy Service has performed discharge medication reconciliation and counseling for this patient. 1. APIXABAN 10MG PO BID X 7 DAYS THEN 5MG PO BID 2. ASPIRIN 81MG PO DIALY 3. ATORVASTATIN 40MG PO QHS 4. BUDESONIDE 0.5MG INHALATION Q12H 4. BUSPIRONE 5MG PO BID 5. CARVEDILOL 25MG PO BID 6. QUETIAPINE 25MG PO DAILY@1999 The patient's discharge medication list was reviewed for discrepancies and discrepancies were resolved. Home Medications Fluticasone/Salmeterol [Advair 250-50 Diskus] 1 ea IH BID 04/22/19 albuterol sulfate 90 mcg/actuation aerosol inhaler 2 puff INHALATION Q4H PRN g 07/04/19 Ipratropium/Albuterol Sulfate [Iprat-Albut 0.5-3(2.5) mg/3 ml] 1 amp INHALATION Q4H 07/22/19 Apixaban [Eliquis] 5 mg PO BID #60 tab 09/12/19 Apixaban [Eliquis] 10 mg PO BID #14 tab 09/12/19 Acetaminophen [Tylenol Tablet] 650 mg PO Q6H PRN PRN tab 09/13/19 Aspirin [Aspirin, Baby] 81 mg PO DAILY@0800 #30 tab.chew 09/13/19 Atorvastatin Calcium [Lipitor] 40 mg PO QHS #30 tab 09/13/19 Budesonide Aerosol [Pulmicort Respules] 0.5 mg INHALATION Q12H.RT #60 ampul.neb. 09/13/19 Carvedilol [Coreg (Beta So)] 25 mg PO BID #60 tab 09/13/19 Quetiapine Fumarate [Seroquel] 25 mg PO DAILY@1999 #30 tab 09/13/19 busPIRone [Buspar] 5 mg PO BID #60 tab 09/13/19 The patient was counseled on the following discharge medications and changes in medications for homegoing were reviewed. The Reason for Use, instructions for use, and potential side effects were reviewed for all new medications. The patient's questions regarding all of their medications were answered. The patient was drowsy during our conversation and demonstrated some understanding but would benefit from further education and reinforcement.
--- NOTE | 2019-09-13 16:42 | NURSING ---
This RN called the pt's son Ruddy to let him know that the pt will be discharged if able to void [facility] and will call him with updates once she is allowed to be discharged.
--- NOTE | 2019-09-13 18:20 | PN_ITS ---
Reason for Visit: Follow-up on PE Subjective: Patient was seen and examined. She complains of SOB and increased work of breathing whilst anxious. She refused to be discharged to a fdc. Has possible at home for care. Patient was going to be discharged when she went into urinary retention. It was after her Gutiérrez catheter was discontinued. She was straight cathed. Started on Flomax. Objective: Physical exam: General: Alert, Oriented x3, Cooperative, No apparent distress, - - on 4L oxygen HEENT: Atraumatic, PERRLA, EOMI, Normocephalic Oral: Moist Mucosa Neck: Supple Lungs: Diminished Cardiovascular: Regular rate, Regular Rhythm, Normal S1, Normal S2, No murmurs Abdomen: Bowel Sounds Present, Soft, Non Tender, Non-Distended, No Hepato- splenomegaly Extremities: Edema - +1 bilateral pedal edema Skin: No rashes, No breakdown Musculoskeletal: No Tenderness to Palpation of Joints or Extremities Lymphatic: No Cervical, Supraclavicular, or Inguinal Adenopathy Neurological: Cranial nerves II-XII grossly intact, Neuro grossly intact Psych/Mental Status: Normal Affect, Appropriate Vitals/I&O's: Vital Signs Temp Pulse Resp BP Pulse Ox 97.7 F L 72 24 H 158/81 H 94 09/13/19 17:14 09/13/19 17:14 09/13/19 17:14 09/13/19 17:14 09/13/19 17:14 Oxygen Flow Rate (L/min) 4 Oxygen Delivery Method Nasal Cannula Weight: 86.2 kg Body Mass Index (BMI) 28.8 Intake and Output for Last 24 Hours 09/11/19 09/12/19 09/13/19 23:59 23:59 23:59 Intake Total 3882 / 3882 1826 / 1826 1234 / 1234 Output Total 2650 / 2650 1350 / 1350 450 / 450 Balance 1232 / 1232 476 / 476 784 / 784 Laboratory Results 09/13/19 06:47: Sodium 139, Potassium 4.3, Chloride 109 H, Carbon Dioxide 23.0, Anion Gap 7, BUN 15, Creatinine 1.27 H, Estim Creat Clear Calc 35.64, Est GFR (MDRD) Af Amer 52 L, Est GFR (MDRD) Non-Af 43 L, BUN/Creatinine Ratio 11.8, Glucose 85, Calcium 8.2 L Current Medications Acetaminophen (Tylenol) 650 mg PO Q6H PRN PRN PRN Reason: Pain Score 1-3/Temp > 100.7 F Last Admin: 09/12/19 05:47 Dose: 650 mg Documented by: Albuterol/Ipratropium (Duoneb) 3 ml INHALATION Q4HWA.RT [facility] Last Admin: 09/13/19 15:00 Dose: Not Given Documented by: Aspirin (Aspirin, Baby) 81 mg PO DAILY@0800 [facility] Last Admin: 09/13/19 08:21 Dose: 81 mg Documented by: Atorvastatin Calcium (Lipitor) 40 mg PO QHS [facility] Last Admin: 09/12/19 21:05 Dose: 40 mg Documented by: Budesonide (Pulmicort Aerosol) 0.5 mg INHALATION Q12H.RT [facility] Last Admin: 09/13/19 06:32 Dose: 0.5 mg Documented by: Buspirone HCl (Buspar) 5 mg PO BID [facility] Last Admin: 09/13/19 09:54 Dose: 5 mg Documented by: Carvedilol (Coreg) 25 mg PO BID [facility] Enoxaparin Sodium (Lovenox) 80 mg SC DAILY [facility] Last Admin: 09/13/19 09:54 Dose: 80 mg Documented by: Sodium Chloride () 250 mls @ 15 mls/hr IV .[id number] PRN PRN Reason: Saline Flush Sodium Chloride () 250 mls @ 15 mls/hr IV .[id number] PRN PRN Reason: Additional IVPB Infusion Labetalol HCl (Trandate) 10 mg IV Q4H PRN PRN PRN Reason: sys>150 DIAST>85 Last Admin: 09/13/19 08:06 Dose: 10 mg Documented by: Lorazepam (Ativan) 0.5 mg IV Q6H PRN PRN PRN Reason: ANXIETY Last Admin: 09/11/19 15:34 Dose: 0.5 mg Documented by: Morphine Sulfate () 2 mg IV Q3H PRN PRN PRN Reason: Pain Score 6-10/10 Ondansetron HCl (Zofran) 4 mg IV Q8H PRN PRN PRN Reason: NAUSEA/VOMITING Quetiapine Fumarate (Seroquel) 25 mg PO DAILY@1999 [facility] Last Admin: 09/12/19 21:05 Dose: 25 mg Documented by: Sodium Chloride () 10 - 40 ml IV UD PRN PRN Reason: SALINE FLUSH Last Admin: 09/11/19 18:40 Dose: 10 ml Documented by: Throat Lozenges (Cepacol Sore Throat Lozenge) 1 lozenge MUCOUS MEM Q4H PRN PRN PRN Reason: Sore throat Last Admin: 09/13/19 10:17 Dose: 1 lozenge Documented by: STROKE Vital Signs/Narrative: Vital Signs Temp Pulse Resp BP Pulse Ox 09/13/19 17:14 97.7 F L 72 24 H 158/81 H 94 09/13/19 15:00 71 Medical Necessity - Tobacco Use Smoking Status: Former smoker Tobacco Use: Cigarettes Assessment/Plan 79 year old F with COPD with chronic respiratory on 4L, obesity, with h/o left leg DVT woke up with severe substernal chest pain that is described as pleuritic/sharp, located under his left breast. 1. Acute urine retension, s/p straight cath Will start on Flomax, urology consult in am 2. Chest pain, elevated troponin, no acute ST-T changes on EKG Troponins are trending down Cardiology consulted, nuclear stress test cancelled Continue on aspirin 81 mg p.o. daily, atorvastatin 40 mg p.o. daily 2. Acute PE/DVT, history of DVT On therapeutic Lovenox Will be discharged on Eliquis 3. COPD on chronic respiratory failure, stable On 4 L, no signs of exacerbation 4. GERD, on PPI 5. CKD stage III, stable 6. DVT PPx- on therapeutic Lovenox Code Visit Inpatient E&M: 84406 Subs Hosp L2
[2019-09-13] MEDS: Carvedilol 25 MG Tablet PO (20:55)
[2019-09-13] MEDS: QUEtiapine 25 MG Tablet PO (20:55)
[2019-09-13] MEDS: Atorvastatin Calcium 40 MG Tablet PO (20:55)
[2019-09-14] VITALS (11 sets, daily range): BP systolic 133–155; BP diastolic 60–69; PULSE 66–73; RESP 24–28; TEMP 36.7–36.8; O2SAT 92–95
--- NOTE | 2019-09-14 01:35 | NURSING ---
Pt bladder scanned at this time for 358ml per Dr Ernst. This RN and plug paster attempted to assist the Pt to the BSC or bedpan to try to void, and Pt became irritated and began screaming out. Pt refused to get up or roll in bed stating Just put the catheter back in. This RN told her that she wont be able to go home if she doesnt try to void and we replace the catheter. She then said Leave me alone, I will talk to my doctor about it in the morning. This Pt does not want to be woke up at all. Will try again later in the morning.
[2019-09-14] MEDS: Ipratropium/Albuterol Sulfate 3 ML AMPUL.NEB INHALATION ×3 (07:20→23:30)
--- NOTE | 2019-09-14 08:06 | CPS ---
upon handing pt aerosol rx and turning aerosol on pt then refused rx.
--- NOTE | 2019-09-14 09:39 | PCM.PN.PUL ---
Subjective: Patient continues to report significant shortness of breath on exertion with not improving respiratory status despite tolerating baseline nasal cannula oxygen without issues. Patient denies any productive cough. No fevers been noted overnight. Patient is stating that she will be going home despite reported limitations in activity. - Physical Exam Vitals/I&O's: Vital Signs Temp Pulse Resp BP Pulse Ox 36.7 C 70 26 H 153/69 H 93 09/14/19 03:00 09/14/19 07:21 09/14/19 03:00 09/14/19 03:00 09/14/19 07:20 Oxygen Flow Rate (L/min) 4 Oxygen Delivery Method Nasal Cannula Weight: 86.3 kg Body Mass Index (BMI) 28.8 Intake and Output for Last 24 Hours 09/12/19 09/13/19 09/14/19 23:59 23:59 23:59 Intake Total 1826 / 1826 1794 / 1794 Output Total 1350 / 1350 550 / 550 600 / 600 Balance 476 / 476 1244 / 1244 -600 / -600 General: Alert, Cooperative - Intermittently, - - Distress appears to be greater when being directly observed HEENT: Atraumatic, PERRLA, EOMI, Normocephalic, - - Slight scleral injection without icterus Oral: Moist Mucosa, No Gingival or Mucosal Lesions/ Ulcerations Neck: Supple, No Nodes, Trachea Midline, JVD, Right Lungs: No rhonchi, No wheeze, No rales, Diminished, - - Fair effort. Symmetric expansion. Cardiovascular: Regular rate, Regular Rhythm, Normal S1, Normal S2, No murmurs, No rub noted, No Gallop Abdomen: Bowel Sounds Present, Soft, Non Tender, Non-Distended, Obese Extremities: No clubbing, No cyanosis, Capillary Refill Less than 3 Seconds, Edema Skin: No rashes, No breakdown Musculoskeletal: No Tenderness to Palpation of Joints or Extremities Lymphatic: No Cervical, Supraclavicular, or Inguinal Adenopathy Neurological: Cranial nerves II-XII grossly intact, Neuro grossly intact, Motor Exam 5/5 strength throughout Psych/Mental Status: Anxious, Impulsive, Restless Current Medications Acetaminophen (Tylenol) 650 mg PO Q6H PRN PRN PRN Reason: Pain Score 1-3/Temp > 100.7 F Last Admin: 09/12/19 05:47 Dose: 650 mg Documented by: Albuterol/Ipratropium (Duoneb) 3 ml INHALATION Q4HWA.RT [facility] Last Admin: 09/14/19 07:20 Dose: 3 ml Documented by: Aspirin (Aspirin, Baby) 81 mg PO DAILY@0800 [facility] Last Admin: 09/13/19 08:21 Dose: 81 mg Documented by: Atorvastatin Calcium (Lipitor) 40 mg PO QHS [facility] Last Admin: 09/13/19 20:55 Dose: 40 mg Documented by: Budesonide (Pulmicort Aerosol) 0.5 mg INHALATION Q12H.RT [facility] Last Admin: 09/13/19 19:02 Dose: Not Given Documented by: Buspirone HCl (Buspar) 5 mg PO BID [facility] Last Admin: 09/13/19 20:55 Dose: 5 mg Documented by: Carvedilol (Coreg) 25 mg PO BID [facility] Last Admin: 09/13/19 20:55 Dose: 25 mg Documented by: Enoxaparin Sodium (Lovenox) 80 mg SC DAILY [facility] Last Admin: 09/13/19 09:54 Dose: 80 mg Documented by: Sodium Chloride () 250 mls @ 15 mls/hr IV .[id number] PRN PRN Reason: Saline Flush Sodium Chloride () 250 mls @ 15 mls/hr IV .[id number] PRN PRN Reason: Additional IVPB Infusion Labetalol HCl (Trandate) 10 mg IV Q4H PRN PRN PRN Reason: sys>150 DIAST>85 Last Admin: 09/13/19 08:06 Dose: 10 mg Documented by: Lorazepam (Ativan) 0.5 mg IV Q6H PRN PRN PRN Reason: ANXIETY Last Admin: 09/11/19 15:34 Dose: 0.5 mg Documented by: Morphine Sulfate () 2 mg IV Q3H PRN PRN PRN Reason: Pain Score 6-10/10 Ondansetron HCl (Zofran) 4 mg IV Q8H PRN PRN PRN Reason: NAUSEA/VOMITING Quetiapine Fumarate (Seroquel) 25 mg PO DAILY@2000 [facility] Last Admin: 09/13/19 20:55 Dose: 25 mg Documented by: Sodium Chloride () 10 - 40 ml IV UD PRN PRN Reason: SALINE FLUSH Last Admin: 09/11/19 18:40 Dose: 10 ml Documented by: Tamsulosin HCl (Flomax) 0.4 mg PO DAILY@1730 [facility] Throat Lozenges (Cepacol Sore Throat Lozenge) 1 lozenge MUCOUS MEM Q4H PRN PRN PRN Reason: Sore throat Last Admin: 09/13/19 10:17 Dose: 1 lozenge Documented by: Medical Necessity - Tobacco Use Smoking Status: Former smoker Tobacco Use: Cigarettes Assessment/Plan RECOMMENDATIONS: 1. Lifelong anticoagulation 2. Appreciate cardiology evaluation 3. Wean oxygen as tolerated. Walking oximetry prior to discharge 4. Agree with anxiolytic medications 5. BiPAP rescue if patient agreeable 6. Patient likely needs ECF short-term at discharge from my perspective IMPRESSIONS: 1. Acute on chronic hypoxic respiratory failure secondary to acute DVT/PE Patient with documented lower extremity edema and nonocclusive pulmonary artery filling defects. Clinical suspicion for multiple PEs over the last week or so. This would explain patient's pleuritic type chest pain. Patient is highly resistant to noninvasive therapy, but BiPAP may be helpful given patient's accessory muscle use noted. How much of this is related to patient's anxiety is unclear at this time. Objectively, patient appears to be stable from a respiratory standpoint. Would expect improvement in oxygenation over the next 48 to 72 hours with anticoagulation. Would defer to cardiology, but patient does not have significant wheezing on exam despite reported dyspnea. This may exacerbate underlying SVT. Patient did not report significant pain on my evaluation, so steroids are likely not indicated systemically from my perspective. 2. Anxiety Patient does have a previous psychiatric history. Increased anxiety will lead to poor pulmonary mechanics, especially in the setting of obstructive lung disease. Agree with initiation of Seroquel therapy. This can likely be increased from my perspective. Defer to hospitalist. 3. CKD stage III/GERD/advanced age/venous insufficiency Complicates care, management, recovery and prognosis. Okay to continue with baseline medications from my perspective. Given comorbidities, patient likely would be best served by going to an ECF for rehabilitation prior to home, but defer to primary service. Code Visit Inpatient E&M: 59575 Subs Hosp L2
[2019-09-14] MEDS: Aspirin 81 MG TAB.CHEW PO (09:51)
[2019-09-14] MEDS: Carvedilol 25 MG Tablet PO ×2 (09:51→21:14)
[2019-09-14] MEDS: Enoxaparin 100 MG/ML Syringe 80 MG SC (09:51)
[2019-09-14] MEDS: busPIRone 5 MG Tablet PO ×2 (09:51→21:14)
[2019-09-14] MEDS: BENZOCAINE/MENTHOL 1 LOZENGE MUCOUS MEM ×2 (11:18→15:26)
--- NOTE | 2019-09-14 12:06 | PN_ITS ---
Reason for Visit: Follow-up on acute PE/DVT Subjective: Patient was seen and examined. Patient appears very weak. Resistant to care. Discussed her discharge again with her as she is at high risk for readmissions because she is going to fail at home being so tachypneic and weak. Patient agrees to going for skilled care in a assisted Objective: Physical exam: General: Alert, Oriented x3, Cooperative, No apparent distress, - - on 4L oxygen, appears very weak HEENT: Atraumatic, PERRLA, EOMI, Normocephalic Oral: Moist Mucosa Neck: Supple Lungs: Diminished Cardiovascular: Regular rate, Regular Rhythm, Normal S1, Normal S2, No murmurs Abdomen: Bowel Sounds Present, Soft, Non Tender, Non-Distended, No Hepato- splenomegaly Extremities: Edema - +1 bilateral pedal edema Skin: No rashes, No breakdown Musculoskeletal: No Tenderness to Palpation of Joints or Extremities Lymphatic: No Cervical, Supraclavicular, or Inguinal Adenopathy Neurological: Cranial nerves II-XII grossly intact, Neuro grossly intact Psych/Mental Status: Normal Affect, Appropriate Vitals/I&O's: Vital Signs Temp Pulse Resp BP Pulse Ox 98.3 F 66 24 H 143/62 H 94 09/14/19 09:34 09/14/19 11:08 09/14/19 09:34 09/14/19 09:34 09/14/19 09:34 Oxygen Flow Rate (L/min) 4 Oxygen Delivery Method Nasal Cannula Weight: 86.3 kg Body Mass Index (BMI) 28.8 Intake and Output for Last 24 Hours 09/12/19 09/13/19 09/14/19 23:59 23:59 23:59 Intake Total 1826 / 1826 1794 / 1794 Output Total 1350 / 1350 550 / 550 600 / 600 Balance 476 / 476 1244 / 1244 -600 / -600 Current Medications Acetaminophen (Tylenol) 650 mg PO Q6H PRN PRN PRN Reason: Pain Score 1-3/Temp > 100.7 F Last Admin: 09/12/19 05:47 Dose: 650 mg Documented by: Albuterol/Ipratropium (Duoneb) 3 ml INHALATION Q4HWA.RT [facility] Last Admin: 09/14/19 10:53 Dose: Not Given Documented by: Aspirin (Aspirin, Baby) 81 mg PO DAILY@0800 [facility] Last Admin: 09/14/19 09:51 Dose: 81 mg Documented by: Atorvastatin Calcium (Lipitor) 40 mg PO QHS [facility] Last Admin: 09/13/19 20:55 Dose: 40 mg Documented by: Budesonide (Pulmicort Aerosol) 0.5 mg INHALATION Q12H.RT [facility] Last Admin: 09/13/19 19:02 Dose: Not Given Documented by: Buspirone HCl (Buspar) 5 mg PO BID [facility] Last Admin: 09/14/19 09:51 Dose: 5 mg Documented by: Carvedilol (Coreg) 25 mg PO BID [facility] Last Admin: 09/14/19 09:51 Dose: 25 mg Documented by: Enoxaparin Sodium (Lovenox) 80 mg SC DAILY [facility] Last Admin: 09/14/19 09:51 Dose: 80 mg Documented by: Sodium Chloride () 250 mls @ 15 mls/hr IV .[id number] PRN PRN Reason: Saline Flush Sodium Chloride () 250 mls @ 15 mls/hr IV .[id number] PRN PRN Reason: Additional IVPB Infusion Labetalol HCl (Trandate) 10 mg IV Q4H PRN PRN PRN Reason: sys>150 DIAST>85 Last Admin: 09/13/19 08:06 Dose: 10 mg Documented by: Lorazepam (Ativan) 0.5 mg IV Q6H PRN PRN PRN Reason: ANXIETY Last Admin: 09/11/19 15:34 Dose: 0.5 mg Documented by: Morphine Sulfate () 2 mg IV Q3H PRN PRN PRN Reason: Pain Score 6-10/10 Ondansetron HCl (Zofran) 4 mg IV Q8H PRN PRN PRN Reason: NAUSEA/VOMITING Quetiapine Fumarate (Seroquel) 25 mg PO DAILY@2000 [facility] Last Admin: 09/13/19 20:55 Dose: 25 mg Documented by: Sodium Chloride () 10 - 40 ml IV UD PRN PRN Reason: SALINE FLUSH Last Admin: 09/11/19 18:40 Dose: 10 ml Documented by: Tamsulosin HCl (Flomax) 0.4 mg PO DAILY@1730 [facility] Throat Lozenges (Cepacol Sore Throat Lozenge) 1 lozenge MUCOUS MEM Q4H PRN PRN PRN Reason: Sore throat Last Admin: 09/14/19 11:18 Dose: 1 lozenge Documented by: STROKE Vital Signs/Narrative: Vital Signs Temp Pulse Resp BP Pulse Ox 09/14/19 11:08 66 09/14/19 09:34 98.3 F 73 24 H 143/62 H 94 Medical Necessity - Tobacco Use Smoking Status: Former smoker Tobacco Use: Cigarettes Assessment/Plan 79 year old F with COPD with chronic respiratory on 4L, obesity, with h/o left leg DVT woke up with severe substernal chest pain that is described as pleuritic /sharp, located under his left breast. 1. Acute urine retention, s/p straight cath Started on Flomax, patient is still retaining, Harris catheter will be placed Urology coverage not available in the hospital, will have to follow-up in the outpatient Urine looks cloudy when the catheter was passed. 2. Possible UTI, urine looked cloudy when the harris catheter was passed Check for UA, urine C & S Start on empiric Cipro as patient has penicillin allergy 3. Acute PE/DVT, history of DVT On therapeutic Lovenox, will switch to Eliquis 4. COPD on chronic respiratory failure, stable On 4 L, no signs of exacerbation 5. GERD, on PPI 6. CKD stage III, stable 7. Debility secondary to progressive respiratory insufficiency Patient will be discharged to senior care facility Discharge planning in the works 8. DVT PPx- on Eliquis Code Visit Inpatient E&M: 74066 Subs Hosp L2
--- NOTE | 2019-09-14 12:28 | NURSING ---
RN called and spoke with patient's son, Ruddy. Updated on patient condition and that patient has decided to go to a facility for rehab. Son agrees with same.
[2019-09-14 13:10] LABS: Mucous, Urine 0 SEEN /hpf (<or=2+)
[2019-09-14 13:13] LABS: Color, Urine Yellow (Yellow); Glucose, Dipstick Normal (Normal); Leukocyte Esterase-Dipstick 500 /ul (Negative); Nitrite-Dipstick Positive (Negative); Occult Blood-Urine 50 /ul (Negative); Protein-Dipstick 30 mg/dl (Negative); Specific Gravity, Urine 1.025 (1.002-1.030); Urine Bilirubin Dipstick Negative (Negative); Urine Clarity Sl. Cloudy (Clear); Urine Urobilinogen 1 mg/dl (Normal)
[2019-09-14 13:17] LABS: Ketone-Dipstick 150 mg/dl (Negative)
[2019-09-14 13:20] LABS: Bacteria 1+ /hpf (None Seen); Red Blood Cells-Urine 0-5 SEEN /hpf (0-5); Squamous Epithelial Cells - UA 0-5 SEEN /hpf (5-10); White Blood Cells 5-10 SEEN /hpf (0-5); Yeast-Urine RARE /hpf (None Seen)
[2019-09-14] MEDS: Tamsulosin HCl 0.4 MG Capsule PO (17:18)
--- NOTE | 2019-09-14 17:53 | CPS ---
pt called for aerosol rx. aerosol rx started but after approximately 30 seconds into rx pt refused to finish it. pt was encouraged but became agitated. rx terminated
[2019-09-14 18:40] LABS: Bedside Glucose 83 mg/dL (70-110)
[2019-09-14] MEDS: Atorvastatin Calcium 40 MG Tablet PO (21:14)
[2019-09-14] MEDS: APIXABAN 5 MG TABLET 10 MG PO (21:14)
[2019-09-14] MEDS: MELATONIN 3 MG TABLET PO (21:14)
[2019-09-14 22:06] LABS: Bedside Glucose 89 mg/dL (70-110)
[2019-09-14] MEDS: 0.9% Saline Lock 10 ML Syringe IV ×2 (22:59→23:13)
[2019-09-14] MEDS: Ciprofloxacin 400 MG/200 ML BAG 200 MG IV (23:13)
[2019-09-15] VITALS (17 sets, daily range): BP systolic 127–152; BP diastolic 53–64; PULSE 58–74; RESP 18–28; TEMP 36.5–36.8; O2SAT 87–96
[2019-09-15] MEDS: BENZOCAINE/MENTHOL 1 LOZENGE MUCOUS MEM (02:55)
[2019-09-15] MEDS: Acetaminophen 325 MG Tablet 650 MG PO (04:33)
[2019-09-15 06:12] LABS: Absolute Lymphocyte Count 0.81 X10^3/uL (0.83-4.51); Basophil# 0.02 X10^3/uL; Basophil% 0.3 % (0-1); Eosinophil# 0.33 X10^3/uL; Eosinophils% 4.3 % (0-5); Hematocrit 32.3 % (37-47); Hemoglobin 10.2 g/dL (12.0-15.0); Lymphocyte # 0.81 X10^3/ul (4.0); Lymphocyte % 10.4 % (19-41); Mean Corp Hgb Conc 31.6 g/dL (32-36); Mean Corpuscular Hgb 29.9 pg (27.0-32.0); Mean Corpuscular Volume 94.7 fL (81-99); Monocyte% 7.7 % (0-10); NRBC Flagged by Analyzer 0 % (0-5); Neutrophil # 5.97 X10^3/uL (2.7-7.7); Neutrophil % 76.9 % (47-70); Platelet Count 290 K/mm3 (150-450); RBC Distribution Width CV 13.4 % (11.6-14.6); RBC Distribution Width SD 46.6 fl (35.1-43.9); Red Blood Count 3.41 M/mm3 (4.2-5.4); White Blood Count 7.8 K/mm3 (4.4-11.0)
[2019-09-15 06:26] LABS: ALB/GLOB Ratio 0.6 RATIO (0.9-2.4); AST(SGOT) 15 U/L (15-37); Alanine Aminotransfer ALT/SGPT 10 U/L (13-56); Albumin, Serum 2.3 g/dL (3.2-5.0); Alkaline Phosphatase 65 U/L (45-117); Anion Gap 4 (5-15); BUN 27 mg/dL (7-18); BUN/Creat Ratio 22.1 RATIO (10-20); Calcium,Total 8.2 mg/dL (8.5-10.1); Chloride 106 mmol/L (98-107); Creatinine, Serum 1.22 mg/dL (0.55-1.02); EST Glomerular Filtration Rate 45 mL/min (>60); Est Glom Filt Rate - Afr Amer 55 mL/min (>60); Globulin 4.1 g/dL (2.2-4.2); Glucose 87 mg/dL (74-106); Potassium 3.9 mmol/L (3.5-5.1); Protein, Total 6.4 g/dL (6.4-8.2); Sodium Level 139 mmol/L (136-145)
[2019-09-15 07:00] LABS: Bedside Glucose 95 mg/dL (70-110)
[2019-09-15] MEDS: Budesonide Respules 0.5 MG/2 ML AMPUL.NEB. INHALATION ×2 (07:04→19:59)
[2019-09-15] MEDS: Ipratropium/Albuterol Sulfate 3 ML AMPUL.NEB INHALATION ×4 (07:04→22:30)
--- NOTE | 2019-09-15 08:10 | PCM.PN.HOSP ---
Reason for Visit: Follow-up on acute PE Subjective: Patient was seen and examined. She complains of progressive shortness of breath. Been coughing up blood-tinged sputum. Waiting on discharge to residential facility Objective: Physical exam: General: Alert, Oriented x3, Cooperative, No apparent distress, - - on 4L oxygen, appears very weak HEENT: Atraumatic, PERRLA, EOMI, Normocephalic Oral: Moist Mucosa Neck: Supple Lungs: Diminished Cardiovascular: Regular rate, Regular Rhythm, Normal S1, Normal S2, No murmurs Abdomen: Bowel Sounds Present, Soft, Non Tender, Non-Distended, No Hepato-splenomegaly Extremities: Edema - +1 bilateral pedal edema Skin: No rashes, No breakdown Musculoskeletal: No Tenderness to Palpation of Joints or Extremities Lymphatic: No Cervical, Supraclavicular, or Inguinal Adenopathy Neurological: Cranial nerves II-XII grossly intact, Neuro grossly intact Psych/Mental Status: Normal Affect, Appropriate Vitals/I&O's: Vital Signs Temp Pulse Resp BP Pulse Ox 97.9 F 63 28 H 127/57 H 93 09/15/19 03:15 09/15/19 03:15 09/15/19 07:43 09/15/19 03:15 09/15/19 07:43 Oxygen Flow Rate (L/min) 6 Oxygen Delivery Method Nasal Cannula Weight: 86.8 kg Body Mass Index (BMI) 28.8 Intake and Output for Last 24 Hours 09/13/19 09/14/19 09/15/19 23:59 23:59 23:59 Intake Total 1794 / 1794 240 / 240 260 / 260 Output Total 550 / 550 875 / 1000 325 / 325 Balance 1244 / 1244 -635 / -760 -65 / -65 Laboratory Results 09/14/19 12:15: Urine Color Yellow, Urine Clarity Sl. Cloudy, Urine pH 6.0, Ur Specific [place] 1.025, Urine Protein 30 H, Urine Glucose (UA) Normal, Urine Ketones 150 H, Urine Occult Blood 50 H, Urine Nitrite Positive H, Urine Bilirubin Negative, Urine Urobilinogen 1 H, Ur Leukocyte Esterase 500 H, Urine RBC 0-5 SEEN, Urine WBC 5-10 SEEN, Ur Squamous Epith Cells 0-5 SEEN, Urine Bacteria 1+, Urine Mucus 0 SEEN, Urine Yeast RARE 09/14/19 18:36: POC Glucose 83 09/14/19 21:21: POC Glucose 89 09/15/19 05:04: WBC 7.8, RBC 3.41 L, Hgb 10.2 L, Hct 32.3 L, MCV 94.7, MCH 29.9, MCHC 31.6 L, RDW Std Deviation 46.6 H, RDW Coeff of Bebeto 13.4, Plt Count 290, MPV 10.0, Immature Gran % (Auto) 0.400, Neut % (Auto) 76.9 H, Lymph % (Auto) 10.4 L, Garza % (Auto) 7.7, Eos % (Auto) 4.3, Baso % (Auto) 0.3, Absolute Neuts (auto) 6.0, Absolute Lymphs (auto) 0.81 L, Nucleated RBC % 0 09/15/19 05:04: Sodium 139, Potassium 3.9, Chloride 106, Carbon Dioxide 29.0, Anion Gap 4 L, BUN 27 H, Creatinine 1.22 H, Estim Creat Clear Calc 37.10, Est GFR (MDRD) Af Amer 55 L, Est GFR (MDRD) Non-Af 45 L, BUN/Creatinine Ratio 22.1 H, Glucose 87, Calcium 8.2 L, Total Bilirubin 0.60, AST 15, ALT 10 L, Alkaline Phosphatase 65, Total Protein 6.4, Albumin 2.3 L, Globulin 4.1, Albumin/Globulin Ratio 0.6 L 09/15/19 06:52: POC Glucose 95 Current Medications Acetaminophen (Tylenol) 650 mg PO Q6H PRN PRN PRN Reason: Pain Score 1-3/Temp > 100.7 F Last Admin: 09/15/19 04:33 Dose: 650 mg Documented by: Albuterol/Ipratropium (Duoneb) 3 ml INHALATION Q4HWA.RT [facility] Last Admin: 09/15/19 07:04 Dose: 3 ml Documented by: Apixaban (Eliquis) 10 mg PO BID [facility] Stop: 09/21/19 10:01 Last Admin: 09/14/19 21:14 Dose: 10 mg Documented by: Aspirin (Aspirin, Baby) 81 mg PO DAILY@0800 [facility] Last Admin: 09/14/19 09:51 Dose: 81 mg Documented by: Atorvastatin Calcium (Lipitor) 40 mg PO QHS [facility] Last Admin: 09/14/19 21:14 Dose: 40 mg Documented by: Budesonide (Pulmicort Aerosol) 0.5 mg INHALATION Q12H.RT [facility] Last Admin: 09/15/19 07:04 Dose: 0.5 mg Documented by: Buspirone HCl (Buspar) 5 mg PO BID [facility] Last Admin: 09/14/19 21:14 Dose: 5 mg Documented by: Carvedilol (Coreg) 25 mg PO BID [facility] Last Admin: 09/14/19 21:14 Dose: 25 mg Documented by: Sodium Chloride () 250 mls @ 15 mls/hr IV .[id number] PRN PRN Reason: Saline Flush Sodium Chloride () 250 mls @ 15 mls/hr IV .[id number] PRN PRN Reason: Additional IVPB Infusion Ciprofloxacin (Cipro) 400 mg in 200 mls @ 200 mls/hr IV Q12 [facility] Last Infusion: 09/15/19 00:28 Dose: Infused Documented by: Labetalol HCl (Trandate) 10 mg IV Q4H PRN PRN PRN Reason: sys>150 DIAST>85 Last Admin: 09/13/19 08:06 Dose: 10 mg Documented by: Lorazepam (Ativan) 0.5 mg IV Q6H PRN PRN PRN Reason: ANXIETY Last Admin: 09/11/19 15:34 Dose: 0.5 mg Documented by: Melatonin (Melatonin) 3 mg PO QHS [facility] Last Admin: 09/14/19 21:14 Dose: 3 mg Documented by: Morphine Sulfate () 2 mg IV Q3H PRN PRN PRN Reason: Pain Score 6-10/10 Sodium Chloride () 10 - 40 ml IV UD PRN PRN Reason: SALINE FLUSH Last Admin: 09/14/19 23:13 Dose: 10 ml Documented by: Tamsulosin HCl (Flomax) 0.4 mg PO DAILY@1730 [facility] Last Admin: 09/14/19 17:18 Dose: 0.4 mg Documented by: Throat Lozenges (Cepacol Sore Throat Lozenge) 1 lozenge MUCOUS MEM Q4H PRN PRN PRN Reason: Sore throat Last Admin: 09/15/19 02:55 Dose: 1 lozenge Documented by: STROKE Vital Signs/Narrative: Vital Signs Resp Pulse Ox 09/15/19 07:43 28 H 93 09/15/19 07:40 87 Medical Necessity - Tobacco Use Smoking Status: Former smoker Tobacco Use: Cigarettes Assessment/Plan 79 year old F with COPD with chronic respiratory on 4L, obesity, with h/o left leg DVT woke up with severe substernal chest pain that is described as pleuritic/sharp, located under his left breast. 1. Acute urine retention, s/p straight cath Started on Flomax, patient is still retaining, Harris catheter will be placed Urology coverage not available in the hospital, will have to follow-up in the outpatient Urine looks cloudy when the catheter was passed. 2. Possible GNR UTI, urine looked cloudy when the harris catheter was passed H/o penicillin allergy, on empiric Cipro(day 2) 3. Acute PE/DVT, history of DVT On Eliquis 4. COPD on chronic respiratory failure, stable On 4 L, no signs of exacerbation 5. GERD, on PPI 6. CKD stage III, stable 7. Debility secondary to progressive respiratory insufficiency Patient will be discharged to residential facility Discharge planning in the works 8. DVT PPx- on Eliquis Code Visit Inpatient E&M: [id number] Subs Hosp L2
--- NOTE | 2019-09-15 08:26 | CPS ---
Pt was encouraged to take aerosol rx's. Pt did not want to finish pulmicort rx once started. Pt was encouraged to take all of rx and explained the importance/benefits of the aerosols. Pt refused to continue with remainder of rx. Pulmicort rx stopped after approximately 1 min of starting rx.
[2019-09-15] MEDS: Carvedilol 25 MG Tablet PO ×2 (09:07→21:49)
[2019-09-15] MEDS: Aspirin 81 MG TAB.CHEW PO (09:07)
[2019-09-15] MEDS: APIXABAN 5 MG TABLET 10 MG PO ×2 (09:07→21:49)
[2019-09-15] MEDS: Ciprofloxacin 400 MG/200 ML BAG 200 MG IV ×2 (09:07→21:53)
[2019-09-15] MEDS: busPIRone 5 MG Tablet PO ×2 (09:07→21:49)
[2019-09-15] MEDS: 0.9% Saline Lock 10 ML Syringe IV ×3 (09:08→21:58)
--- NOTE | 2019-09-15 10:19 | PN_ITS ---
Subjective: Patient seen earlier in the day. Patient reported continued shortness of breath overnight. Patient has had to go up to 6 L nasal cannula. Patient reporting that she is too short of breath to use the incentive spirometer or get out of bed. Patient denies any change in cough, chest pain, kala pain, nausea or vomiting. No bleeding has been reported. - Physical Exam Vitals/I&O's: Vital Signs Temp Pulse Resp BP Pulse Ox 36.8 C 67 26 H 152/64 H 96 09/15/19 09:05 09/15/19 09:05 09/15/19 09:05 09/15/19 09:05 09/15/19 09:05 Oxygen Flow Rate (L/min) 6 Oxygen Delivery Method Nasal Cannula Weight: 86.8 kg Body Mass Index (BMI) 28.8 Intake and Output for Last 24 Hours 09/13/19 09/14/19 09/15/19 23:59 23:59 23:59 Intake Total 1794 / 1794 240 / 240 260 / 260 Output Total 550 / 550 875 / 1000 325 / 325 Balance 1244 / 1244 -635 / -760 -65 / -65 General: Alert, Oriented x3, Cooperative, - - Moderate conversational dyspnea. Obese. HEENT: Atraumatic, PERRLA, EOMI, Normocephalic, - - No scleral icterus or injection noted Oral: No Gingival or Mucosal Lesions/ Ulcerations, Dry Mucosa Neck: Supple, No JVD, No Nodes, Trachea Midline Lungs: No rhonchi, No wheeze, Diminished, Rales - Bilateral bases, - - Poor effort. Cardiovascular: Regular rate, Regular Rhythm, Normal S1, Normal S2, No murmurs, No rub noted, No Gallop Abdomen: Bowel Sounds Present, Soft, Non Tender, Non-Distended, Obese Extremities: No clubbing, No cyanosis, Edema Skin: No rashes, No breakdown Musculoskeletal: No Tenderness to Palpation of Joints or Extremities Lymphatic: No Cervical, Supraclavicular, or Inguinal Adenopathy Neurological: Cranial nerves II-XII grossly intact, Neuro grossly intact, Motor Exam 5/5 strength throughout Psych/Mental Status: Anxious, Impulsive, Restless Laboratory Results 09/14/19 12:15: Urine Color Yellow, Urine Clarity Sl. Cloudy, Urine pH 6.0, Ur Specific [place] 1.025, Urine Protein 30 H, Urine Glucose (UA) Normal, Urine Ketones 150 H, Urine Occult Blood 50 H, Urine Nitrite Positive H, Urine Bilirubin Negative, Urine Urobilinogen 1 H, Ur Leukocyte Esterase 500 H, Urine RBC 0-5 SEEN, Urine WBC 5-10 SEEN, Ur Squamous Epith Cells 0-5 SEEN, Urine Bacteria 1+, Urine Mucus 0 SEEN, Urine Yeast RARE 09/14/19 18:36: POC Glucose 83 09/14/19 21:21: POC Glucose 89 09/15/19 05:04: WBC 7.8, RBC 3.41 L, Hgb 10.2 L, Hct 32.3 L, MCV 94.7, MCH 29.9, MCHC 31.6 L, RDW Std Deviation 46.6 H, RDW Coeff of Bebeto 13.4, Plt Count 290, MPV 10.0, Immature Gran % (Auto) 0.400, Neut % (Auto) 76.9 H, Lymph % (Auto) 10.4 L, [place] % (Auto) 7.7, Eos % (Auto) 4.3, Baso % (Auto) 0.3, Absolute Neuts (auto) 6.0, Absolute Lymphs (auto) 0.81 L, Nucleated RBC % 0 09/15/19 05:04: Sodium 139, Potassium 3.9, Chloride 106, Carbon Dioxide 29.0, Anion Gap 4 L, BUN 27 H, Creatinine 1.22 H, Estim Creat Clear Calc 37.10, Est GFR (MDRD) Af Amer 55 L, Est GFR (MDRD) Non-Af 45 L, BUN/Creatinine Ratio 22.1 H , Glucose 87, Calcium 8.2 L, Total Bilirubin 0.60, AST 15, ALT 10 L, Alkaline Phosphatase 65, Total Protein 6.4, Albumin 2.3 L, Globulin 4.1, Albumin/Globulin Ratio 0.6 L 09/15/19 06:52: POC Glucose 95 Current Medications Acetaminophen (Tylenol) 650 mg PO Q6H PRN PRN PRN Reason: Pain Score 1-3/Temp > 100.7 F Last Admin: 09/15/19 04:33 Dose: 650 mg Documented by: Albuterol/Ipratropium (Duoneb) 3 ml INHALATION Q4HWA.RT [facility] Last Admin: 09/15/19 07:04 Dose: 3 ml Documented by: Apixaban (Eliquis) 10 mg PO BID [facility] Stop: 09/21/19 10:01 Last Admin: 09/15/19 09:07 Dose: 10 mg Documented by: Aspirin (Aspirin, Baby) 81 mg PO DAILY@0800 [facility] Last Admin: 09/15/19 09:07 Dose: 81 mg Documented by: Atorvastatin Calcium (Lipitor) 40 mg PO QHS [facility] Last Admin: 09/14/19 21:14 Dose: 40 mg Documented by: Budesonide (Pulmicort Aerosol) 0.5 mg INHALATION Q12H.RT [facility] Last Admin: 09/15/19 07:04 Dose: 0.5 mg Documented by: Buspirone HCl (Buspar) 5 mg PO BID [facility] Last Admin: 09/15/19 09:07 Dose: 5 mg Documented by: Carvedilol (Coreg) 25 mg PO BID [facility] Last Admin: 09/15/19 09:07 Dose: 25 mg Documented by: Sodium Chloride () 250 mls @ 15 mls/hr IV .[id number] PRN PRN Reason: Saline Flush Sodium Chloride () 250 mls @ 15 mls/hr IV .[id number] PRN PRN Reason: Additional IVPB Infusion Ciprofloxacin (Cipro) 400 mg in 200 mls @ 200 mls/hr IV Q12 [facility] Last Admin: 09/15/19 09:07 Dose: 200 mls/hr Documented by: Labetalol HCl (Trandate) 10 mg IV Q4H PRN PRN PRN Reason: sys>150 DIAST>85 Last Admin: 09/13/19 08:06 Dose: 10 mg Documented by: Lorazepam (Ativan) 0.5 mg IV Q6H PRN PRN PRN Reason: ANXIETY Last Admin: 09/11/19 15:34 Dose: 0.5 mg Documented by: Melatonin (Melatonin) 3 mg PO QHS [facility] Last Admin: 09/14/19 21:14 Dose: 3 mg Documented by: Morphine Sulfate () 2 mg IV Q3H PRN PRN PRN Reason: Pain Score 6-10/10 Sodium Chloride () 10 - 40 ml IV UD PRN PRN Reason: SALINE FLUSH Last Admin: 09/15/19 09:08 Dose: 10 ml Documented by: Tamsulosin HCl (Flomax) 0.4 mg PO DAILY@1730 [facility] Last Admin: 09/14/19 17:18 Dose: 0.4 mg Documented by: Throat Lozenges (Cepacol Sore Throat Lozenge) 1 lozenge MUCOUS MEM Q4H PRN PRN PRN Reason: Sore throat Last Admin: 09/15/19 02:55 Dose: 1 lozenge Documented by: Medical Necessity - Tobacco Use Smoking Status: Former smoker Tobacco Use: Cigarettes Assessment/Plan RECOMMENDATIONS: 1. Lifelong anticoagulation 2. Appreciate cardiology evaluation 3. Wean oxygen as tolerated. Walking oximetry prior to discharge 4. Agree with anxiolytic medications 5. BiPAP rescue if patient agreeable. Incentive spirometer is vital 6. Consider palliative care if discussion IMPRESSIONS: 1. Acute on chronic hypoxic respiratory failure secondary to acute DVT/PE Patient with documented lower extremity edema and nonocclusive pulmonary artery filling defects. Clinical suspicion for multiple PEs over the last week or so. This would explain patient's pleuritic type chest pain. Patient is highly resistant to noninvasive therapy, but BiPAP may be helpful given patient's accessory muscle use noted. How much of this is related to patient's anxiety is unclear at this time. Objectively, patient appears to be stable from a respiratory standpoint. Patient continues to decompensate from a respiratory standpoint with increased FiO2 requirements. Clinical suspicion for the development of atelectasis secondary to lack of participation with incentive spirometer and physical therapy. Patient had agreed to work with physical therapy today on my evaluation and then 20 minutes later refused to be seen. Patient's current actions are incongruent with her reported aggression level. 2. Anxiety Patient does have a previous psychiatric history. Increased anxiety will lead to poor pulmonary mechanics, especially in the setting of obstructive lung disease. Agree with initiation of Seroquel therapy. This can likely be increased from my perspective. Defer to hospitalist. 3. CKD stage III/GERD/advanced age/venous insufficiency Complicates care, management, recovery and prognosis. Okay to continue with baseline medications from my perspective. Given comorbidities, patient likely would be best served by going to an ECF for rehabilitation prior to home, but defer to primary service. Code Visit Inpatient E&M: [id number] [facility] Hosp L3
--- NOTE | 2019-09-15 11:11 | CPS ---
PT DECREASED TO 4.5 LPM...SATURATION 95%. PT'S NURSE AWARE OF CHANGE. AEROSOL RX TERMINATED AFTER 3 MIN PER PT'S REQUEST
--- NOTE | 2019-09-15 15:24 | CPS ---
PT INCREASED TO 6 LPM...90%. PT'S NURSE AWARE OF CHANGE. AEROSOL RX STOPPED AFTER 2 MIN. PT REFUSES TO FINISH
[2019-09-15] MEDS: Tamsulosin HCl 0.4 MG Capsule PO (16:12)
[2019-09-15] MEDS: Furosemide 20 MG/2 ML VIAL IV (17:08)
[2019-09-15 17:32] LABS: BNP,B-Type NATRIURETIC PEPTIDE 167.3 pg/mL (0-100)
[2019-09-15] MEDS: MELATONIN 3 MG TABLET PO (21:49)
[2019-09-15] MEDS: Atorvastatin Calcium 40 MG Tablet PO (21:49)
[2019-09-16] VITALS (9 sets, daily range): BP systolic 118–134; BP diastolic 51–62; PULSE 63–75; RESP 18–24; TEMP 36.6–36.8; O2SAT 93–96
[2019-09-16] MEDS: BENZOCAINE/MENTHOL 1 LOZENGE MUCOUS MEM ×2 (02:25→11:25)
[2019-09-16] MEDS: LORazepam 2 MG/ML Syringe 0.5 MG IV ×2 (04:00→11:26)
[2019-09-16] MEDS: 0.9% Saline Lock 10 ML Syringe IV ×2 (04:01→11:26)
--- NOTE | 2019-09-16 05:55 | RAD_ITS ---
HISTORY: sob ADDITIONAL HISTORY: None provided. TECHNIQUE: Frontal chest radiograph. Number of images including paperwork: 2 COMPARISON: 09/10/2019 FINDINGS: LUNGS AND PLEURA: Small left pleural effusion. Left basilar airspace opacity. Linear right basilar opacity. CARDIAC SILHOUETTE: Stable. MEDIASTINUM AND VALENTÍN: Stable. UPPER ABDOMEN: Unremarkable. SKELETON AND SOFT TISSUES: No acute findings. Degenerative changes. Old right distal clavicle fracture. OTHER DEVICES AND HARDWARE: None. RAD/Chest 1 View (Portable) IMPRESSION: Small left pleural effusion. Left basilar atelectasis versus infiltrate. Linear right basilar opacity suggestive of subsegmental atelectasis. at 0801 Reported and signed by: Katie Griffith MD Electronically Signed: Katie Griffith MD at 8:00 EST Tel , Service support ,
[2019-09-16 06:05] LABS: Absolute Lymphocyte Count 0.93 X10^3/uL (0.83-4.51); Absolute Neutrophil Count 5.2 X10^3/uL (2.0-7.7); Basophil# 0.02 X10^3/uL; Basophil% 0.3 % (0-1); Eosinophil# 0.51 X10^3/uL; Hematocrit 32.1 % (37-47); Hemoglobin 10.1 g/dL (12.0-15.0); Lymphocyte # 0.93 X10^3/ul (4.0); Lymphocyte % 12.8 % (19-41); Mean Corp Hgb Conc 31.5 g/dL (32-36); Mean Corpuscular Hgb 29.4 pg (27.0-32.0); Mean Corpuscular Volume 93.3 fL (81-99); Mean Platelet Vol. 9.7 fl (6.2-12.0); Monocyte% 8.3 % (0-10); NRBC Flagged by Analyzer 0 % (0-5); Neutrophil # 5.17 X10^3/uL (2.7-7.7); Platelet Count 281 K/mm3 (150-450); RBC Distribution Width CV 13.5 % (11.6-14.6); RBC Distribution Width SD 45.9 fl (35.1-43.9); Red Blood Count 3.44 M/mm3 (4.2-5.4); White Blood Count 7.3 K/mm3 (4.4-11.0)
[2019-09-16 06:24] LABS: Albumin, Serum 2.2 g/dL (3.2-5.0); BUN 24 mg/dL (7-18); BUN/Creat Ratio 17.5 RATIO (10-20); Calcium,Total 8.1 mg/dL (8.5-10.1); Chloride 102 mmol/L (98-107); Creatinine, Serum 1.37 mg/dL (0.55-1.02); EST Glomerular Filtration Rate 39 mL/min (>60); Est Glom Filt Rate - Afr Amer 48 mL/min (>60); Estimated Creatinine Clearance 33.04 ml/min; Glucose 87 mg/dL (74-106); Phosphorus 2.7 mg/dL (2.5-4.9); Potassium 3.6 mmol/L (3.5-5.1); Sodium Level 137 mmol/L (136-145)
[2019-09-16] MEDS: Budesonide Respules 0.5 MG/2 ML AMPUL.NEB. INHALATION (07:16)
[2019-09-16] MEDS: Ipratropium/Albuterol Sulfate 3 ML AMPUL.NEB INHALATION ×2 (07:16→10:21)
--- NOTE | 2019-09-16 08:24 | PN_ITS ---
Subjective: The patient was seen and examined at the bedside this morning. Events from the last 24 hours have been reviewed. The patient is currently afebrile, hemodynamically stable and maintaining appropriate oxygen saturations on 6 L/min via nasal cannula. The patient does report stability in her breathing quality. She reports that she does not regularly ambulate and uses a wheelchair normally. The patient has been refusing physical therapy. She has not been out of bed. She admits that she is not utilizing her incentive spirometer as instructed. Objective: The patient's most recent lab work, culture data and imaging studies have all been personally reviewed. Urine Gram stain was positive for a gram-negative joya. - Physical Exam Vitals/I&O's: Vital Signs Temp Pulse Resp BP Pulse Ox 98.2 F 68 22 H 131/62 H 96 09/16/19 05:35 09/16/19 06:59 09/16/19 05:35 09/16/19 05:35 09/16/19 05:35 Oxygen Flow Rate (L/min) 6 Oxygen Delivery Method Nasal Cannula Weight: 190 lb 14.725 oz Body Mass Index (BMI) 28.8 Intake and Output for Last 24 Hours 09/14/19 09/15/19 09/16/19 23:59 23:59 23:59 Intake Total 240 / 240 1620 / 1620 180 / 180 Output Total 875 / 1000 1775 / 1775 475 / 475 Balance -635 / -760 -155 / -155 -295 / -295 General: Alert, Cooperative, No apparent distress HEENT: Atraumatic, PERRLA, Normocephalic Oral: No Gingival or Mucosal Lesions/ Ulcerations Neck: Supple, No Nodes, Trachea Midline Lungs: Diminished, - - Poor inspiratory effort Cardiovascular: Regular rate, Regular Rhythm, Normal S1, Normal S2, No murmurs Abdomen: Bowel Sounds Present, Soft, Non Tender, Obese Extremities: No clubbing, No cyanosis, Edema Skin: No breakdown Musculoskeletal: No Tenderness to Palpation of Joints or Extremities Lymphatic: No Cervical, Supraclavicular, or Inguinal Adenopathy Neurological: Neuro grossly intact Psych/Mental Status: Restless Labs (Last 48 Hours) 09/14/19 09/14/19 09/14/19 12:15 18:36 21:21 WBC RBC Hgb Hct MCV MCH MCHC RDW Std Deviation RDW Coeff of Bebeto Plt Count MPV Immature Gran % (Auto) Neut % (Auto) Lymph % (Auto) [place] % (Auto) Eos % (Auto) Baso % (Auto) Absolute Neuts (auto) Absolute Lymphs (auto) Nucleated RBC % Sodium Potassium Chloride Carbon Dioxide Anion Gap BUN Creatinine Estim Creat Clear Calc Est GFR (MDRD) Af Amer Est GFR (MDRD) Non-Af BUN/Creatinine Ratio Glucose Calcium Phosphorus Total Bilirubin AST ALT Alkaline Phosphatase B-Natriuretic Peptide Total Protein Albumin Globulin Albumin/Globulin Ratio Urine Color Yellow Urine Clarity Sl. Cloudy Urine pH 6.0 Ur Specific [place] 1.025 Urine Protein 30 H Urine Glucose (UA) Normal Urine Ketones 150 H Urine Occult Blood 50 H Urine Nitrite Positive H Urine Bilirubin Negative Urine Urobilinogen 1 H Ur Leukocyte Esterase 500 H Urine RBC 0-5 SEEN Urine WBC 5-10 SEEN Ur Squamous Epith Cells 0-5 SEEN Urine Bacteria 1+ Urine Mucus 0 SEEN Urine Yeast RARE POC Glucose 83 89 09/15/19 09/15/19 09/15/19 05:04 05:04 05:04 WBC 7.8 RBC 3.41 L Hgb 10.2 L Hct 32.3 L MCV 94.7 MCH 29.9 MCHC 31.6 L RDW Std Deviation 46.6 H RDW Coeff of Bebeto 13.4 Plt Count 290 MPV 10.0 Immature Gran % (Auto) 0.400 Neut % (Auto) 76.9 H Lymph % (Auto) 10.4 L [place] % (Auto) 7.7 Eos % (Auto) 4.3 Baso % (Auto) 0.3 Absolute Neuts (auto) 6.0 Absolute Lymphs (auto) 0.81 L Nucleated RBC % 0 Sodium 139 Potassium 3.9 Chloride 106 Carbon Dioxide 29.0 Anion Gap 4 L BUN 27 H Creatinine 1.22 H Estim Creat Clear Calc 37.10 Est GFR (MDRD) Af Amer 55 L Est GFR (MDRD) Non-Af 45 L BUN/Creatinine Ratio 22.1 H Glucose 87 Calcium 8.2 L Phosphorus Total Bilirubin 0.60 AST 15 ALT 10 L Alkaline Phosphatase 65 B-Natriuretic Peptide 167.3 H Total Protein 6.4 Albumin 2.3 L Globulin 4.1 Albumin/Globulin Ratio 0.6 L Urine Color Urine Clarity Urine pH Ur Specific [place] Urine Protein Urine Glucose (UA) Urine Ketones Urine Occult Blood Urine Nitrite Urine Bilirubin Urine Urobilinogen Ur Leukocyte Esterase Urine RBC Urine WBC Ur Squamous Epith Cells Urine Bacteria Urine Mucus Urine Yeast POC Glucose 09/15/19 09/16/19 09/16/19 06:52 05:40 05:40 WBC 7.3 RBC 3.44 L Hgb 10.1 L Hct 32.1 L MCV 93.3 MCH 29.4 MCHC 31.5 L RDW Std Deviation 45.9 H RDW Coeff of Bebeto 13.5 Plt Count 281 MPV 9.7 Immature Gran % (Auto) 0.600 Neut % (Auto) 71.0 H Lymph % (Auto) 12.8 L [place] % (Auto) 8.3 Eos % (Auto) 7.0 H Baso % (Auto) 0.3 Absolute Neuts (auto) 5.2 Absolute Lymphs (auto) 0.93 Nucleated RBC % 0 Sodium 137 Potassium 3.6 Chloride 102 Carbon Dioxide 32.0 Anion Gap BUN 24 H Creatinine 1.37 H Estim Creat Clear Calc 33.04 Est GFR (MDRD) Af Amer 48 L Est GFR (MDRD) Non-Af 39 L BUN/Creatinine Ratio 17.5 Glucose 87 Calcium 8.1 L Phosphorus 2.7 Total Bilirubin AST ALT Alkaline Phosphatase B-Natriuretic Peptide Total Protein Albumin 2.2 L Globulin Albumin/Globulin Ratio Urine Color Urine Clarity Urine pH Ur Specific [place] Urine Protein Urine Glucose (UA) Urine Ketones Urine Occult Blood Urine Nitrite Urine Bilirubin Urine Urobilinogen Ur Leukocyte Esterase Urine RBC Urine WBC Ur Squamous Epith Cells Urine Bacteria Urine Mucus Urine Yeast POC Glucose 95 Microbiology 09/14/19 12:15 Urine Catheter - Gutiérrez 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 Electronically Signed: Jeffry Arenas MD at 15:31 EST , Service support , Chest CTA 09/11/19 16:42 IMPRESSION: 1. Small nonocclusive intraluminal blood clots in the secondary pulmonary arterial branches of the right lower lobe 2. A small nonocclusive clot is also present at the origin of the right upper lobe superior pulmonary artery.There is no demonstrated pulmonary embolism. 3. Small amount of consolidation in the lingula of the left upper lobe. N.B. : The above information has been verbally conveyed by Felix Baer MD to Nick Bowman RN, on 09/11/2019 18:30:51 (ET). Electronically Signed: Felix Baer MD at 18:31 EST , Service support , ADDENDUM: 09/11/19 1838 IMPRESSION: 1. Small nonocclusive intraluminal blood clots in the secondary pulmonary arterial branches of the right lower lobe 2. A small nonocclusive clot is also present at the origin of the right upper lobe superior pulmonary artery.There is no demonstrated pulmonary embolism. 3. Small amount of consolidation in the lingula of the left upper lobe. N.B. : The above information has been verbally conveyed by Felix Baer MD to Nick Bowman RN, on 09/11/2019 18:30:51 (ET). Electronically Signed: Felix Baer MD at 18:31 EST , Service support , Chest X-Ray 09/16/19 05:55 IMPRESSION: Small left pleural effusion. Left basilar atelectasis versus infiltrate. Linear right basilar opacity suggestive of subsegmental atelectasis. at 0801 Reported and signed by: Katie Griffith MD Electronically Signed: Katie Griffith MD at 8:00 EST Tel , Service support , Current Medications Acetaminophen (Tylenol) 650 mg PO Q6H PRN PRN PRN Reason: Pain Score 1-3/Temp > 100.7 F Last Admin: 09/15/19 04:33 Dose: 650 mg Documented by: Albuterol/Ipratropium (Duoneb) 3 ml INHALATION Q4HWA.RT TANYA Last Admin: 09/16/19 07:16 Dose: 3 ml Documented by: Apixaban (Eliquis) 10 mg PO BID [facility] Stop: 09/21/19 10:01 Last Admin: 09/15/19 21:49 Dose: 10 mg Documented by: Aspirin (Aspirin, Baby) 81 mg PO DAILY@0800 [facility] Last Admin: 09/15/19 09:07 Dose: 81 mg Documented by: Atorvastatin Calcium (Lipitor) 40 mg PO QHS [facility] Last Admin: 09/15/19 21:49 Dose: 40 mg Documented by: Budesonide (Pulmicort Aerosol) 0.5 mg INHALATION Q12H.RT [facility] Last Admin: 09/16/19 07:16 Dose: 0.5 mg Documented by: Buspirone HCl (Buspar) 5 mg PO BID [facility] Last Admin: 09/15/19 21:49 Dose: 5 mg Documented by: Carvedilol (Coreg) 25 mg PO BID [facility] Last Admin: 09/15/19 21:49 Dose: 25 mg Documented by: Sodium Chloride () 250 mls @ 15 mls/hr IV .[id number] PRN PRN Reason: Saline Flush Sodium Chloride () 250 mls @ 15 mls/hr IV .[id number] PRN PRN Reason: Additional IVPB Infusion Ciprofloxacin (Cipro) 400 mg in 200 mls @ 200 mls/hr IV Q12 [facility] Last Infusion: 09/15/19 22:54 Dose: Infused Documented by: Labetalol HCl (Trandate) 10 mg IV Q4H PRN PRN PRN Reason: sys>150 DIAST>85 Last Admin: 09/13/19 08:06 Dose: 10 mg Documented by: Lorazepam (Ativan) 0.5 mg IV Q6H PRN PRN PRN Reason: ANXIETY Last Admin: 09/16/19 04:00 Dose: 0.5 mg Documented by: Melatonin (Melatonin) 3 mg PO QHS [facility] Last Admin: 09/15/19 21:49 Dose: 3 mg Documented by: Morphine Sulfate () 2 mg IV Q3H PRN PRN PRN Reason: Pain Score 6-10/10 Sodium Chloride () 10 - 40 ml IV UD PRN PRN Reason: SALINE FLUSH Last Admin: 09/16/19 04:01 Dose: 10 ml Documented by: Tamsulosin HCl (Flomax) 0.4 mg PO DAILY@1730 TANYA Last Admin: 09/15/19 16:12 Dose: 0.4 mg Documented by: Throat Lozenges (Cepacol Sore Throat Lozenge) 1 lozenge MUCOUS MEM Q4H PRN PRN PRN Reason: Sore throat Last Admin: 09/16/19 02:25 Dose: 1 lozenge Documented by: Medical Necessity - Tobacco Use Smoking Status: Former smoker Tobacco Use: Cigarettes Assessment/Plan RECOMMENDATIONS: 1. Continue Eliquis as ordered. 2. Wean supplemental oxygen to maintain saturations at or above 90%. 3. Encourage incentive spirometer use and mobilize patient as tolerated. IMPRESSIONS: 1. Acute on chronic hypoxic respiratory failure secondary to acute DVT/PE Patient with documented lower extremity edema and nonocclusive pulmonary artery filling defects. Clinical suspicion for multiple PEs over the last week or so. This would explain patient's pleuritic type chest pain. Plan to continue Eliquis indefinitely. Wean supplemental oxygen to maintain saturations at or above 90%. I suspect that the patient's residual oxygen requirement is likely secondary to atelectasis. Encourage incentive spirometer use and mobilize patient as tolerated. 2. Anxiety The patient does apparently have a previous psychiatric history. Will defer management of the patient's anxiety to hospitalist. 3. CKD stage III/GERD/advanced age/venous insufficiency Complicates care, management, recovery and prognosis. Continue baseline outpatient cardiac medications. Physical therapy to reattempt patient reevaluation. This note was generated with [employer] dictation software. It may contain incorrect words, spelling, and punctuation that were not noted in checking the note before signing. Code Visit Inpatient E&M: 30720 Subs Hosp L2
--- NOTE | 2019-09-16 09:06 | CASEMGMT ---
SW spoke with patient about her discharge plan. She said she is looking into assisted living. SERA told her that SW cannot get her to assisted living from [facility] as she will have to go through her [facility]. SW asked her about her plan when she is discharged from the hospital. She said she is going home. SERA asked her about going to a SNF short term fro rehab and she said no, she is going home. Patient has refused therapy everyday since she has been in the hospital. Ame RICCI MSW
--- NOTE | 2019-09-16 09:27 | CASEMGMT ---
[place] [facility] 4 liters continuous at home. Pt is currently on 6liters at this time. Andrea BRITO CM
[2019-09-16] MEDS: busPIRone 5 MG Tablet PO (09:48)
[2019-09-16] MEDS: Aspirin 81 MG TAB.CHEW PO (09:48)
[2019-09-16] MEDS: Ciprofloxacin 400 MG/200 ML BAG 200 MG IV (09:48)
[2019-09-16] MEDS: Carvedilol 25 MG Tablet PO (09:48)
[2019-09-16] MEDS: APIXABAN 5 MG TABLET 10 MG PO (09:49)
--- NOTE | 2019-09-16 12:23 | PCM.PN.HOSP ---
Vitals/I&O's: Vital Signs Temp Pulse Resp BP Pulse Ox 98 F 67 24 H 124/51 H 96 09/16/19 08:40 09/16/19 10:16 09/16/19 10:16 09/16/19 08:40 09/16/19 10:16 Oxygen Flow Rate (L/min) 6 Oxygen Delivery Method Nasal Cannula Weight: 86.6 kg Body Mass Index (BMI) 28.8 Intake and Output for Last 24 Hours 09/14/19 09/15/19 09/16/19 23:59 23:59 23:59 Intake Total 240 / 240 1620 / 1620 540 / 540 Output Total 875 / 1000 1775 / 1775 775 / 775 Balance -635 / -760 -155 / -155 -235 / -235 Microbiology Past 72 Hours 09/14/19 12:15 Urine Catheter - Gutiérrez Urine Culture - Final Klebsiella pneumoniae sp pneum Laboratory Results 09/15/19 05:04: B-Natriuretic Peptide 167.3 H 09/16/19 05:40: WBC 7.3, RBC 3.44 L, Hgb 10.1 L, Hct 32.1 L, MCV 93.3, MCH 29.4, MCHC 31.5 L, RDW Std Deviation 45.9 H, RDW Coeff of Bebeto 13.5, Plt Count 281, MPV 9.7, Immature Gran % (Auto) 0.600, Neut % (Auto) 71.0 H, Lymph % (Auto) 12.8 L, [place] % (Auto) 8.3, Eos % (Auto) 7.0 H, Baso % (Auto) 0.3, Absolute Neuts (auto) 5.2, Absolute Lymphs (auto) 0.93, Nucleated RBC % 0 09/16/19 05:40: Sodium 137, Potassium 3.6, Chloride 102, Carbon Dioxide 32.0, BUN 24 H, Creatinine 1.37 H, Estim Creat Clear Calc 33.04, Est GFR (MDRD) Af Amer 48 L, Est GFR (MDRD) Non-Af 39 L, BUN/Creatinine Ratio 17.5, Glucose 87, Calcium 8.1 L, Phosphorus 2.7, Albumin 2.2 L Current Medications Acetaminophen (Tylenol) 650 mg PO Q6H PRN PRN PRN Reason: Pain Score 1-3/Temp > 100.7 F Last Admin: 09/15/19 04:33 Dose: 650 mg Documented by: Albuterol/Ipratropium (Duoneb) 3 ml INHALATION Q4HWA.RT [facility] Last Admin: 09/16/19 10:21 Dose: 3 ml Documented by: Apixaban (Eliquis) 10 mg PO BID [facility] Stop: 09/21/19 10:01 Last Admin: 09/16/19 09:49 Dose: 10 mg Documented by: Aspirin (Aspirin, Baby) 81 mg PO DAILY@0800 [facility] Last Admin: 09/16/19 09:48 Dose: 81 mg Documented by: Atorvastatin Calcium (Lipitor) 40 mg PO QHS [facility] Last Admin: 09/15/19 21:49 Dose: 40 mg Documented by: Budesonide (Pulmicort Aerosol) 0.5 mg INHALATION Q12H.RT [facility] Last Admin: 09/16/19 07:16 Dose: 0.5 mg Documented by: Buspirone HCl (Buspar) 5 mg PO BID [facility] Last Admin: 09/16/19 09:48 Dose: 5 mg Documented by: Carvedilol (Coreg) 25 mg PO BID [facility] Last Admin: 09/16/19 09:48 Dose: 25 mg Documented by: Sodium Chloride () 250 mls @ 15 mls/hr IV .[id number] PRN PRN Reason: Saline Flush Sodium Chloride () 250 mls @ 15 mls/hr IV .[id number] PRN PRN Reason: Additional IVPB Infusion Ciprofloxacin (Cipro) 400 mg in 200 mls @ 200 mls/hr IV Q12 [facility] Last Infusion: 09/16/19 10:50 Dose: Infused Documented by: Labetalol HCl (Trandate) 10 mg IV Q4H PRN PRN PRN Reason: sys>150 DIAST>85 Last Admin: 09/13/19 08:06 Dose: 10 mg Documented by: Lorazepam (Ativan) 0.5 mg IV Q6H PRN PRN PRN Reason: ANXIETY Last Admin: 09/16/19 11:26 Dose: 0.5 mg Documented by: Melatonin (Melatonin) 3 mg PO QHS [facility] Last Admin: 09/15/19 21:49 Dose: 3 mg Documented by: Morphine Sulfate () 2 mg IV Q3H PRN PRN PRN Reason: Pain Score 6-10/10 Sodium Chloride () 10 - 40 ml IV UD PRN PRN Reason: SALINE FLUSH Last Admin: 09/16/19 11:26 Dose: 10 ml Documented by: Tamsulosin HCl (Flomax) 0.4 mg PO DAILY@1730 TANYA Last Admin: 09/15/19 16:12 Dose: 0.4 mg Documented by: Throat Lozenges (Cepacol Sore Throat Lozenge) 1 lozenge MUCOUS MEM Q4H PRN PRN PRN Reason: Sore throat Last Admin: 09/16/19 11:25 Dose: 1 lozenge Documented by: STROKE Vital Signs/Narrative: Vital Signs Temp Pulse Resp BP Pulse Ox 09/16/19 10:16 67 24 H 96 09/16/19 08:40 98 F 75 20 H 124/51 H 93 Medical Necessity - Tobacco Use Smoking Status: Former smoker Tobacco Use: Cigarettes
--- NOTE | 2019-09-16 12:40 | DS.PCM_ITS ---
Discharge Date and Diagnosis Date of Admission: 09/10/19 Date of Discharge: 09/16/19 - Primary Discharge Diagnosis DVT Pulmonary embolism - Secondary Discharge Diagnosis Chronic Problems (This Medical Record has been edited. Action required.) Asthma with COPD with exacerbation (Chronic) Respiratory failure, [id number] (Chronic) COPD exacerbation (Chronic) Stage III chronic kidney disease (Chronic) GERD (gastroesophageal reflux disease) (Chronic) Venous insufficiency (Chronic) COPD (chronic obstructive pulmonary disease) (Chronic) Obesity (BMI 30.0-34.9) (Chronic) Anxiety (Chronic) Right leg DVT (Chronic) Hospital Course and Treatment Imaging Results: Clinical Impression(s) from Imaging Studies Chest X-Ray 09/10/19 15:15 IMPRESSION: Stable chest with no acute superimposed finding. Electronically Signed: Jeffry Arenas MD at 15:31 EST , Service support , Chest CTA 09/11/19 16:42 IMPRESSION: 1. Small nonocclusive intraluminal blood clots in the secondary pulmonary arterial branches of the right lower lobe 2. A small nonocclusive clot is also present at the origin of the right upper lobe superior pulmonary artery.There is no demonstrated pulmonary embolism. 3. Small amount of consolidation in the lingula of the left upper lobe. N.B. : The above information has been verbally conveyed by Felix Baer MD to Nick Bowman RN, on 09/11/2019 18:30:51 (ET). Electronically Signed: Felix Baer MD at 18:31 EST , Service support , ADDENDUM: 09/11/19 1838 IMPRESSION: 1. Small nonocclusive intraluminal blood clots in the secondary pulmonary arterial branches of the right lower lobe 2. A small nonocclusive clot is also present at the origin of the right upper lobe superior pulmonary artery.There is no demonstrated pulmonary embolism. 3. Small amount of consolidation in the lingula of the left upper lobe. N.B. : The above information has been verbally conveyed by Felix Baer MD to Nick Bowman RN, on 09/11/2019 18:30:51 (ET). Electronically Signed: Felix Baer MD at 18:31 EST , Service support , Chest X-Ray 09/16/19 05:55 IMPRESSION: Small left pleural effusion. Left basilar atelectasis versus infiltrate. Linear right basilar opacity suggestive of subsegmental atelectasis. at 0801 Reported and signed by: Katie Griffith MD Electronically Signed: Katie Griffith MD at 8:00 EST Tel , Service support , Operations: None Summary of Care Provided: The patient is a 79 year old F presented with pleuritic chest pain 1. Acute DVT/PE ?Patient admitted to monitored bed managed with systemic anticoagulation with Eliquis prescription written on discharge patient to take Eliquis 10 mg p.o. twice daily for 7 days and to switch to 5 mg p.o. twice daily. 2. Acute on chronic hypoxic respiratory failure secondary to patient pulmonary embolism patient was placed on supplemental oxygen. Patient was offered noninvasive ventilation she however declined 3. Acute cystitis with Klebsiella patient was treated with ciprofloxacin 4. COPD with subsequent chronic respiratory failure patient is on baseline home O2 5. GERD on PPI 6. Chronic kidney disease stage III stable 7. Physical debility requested for PT OT eval and nephrology social worker patient was discharged to long-term facility - Physical Exam Vitals/I&O's: Vital Signs Temp Pulse Resp BP Pulse Ox 98 F 67 24 H 124/51 H 96 09/16/19 08:40 09/16/19 10:16 09/16/19 10:16 09/16/19 08:40 09/16/19 10:16 Oxygen Flow Rate (L/min) 6 Oxygen Delivery Method Nasal Cannula Weight: 86.6 kg Body Mass Index (BMI) 28.8 Intake and Output for Last 24 Hours 09/14/19 09/15/19 09/16/19 23:59 23:59 23:59 Intake Total 240 / 240 1620 / 1620 540 / 540 Output Total 875 / 1000 1775 / 1775 775 / 775 Balance -635 / -760 -155 / -155 -235 / -235 General: Alert Lungs: Diminished Cardiovascular: Regular rate, Regular Rhythm Neurological: Neuro grossly intact Psych/Mental Status: Flat Affect Microbiology Past 72 Hours 09/14/19 12:15 Urine Catheter - Gutiérrez Urine Culture - Final Klebsiella pneumoniae sp pneum Laboratory Results 09/15/19 05:04: B-Natriuretic Peptide 167.3 H 09/16/19 05:40: WBC 7.3, RBC 3.44 L, Hgb 10.1 L, Hct 32.1 L, MCV 93.3, MCH 29.4, MCHC 31.5 L, RDW Std Deviation 45.9 H, RDW Coeff of Bebeto 13.5, Plt Count 281, MPV 9.7, Immature Gran % (Auto) 0.600, Neut % (Auto) 71.0 H, Lymph % (Auto) 12.8 L, Maries % (Auto) 8.3, Eos % (Auto) 7.0 H, Baso % (Auto) 0.3, Absolute Neuts (auto) 5.2, Absolute Lymphs (auto) 0.93, Nucleated RBC % 0 09/16/19 05:40: Sodium 137, Potassium 3.6, Chloride 102, Carbon Dioxide 32.0, BUN 24 H, Creatinine 1.37 H, Estim Creat Clear Calc 33.04, Est GFR (MDRD) Af Amer 48 L, Est GFR (MDRD) Non-Af 39 L, BUN/Creatinine Ratio 17.5, Glucose 87, Calcium 8.1 L, Phosphorus 2.7, Albumin 2.2 L Current Medications Acetaminophen (Tylenol) 650 mg PO Q6H PRN PRN PRN Reason: Pain Score 1-3/Temp > 100.7 F Last Admin: 09/15/19 04:33 Dose: 650 mg Documented by: Albuterol/Ipratropium (Duoneb) 3 ml INHALATION Q4HWA.RT TANYA Last Admin: 09/16/19 10:21 Dose: 3 ml Documented by: Apixaban (Eliquis) 10 mg PO BID TANYA Stop: 09/21/19 10:01 Last Admin: 09/16/19 09:49 Dose: 10 mg Documented by: Aspirin (Aspirin, Baby) 81 mg PO DAILY@0800 [facility] Last Admin: 09/16/19 09:48 Dose: 81 mg Documented by: Atorvastatin Calcium (Lipitor) 40 mg PO QHS [facility] Last Admin: 09/15/19 21:49 Dose: 40 mg Documented by: Budesonide (Pulmicort Aerosol) 0.5 mg INHALATION Q12H.RT [facility] Last Admin: 09/16/19 07:16 Dose: 0.5 mg Documented by: Buspirone HCl (Buspar) 5 mg PO BID [facility] Last Admin: 09/16/19 09:48 Dose: 5 mg Documented by: Carvedilol (Coreg) 25 mg PO BID [facility] Last Admin: 09/16/19 09:48 Dose: 25 mg Documented by: Sodium Chloride () 250 mls @ 15 mls/hr IV .[id number] PRN PRN Reason: Saline Flush Sodium Chloride () 250 mls @ 15 mls/hr IV .[id number] PRN PRN Reason: Additional IVPB Infusion Ciprofloxacin (Cipro) 400 mg in 200 mls @ 200 mls/hr IV Q12 [facility] Last Infusion: 09/16/19 10:50 Dose: Infused Documented by: Labetalol HCl (Trandate) 10 mg IV Q4H PRN PRN PRN Reason: sys>150 DIAST>85 Last Admin: 09/13/19 08:06 Dose: 10 mg Documented by: Lorazepam (Ativan) 0.5 mg IV Q6H PRN PRN PRN Reason: ANXIETY Last Admin: 09/16/19 11:26 Dose: 0.5 mg Documented by: Melatonin (Melatonin) 3 mg PO QHS [facility] Last Admin: 09/15/19 21:49 Dose: 3 mg Documented by: Morphine Sulfate () 2 mg IV Q3H PRN PRN PRN Reason: Pain Score 6-10/10 Sodium Chloride () 10 - 40 ml IV UD PRN PRN Reason: SALINE FLUSH Last Admin: 09/16/19 11:26 Dose: 10 ml Documented by: Tamsulosin HCl (Flomax) 0.4 mg PO DAILY@1730 [facility] Last Admin: 09/15/19 16:12 Dose: 0.4 mg Documented by: Throat Lozenges (Cepacol Sore Throat Lozenge) 1 lozenge MUCOUS MEM Q4H PRN PRN PRN Reason: Sore throat Last Admin: 09/16/19 11:25 Dose: 1 lozenge Documented by: Discharge Diet: No Restrictions Discharge Activity: Return to Normal Activity Home Medications: Medications to take at Discharge Fluticasone/Salmeterol [Advair 250-50 Diskus] 1 ea IH BID 04/22/19 albuterol sulfate 90 mcg/actuation aerosol inhaler 2 puff INHALATION Q4H PRN g 07/04/19 Ipratropium/Albuterol Sulfate [Iprat-Albut 0.5-3(2.5) mg/3 ml] 1 amp INHALATION Q4H 07/22/19 Apixaban [Eliquis] 5 mg PO BID #60 tab 09/12/19 Apixaban [Eliquis] 10 mg PO BID #14 tab 09/12/19 Acetaminophen [Tylenol Tablet] 650 mg PO Q6H PRN PRN tab 09/13/19 Aspirin [Aspirin, Baby] 81 mg PO DAILY@0800 #30 tab.chew 09/13/19 Atorvastatin Calcium [Lipitor] 40 mg PO QHS #30 tab 09/13/19 Budesonide Aerosol [Pulmicort Respules] 0.5 mg INHALATION Q12H.RT #60 ampul.neb. 09/13/19 Carvedilol [Coreg (Beta So)] 25 mg PO BID #60 tab 09/13/19 Quetiapine Fumarate [Seroquel] 25 mg PO DAILY@2000 #30 tab 09/13/19 busPIRone [Buspar] 5 mg PO BID #60 tab 09/13/19 Following Prescrptions Were Given to Patient: Aspirin [Aspirin, Baby] 81 mg PO DAILY@0800 #30 tab.chew Transmission Status: Received by [facility] busPIRone [Buspar] 5 mg PO BID #60 tab Transmission Status: Received by [facility] Carvedilol [Coreg (Beta So)] 25 mg PO BID #60 tab Transmission Status: Received by [facility] Apixaban [Eliquis] 5 mg PO BID #60 tab Transmission Status: Received by [facility] Apixaban [Eliquis] 10 mg PO BID #14 tab Transmission Status: Received by [facility] Atorvastatin Calcium [Lipitor] 40 mg PO QHS #30 tab Transmission Status: Received by [facility] Budesonide Aerosol [Pulmicort Respules] 0.5 mg INHALATION Q12H.RT #60 ampul.neb. Transmission Status: Received by [facility] Quetiapine Fumarate [Seroquel] 25 mg PO DAILY@1999 #30 tab Transmission Status: Received by [facility] Primary Care Physician: Hardik Soto MD [Primary Care Provider] - Please follow up with your Primary Care Physician in: within 1-2 weeks Please Follow Up With: Srinivasa Jason MD When: within 1-2 weeks Please Follow Up With: Srinivasa Jason MD Disposition: [facility] facility Minutes spent on discharge:: 45 Patient Condition:: Stable Medical Necessity - Tobacco Use Smoking Status: Former smoker Tobacco Use: Cigarettes Meaningful Use Info Meaningful Use Diagnoses (Choose all that apply): VTE - VTE Anticoag overlap given w/in hospital stay or rx'd at sd?: No Pt receive overlap for 5 days?: No Reason overlap not ordered, prescribed, or given for 5 days: Treatment Not Indicated Code Visit Inpatient E&M: 68749 Disch Hosp
--- NOTE | 2019-09-16 12:41 | PCM.TXEXTCAR ---
- Diet 09/12/19 09:20 Diet: Cardiac/Low Cholesterol Is pt able to select menu?: Yes - Wound(s) Bilateral Buttocks Wound Type: Shearing - Therapies Physical Therapy: Eval and Treat Occupational Therapy: Eval and Treat Speech Therapy: Eval and Treat - Allergies/Procedures Done in Hospital Allergies/Adverse Reactions: Allergies chlordiazepoxide HCl [From Librium] Allergy (Verified 09/06/19 13:24) Anaphylaxis Penicillins Allergy (Verified 09/06/19 13:24) Anaphylaxis - Type of Care/Length of Stay Estimated LOS: Convalescent Care Less Than 30 days Type of Care Needed: Skilled Rehab Potential: Fair Prognosis: Fair - Additional Orders/Day of Discharge Day of Discharge: 09/16/19 - Dietary and Speech Recommendations Dietitian Recommendations/Changes: Continue cardiac diet. - Follow Up Care Primary Care Physician: Hardik Soto MD [Primary Care Provider] - Please follow up with your Primary Care Physician in: within 1-2 weeks Please Follow Up With: Srinivasa Jason MD When: within 1-2 weeks Please Follow Up With: Srinivasa Jason MD
--- NOTE | 2019-09-16 13:20 | CASEMGMT ---
Physician spoke with patient and she agreed to go to a [facility]. SW met with patient and gave her the list of local SNF's. She chose [facility] first and then [facility] as a back-up. SERA called Vilma at [facility] and made referral as well as faxed information. Await response. Plan: [facility] pending their acceptance of patient. Ame RICCI MSW
--- NOTE | 2019-09-16 14:10 | CHAPLAIN ---
Type of Pastoral Visit _x__ Initial Visit ___ Follow-up Visit ___ On-call Visit ___ General Patient Visit ___ Spiritual Assessment ___ Family Conference ___ Bereavement ___ Rapid Response ___ Code Blue ___ Other (describe below) Pastoral Care Referral From _x__ Patient ___ Family ___ Nurse ___ Physician ___ Manager Paid ___ Snuff Grinder And Screener ___ Other (describe below) Sacrament/Intervention _x__ Active listening ___ Anointing ___ Orthodoxy ___ Bereavement ___ Communion _x__ Angela exploration ___ _x__ Life review _x__ Prayer ___ Reconciliation ___ Sacrament of Sick ___ Supportive presence ___ Wedding ___ Other (describe below) Pastoral Comments
--- NOTE | 2019-09-16 14:22 | CASEMGMT ---
[facility] can accept patient. SERA faxed orders to [facility]. Completed convalescent on HENS. SERA spoke with Vilma at [facility] and they can merchandise pickup/receiving associate patient. SERA told them they will need to bring a wheelchair and oxygen as she is on 6L. SERA notified patient, RN, and vice chairman. SERA also called patient's son, Ruddy and let him know this discharge plan. He thanked for the update. SERA also called [facility] and spoke with John on the coverage line. SERA let him know about d/c to [facility]. Plan: d/c to [facility] under skilled level of care on a convalescent stay. [facility] used their transport to merchandise pickup/receiving associate patient. Ame RICCI CONTACT LENS FITTER
--- NOTE | 2019-09-16 15:43 | NURSING ---
Report called to [facility], spoke to Herberth ANDRADE at [id number].
--- NOTE | 2019-09-16 16:41 | NURSING ---
Reviewed and agreed on all charting with Kanu Espinoza RN
== END 2019-09-16 16:30 | disposition skilled nursing facility (03) | DRG 175 ==
LOC: ED 15:30 → PCU 16:20
PROVIDERS: Internal Medicine; Internal Medicine Critical Care Medicine; Admitting Provider Internal Medicine; Emergency Provider Emergency Medicine; Family Provider Family Medicine; PCP Family Medicine; Referring Provider Internal Medicine; Visit Provider Internal Medicine
DX: I26.99 Other pulmonary embolism without acute cor pulmonale (principal); J96.21 Acute and chronic respiratory failure with hypoxia; N30.00 Acute cystitis without hematuria; I82.411 Acute embolism and thrombosis of right femoral vein; I82.431 Acute embolism and thrombosis of right popliteal vein; I82.441 Acute embolism and thrombosis of right tibial vein; N18.3 Chronic kidney disease, stage 3 (moderate); B96.1 Klebsiella pneumoniae [K. pneumoniae] as the cause of diseases classified elsewhere; J44.9 Chronic obstructive pulmonary disease, unspecified; R33.9 Retention of urine, unspecified; K21.9 Gastro-esophageal reflux disease without esophagitis; Z68.28 Body mass index [BMI] 28.0-28.9, adult; I82.461 Acute embolism and thrombosis of right calf muscular vein; F41.9 Anxiety disorder, unspecified; I87.2 Venous insufficiency (chronic) (peripheral); Z99.81 Dependence on supplemental oxygen; Z86.718 Personal history of other venous thrombosis and embolism; Z87.891 Personal history of nicotine dependence
CPT/HCPCS: 36415; 71045; 71275; 80048; 80053; 80061; 80069; 81001; 82962; 83735; 83880; 84484; 85025; 85379; 85610; 87077; 87086; 87088; 87186; 93005; 93970; 94640; 97162; 97166; 97802; 99285; J7030; Q9967; A4216; J0744; J1940; J2405

== ENCOUNTER 2019-09-19 23:28 | Inpatient (IN) | payer MEDICARE, MEDICAID, SELFPAY ==
[2019-09-10 17:01] VITALS: BMI 28.8
[2019-09-19 23:29] VITALS: BP 99/52; PULSE 67; RESP 28; TEMP 37; O2SAT 100; BMI 30.3
[2019-09-19 23:33] VITALS: O2SAT 100
--- NOTE | 2019-09-19 23:54 | EKG12_ITS ---
Test Reason : DYSRHYTHMIA Blood Pressure : / mmHG Vent. Rate : 067 BPM Atrial Rate : 067 BPM P-R Int : 146 ms QRS Dur : 080 ms QT Int : 438 ms P-R-T Axes : 015 -40 039 degrees QTc Int : 462 ms Normal sinus rhythm Left axis deviation Minimal voltage criteria for LVH, may be normal variant Abnormal ECG Confirmed by MADELEINE ROBLEDO, KATHLEEN ([id number]), editor city ALEXYS BOYER ([id number]) on 09/23/2019 12:31:10 PM Referred By: Jeff Faith Confirmed By:KATHLEEN SALVADOR MD
--- NOTE | 2019-09-19 23:55 | ED.VIS.GEN ---
History of Present Illness Chief Complaint: Shortness of Breath Informant: Patient Narrative: Patient has a history of DNR comfort care only. She stated that she became short of breath 2 hours ago at rest at the skilled nursing. She stated she was given a breathing treatments which did help. She feels better now. She denies any significant cough. She denies chest pain. She denies any recent weight gain. Recently diagnosed with a pulmonary embolism which was small approximately a week ago. She is on Eliquis for this. She also had a DVT that was found. Sent in for further evaluation. Patient denies any cough. Patient stated she has a history of COPD. And is on 4 L nasal cannula oxygen at baseline. Brought in on a nonrebreather. 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 (3) COPD (chronic obstructive pulmonary disease) Status: Chronic (4) COPD exacerbation Status: Chronic (5) GERD (gastroesophageal reflux disease) Status: Chronic (6) Obesity (BMI 30.0-34.9) Status: Chronic (7) Respiratory failure, [id number] Status: Chronic (8) Right leg DVT Status: Chronic (9) Stage III chronic kidney disease Status: Chronic (10) Venous insufficiency Status: Chronic Past Medical History - Allergies and Home Meds Allergies/Adverse Reactions: Allergies chlordiazepoxide HCl [From Librium] Allergy (Verified 09/19/19 23:33) Anaphylaxis Penicillins Allergy (Verified 09/19/19 23:33) Anaphylaxis Primary Care Physician: Hardik Soto MD [Primary Care Provider] - Prior records reviewed: Yes Past Medical History: - - See problem list Surgical History: noncontributory, - - Uterine suspension; benign lump was removed from right breast. Lives: Detention Smoking Status: Former smoker Alcohol: None Drugs: None - Family History Maternal Family History: Family History (This Medical Record has been edited. Action required.) Other Diabetes Heart disease Family History: Reports: Heart Disease Paternal Family History: Family History (This Medical Record has been edited. Action required.) Other Diabetes Heart disease Family History: Reports: Heart Disease Review of Systems General: Denies: Chills, Fever, Sweats Eyes: Denies: Visual changes - bilaterally, Diplopia ENT: Denies: Rhinorrhea, Sore throat Cardiovascular: Denies: Chest pain, Palpitations Respiratory: Reports: Dyspnea. Denies: Cough, Dyspnea on exertion Gastrointestinal: Denies: Abdominal pain, Nausea, Vomiting, Diarrhea, Melena, Hematochezia Genitourinary: Denies: Dysuria, Hematuria, Frequency Musculoskeletal: Denies: Back pain, Extremity Pain Skin: Denies: Rash, Wounds Neurological: Denies: Headache, Weakness, Numbness Physical Exam Vital Signs/Narrative: Vital Signs Temp Pulse Resp BP Pulse Ox 09/19/19 23:29 98.6 F 67 28 H 99/52 L 100 General: Well nourished, Well developed, - - Patient appears weak.. Negative for: No Acute Distress Head: Normocephalic, Atraumatic Eyes: Perrl, EOMI ENT: Moist mucous membranes, No rhinorrhea Neck: Supple, Nontender Cardiovascular: Regular rate, Regular rhythm, No murmurs Respiratory: CTA bilaterally, Chest nontender, - - Mild tachypnea noted. Negative for: No distress, Rales, Rhonchi, Wheezing, Retractions Abdomen: Soft, Nontender, Nondistended, Normal bowel sounds Back: Nontender, Normal Inspection Extremities: Nontender, No edema Skin: Normal color, No rash Neurological: Alert, Oriented x3, Cranial nerves II-XII grossly intact, Normal Strength, Normal Sensation Psychological: Normal affect, Normal Mood Diagnostic/Tx/Re-eval - Medical Decision Making Patient continued on oxygen. Given a breathing treatment lab work and chest x-ray and EKG obtained. ED Disposition - Plan for ED Patient: Referrals: Hardik Soto MD [Primary Care Provider] -
[2019-09-20] VITALS (23 sets, daily range): BP systolic 92–113; BP diastolic 43–56; PULSE 65–78; RESP 16–28; TEMP 36.6–37; O2SAT 88–100; BMI 27.8
--- NOTE | 2019-09-20 00:04 | RAD_ITS ---
STUDY: X-RAY CHEST REASON FOR EXAM: Female, 79 years old. sob -- copd TECHNIQUE: Single AP portable view of the chest. COMPARISON: 09/16/2019 FINDINGS: There is compressive atelectasis in the left lung base. There is a small left pleural effusion. Normal size heart. Normal mediastinum and sera. Normal visualized pulmonary arteries. Normal visualized aortic arch and descending thoracic aorta. Normal visualized thoracic spine. There is degenerative osteoarthritis of the bilateral shoulders. There is no demonstrated abnormality of the visualized soft tissue structures of the upper abdomen. RAD/Chest 1 View (Portable) IMPRESSION: Small left pleural effusion. There has been no significant change since the previous study. Electronically Signed: Juan Jimenez, at 1:52 EST Tel , Service support ,
[2019-09-20] MEDS: Ipratropium/Albuterol Sulfate 3 ML AMPUL.NEB INHALATION ×4 (00:12→19:05)
[2019-09-20 00:17] LABS: Absolute Lymphocyte Count 1.45 X10^3/uL (0.83-4.51); Absolute Neutrophil Count 8.2 X10^3/uL (2.0-7.7); Basophil# 0.03 X10^3/uL; Basophil% 0.3 % (0-1); Eosinophil# 0.43 X10^3/uL; Eosinophils% 3.9 % (0-5); Hematocrit 29.4 % (37-47); Hemoglobin 9.3 g/dL (12.0-15.0); Lymphocyte # 1.45 X10^3/ul (4.0); Lymphocyte % 13.2 % (19-41); Mean Corp Hgb Conc 31.6 g/dL (32-36); Mean Corpuscular Hgb 29.5 pg (27.0-32.0); Mean Corpuscular Volume 93.3 fL (81-99); Mean Platelet Vol. 9.4 fl (6.2-12.0); Monocyte% 7.3 % (0-10); NRBC Flagged by Analyzer 0 % (0-5); Neutrophil # 8.19 X10^3/uL (2.7-7.7); Neutrophil % 74.3 % (47-70); Platelet Count 397 K/mm3 (150-450); RBC Distribution Width CV 14.1 % (11.6-14.6); RBC Distribution Width SD 47.4 fl (35.1-43.9); Red Blood Count 3.15 M/mm3 (4.2-5.4)
[2019-09-20 00:38] LABS: Anion Gap 4 (5-15); BUN 42 mg/dL (7-18); BUN/Creat Ratio 33.9 RATIO (10-20); Calcium,Total 8.7 mg/dL (8.5-10.1); Chloride 101 mmol/L (98-107); Creatinine, Serum 1.24 mg/dL (0.55-1.02); EST Glomerular Filtration Rate 44 mL/min (>60); Est Glom Filt Rate - Afr Amer 54 mL/min (>60); Glucose 115 mg/dL (74-106); Sodium Level 138 mmol/L (136-145)
--- NOTE | 2019-09-20 02:28 | HP.PCM_ITS ---
Problem List (1) Dyspnea Status: Acute (2) Respiratory failure, [id number] Status: Chronic Qualifiers: Respiratory failure complication: hypoxia and hypercapnia Qualified Code(s): J96.21 - Acute and chronic respiratory failure with hypoxia; J96.22 - Acute and chronic respiratory failure with hypercapnia (3) COPD exacerbation Status: Chronic (4) Stage III chronic kidney disease Status: Chronic (5) GERD (gastroesophageal reflux disease) Status: Chronic Qualifiers: Esophagitis presence: esophagitis presence not specified Qualified Code(s): K21.9 - Gastro-esophageal reflux disease without esophagitis (6) Venous insufficiency Status: Chronic (7) COPD (chronic obstructive pulmonary disease) Status: Chronic Qualifiers: COPD type: emphysema Emphysema type: centrilobular Qualified Code(s): J43.2 - Centrilobular emphysema (8) Obesity (BMI 30.0-34.9) Status: Chronic (9) Anxiety Status: Chronic (10) Right leg DVT Status: Chronic History of Present Illness Date of Admission: 09/20/19 Chief Complaint: shortness of breath The patient is a 79 year old F with a significant history of DVT; pulmonary embolism; anxiety disorder; COPD on home 4 L of oxygen; CKD stage III who lives at a long term and who presented to emergency department with shortness of breath while at rest. She denies any coughing or wheezing. Patient is on 4 L of nasal cannula but had to be placed on nonrebreather mask en-route to the emergency department. At the emergency department when the nonrebreather mask was taken off and patient placed on nasal cannula she was short of breath; and hypoxic and her oxygen saturation was in the 80s. Subsequently patient was placed on a Venturi mask. On 09/10/2019 patient was admitted at a hospital and was discharged on 09/16/2019. At that time patient was diagnosed with pulmonary embolism secondary to DVT and was discharged home on Eliquis. On this presentation emergency department doctor was concerned about extension of a pulmonary embolism so CT scan of the chest were discussed with patient. However patient declined the CT scan of her chest. Past Medical History Past Medical History (Chronic Problems): Chronic Problems (This Medical Record has been edited. Action required.) Respiratory failure, [id number] (Chronic) COPD exacerbation (Chronic) Stage III chronic kidney disease (Chronic) GERD (gastroesophageal reflux disease) (Chronic) Venous insufficiency (Chronic) COPD (chronic obstructive pulmonary disease) (Chronic) Obesity (BMI 30.0-34.9) (Chronic) Anxiety (Chronic) Right leg DVT (Chronic) Medical History: Medical History (This Medical Record has been edited. Action required.) Asthma with COPD with exacerbation (Inactive) J44.1, J45.901 Respiratory failure, [id number] (Chronic) J96.20 COPD exacerbation (Chronic) J44.1 Stage III chronic kidney disease (Chronic) N18.3 GERD (gastroesophageal reflux disease) (Chronic) K21.9 Venous insufficiency (Chronic) COPD (chronic obstructive pulmonary disease) (Chronic) J44.9 Obesity (BMI 30.0-34.9) (Chronic) E66.9 Anxiety (Chronic) F41.9 Right leg DVT (Chronic) I82.401 Allergies chlordiazepoxide HCl [From Librium] Allergy (Verified 09/19/19 23:33) Anaphylaxis Penicillins Allergy (Verified 09/19/19 23:33) Anaphylaxis Home Medications: Ambulatory Orders Medication Instructions Recorded albuterol sulfate 90 mcg/actuation 2 puff INHALATION Q4H PRN g 07/04/19 aerosol inhaler Ipratropium/Albuterol Sulfate 1 amp INHALATION Q4H 07/22/19 [Iprat-Albut 0.5-3(2.5) mg/3 ml] Apixaban [Eliquis] 5 mg PO BID #60 tab 09/12/19 Apixaban [Eliquis] 10 mg PO BID #14 tab 09/12/19 Acetaminophen [Tylenol Tablet] 650 mg PO Q6H PRN PRN tab 09/13/19 Aspirin [Aspirin, Baby] 81 mg PO DAILY@0800 #30 tab.chew 09/13/19 Atorvastatin Calcium [Lipitor] 40 mg PO QHS #30 tab 09/13/19 Budesonide Aerosol [Pulmicort 0.5 mg INHALATION Q12H.RT #60 09/13/19 Respules] ampul.neb. Carvedilol [Coreg (Beta So)] 25 mg PO BID #60 tab 09/13/19 Quetiapine Fumarate [Seroquel] 25 mg PO DAILY@2000 #30 tab 09/13/19 busPIRone [Buspar] 5 mg PO BID #60 tab 09/13/19 Ascorbic Acid [Vitamin C] 500 mg PO DAILY@0800 09/20/19 Fluticasone/Vilanterol [Breo 1 ea IH DAILY 09/20/19 Ellipta Inhaler] Guaifenesin [Robitussin] 10 ml PO Q4H PRN PRN 09/20/19 Lorazepam 0.5 mg PO 4X/DAY PRN PRN 09/20/19 Melatonin 5 mg PO DAILY 09/20/19 Surgical History: Surgical History (This Medical Record has been edited. Action required.) History of breast surgery Z98.890 History of uterine suspension procedure Z98.890, Z87.448 Surgical History: - - Uterine suspension; benign lump was removed from right breast. Psychiatric History: No pertinent psych hx [employer] History: No pertinent [employer] history Lives: Assisted Smoking Status: Former smoker Alcohol: None Drugs: None - *Family History Maternal Family History: Family History (This Medical Record has been edited. Action required.) Other Diabetes Heart disease History Items: Heart Disease Paternal Family History: Family History (This Medical Record has been edited. Action required.) Other Diabetes Heart disease History Items: Heart Disease Review of Systems Constitutional: Denies: Chills, Fever, Weight Change HEENT: Denies: Head Aches, Sinus Congestion, Sinus Drainage Cardiovascular: Denies: Chest Pain, Palpitations Respiratory: Reports: Shortness of breath at rest. Denies: Cough, Sputum production Gastrointestinal: Denies: Abdominal Pain, Nausea, Vomiting Genitourinary: Denies: Dysuria Musculoskeletal: Denies: Joint Pain, Joint Tenderness Skin: Denies: Rash, Wounds Neurological: Denies: Numbness, Tingling, Focal weakness Psychiatric: Denies: Homicidal Ideations, Suicidal Ideations Hematologic/ Lymphatic: Denies: Easy Bruising, Easy Bleeding VTE Information - Inpt Only VTE Present on Admission: Yes - Patient diagnosis of DVT and PE. On Eliquis. VTE Mechan Device Prophylaxis: None VTE Pharm Prophylaxis ordered?: No Patient Problems: Active and Suspected Problems (This Medical Record has been edited. Action required.) Dyspnea (Acute) - Physical Exam Vitals/I&O's: Vital Signs Temp Pulse Resp BP Pulse Ox 98.6 F 65 27 H 101/49 L 90 09/19/19 23:29 09/20/19 02:02 09/20/19 02:02 09/20/19 02:02 09/20/19 02:02 Oxygen Flow Rate (L/min) 8 Oxygen Delivery Method Venturi Mask Weight: 90.5 kg Body Mass Index (BMI) 30.3 General: Alert, Oriented x3, Cooperative HEENT: Atraumatic, PERRLA, EOMI, Normocephalic Neck: Supple, No JVD, Negative Carotid Bruits Lungs: Clear to auscultation, Normal air movement, No rhonchi, No wheeze, No rales, Diminished - Secondary to poor effort. However when encouraged to take a deep breath her lungs does not appear diminished., Short of Breath, Tachypneic, Using Accessory Muscles Cardiovascular: Regular rate, Normal S1, Normal S2, No murmurs Abdomen: Bowel Sounds Present, Soft, Non Tender Extremities: No edema, Capillary Refill Less than 3 Seconds Skin: No rashes, No breakdown Musculoskeletal: No Tenderness to Palpation of Joints or Extremities Neurological: Cranial nerves II-XII grossly intact Psych/Mental Status: Anxious Microbiology Past 72 Hours 09/20/19 00:05 Mucosa - Nasopharyngeal Influenza Types A,B Direct FA ([facility]) - Final Laboratory Results 09/20/19 00:09: WBC 11.0, RBC 3.15 L, Hgb 9.3 L, Hct 29.4 L, MCV 93.3, MCH 29.5, MCHC 31.6 L, RDW Std Deviation 47.4 H, RDW Coeff of Bebeto 14.1, Plt Count 397, MPV 9.4, Immature Gran % (Auto) 1.000 H, Neut % (Auto) 74.3 H, Lymph % (Auto) 13.2 L, [place] % (Auto) 7.3, Eos % (Auto) 3.9, Baso % (Auto) 0.3, Absolute Neuts (auto) 8.2 H, Absolute Lymphs (auto) 1.45, Nucleated RBC % 0 09/20/19 00:09: Sodium 138, Potassium 4.0, Chloride 101, Carbon Dioxide 33.0 H, Anion Gap 4 L, BUN 42 H, Creatinine 1.24 H, Estim Creat Clear Calc 36.50, Est GFR (MDRD) Af Amer 54 L, Est GFR (MDRD) Non-Af 44 L, BUN/Creatinine Ratio 33.9 H , Glucose 115 H, Calcium 8.7, Troponin I < 0.015 09/20/19 00:09: B-Natriuretic Peptide 67.0 Assessment/Plan All Active Problems (This Medical Record has been edited. Action required.) Dyspnea (Acute) The patient is a 79 year old F with a significant history of COPD on home 4 L of oxygen; CKD stage III and a recent DVT and PE who is on Eliquis presenting with shortness of breath and dyspnea requiring nonrebreather mask and Venturi mask a consistent with acute on chronic hypoxemic respiratory failure. Acute on chronic hypoxemic respiratory failure Impression of chest x-ray: Small left pleural effusion. There has been no significant change since the previous study. Patient does not have wheezes or cough. COPD is unlikely. Patient transition from 4 L nasal cannula to nonrebreather mask to Venturi mask Patient continues to have increased work of breathing will put patient on BiPAP for now. ABG ordered. Continue patient on home inhalers Continue Eliquis. Solu-Medrol was originally ordered by emergency department doctor but it was not given and it was discontinued on the floor. CKD stage III Stable History of hypertension On presentation blood pressure was low normal. Hold home Coreg for now. Trend blood pressures. Resume blood pressure medication as necessary. Acute on chronic anemia On presentation her hemoglobin was 9.33. Baseline hemoglobin is around 11.5. Of note patient was recently started on Eliquis. Will get occult stools. Will get iron studies as well as a folate and vitamin B12 levels. Consider venofer if necessary Bandemia Trend CBC. DVT prophylaxis Eliquis continued for history of DVT and PE. Code Visit OBSV E&M: [id number] Initial observation care L3
[2019-09-20 03:11] LABS: Allen Test POS; Base Excess 7 mmol/L (-2 to +2); Bicarbonate 31.8 mmol/L (22-26); Blood Gas Specimen Type ART; FI02 50; PO2 64 mmHG (75-100); SITE L Radial; SO2 92 % (95-99); Time Given 255; Total Carbon Dioxide 33 mmol/L; pCO2 50.8 mmHg (35-45); pH 7.41 (7.35-7.45)
[2019-09-20 06:42] LABS: Anion Gap 2 (5-15); BUN 43 mg/dL (7-18); BUN/Creat Ratio 31.9 RATIO (10-20); Calcium,Total 8.2 mg/dL (8.5-10.1); Chloride 100 mmol/L (98-107); Creatinine, Serum 1.35 mg/dL (0.55-1.02); EST Glomerular Filtration Rate 40 mL/min (>60); Est Glom Filt Rate - Afr Amer 49 mL/min (>60); Estimated Creatinine Clearance 33.53 ml/min; Ferritin 80 ng/mL (8-252); Glucose 104 mg/dL (74-106); Iron 39 ug/dL (50-170); Iron Binding Capacity,Total 233 ug/dL (250-450); PERCENT IRON SATURATION 16.7 % (15.0-55.0); Potassium 3.9 mmol/L (3.5-5.1); Sodium Level 137 mmol/L (136-145)
[2019-09-20] MEDS: Budesonide Respules 0.5 MG/2 ML AMPUL.NEB. INHALATION ×2 (07:05→19:05)
[2019-09-20 08:24] LABS: Vitamin B12 286 pg/mL (211-911)
--- NOTE | 2019-09-20 08:35 | CPS ---
pt says she will not wear a bipap if her breathing gets worse, she is complaining about the Venti mask. R.T. is now trialing a HFNC @12lpm O2=92% sat. Pt has irregular and very shallow breathing pattern.
[2019-09-20] MEDS: Aspirin 81 MG TAB.CHEW PO (09:54)
[2019-09-20] MEDS: APIXABAN 5 MG TABLET 10 MG PO ×2 (09:54→23:31)
--- NOTE | 2019-09-20 11:09 | CASEMGMT ---
Patient is known to SERA from recent admission. [facility]A sent patient to [facility]. SERA faxed updates to [facility]. Ame RICCI MSW
[2019-09-20] MEDS: Albuterol 2.5 MG/3 ML VIAL.NEB. INHALATION (11:20)
--- NOTE | 2019-09-20 11:25 | CPS ---
verbal order from Dr Hill to hold off on applying BIPAP @this time. Sat's are now in low 90's w/respirations slowing down.
[2019-09-20] MEDS: Morphine 4 MG/ML Syringe IV (13:19)
[2019-09-20] MEDS: 0.9% Saline Lock 10 ML Syringe IV ×2 (13:19→23:31)
--- NOTE | 2019-09-20 14:54 | CASEMGMT ---
SERA spoke with Vilma at [facility] and she said it is fine if patient returns over the weekend. Green sheet on chart if patient is ready for d/c. Ame RICCI MSW
--- NOTE | 2019-09-20 15:57 | PCM.HOSP.N ---
Hospitalist Note Patient was seen and examined briefly today, patient was extremely dyspneic this morning with high-pitched expiratory wheezes bilaterally, I am unsure if the patient could have a component of diastolic congestive heart failure, I have decided to place the patient on IV Lasix to see if she responds to this. Patient does have a history of COPD and chronic hypoxic respiratory failure. Patient is currently on a 50% Ventimask. Patient's medical status at this time is guarded, she is a DNR CC.
[2019-09-20] MEDS: Furosemide 20 MG/2 ML VIAL IV (23:31)
[2019-09-20] MEDS: Atorvastatin Calcium 40 MG Tablet PO (23:31)
[2019-09-20] MEDS: busPIRone 5 MG Tablet PO (23:31)
[2019-09-21] VITALS (17 sets, daily range): BP systolic 106–127; BP diastolic 50–62; PULSE 77–90; RESP 12–36; TEMP 36.6–37.1; O2SAT 92–100
[2019-09-21] MEDS: LORazepam 0.5 MG Tablet PO ×3 (00:22→12:06)
[2019-09-21] MEDS: MELATONIN 3 MG TABLET PO ×2 (00:22→22:21)
[2019-09-21] MEDS: DiphenhydrAMINE 25 MG Capsule PO ×2 (02:15→12:06)
[2019-09-21] MEDS: Albuterol 2.5 MG/3 ML VIAL.NEB. INHALATION ×2 (03:00→15:14)
[2019-09-21] MEDS: Furosemide 20 MG/2 ML VIAL IV ×3 (05:26→22:11)
[2019-09-21 07:00] LABS: Absolute Neutrophil Count 5.9 X10^3/uL (2.0-7.7); Basophil# 0.03 X10^3/uL; Basophil% 0.3 % (0-1); Eosinophil# 0.72 X10^3/uL; Eosinophils% 7.9 % (0-5); Hematocrit 24.9 % (37-47); Hemoglobin 7.7 g/dL (12.0-15.0); Lymphocyte % 15.4 % (19-41); Mean Corp Hgb Conc 30.9 g/dL (32-36); Mean Corpuscular Hgb 29.3 pg (27.0-32.0); Mean Corpuscular Volume 94.7 fL (81-99); Mean Platelet Vol. 9.6 fl (6.2-12.0); Monocyte% 9.9 % (0-10); NRBC Flagged by Analyzer 0 % (0-5); Neutrophil # 5.94 X10^3/uL (2.7-7.7); Neutrophil % 65.3 % (47-70); Platelet Count 432 K/mm3 (150-450); RBC Distribution Width CV 14.7 % (11.6-14.6); Red Blood Count 2.63 M/mm3 (4.2-5.4); White Blood Count 9.1 K/mm3 (4.4-11.0)
[2019-09-21] MEDS: Budesonide Respules 0.5 MG/2 ML AMPUL.NEB. INHALATION ×2 (07:13→19:35)
[2019-09-21] MEDS: Ipratropium/Albuterol Sulfate 3 ML AMPUL.NEB INHALATION ×3 (07:13→19:35)
[2019-09-21 07:42] LABS: Anion Gap 5 (5-15); BUN 44 mg/dL (7-18); BUN/Creat Ratio 31.9 RATIO (10-20); Calcium,Total 8.3 mg/dL (8.5-10.1); Chloride 100 mmol/L (98-107); Creatinine, Serum 1.38 mg/dL (0.55-1.02); EST Glomerular Filtration Rate 39 mL/min (>60); Est Glom Filt Rate - Afr Amer 47 mL/min (>60); Glucose 90 mg/dL (74-106); Potassium 3.7 mmol/L (3.5-5.1); Sodium Level 138 mmol/L (136-145)
[2019-09-21 08:30] LABS: Magnesium 2.5 mg/dL (1.6-2.6)
[2019-09-21] MEDS: Aspirin 81 MG TAB.CHEW PO (09:30)
[2019-09-21] MEDS: APIXABAN 5 MG TABLET 10 MG PO (09:30)
[2019-09-21] MEDS: busPIRone 5 MG Tablet PO ×2 (09:30→22:11)
[2019-09-21] MEDS: 0.9% Saline Lock 10 ML Syringe IV ×2 (13:15→22:11)
--- NOTE | 2019-09-21 19:05 | PN_ITS ---
Patient Problems: Active and Suspected Problems (This Medical Record has been edited. Action required.) Dyspnea (Acute) Subjective: Patient was seen and examined today, she remains on a Ventimask at this time, she does not complain of any chest pain and appears comfortable at rest. Patient appears less anxious than yesterday. - Physical Exam Vitals/I&O's: Vital Signs Temp Pulse Resp BP Pulse Ox 97.8 F 87 20 H 113/55 L 95 09/21/19 18:00 09/21/19 18:00 09/21/19 18:00 09/21/19 18:00 09/21/19 18:00 Oxygen Flow Rate (L/min) 12 Oxygen Delivery Method Venturi Mask Weight: 83 kg Body Mass Index (BMI) 27.8 Intake and Output for Last 24 Hours 09/19/19 09/20/19 09/21/19 23:59 23:59 23:59 Intake Total 540 / 780 1180 / 1180 Output Total 650 / 650 1700 / 1700 Balance -110 / 130 -520 / -520 General: Alert, Oriented x3, Cooperative, No apparent distress, Well developed, Well nourished HEENT: Atraumatic, PERRLA, EOMI, Normocephalic Oral: Moist Mucosa Neck: Supple, No JVD, Negative Carotid Bruits, Trachea Midline, Thyroid Normal Size and Texture Lungs: Clear to auscultation, No rhonchi, No wheeze, Diminished Cardiovascular: Regular rate, Regular Rhythm, Normal S1, Normal S2, No murmurs, PMI Normal Abdomen: Bowel Sounds Present, Soft, Non Tender, Non-Distended Extremities: No clubbing, No cyanosis, No edema, Capillary Refill Less than 3 Seconds Skin: No rashes, No breakdown Musculoskeletal: No Tenderness to Palpation of Joints or Extremities Neurological: Cranial nerves II-XII grossly intact, Neuro grossly intact, Sensory exam intact to light touch and pain Psych/Mental Status: Normal Affect, Appropriate Microbiology Past 72 Hours 09/20/19 00:05 Mucosa - Nasopharyngeal Influenza Types A,B Direct FA ([facility]) - Final Laboratory Results 09/21/19 05:47: WBC 9.1, RBC 2.63 L, Hgb 7.7 L, Hct 24.9 L, MCV 94.7, MCH 29.3, MCHC 30.9 L, RDW Std Deviation 50.0 H, RDW Coeff of Bebeto 14.7 H, Plt Count 432, MPV 9.6, Immature Gran % (Auto) 1.200 H, Neut % (Auto) 65.3, Lymph % (Auto) 15.4 L, [place] % (Auto) 9.9, Eos % (Auto) 7.9 H, Baso % (Auto) 0.3, Absolute Neuts (auto) 5.9, Absolute Lymphs (auto) 1.40, Nucleated RBC % 0 09/21/19 05:47: Sodium 138, Potassium 3.7, Chloride 100, Carbon Dioxide 33.0 H, Anion Gap 5, BUN 44 H, Creatinine 1.38 H, Estim Creat Clear Calc 32.80, Est GFR (MDRD) Af Amer 47 L, Est GFR (MDRD) Non-Af 39 L, BUN/Creatinine Ratio 31.9 H, Glucose 90, Calcium 8.3 L 09/21/19 05:47: Magnesium 2.5 Current Medications Acetaminophen (Tylenol) 650 mg PO Q6H PRN PRN PRN Reason: Pain Score 1-10/Temp > 100.7 F Albuterol Sulfate (Ventolin Aerosols) 2.5 mg INHALATION Q2H PRN PRN PRN Reason: SOB &/OR WHEEZING Last Admin: 09/21/19 15:14 Dose: 2.5 mg Documented by: Albuterol/Ipratropium (Duoneb) 3 ml INHALATION Q6HWA.RT [facility] Last Admin: 09/21/19 12:58 Dose: 3 ml Documented by: Apixaban (Eliquis) 5 mg PO BID [facility] Ascorbic Acid (Vitamin C) 500 mg PO DAILY@0800 [facility] Last Admin: 09/21/19 09:31 Dose: Not Given Documented by: Aspirin (Aspirin, Baby) 81 mg PO DAILY@0800 [facility] Last Admin: 09/21/19 09:30 Dose: 81 mg Documented by: Atorvastatin Calcium (Lipitor) 40 mg PO QHS [facility] Last Admin: 09/20/19 23:31 Dose: 40 mg Documented by: Budesonide (Pulmicort Aerosol) 0.5 mg INHALATION Q12H.RT [facility] Last Admin: 09/21/19 07:13 Dose: 0.5 mg Documented by: Buspirone HCl (Buspar) 5 mg PO BID [facility] Last Admin: 09/21/19 09:30 Dose: 5 mg Documented by: Diphenhydramine HCl (Benadryl) 25 mg PO TID PRN PRN PRN Reason: ITCHING Last Admin: 09/21/19 12:06 Dose: 25 mg Documented by: Furosemide (Lasix) 20 mg IV Q8 [facility] Last Admin: 09/21/19 13:15 Dose: 20 mg Documented by: Glucagon () 1 mg IM .X1 PRN PRN Reason: Hypoglycemia Sodium Chloride () 250 mls @ 15 mls/hr IV .[id number] PRN PRN Reason: Saline Flush Sodium Chloride () 250 mls @ 15 mls/hr IV .[id number] PRN PRN Reason: Additional IVPB Infusion Dextrose (Dextrose 10%-Water) 250 mls @ 999 mls/hr IV .Q16M PRN; Protocol PRN Reason: HYPOGLYCEMIA Lorazepam (Ativan) 0.5 mg PO 4X/DAY PRN PRN PRN Reason: ANXIETY Last Admin: 09/21/19 12:06 Dose: 0.5 mg Documented by: Melatonin (Melatonin) 3 mg PO QHS PRN PRN PRN Reason: INSOMNIA Last Admin: 09/21/19 00:22 Dose: 3 mg Documented by: Morphine Sulfate () 4 mg IV Q3H PRN PRN PRN Reason: Pain Score 1-10/10 Last Admin: 09/20/19 13:19 Dose: 2 mg Documented by: Nutritional Formula (Lactose Free) (Ensure Enlive) 120 ml PO 4X/DAY [facility] Last Admin: 09/21/19 17:32 Dose: Not Given Documented by: Ondansetron HCl (Zofran) 4 mg IV Q8H PRN PRN PRN Reason: NAUSEA/VOMITING Potassium Chloride (K-Dur) 20 meq PO BIDCM [facility] Last Admin: 09/21/19 18:10 Dose: Not Given Documented by: Sodium Chloride () 10 - 40 ml IV UD PRN PRN Reason: SALINE FLUSH Last Admin: 09/21/19 13:15 Dose: 10 ml Documented by: Medical Necessity - Tobacco Use Smoking Status: Former smoker Assessment/Plan All Active Problems (This Medical Record has been edited. Action required.) Dyspnea (Acute) #1 acute on chronic hypoxic respiratory failure-continue present treatment, if patient does not improve, pulmonary medicine may have to evaluate the patient. #2 chronic obstructive pulmonary disease #3 recent pulmonary embolism #4 stage III chronic kidney disease #5 iron deficiency anemia-etiology unclear, recheck CBC tomorrow #6 chronic anxiety disorder-patient refuses to take medications at times, suspect she may have other issues such as dementia Code Visit Inpatient E&M: [id number] Subs Hosp L2
--- NOTE | 2019-09-21 21:07 | NURSING ---
Pt wanting bipap off. Pt placed on 50% Venti Mask. Satting in the high 80s. Respiratory notified that pt wanting high flow oxygen on. Respiratory at bedside at this time.
--- NOTE | 2019-09-21 21:59 | CPS ---
Pt. tolerated BiPAP for a couples hours; 7L HFNC administered and pt.'s oxygen saturation is maintaining 92 - 94%
[2019-09-21] MEDS: Atorvastatin Calcium 40 MG Tablet PO (22:11)
[2019-09-22] VITALS (22 sets, daily range): BP systolic 111–129; BP diastolic 53–64; PULSE 89–101; RESP 12–44; TEMP 36.2–37.2; O2SAT 88–97
[2019-09-22] MEDS: LORazepam 0.5 MG Tablet PO ×2 (00:11→08:12)
[2019-09-22] MEDS: Mag Hydrox/Al Hydrox/Simeth 30 ML UDC PO (00:14)
[2019-09-22] MEDS: Ipratropium/Albuterol Sulfate 3 ML AMPUL.NEB INHALATION ×3 (01:22→12:58)
--- NOTE | 2019-09-22 02:18 | CPS ---
Pt. attempted to wear BiPAP, but she wasn't able to get used to it. She demanded it be taken off; 7L HFNC placed back onto pt. (SpO2 = 93%)
[2019-09-22] MEDS: 0.9% Saline Lock 10 ML Syringe IV ×3 (02:54→18:09)
[2019-09-22] MEDS: LORazepam 2 MG/ML Syringe 0.5 MG IV (02:54)
[2019-09-22] MEDS: Albuterol 2.5 MG/3 ML VIAL.NEB. INHALATION ×2 (04:05→13:55)
--- NOTE | 2019-09-22 06:10 | RAD_ITS ---
STUDY: X-RAY CHEST REASON FOR EXAM: Female, 79 years old. INCREASED OXYGEN NEED TECHNIQUE: Single AP portable view of the chest. COMPARISON: September 20, 2019, September 11, [address] FINDINGS: Again noted is a prominent cardiac fat pad in the left lingular region with minimal left lower lobe atelectasis. The lungs are somewhat hyperinflated otherwise suggesting underlying chronic obstructive pulmonary disease. The lungs are clear and expanded. There is no demonstrated pleural abnormality. Normal size heart. Normal mediastinum and sera. Normal visualized pulmonary arteries. Normal visualized aortic arch and descending thoracic aorta. There is demineralization of the osseous structures. Normal visualized ribs, clavicles, and shoulders. There is no demonstrated abnormality of the visualized soft tissue structures of the upper abdomen. RAD/Chest 1 View (Portable) IMPRESSION: Prominent left cardiac fat pad, stable chest. Chronic obstructive pulmonary disease. Electronically Signed: Pat Heredia MD at 10:04 EST Tel , Service support ,
[2019-09-22] MEDS: Furosemide 20 MG/2 ML VIAL IV ×2 (06:31→13:59)
[2019-09-22] MEDS: Budesonide Respules 0.5 MG/2 ML AMPUL.NEB. INHALATION (06:38)
[2019-09-22] MEDS: Aspirin 81 MG TAB.CHEW PO (08:12)
--- NOTE | 2019-09-22 08:12 | PCM.CONS.PUL ---
Reason for Consult Date of Consultation: 09/22/19 Reason for Consultation: Acute on chronic combined respiratory failure History of Present Illness: The patient is an 79-year-old female, with a history as outlined below, who presented to the emergency department on September 19 with complaints of shortness of breath. The patient has been followed by Dr. Jason on an outpatient basis, having last been seen in the pulmonary medicine clinic in June 2019. Although the patient has a presumptive diagnosis of COPD, she was previously unable to complete pulmonary function studies due to significant wheezing. The patient was just admitted to the hospital September 10, during which time, she was diagnosed with pulmonary emboli and started on Eliquis. The patient has been resistant in the past to the utilization of any form of noninvasive positive pressure ventilatory support in her home environment. On presentation to the emergency department, the patient was noted to be afebrile and hemodynamically stable. She did have a high oxygen requirement on presentation. Laboratory evaluation revealed no evidence of a leukocytosis. Arterial blood gas on a Ventimask revealed a pH of 7.41 with a corresponding PCO2 of 51 and PO2 of 64. Chemistry profile was notable for an elevated serum bicarbonate to 33 along with evidence of chronic kidney disease. Troponin and BNP were negative. Plain film chest x-ray revealed evidence of a left sided pleural effusion. The patient currently has a CODE STATUS in the computer system listed to be DNR comfort care. Past Medical History Past Medical History (Chronic Problems): Chronic Problems (This Medical Record has been edited. Action required.) Respiratory failure, [id number] (Chronic) COPD exacerbation (Chronic) Stage III chronic kidney disease (Chronic) GERD (gastroesophageal reflux disease) (Chronic) Venous insufficiency (Chronic) COPD (chronic obstructive pulmonary disease) (Chronic) Obesity (BMI 30.0-34.9) (Chronic) Anxiety (Chronic) Right leg DVT (Chronic) Medical History: Medical History (This Medical Record has been edited. Action required.) Asthma with COPD with exacerbation (Inactive) J44.1, J45.901 Respiratory failure, myokg-wk-isqtwhf (Chronic) J96.20 COPD exacerbation (Chronic) J44.1 Stage III chronic kidney disease (Chronic) N18.3 GERD (gastroesophageal reflux disease) (Chronic) K21.9 Venous insufficiency (Chronic) COPD (chronic obstructive pulmonary disease) (Chronic) J44.9 Obesity (BMI 30.0-34.9) (Chronic) E66.9 Anxiety (Chronic) F41.9 Right leg DVT (Chronic) I82.401 Allergies chlordiazepoxide HCl [From Librium] Allergy (Verified 09/19/19 23:33) Anaphylaxis Penicillins Allergy (Verified 09/19/19 23:33) Anaphylaxis Home Medications: Ambulatory Orders Medication Instructions Recorded albuterol sulfate 90 mcg/actuation 2 puff INHALATION Q4H PRN g 07/04/19 aerosol inhaler Ipratropium/Albuterol Sulfate 1 amp INHALATION Q4H 07/22/19 [Iprat-Albut 0.5-3(2.5) mg/3 ml] Apixaban [Eliquis] 5 mg PO BID #60 tab 09/12/19 Apixaban [Eliquis] 10 mg PO BID #14 tab 09/12/19 Acetaminophen [Tylenol Tablet] 650 mg PO Q6H PRN PRN tab 09/13/19 Aspirin [Aspirin, Baby] 81 mg PO DAILY@0800 #30 tab.chew 09/13/19 Atorvastatin Calcium [Lipitor] 40 mg PO QHS #30 tab 09/13/19 Budesonide Aerosol [Pulmicort 0.5 mg INHALATION Q12H.RT #60 09/13/19 Respules] ampul.neb. Carvedilol [Coreg (Beta So)] 25 mg PO BID #60 tab 09/13/19 Quetiapine Fumarate [Seroquel] 25 mg PO DAILY@2000 #30 tab 09/13/19 busPIRone [Buspar] 5 mg PO BID #60 tab 09/13/19 Ascorbic Acid [Vitamin C] 500 mg PO DAILY@0800 09/20/19 Fluticasone/Vilanterol [Breo 1 ea IH DAILY 09/20/19 Ellipta Inhaler] Guaifenesin [Robitussin] 10 ml PO Q4H PRN PRN 09/20/19 Lorazepam 0.5 mg PO 4X/DAY PRN PRN 09/20/19 Melatonin 5 mg PO DAILY 09/20/19 Surgical History: Surgical History (This Medical Record has been edited. Action required.) History of breast surgery Z98.890 History of uterine suspension procedure Z98.890, Z87.448 Surgical History: - - Uterine suspension; benign lump was removed from right breast. Psychiatric History: No pertinent psych hx [employer] History: No pertinent [employer] history Lives: Alf Smoking Status: Former smoker Alcohol: None Drugs: None - *Family History Maternal Family History: Family History (This Medical Record has been edited. Action required.) Other Diabetes Heart disease History Items: Heart Disease Paternal Family History: Family History (This Medical Record has been edited. Action required.) Other Diabetes Heart disease History Items: Heart Disease Review of Systems Constitutional: Denies: Chills, Fever Eyes: Denies: Blurred vision, Double vision HEENT: Reports: Difficulty Hearing Cardiovascular: Denies: Chest Pain, Palpitations Respiratory: Reports: Shortness of Breath Gastrointestinal: Denies: Abdominal Pain, Nausea, Vomiting Genitourinary: Denies: Dysuria Musculoskeletal: Denies: Joint Pain, Joint Tenderness Skin: Denies: Rash, Wounds Neurological: Denies: Numbness, Tingling, Focal weakness Psychiatric: Reports: Anxiety Hematologic/ Lymphatic: Reports: Anemia, Hx of blood clot Objective: The patient's most recent lab work, culture data and imaging studies have all been personally reviewed. - Physical Exam Vitals/I&O's: Vital Signs Temp Pulse Resp BP Pulse Ox 97.8 F 89 24 H 118/53 L 95 09/22/19 07:39 09/22/19 07:39 09/22/19 07:39 09/22/19 07:39 09/22/19 07:48 Oxygen Flow Rate (L/min) 10 Oxygen Delivery Method Nasal Cannula Weight: 182 lb 15.739 oz Body Mass Index (BMI) 27.8 Intake and Output for Last 24 Hours 09/20/19 09/21/19 09/22/19 23:59 23:59 23:59 Intake Total 540 / 780 1240 / 1240 Output Total 650 / 650 2200 / 2200 400 / 400 Balance -110 / 130 -960 / -960 -380 / -380 General: Alert, Cooperative, - - Fatigued in appearance. HEENT: Atraumatic, PERRLA, Normocephalic Oral: Dry Mucosa Neck: Supple, No Nodes, Trachea Midline Lungs: - - Diminished air movement, most pronounced in the left lung base with right basilar rales. The patient has difficulty speaking in complete sentences. Cardiovascular: Regular rate, Regular Rhythm, Normal S1, Normal S2, No murmurs Abdomen: Bowel Sounds Present, Soft, Non Tender Extremities: No clubbing, No cyanosis, No edema Skin: No breakdown Musculoskeletal: No Tenderness to Palpation of Joints or Extremities Lymphatic: No Cervical, Supraclavicular, or Inguinal Adenopathy Neurological: Cranial nerves II-XII grossly intact, Neuro grossly intact Psych/Mental Status: Flat Affect Labs (Last 48 Hours) 09/20/19 09/21/19 09/21/19 05:57 05:47 05:47 WBC 9.1 RBC 2.63 L Hgb 7.7 L Hct 24.9 L MCV 94.7 MCH 29.3 MCHC 30.9 L RDW Std Deviation 50.0 H RDW Coeff of Bebeto 14.7 H Plt Count 432 MPV 9.6 Immature Gran % (Auto) 1.200 H Neut % (Auto) 65.3 Lymph % (Auto) 15.4 L Miner % (Auto) 9.9 Eos % (Auto) 7.9 H Baso % (Auto) 0.3 Absolute Neuts (auto) 5.9 Absolute Lymphs (auto) 1.40 Nucleated RBC % 0 Sodium 138 Potassium 3.7 Chloride 100 Carbon Dioxide 33.0 H Anion Gap 5 BUN 44 H Creatinine 1.38 H Estim Creat Clear Calc 32.80 Est GFR (MDRD) Af Amer 47 L Est GFR (MDRD) Non-Af 39 L BUN/Creatinine Ratio 31.9 H Glucose 90 Calcium 8.3 L Magnesium Vitamin B12 286 09/21/19 05:47 WBC RBC Hgb Hct MCV MCH MCHC RDW Std Deviation RDW Coeff of Bebeto Plt Count MPV Immature Gran % (Auto) Neut % (Auto) Lymph % (Auto) Miner % (Auto) Eos % (Auto) Baso % (Auto) Absolute Neuts (auto) Absolute Lymphs (auto) Nucleated RBC % Sodium Potassium Chloride Carbon Dioxide Anion Gap BUN Creatinine Estim Creat Clear Calc Est GFR (MDRD) Af Amer Est GFR (MDRD) Non-Af BUN/Creatinine Ratio Glucose Calcium Magnesium 2.5 Vitamin B12 Clinical Impression(s) from Imaging Studies Chest X-Ray 09/20/19 00:04 IMPRESSION: Small left pleural effusion. There has been no significant change since the previous study. Electronically Signed: Juan Jimenez, at 1:52 EST Tel , Service support , Current Medications Acetaminophen (Tylenol) 650 mg PO Q6H PRN PRN PRN Reason: Pain Score 1-10/Temp > 100.7 F Albuterol Sulfate (Ventolin Aerosols) 2.5 mg INHALATION Q2H PRN PRN PRN Reason: SOB &/OR WHEEZING Last Admin: 09/22/19 04:05 Dose: 2.5 mg Documented by: Albuterol/Ipratropium (Duoneb) 3 ml INHALATION Q6HWA.RT [facility] Last Admin: 09/22/19 06:38 Dose: 3 ml Documented by: Apixaban (Eliquis) 5 mg PO BID [facility] Ascorbic Acid (Vitamin C) 500 mg PO DAILY@0800 [facility] Last Admin: 09/21/19 09:31 Dose: Not Given Documented by: Aspirin (Aspirin, Baby) 81 mg PO DAILY@0800 [facility] Last Admin: 09/21/19 09:30 Dose: 81 mg Documented by: Atorvastatin Calcium (Lipitor) 40 mg PO QHS [facility] Last Admin: 09/21/19 22:11 Dose: 40 mg Documented by: Budesonide (Pulmicort Aerosol) 0.5 mg INHALATION Q12H.RT [facility] Last Admin: 09/22/19 06:38 Dose: 0.5 mg Documented by: Buspirone HCl (Buspar) 5 mg PO BID [facility] Last Admin: 09/21/19 22:11 Dose: 5 mg Documented by: Diphenhydramine HCl (Benadryl) 25 mg PO TID PRN PRN PRN Reason: ITCHING Last Admin: 09/21/19 12:06 Dose: 25 mg Documented by: Furosemide (Lasix) 20 mg IV Q8 [facility] Last Admin: 09/22/19 06:31 Dose: 20 mg Documented by: Glucagon () 1 mg IM .X1 PRN PRN Reason: Hypoglycemia Sodium Chloride () 250 mls @ 15 mls/hr IV .[id number] PRN PRN Reason: Saline Flush Sodium Chloride () 250 mls @ 15 mls/hr IV .[id number] PRN PRN Reason: Additional IVPB Infusion Dextrose (Dextrose 10%-Water) 250 mls @ 999 mls/hr IV .Q16M PRN; Protocol PRN Reason: HYPOGLYCEMIA Lorazepam (Ativan) 0.5 mg PO 4X/DAY PRN PRN PRN Reason: ANXIETY Last Admin: 09/22/19 00:11 Dose: 0.5 mg Documented by: Melatonin (Melatonin) 3 mg PO QHS PRN PRN PRN Reason: INSOMNIA Last Admin: 09/21/19 22:21 Dose: 3 mg Documented by: Morphine Sulfate () 4 mg IV Q3H PRN PRN PRN Reason: Pain Score 1-10/10 Last Admin: 09/20/19 13:19 Dose: 2 mg Documented by: Nutritional Formula (Lactose Free) (Ensure Enlive) 120 ml PO 4X/DAY [facility] Last Admin: 09/21/19 22:06 Dose: Not Given Documented by: Ondansetron HCl (Zofran) 4 mg IV Q8H PRN PRN PRN Reason: NAUSEA/VOMITING Potassium Chloride (K-Dur) 20 meq PO BIDCM [facility] Last Admin: 09/21/19 18:10 Dose: Not Given Documented by: Sodium Chloride () 10 - 40 ml IV UD PRN PRN Reason: SALINE FLUSH Last Admin: 09/22/19 06:31 Dose: 20 ml Documented by: Assessment/Plan All Active Problems (This Medical Record has been edited. Action required.) Dyspnea (Acute) RECOMMENDATIONS: 1. Initiate BiPAP therapy with a pressure support of 14/6 centimeters of water. 2. Discontinue Eliquis and transition to weight-based heparin infusion. 3. Obtain ultrasound-guided thoracentesis tomorrow. 4. Obtain echocardiogram. 5. Obtain respiratory viral panel. 6. Discontinue IV morphine, given renal insufficiency. 7. Update CODE STATUS to DNR CCA, per discussion with patient. 8. Obtain repeat labs, especially in light of worsening anemia. 9. Start empiric antimicrobials. IMPRESSIONS: 1. Acute on chronic combined respiratory failure Unclear precipitating etiology. However, there does appear to be radiographic evidence of a left-sided pleural effusion and/or underlying infiltrate. At this time, I would recommend that empiric antimicrobials be initiated. In addition, I would discontinue her Eliquis and transition her to weight-based heparin infusion, should thoracentesis be required in the next 24 to 48 hours. Check respiratory viral panel. Continue scheduled bronchodilators. Obtain repeat echocardiogram. CODE STATUS has been updated to reflect the patient's wishes. Recommend starting patient on BiPAP 14/6 centimeters of water. Obtain repeat arterial blood gas. Given her tenuous respiratory status and underlying renal insufficiency, the standing orders for her IV morphine have been discontinued. 2. Recent diagnosis of DVT/PE The patient was just hospitalized in August, during which time, she was noted to have lower extremity DVT and bilateral pulmonary emboli. She needs to be continued on systemic anticoagulation. However, I would discontinue her Eliquis and switch her to weight-based heparin, should any form of procedural intervention be required in the next 24 to 48 hours. 3. Anemia The patient does have evidence of worsening anemia since her admission. There is no readily identifiable source of blood loss. I would plan to recheck labs this morning and send a type and screen. If hemoglobin is less than 7 g/dL, the patient will require transfusion of blood products. 4. Generalized anxiety disorder/chronic kidney disease/advanced age/venous insufficiency/CODE STATUS Complicates care, management, recovery and prognosis. Although the patient presented from her long-term facility with sign documentation as of September 19 indicating DNR Comfort Care status, upon discussion with the patient today, she did indicate her CODE STATUS is actually DNR CCA. CODE status: Discussed CODE status at length including difference between FULL code, DNR-CCA and DNR-CC status. Following discussions about the differences in these status, patient requested DNR CCA CODE STATUS. Advanced Care Planning Face to Face Time: 15 minutes This note was generated with [employer] dictation software. It may contain incorrect words, spelling, and punctuation that were not noted in checking the note before signing. Code Visit Inpatient E&M: 75129 Init Hosp L3 Procedures: 75882 Advncd Care Plan 30 Min
[2019-09-22 09:15] LABS: Anion Gap 3 (5-15); BUN 55 mg/dL (7-18); BUN/Creat Ratio 32.9 RATIO (10-20); Calcium,Total 8.2 mg/dL (8.5-10.1); Chloride 98 mmol/L (98-107); Creatinine, Serum 1.67 mg/dL (0.55-1.02); EST Glomerular Filtration Rate 31 mL/min (>60); Est Glom Filt Rate - Afr Amer 38 mL/min (>60); Glucose 120 mg/dL (74-106); Potassium 3.9 mmol/L (3.5-5.1); Sodium Level 138 mmol/L (136-145)
[2019-09-22 09:16] LABS: Absolute Neutrophil Count 9.6 X10^3/uL (2.0-7.7); Basophil# 0.04 X10^3/uL; Basophil% 0.3 % (0-1); Eosinophil# 0.54 X10^3/uL; Eosinophils% 4.1 % (0-5); Hematocrit 21.8 % (37-47); Hemoglobin 6.7 g/dL (12.0-15.0); Lymphocyte % 12.8 % (19-41); Mean Corp Hgb Conc 30.7 g/dL (32-36); Mean Corpuscular Hgb 29.8 pg (27.0-32.0); Mean Corpuscular Volume 96.9 fL (81-99); Mean Platelet Vol. 9.3 fl (6.2-12.0); Monocyte# 1.23 X10^3/uL; Monocyte% 9.3 % (0-10); NRBC Flagged by Analyzer 0 % (0-5); Neutrophil # 9.61 X10^3/uL (2.7-7.7); Neutrophil % 72.3 % (47-70); Platelet Count 481 K/mm3 (150-450); RBC Distribution Width CV 15.5 % (11.6-14.6); RBC Distribution Width SD 51.4 fl (35.1-43.9); Red Blood Count 2.25 M/mm3 (4.2-5.4); White Blood Count 13.3 K/mm3 (4.4-11.0)
[2019-09-22 10:11] LABS: Allen Test POS; Base Excess 12 mmol/L (-2 to +2); Bicarbonate 35.4 mmol/L (22-26); Blood Gas Specimen Type ART; O2 Delivery Device Nasal Can; PO2 60 mmHG (75-100); SITE R Radial; SO2 92 % (95-99); Time Given 1000; Total Carbon Dioxide 37 mmol/L; pCO2 49.4 mmHg (35-45); pH 7.46 (7.35-7.45)
[2019-09-22 11:41] LABS: Partial Thromboplast Time 32.3 Seconds (24.1-36.2)
[2019-09-22 11:45] LABS: International Normalized Ratio 1.9
--- NOTE | 2019-09-22 12:14 | PCM.PROGNOTE ---
Patient Problems: Active and Suspected Problems (This Medical Record has been edited. Action required.) Dyspnea (Acute) Subjective: Patient was seen and examined today, she is alternately refused certain things such as her medications and initially an ABG, she then relented and had an ABG performed, pH 7.46, PCO2 49.4, PO2 60 on 9 L. Patient's white blood cell count was 13.3 this morning, her hemoglobin is 6.7. Creatinine is 1.67. Initially this morning the patient stated that she wanted to be on a ventilator if needed, most recently, nursing has told me that the patient would not be opposed to hospice seeing her-I have to discuss this with her because the patient changes her mind about many things when talking with her. I am also going to discuss transfusing the patient with 2 units of packed red blood cells, I am not sure where the patient's anemia is originating-she has a history of iron deficiency anemia. - Physical Exam Vitals/I&O's: Vital Signs Temp Pulse Resp BP Pulse Ox 97.8 F 92 24 H 118/53 L 95 09/22/19 07:39 09/22/19 11:00 09/22/19 07:39 09/22/19 07:39 09/22/19 07:48 Oxygen Flow Rate (L/min) 10 Oxygen Delivery Method Nasal Cannula Weight: 83 kg Body Mass Index (BMI) 27.8 Intake and Output for Last 24 Hours 09/20/19 09/21/19 09/22/19 23:59 23:59 23:59 Intake Total 540 / 780 1240 / 1240 Output Total 650 / 650 2200 / 2200 400 / 400 Balance -110 / 130 -960 / -960 -380 / -380 Microbiology Past 72 Hours 09/20/19 00:05 Mucosa - Nasopharyngeal Influenza Types A,B Direct FA (HERMILO) - Final Laboratory Results 09/22/19 08:51: Blood Type A POSITIVE, Antibody Screen NEGATIVE 09/22/19 08:54: WBC 13.3 H, RBC 2.25 L, Hgb 6.7 L, Hct 21.8 L, MCV 96.9, MCH 29.8, MCHC 30.7 L, RDW Std Deviation 51.4 H, RDW Coeff of Bebeto 15.5 H, Plt Count 481 H, MPV 9.3, Immature Gran % (Auto) 1.200 H, Neut % (Auto) 72.3 H, Lymph % (Auto) 12.8 L, [place] % (Auto) 9.3, Eos % (Auto) 4.1, Baso % (Auto) 0.3, Absolute Neuts (auto) 9.6 H, Absolute Lymphs (auto) 1.70, Nucleated RBC % 0 09/22/19 08:54: Sodium 138, Potassium 3.9, Chloride 98, Carbon Dioxide 37.0 H, Anion Gap 3 L, BUN 55 H, Creatinine 1.67 H, Estim Creat Clear Calc 27.10, Est GFR (MDRD) Af Amer 38 L, Est GFR (MDRD) Non-Af 31 L, BUN/Creatinine Ratio 32.9 H, Glucose 120 H, Calcium 8.2 L 09/22/19 10:08: Specimen Type ART, Sample Site R Radial, pH 7.46 H, Bicarbonate Actual 35.4 H, POC Total CO2 37, Base Excess 12 H, O2 Saturation 92 L, ABG pCO2 49.4 H, ABG pO2 60 L, Deshaun Test POS, O2 Delivery Device Nasal Can, Liter Flow 9.0, Blood Gas Notified Whom HOSP , Blood Gas Notified Time 1000 09/22/19 11:13: PT 22.0 H, INR 1.9 09/22/19 11:13: APTT 32.3 Current Medications Acetaminophen (Tylenol) 650 mg PO Q6H PRN PRN PRN Reason: Pain Score 1-10/Temp > 100.7 F Albuterol Sulfate (Ventolin Aerosols) 2.5 mg INHALATION Q2H PRN PRN PRN Reason: SOB &/OR WHEEZING Last Admin: 09/22/19 04:05 Dose: 2.5 mg Documented by: Albuterol/Ipratropium (Duoneb) 3 ml INHALATION Q6HWA.RT [facility] Last Admin: 09/22/19 06:38 Dose: 3 ml Documented by: Ascorbic Acid (Vitamin C) 500 mg PO DAILY@0800 [facility] Last Admin: 09/22/19 08:15 Dose: Not Given Documented by: Aspirin (Aspirin, Baby) 81 mg PO DAILY@0800 [facility] Last Admin: 09/22/19 08:12 Dose: 81 mg Documented by: Atorvastatin Calcium (Lipitor) 40 mg PO QHS [facility] Last Admin: 09/21/19 22:11 Dose: 40 mg Documented by: Budesonide (Pulmicort Aerosol) 0.5 mg INHALATION Q12H.RT [facility] Last Admin: 09/22/19 06:38 Dose: 0.5 mg Documented by: Buspirone HCl (Buspar) 5 mg PO BID [facility] Last Admin: 09/21/19 22:11 Dose: 5 mg Documented by: Furosemide (Lasix) 20 mg IV Q8 [facility] Last Admin: 09/22/19 06:31 Dose: 20 mg Documented by: Glucagon () 1 mg IM .X1 PRN PRN Reason: Hypoglycemia Heparin Sodium (Porcine) (Heparin Na) 0 unit IV UD PRN; Protocol Sodium Chloride () 250 mls @ 15 mls/hr IV .[id number] PRN PRN Reason: Saline Flush Sodium Chloride () 250 mls @ 15 mls/hr IV .[id number] PRN PRN Reason: Additional IVPB Infusion Dextrose (Dextrose 10%-Water) 250 mls @ 999 mls/hr IV .Q16M PRN; Protocol PRN Reason: HYPOGLYCEMIA Heparin Sodium/Dextrose () 25,000 units in 250 mls @ 12 mls/hr IV .[id number] [facility]; Protocol Lorazepam (Ativan) 0.5 mg PO 4X/DAY PRN PRN PRN Reason: ANXIETY Last Admin: 09/22/19 08:12 Dose: 0.5 mg Documented by: Melatonin (Melatonin) 3 mg PO QHS PRN PRN PRN Reason: INSOMNIA Last Admin: 09/21/19 22:21 Dose: 3 mg Documented by: Nutritional Formula (Lactose Free) (Ensure Enlive) 120 ml PO 4X/DAY [facility] Last Admin: 09/22/19 11:30 Dose: Not Given Documented by: Ondansetron HCl (Zofran) 4 mg IV Q8H PRN PRN PRN Reason: NAUSEA/VOMITING Potassium Chloride (K-Dur) 20 meq PO BIDCM [facility] Last Admin: 09/22/19 08:15 Dose: Not Given Documented by: Sodium Chloride () 10 - 40 ml IV UD PRN PRN Reason: SALINE FLUSH Last Admin: 09/22/19 06:31 Dose: 20 ml Documented by: Medical Necessity - Tobacco Use Smoking Status: Former smoker Assessment/Plan All Active Problems (This Medical Record has been edited. Action required.) Dyspnea (Acute)
[2019-09-22] MEDS: Heparin Injection (Vial) 5,000 UNIT/ML VIAL 6000 UNIT IV (12:23)
[2019-09-22] MEDS: busPIRone 5 MG Tablet PO (12:32)
[2019-09-22] MEDS: Morphine 2 MG/ML Syringe (14:00)
--- NOTE | 2019-09-22 15:00 | NURSING ---
[facility] from Hospice speaking w/pt's son Ruddy on the phone. She indicates he has several questions. Ruddy states to this RN his mothers sharing w/him her wish to never be intubated, and her consistent refusal of treatment necessary for her to stay healthy. This RN answered questions re intubation and tx involved, what hospice has to offer for comfort as an alternative to intubation, the bodies response to difficulty breathing and the reflexes involved. much reassurance given. Ruddy indicates he wishes to cont w/Hospice and was returned to [facility].
--- NOTE | 2019-09-22 17:24 | PCM.PROGNOTE ---
Patient Problems: Active and Suspected Problems (This Medical Record has been edited. Action required.) Dyspnea (Acute) Subjective: Additional note: The previous progress note on this date was incomplete, this is the entire progress note: Patient was seen and examined today, at times patient would consent to allowing treatment or taking medications, then shortly afterwards, she would refused to participate in treatments or take medications. Blood gas earlier today shows that the patient is not confused due to her hypercapnia, I contacted her family members by phone today and had a discussion with her son, her son states that the patient has been stubborn and had an oppositional disorder all her life. He also states that the patient has been in a psychiatric hospital twice for suicide attempts in the past. Patient's son states that he is her POA, patient this afternoon stated that she would not be opposed to having hospice talk with her, her hemoglobin today was low at 6.7 and late this afternoon, nursing states that she had an emesis with blood in it. Hospice came in to see the patient this afternoon and plans were made to transfer the patient to the hospice care facility this afternoon but the patient's son changed his mind and felt that he wanted the patient admitted to [facility]. Shortly after he made this decision however, I talk with the patient's other family members who then called the patient's son again and he relented and felt that it was okay for her to go to [facility]. At this time, the plans are for the patient to be transferred to the hospice care facility this afternoon or early this evening. Patient is now a DNR comfort care. - Physical Exam Vitals/I&O's: Vital Signs Temp Pulse Resp BP Pulse Ox 98.3 F 97 44 H 118/55 L 88 09/22/19 14:00 09/22/19 14:00 09/22/19 14:00 09/22/19 14:00 09/22/19 14:00 Oxygen Flow Rate (L/min) 11 Oxygen Delivery Method Nasal Cannula Weight: 83 kg Body Mass Index (BMI) 27.8 Intake and Output for Last 24 Hours 09/20/19 09/21/19 09/22/19 23:59 23:59 23:59 Intake Total 540 / 780 1240 / 1240 120 / 120 Output Total 650 / 650 2200 / 2200 900 / 900 Balance -110 / 130 -960 / -960 -780 / -780 General: Alert, Cooperative, Well developed, - - appears to be dyspneic HEENT: Atraumatic, PERRLA, EOMI, Normocephalic Oral: Moist Mucosa Neck: Supple, No JVD, Negative Carotid Bruits, Trachea Midline, Thyroid Normal Size and Texture Lungs: Diminished, Rhonchi - Expiratory rhonchi are scattered bilaterally Cardiovascular: Regular rate, Regular Rhythm, Normal S1, Normal S2, No murmurs, PMI Normal Abdomen: Bowel Sounds Present, Soft, Non Tender, Non-Distended Extremities: No clubbing, No cyanosis, No edema, Capillary Refill Less than 3 Seconds Skin: No rashes, No breakdown Musculoskeletal: No Tenderness to Palpation of Joints or Extremities Neurological: Cranial nerves II-XII grossly intact, Neuro grossly intact, Sensory exam intact to light touch and pain Psych/Mental Status: Appropriate, Anxious - Patient appears to be anxious due to shortness of breath Microbiology Past 72 Hours 09/20/19 00:05 Mucosa - Nasopharyngeal Influenza Types A,B Direct FA (HERMILO) - Final Laboratory Results 09/22/19 08:51: Blood Type A POSITIVE, Antibody Screen NEGATIVE 09/22/19 08:54: WBC 13.3 H, RBC 2.25 L, Hgb 6.7 L, Hct 21.8 L, MCV 96.9, MCH 29.8, MCHC 30.7 L, RDW Std Deviation 51.4 H, RDW Coeff of Bebeto 15.5 H, Plt Count 481 H, MPV 9.3, Immature Gran % (Auto) 1.200 H, Neut % (Auto) 72.3 H, Lymph % (Auto) 12.8 L, [place] % (Auto) 9.3, Eos % (Auto) 4.1, Baso % (Auto) 0.3, Absolute Neuts (auto) 9.6 H, Absolute Lymphs (auto) 1.70, Nucleated RBC % 0 09/22/19 08:54: Sodium 138, Potassium 3.9, Chloride 98, Carbon Dioxide 37.0 H, Anion Gap 3 L, BUN 55 H, Creatinine 1.67 H, Estim Creat Clear Calc 27.10, Est GFR (MDRD) Af Amer 38 L, Est GFR (MDRD) Non-Af 31 L, BUN/Creatinine Ratio 32.9 H, Glucose 120 H, Calcium 8.2 L 09/22/19 10:08: Specimen Type ART, Sample Site R Radial, pH 7.46 H, Bicarbonate Actual 35.4 H, POC Total CO2 37, Base Excess 12 H, O2 Saturation 92 L, ABG pCO2 49.4 H, ABG pO2 60 L, Deshaun Test POS, O2 Delivery Device Nasal Can, Liter Flow 9.0, Blood Gas Notified Whom HOSP , Blood Gas Notified Time 1000 09/22/19 11:13: PT 22.0 H, INR 1.9 09/22/19 11:13: APTT 32.3 Current Medications Acetaminophen (Tylenol) 650 mg PO Q6H PRN PRN PRN Reason: Pain Score 1-10/Temp > 100.7 F Albuterol Sulfate (Ventolin Aerosols) 2.5 mg INHALATION Q2H PRN PRN PRN Reason: SOB &/OR WHEEZING Last Admin: 09/22/19 13:55 Dose: 2.5 mg Documented by: Albuterol/Ipratropium (Duoneb) 3 ml INHALATION Q6HWA.RT [facility] Last Admin: 09/22/19 12:58 Dose: 3 ml Documented by: Ascorbic Acid (Vitamin C) 500 mg PO DAILY@0800 [facility] Last Admin: 09/22/19 08:15 Dose: Not Given Documented by: Aspirin (Aspirin, Baby) 81 mg PO DAILY@0800 [facility] Last Admin: 09/22/19 08:12 Dose: 81 mg Documented by: Atorvastatin Calcium (Lipitor) 40 mg PO QHS [facility] Last Admin: 09/21/19 22:11 Dose: 40 mg Documented by: Budesonide (Pulmicort Aerosol) 0.5 mg INHALATION Q12H.RT [facility] Last Admin: 09/22/19 06:38 Dose: 0.5 mg Documented by: Buspirone HCl (Buspar) 5 mg PO BID [facility] Last Admin: 09/22/19 12:32 Dose: 5 mg Documented by: Furosemide (Lasix) 20 mg IV Q8 [facility] Last Admin: 09/22/19 13:59 Dose: 20 mg Documented by: Glucagon () 1 mg IM .X1 PRN PRN Reason: Hypoglycemia Heparin Sodium (Porcine) (Heparin Na) 0 unit IV UD PRN; Protocol Sodium Chloride () 250 mls @ 15 mls/hr IV .[id number] PRN PRN Reason: Saline Flush Sodium Chloride () 250 mls @ 15 mls/hr IV .[id number] PRN PRN Reason: Additional IVPB Infusion Dextrose (Dextrose 10%-Water) 250 mls @ 999 mls/hr IV .Q16M PRN; Protocol PRN Reason: HYPOGLYCEMIA Heparin Sodium/Dextrose () 25,000 units in 250 mls @ 12 mls/hr IV .[id number] [facility]; Protocol Last Admin: 09/22/19 12:32 Dose: Not Given Documented by: Lorazepam (Ativan) 0.5 mg PO 4X/DAY PRN PRN PRN Reason: ANXIETY Last Admin: 09/22/19 08:12 Dose: 0.5 mg Documented by: Melatonin (Melatonin) 3 mg PO QHS PRN PRN PRN Reason: INSOMNIA Last Admin: 09/21/19 22:21 Dose: 3 mg Documented by: Morphine Sulfate () 2 - 4 mg IV Q3H PRN PRN PRN Reason: Pain Score 1-10/10 Morphine Sulfate () 2 - 4 mg IV Q3H PRN PRN PRN Reason: PAIN SCORE 1-10/10 Nutritional Formula (Lactose Free) (Ensure Enlive) 120 ml PO 4X/DAY [facility] Last Admin: 09/22/19 13:46 Dose: Not Given Documented by: Ondansetron HCl (Zofran) 4 mg IV Q8H PRN PRN PRN Reason: NAUSEA/VOMITING Potassium Chloride (K-Dur) 20 meq PO BIDCM [facility] Last Admin: 09/22/19 08:15 Dose: Not Given Documented by: Sodium Chloride () 10 - 40 ml IV UD PRN PRN Reason: SALINE FLUSH Last Admin: 09/22/19 06:31 Dose: 20 ml Documented by: Medical Necessity - Tobacco Use Smoking Status: Former smoker Assessment/Plan All Active Problems (This Medical Record has been edited. Action required.) Dyspnea (Acute) #1 acute on chronic hypoxic respiratory failure-again, patient's family agrees with admission to the hospice care facility in [place], IV morphine will be administered for patient comfort until then #2 chronic obstructive pulmonary disease #3 recent pulmonary embolism #4 stage III chronic kidney disease #5 iron deficiency anemia-this may be secondary to upper GI bleed #6 chronic anxiety disorder #7 upper GI bleed-etiology unclear Code Visit Inpatient E&M: 52969 Subs Hosp L2
[2019-09-22] MEDS: Morphine 2 MG/ML Syringe IV (18:00)
[2019-09-22] MEDS: Acetaminophen 325 MG Tablet 650 MG PO (18:00)
--- NOTE | 2019-09-23 16:06 | PCM.DC.SUM ---
Discharge Date and Diagnosis Date of Admission: 09/20/19 Date of Discharge: 09/22/19 - Primary Discharge Diagnosis #1 acute on chronic hypoxic respiratory failure #2 chronic obstructive pulmonary disease #3 recent pulmonary embolism #4 stage III chronic kidney disease #5 Acute blood loss anemia-probably secondary to upper GI bleed #6 chronic anxiety disorder-patient refuses to take medications at times, suspect she may have other issues such as dementia #7 upper GI bleed-etiology unknown #8 chronic iron deficiency anemia - Secondary Discharge Diagnosis Chronic Problems (This Medical Record has been edited. Action required.) Respiratory failure, [id number] (Chronic) COPD exacerbation (Chronic) Stage III chronic kidney disease (Chronic) GERD (gastroesophageal reflux disease) (Chronic) Venous insufficiency (Chronic) COPD (chronic obstructive pulmonary disease) (Chronic) Obesity (BMI 30.0-34.9) (Chronic) Anxiety (Chronic) Right leg DVT (Chronic) Hospital Course and Treatment Operations: None Procedures: None Summary of Care Provided: The patient is a 79 year old F was seen in the emergency room at [facility] after being transported in from a local extended care facility at which she resides due to shortness of breath. Patient was recently diagnosed with a pulmonary embolism proximally a week prior, she was hospitalized at that time and then went to an extended care facility for short-term rehab. Work-up in the emergency room included a chest x-ray which showed a small left pleural effusion, compressive atelectasis at the left lung base but no active infiltrates. Patient's white blood cell count was normal at 11, patient's chemistry was remarkable for BUN of 42, creatinine of 1.24, and glucose of 115. Patient's hemoglobin was 9.3. Patient was admitted to PCU for exacerbation of COPD and hypoxic respiratory failure, she was given aerosol treatments, patient refused most of her medications and refused testing at times making it difficult to take care of the patient, I contacted the patient's son who was her POA, he confirmed that the patient was a DNR CC arrest without intubation. Patient's respiratory status declined and it was noted that the patient's hemoglobin had dropped to 6.7. On that date, discussions were carried out with the patient's family as well as the patient, the patient requested hospice services and the patient's family also requested hospice services. On 09/22/2019, patient was seen and examined and felt to be stable for transfer to the inpatient hospice care facility in [place]: On examination she appeared in respiratory distress, she was lethargic. Vital signs as documented. Skin warm and dry and without overt rashes. Neck without JVD. Lungs clear-breath sounds were diminished bilaterally. Heart exam notable for regular rhythm, normal sounds and absence of murmurs, rubs or gallops. Abdomen unremarkable and without evidence of organomegaly, masses, or abdominal aortic enlargement. Extremities nonedematous. Neuro: Cranial nerves II through XII are grossly intact, no focal motor deficits were noted, sensation to light touch and pinprick is intact. Psych: Patient is alert, she exhibited some mild confusion and lethargy. Prognosis was poor, patient was transferred to the inpatient hospice facility in [place] - Physical Exam Vitals/I&O's: Vital Signs Temp Pulse Resp BP Pulse Ox 98.3 F 97 44 H 118/55 L 88 09/22/19 18:09 09/22/19 18:09 09/22/19 18:09 09/22/19 18:09 09/22/19 18:09 Oxygen Flow Rate (L/min) 11 Oxygen Delivery Method Nasal Cannula Weight: 83 kg Body Mass Index (BMI) 27.8 Intake and Output for Last 24 Hours 09/21/19 09/22/19 09/23/19 23:59 23:59 23:59 Intake Total 1240 / 1240 120 / 120 Output Total 2200 / 2200 900 / 900 Balance -960 / -960 -780 / -780 Home Medications: Medications to take at Discharge albuterol sulfate 90 mcg/actuation aerosol inhaler 2 puff INHALATION Q4H PRN g 07/04/19 Ipratropium/Albuterol Sulfate [Iprat-Albut 0.5-3(2.5) mg/3 ml] 1 amp INHALATION Q4H 07/22/19 Apixaban [Eliquis] 5 mg PO BID #60 tab 09/12/19 Apixaban [Eliquis] 10 mg PO BID #14 tab 09/12/19 Acetaminophen [Tylenol Tablet] 650 mg PO Q6H PRN PRN tab 09/13/19 Aspirin [Aspirin, Baby] 81 mg PO DAILY@0800 #30 tab.chew 09/13/19 Atorvastatin Calcium [Lipitor] 40 mg PO QHS #30 tab 12/27/19 Budesonide Aerosol [Pulmicort Respules] 0.5 mg INHALATION Q12H.RT #60 ampul.neb. 09/13/19 Carvedilol [Coreg (Beta So)] 25 mg PO BID #60 tab 09/13/19 Quetiapine Fumarate [Seroquel] 25 mg PO DAILY@1999 #30 tab 09/13/19 busPIRone [Buspar] 5 mg PO BID #60 tab 09/13/19 Ascorbic Acid [Vitamin C] 500 mg PO DAILY@0800 09/20/19 Fluticasone/Vilanterol [Breo Ellipta Inhaler] 1 ea IH DAILY 09/20/19 Guaifenesin [Robitussin] 10 ml PO Q4H PRN PRN 09/20/19 Lorazepam 0.5 mg PO 4X/DAY PRN PRN 09/20/19 Melatonin 5 mg PO DAILY 09/20/19 Primary Care Physician: Hardik Soto MD [Primary Care Provider] - Disposition: Hospice Medical Facility Minutes spent on discharge:: 32 Patient Condition:: Guarded Medical Necessity - Tobacco Use Smoking Status: Former smoker Meaningful Use Info Meaningful Use Diagnoses (Choose all that apply): None applicable Code Visit Inpatient E&M: 89901 Disch Hosp
== END 2019-09-22 18:10 | disposition hospice, inpatient (51) | DRG 189 ==
LOC: ED 09-20 00:51 → PCU 09-20 03:32
PROVIDERS: Internal Medicine Critical Care Medicine; Admitting Provider Hospitalist; Emergency Provider Emergency Medicine; Family Provider Family Medicine; PCP Family Medicine; Referring Provider Hospitalist; Visit Provider Internal Medicine
DX: J96.21 Acute and chronic respiratory failure with hypoxia (principal); D62 Acute posthemorrhagic anemia; K92.2 Gastrointestinal hemorrhage, unspecified; J44.1 Chronic obstructive pulmonary disease with (acute) exacerbation; Z99.81 Dependence on supplemental oxygen; Z66 Do not resuscitate; Z51.5 Encounter for palliative care; N18.3 Chronic kidney disease, stage 3 (moderate); D50.9 Iron deficiency anemia, unspecified; F03.90 Unspecified dementia, unspecified severity, without behavioral disturbance, psychotic disturbance, mood disturbance, and anxiety; F41.9 Anxiety disorder, unspecified; Z79.01 Long term (current) use of anticoagulants; Z86.718 Personal history of other venous thrombosis and embolism; Z87.891 Personal history of nicotine dependence; Z86.711 Personal history of pulmonary embolism
CPT/HCPCS: 36415; 36600; 71045; 80048; 82607; 82728; 82746; 82803; 83540; 83550; 83735; 83880; 84484; 85025; 85610; 85730; 86850; 86900; 86901; 87804; 93005; 94002; 94003; 94640; 97802; 99285; A4216; J1940